=== PATIENT | female | born 1970 | race Caucasian/White ===

== ENCOUNTER 2020-11-17 13:16 | Emergency (ER) | payer SELFPAY ==
[2020-11-17 14:09] VITALS: BP 171/120; PULSE 90; RESP 16; TEMP 36.4; O2SAT 94; BMI 31.7
--- NOTE | 2020-11-17 15:01 | XR_ITS ---
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 Findings: There is a comminuted fracture of the distal phalanx of the right first toe. There is soft tissue swe lling present. The proximal phalanx is intact. XR/XR toe RT min 2V [id number] Impression: Comminuted fracture of the distal phalanx of the right first toe.
--- NOTE | 2020-11-17 15:02 | ED_ITS ---
HPI - Extremity Injury (Lower) General: Chief Complaint: Extremity Injury, Lower Stated Complaint: R big toe LAC Time Seen by Provider: 11/17/20 14:34 Source: patient Mode of arrival: ambulatory Limitations: no limitations History of Present Illness: HPI Narrative: Patient is a 49-year-old female who presents to ED today with complaint of a right great toe laceration that she s ustained after cutting it on a lawnmower blade. Patient states the lawnmower blade guard got hung up on something so she states she stupidly used her foot to kick it and states the blade cut through her shoe and cut her great toe. Last tetanus unknown. complaint: foot injury Onset (ago): hour(s) Injury: Right: toes Type of Injury: laceration Place: home Severity: moderate Relieving factors: nothing Exacerbating factors: nothing Context: direct blow (laceration) Associated symptoms: Reports no associated symptoms Other symptoms: none Review of Systems Musc: Reports: extremity pain (R great toe ) Skin/Breast: Reports: other (R great toe laceration) Neuro: Denies: numbness in extremities or sensory changes Physical Exam Const: COMMON NORMALS: no acute distress, patient oriented x3, no limitations, healthy appearing, alert and well nourished Extremity: GENERAL: Yes normal exam except as noted OTHER: laceration to lateral distal aspect of R great toe; laceration extends into nail bed/plate- nail fold is normal/intact; no bleeding currently Neuro: COMMON NORMALS: patient oriented x3, moves all extremities, no focal motor deficits and no sensory deficits noted SENSORIUM/ORIENTATION: Yes alert Skin: NARRATIVE SKIN EXAM: see extremity assessment for pertinent skin findings Procedures Laceration Laceration 1: Site: lower extremity (foot) Side (If applicable): right (great toe) Size (cm): 1.0 Description: irregular (distal nail bed) Depth: simple, single layer Local Anesthetic: lidocaine 2% Amount of anesthesia used (mL): 6.0 Pre-repair: wound explored and irrigated extensively Skin layer closed with: nylon Size (cm): 4-0 Number of sutures: 3 Technique: simple, interrupted Course Consultations: Consultation #1: Dr. England-recommends nail removal either full or partial depending on clinical exam and repairing nail bed; nothing surgical at this time; will follow up in office Vital Signs: Vital signs: Vital Signs Temperature 97.5 F L 11/17/20 14:09 Pulse Rate 86 11/17/20 15:19 Respiratory Rate 18 11/17/20 15:19 Blood Pressure 168/117 11/17/20 15:19 Pulse Oximetry 95 11/17/20 15:19 MDM - Extremity Injury (Lower) MDM Narrative: Medical decision making narrative: Foot was soaked in Betadine and wound was copiously irrigated. Nail had a large subungual hematoma and essentially had avulsed itself and was easily removed. Distal nailbed was lacerated and repaired as documented. Tetanus updated. She was given IM Ancef here and will be placed on Keflex. Will place in hard soled surgical shoe. She will follow up with orthopedics. Imaging Data^: XR R great toe: Radiologist's impression: [id number] 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 Findings: There is a comminuted fracture of the distal phalanx of the right first toe. There is soft tissue swelling present. The proximal phalanx is intact. XR/XR toe RT min 2V 74559 Impression: Comminuted fracture of the distal phalanx of the right first toe. Dictated By: Megan Isaac MD Signed By: Megan Isaac MD Signed Date/Time: 11/17/201518 DD/ 17 Discharge Plan Discharge Patient Disposition: Home Clinical Impression: Open fracture of great toe of right foot Qualifiers: Encounter type: initial encounter Phalanx: distal Fracture alignment: displaced Qualified Code(s): S92.421B - Displaced fracture of distal phalanx of right great toe, initial encounter for open fracture Condition: Stable Prescriptions: New cephalexin 500 mg capsule 500 mg PO Q6H 7 Days Qty: 28 RF: 0 hydrocodone-acetaminophen 5-325 mg tablet 1 tab PO Q6H PRN (Reason: pain) Qty: 20 RF: 0 Discharge Orders: Discharge ED (Routine); Ordered 11/17/20 Ordered By: Cindy Chase Patient Instructions: Opioid Safety Activity Restrictions/Additional Instructions: [address] [employer] is committed to fighting the nationwide opiate epidemic. We are providing ALL patients with information regarding opiate safety. If you received opiate pain medication during your stay or if you received a prescription for opiate pain medication-please review this handout. If not, you may disregard. Thank you. As discussed you may soak your foot in warm soapy water twice daily for 20 minutes. Keep nailbed covered with petroleum gauze given to you today and wrapped. Case management should contact you shortly to set you up with your orthopedic follow-up appointment. Continue wearing your hard soled shoe so your fracture may heal appropriately. Begin your antibiotics immediately. You need to return to the emergency department for uncontrollable pain, redness to the toe, foot, or redness streaking up your leg, purulent drainage, fevers, or any other concerns you may have. Coding Level of Care Code ED Linotyper for Bobby Fishman Exam Expanded Problem Focused
[2020-11-17 15:19] VITALS: BP 168/117; PULSE 86; RESP 18; O2SAT 95
[2020-11-17] MEDS: tetanus-diphtheria tox (adult) 0.5 mL SDV IM (15:32)
[2020-11-17] MEDS: ceFAZolin 1,000 mg SDV 1000 MG IM (15:46)
[2020-11-17] MEDS: lidocaine 2% INJ 20 mL INJECTION (15:46)
--- NOTE | 2020-11-18 10:29 | DCPLANNER ---
manager equipment had message to schedule a follow up appointment for patient with ortho for a great toe fracture. manager equipment called the ortho clinic, spoke with Ching, gave clinic patients information. manager equipment was told that patients information would be printed and reviewed. Clinic will call patient with appointment information.
--- NOTE | 2020-12-05 07:42 | DCPLANNER ---
Patient has a follow up appointment scheduled for Saturday, December 05, 2020 at 2:[address] England at ortho. Clinic will call patient with appointment information.
--- NOTE | 2020-12-22 07:55 | DCPLANNER ---
Patient had a follow up appointment scheduled for 12.05.20 with ortho - patient did attend appointment.
== END 2020-11-17 16:59 | disposition home or self-care (01) ==
PROVIDERS: Emergency Provider Physician Assistant; PCP Specialist
DX: S92.421B Displaced fracture of distal phalanx of right great toe, initial encounter for open fracture (principal); W31.89XA Contact with other specified machinery, initial encounter; Z23 Encounter for immunization
CPT/HCPCS: 11760; 73660; 90471; 90714; 96372; 99283; A6446; J0690

== ENCOUNTER → 2020-12-05 14:40 | Outpatient (BNVA) | payer SELFPAY | PROVIDERS: PCP Specialist; Referring Provider Physician Assistant; Visit Provider Specialist | DX: S92.421B Displaced fracture of distal phalanx of right great toe, initial encounter for open fracture (principal); W31.89XA Contact with other specified machinery, initial encounter | CPT/HCPCS: 73660 ==

== ENCOUNTER 2022-04-20 13:12 | Emergency (ER) | payer SELFPAY ==
[2022-04-20 13:38] VITALS: BP 157/112; PULSE 92; RESP 16; TEMP 36.8; O2SAT 95
[2022-04-20 14:23] LABS: Basophils % 0.3 %; Hematocrit 45.1 % (37.0-47.0); Hemoglobin 14.5 g/dL (11.5-15.3); Lymphocytes % 30.6 %; Mean Corpuscular HGB Conc 32.2 g/dL (30.0-36.0); Mean Corpuscular Hemoglobin 31.9 pg (28.0-34.0); Mean Corpuscular Volume 99.1 fl (81-99); Mean Platelet Volume 9.2 fL (7.4-10.4); Monocytes # 0.3 10^3/uL (0.2-0.9); Monocytes % 8.6 %; Neutrophils # 1.88 10^3/uL (1.8-7.7); Neutrophils % 59.9 %; Nucleated Red Blood Cells % 0 %; Platelet Count 131 10^3/cmm (130-400); Red Blood Count 4.55 10^6/uL (4.1-5.3); Red Cell Distribution Width 13.2 % (12.1-15.1); White Blood Count 3.1 10^3/uL (4.0-10.0)
[2022-04-20 14:38] LABS: Alanine Aminotransferase 160 U/L (0-33); Albumin Level 3.5 g/dL (3.5-5.2); Alkaline Phosphatase 47 U/L (35-105); Anion Gap 13.8 (5-19); Aspartate Amino Transferase 132 U/L (0-32); Blood Urea Nitrogen 9 mg/dL (6-20); Calcium 8.1 mg/dL (8.5-10.5); Carbon Dioxide 31 mmol/L (22-29); Chloride 100 mmol/L (98-107); Globulin 2.5 g/dL (1.3-4.6); Glomerular Filtration Rate 105.8 mL/min (90-130); Glucose 85 mg/dL (65-115); Osmolality Calculated 292 mOsm/kg (285-295); Sodium 142 mmol/L (136-145); Total Bilirubin 0.9 mg/dL (0.15-1.2)
[2022-04-20 14:39] LABS: Lactic Sepsis W/Reflex 1.3 mmol/L (0.5-2.2)
[2022-04-20 14:42] LABS: Potassium 2.8 mmol/L (3.5-5.1); Slide Review Slide Review Perform
--- NOTE | 2022-04-20 15:09 | ED_ITS ---
HPI - Nausea/Vomiting/Diarrhea General: Chief complaint: Nausea/Vomiting/Diarrhea Stated complaint: Nausea/Vomiting Time Seen by Provider: 04/20/22 15:09 Source: patient Mode of arrival: ambulatory History of Present Illness: 51-year-old female presents to the emergency room with complaint of nausea vomiting abdominal pain for the last week. She has epigastric discomfort radiating laterally. No dysuria urgency or frequency no hematuria. He is reporting small amounts of bright red blood and dark stools. Its been going on for couple of weeks she has not come in to be seen because she had a dog that she needed to take care of and just recently found someone to watch it. MD elicited complaint: nausea and vomiting Onset (ago): week(s) (2) Description of vomiting: bloody Description of diarrhea: black tarry Associated nausea: Yes Associated abdominal pain: No Location of pain: Epigastric Radiation: diffuse Pain consistency: constant Severity: mild Quality: cramping Exacerbating factors: none Relieving factors: none Associated symtoms: Reports nausea; Denies altered mental status, anxiety, bloating, change in vision, chest pain, cough, diaphoresis, decreased urine output, dizziness, dysuria, epistaxis, fatigue, fecal incontinence, fevers/chills, headache(s), anorexia, malaise, myalgias, numbness, palpitations, rash, short of breath, syncope, tenesmus, tinnitus or weakness Review of Systems Const: Denies: fever(s), chills, fatigue, malaise or diaphoresis Eyes: Denies: change in vision ENMT: Denies: tinnitus or epistaxis Card: Denies: chest pain, palpitations or syncope Resp: Denies: dyspnea, productive cough or non-productive cough GI: Reports: abdominal pain, nausea and vomiting; Denies: diarrhea, constipation, bloating or fecal incontinence : Denies: difficulty voiding, dysuria, urinary frequency or urinary urgency Skin/Breast: Denies: rash or pruritus Neuro: Denies: headache(s) or dizziness Psych: Denies: anxiety PFSH ED PFSH: Social History (Updated 04/20/22 @ 16:20 by Harpreet Garcia DO) Smoking and tobacco status: current every day smoker Alcohol intake: never Physical Exam Const: EXAM LIMITATIONS: no altered mental status 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 ORIENTATION/CONSCIOUSNESS: Yes awake, Yes oriented to person, Yes oriented to place and Yes oriented to time HENMT: COMMON NORMALS: normocephalic, atraumatic and hearing grossly normal bilaterally HEAD & SCALP: normocephalic and atraumatic Resp: COMMON NORMALS: normal respiratory effort, No retractions, No use of accessory muscles and clear to auscultation bilaterally AUSCULTATION: clear to auscultation bilaterally Cardio: COMMON NORMALS: regular rate, regular rhythm and No murmurs present (Cardio) RATE: regular rate RHYTHM: regular rhythm GI: COMMON NORMALS: Soft to palpation and No hepatosplenomegaly present AUSCULTATION: Yes normoactive bowel sounds PALPATION: Yes Soft to palpation, No Tenderness to palpation present (GI), No Guarding due to palpation present (GI) and Yes No hepatosplenomegaly present Extremity: COMMON NORMALS: normal to inspection, capillary refill normal, no clubbing, cyanosis or edema, no calf tenderness and no pedal edema Neuro: SENSORIUM/ORIENTATION: Yes oriented to person, Yes oriented to place and Yes oriented to time Skin: COMMON NORMALS: no rashes or lesions noted GENERAL SKIN EXAM: no rashes or lesions noted Course Vital Signs: Vital signs: Vital Signs Temperature 98.2 F 04/20/22 13:38 Pulse Rate 91 04/20/22 16:36 Respiratory Rate 18 04/20/22 16:36 Blood Pressure 138/101 04/20/22 16:36 Pulse Oximetry 93 04/20/22 16:36 Oxygen Delivery Me thod 04/20/22 15:21 MDM - Nausea/Vomiting/Diarrhea Medical Decision Making Labs and imaging reviewed. We will discharge patient home with ondansetron and started on pantoprazole. Follow-up with general surgery through case management for possible EGD. Medical Records I reviewed the patient's medical records. Lab Data I reviewed the patient's lab results. 04/20/22 14:07 04/20/22 14:07 Laboratory Results WBC 3.1 10^3/uL (4.0-10.0) L 04/20/22 14:07 RBC 4.55 10^6/uL (4.1-5.3) 04/20/22 14:07 Hgb 14.5 g/dL (11.5-15.3) 04/20/22 14:07 Hct 45.1 % (37.0-47.0) 04/20/22 14:07 MCV 99.1 fl (81-99) H 04/20/22 14:07 MCH 31.9 pg (28.0-34.0) 04/20/22 14:07 MCHC 32.2 g/dL (30.0-36.0) 04/20/22 14:07 RDW 13.2 % (12.1-15.1) 04/20/22 14:07 Plt Count 131 10^3/cmm (130-400) 04/20/22 14:07 MPV 9.2 fL (7.4-10.4) 04/20/22 14:07 Neut % (Auto) 59.9 % 04/20/22 14:07 Lymph % (Auto) 30.6 % 04/20/22 14:07 Crisp % (Auto) 8.6 % 04/20/22 14:07 Eos % (Auto) 0.0 % 04/20/22 14:07 Baso % (Auto) 0.3 % 04/20/22 14:07 Neut # (Auto) 1.88 10^3/uL (1.8-7.7) 04/20/22 14:07 Lymph # (Auto) 1.0 10^3/uL (0.8-4.8) 04/20/22 14:07 Crisp # (Auto) 0.3 10^3/uL (0.2-0.9) 04/20/22 14:07 Eos # (Auto) 0.0 10^3/uL (0.0-0.8) 04/20/22 14:07 Baso # (Auto) 0.0 10^3/uL (0.0-0.1) 04/20/22 14:07 Nucleated RBC % (auto) 0 % 04/20/22 14:07 Nucleated RBCs # 0.0 /100WBC 04/20/22 14:07 Sodium 142 mmol/L (136-145) 04/20/22 14:07 Potassium 2.8 mmol/L (3.5-5.1) L* 04/20/22 14:07 Chloride 100 mmol/L (98-107) 04/20/22 14:07 Carbon Dioxide 31 mmol/L (22-29) H 04/20/22 14:07 Anion Gap 13.8 (5-19) 04/20/22 14:07 BUN 9 mg/dL (6-20) 04/20/22 14:07 Creatinine 0.6 mg/dL (0.5-0.9) 04/20/22 14:07 GFR Calculation 105.8 mL/min (90-130) 04/20/22 14:07 Glucose 85 mg/dL (65-115) 04/20/22 14:07 Calculated Osmolality 292 mOsm/kg (285-295) 04/20/22 14:07 Lactic Acid 1.3 mmol/L (0.5-2.2) 04/20/22 14:07 Calcium 8.1 mg/dL (8.5-10.5) L 04/20/22 14:07 Total Bilirubin 0.9 mg/dL (0.15-1.2) 04/20/22 14:07 AST 132 U/L (0-32) H 04/20/22 14:07 ALT 160 U/L (0-33) H 04/20/22 14:07 Alkaline Phosphatase 47 U/L (35-105) 04/20/22 14:07 Total Protein 6.0 g/dL (6.6-8.7) L 04/20/22 14:07 Albumin 3.5 g/dL (3.5-5.2) 04/20/22 14:07 Globulin 2.5 g/dL (1.3-4.6) 04/20/22 14:07 Urine Color Yellow (Yellow) 04/20/22 15:58 Urine Appearance Hazy (CLEAR) A 04/20/22 15:58 Urine pH 7 (5-7) 04/20/22 15:58 Ur Specific Fenton 1.015 (1.005-1.030) 04/20/22 15:58 Urine Protein 3+ (Negative) H 04/20/22 15:58 Urine Glucose (UA) Norm (Normal) 04/20/22 15:58 Urine Ketones 1+ (Negative) H 04/20/22 15:58 Urine Blood 2+ (Negative) H 04/20/22 15:58 Urine Nitrate Negative (Negative) 04/20/22 15:58 Urine Bilirubin 1+ (Negative) H 04/20/22 15:58 Urine Urobilinogen 4+ mg/dL (Negative) H 04/20/22 15:58 Ur Leukocyte Esterase Negative (Negative) 04/20/22 15:58 Urine RBC 5-10 /hpf (0-2) H 04/20/22 15:58 Urine WBC 5-10 /hpf (0-5) H 04/20/22 15:58 Ur Squamous Epith Cells 25-40 /hpf (0-5) H 04/20/22 15:58 Amorphous Sediment Not Reportable 04/20/22 15:58 Urine Bacteria Trace /hpf (NONE) 04/20/22 15:58 Discharge Plan Discharge Patient Disposition: Home Clinical Impression: Nausea and vomiting Condition: Stable Prescriptions: New ondansetron HCl 4 mg tablet 4 mg PO Q6H PRN (Reason: nausea and vomiting) Qty: 20 0RF Protonix 40 mg tablet,delayed release (DR/EC) 40 mg PO BID 14 Days Qty: 28 0RF No Action hydrocodone-acetaminophen 5-325 mg tablet 1 tab PO Q6H PRN (Reason: pain) Qty: 20 0RF Discharge Orders: Discharge ED (Routine); Ordered 04/20/22 Ordered By: Harpreet Garcia Referrals: Sonam Vigil MD [Primary Care Provider] - Discharge Diet: Clear Liquid Discharge Activity: Increase activity as tolerated Patient Instructions: Opioid Safety, Pain Management Activity Restrictions/Additional Instructions: You are seen today with complaints of passing blood in the stool and vomiting blood. You reported that this is going on for several weeks your hemoglobin is stable and there is no sign of active bleeding in your stomach on your lab work. He be discharged home with ondansetron to use as needed and started on pantoprazole 1 twice daily. Case management make arrangements for you to follow-up with general surgery for possible EGD and colonoscopy. Coding Level of Care Code ED Small Business Consultant for Chg Fwd Exam Detailed
[2022-04-20] MEDS: potassium chloride oral liq 20 mEq/15 mL UDC 40 MEQ PO (15:14)
[2022-04-20 15:21] VITALS: BP 148/107; PULSE 90; RESP 18; O2SAT 93
[2022-04-20] MEDS: sodium chloride 0.9% 1,000 ML 999 ML IV (15:23)
[2022-04-20 15:30] VITALS: BP 136/104; PULSE 89; RESP 18; O2SAT 94
[2022-04-20 16:36] VITALS: BP 138/101; PULSE 91; RESP 18; O2SAT 93
[2022-04-20 16:41] LABS: Add Urine Microscopic? YES; Bilirubin Urine 1+ (Negative); Blood Urine 2+ (Negative); Glucose Urine UA Norm (Normal); Ketones Urine 1+ (Negative); Leukocyte Esterase Urine Negative (Negative); Nitrate Urine Negative (Negative); Protein Urine 3+ (Negative); Specific Gravity, Urine 1.015 (1.005-1.030); Urine Appearance Hazy (CLEAR); Urine Color Yellow (Yellow); Urobilinogen Urine 4+ mg/dL (Negative); pH Urine 7 (5-7)
[2022-04-20 16:48] LABS: Bacteria Urine TRACE /hpf; Squamous Epithelial Cell Urine 25-40 /hpf (0-5)
[2022-04-20 16:49] LABS: Add Urine Culture? No
--- NOTE | 2022-04-23 12:57 | DCPLANNER ---
Addendum entered by Rakel Cochran 05/04/22 15:36: senior assistant manager received the following message from the general surgery clinic regarding follow up appointment: Unable to reach patient for the 3rd time. we will mail patient a letter to gain contact and we will mail FA paperwork On 04/26/22 @ 11:07 Saba Nicholas Wrote To [employer] Front [facility] 04/26 On 04/24/22 @ 10:39 Saba Nicholas Wrote To [employer] Front [facility] 04/24 Original Note: senior assistant manager had message to schedule a follow up appointment for patient with general surgery. senior assistant manager sent patients information to the front office staff at general surgery. Patients information will be printed and reviewed. Clinic will call patient with appointment information.
== END 2022-04-20 16:42 | disposition home or self-care (01) ==
PROVIDERS: Physician Assistant; Emergency Provider Family Medicine; PCP Specialist
DX: R11.2 Nausea with vomiting, unspecified (principal); F17.210 Nicotine dependence, cigarettes, uncomplicated
CPT/HCPCS: 80053; 81001; 83605; 85025; 96360; 99284; J7030

== ENCOUNTER 2022-05-12 11:01 | Inpatient (IN) | payer SELFPAY ==
[2022-05-12] VITALS (10 sets, daily range): BP systolic 140–174; BP diastolic 98–123; PULSE 97–123; RESP 16–24; TEMP 36.5–36.7; O2SAT 94–97; BMI 30.9
--- NOTE | 2022-05-12 11:33 | ED_ITS ---
HPI - Nausea/Vomiting/Diarrhea General: Chief complaint: Nausea/Vomiting/Diarrhea Stated complaint: bruising/bleeding issues Time Seen by Provider: 05/12/22 11:33 History of Present Illness: Ms. Molina is a 51-year-old lady presenting to the emergency department due to continued abdominal symptoms. Onset of symptoms was approximately 2 and half weeks ago without known specific provoking factor. She notes blood in her vomit, occasional coughing up blood clots, and dark stools with occasional blood. Associated abdominal pain and generalized malaise. Was seen in the emergency department and started with antiemetics and PPI however has continued to worsen. Notes generalized abdominal bloating and atraumatic bruising of the breast. Intensity symptoms is moderate to severe. Course has worsened. Denies alcohol abuse or known liver cirrhosis, also denies frequent acetaminophen use. No other specific changes in health, exacerbating, or alleviating factors identified. Onset (ago): week(s) Description of vomiting: blood-streaked Associated nausea: Yes Associated abdominal pain: Yes Location of pain: Diffuse Pain consistency: constant Severity: moderate Quality: aching and other Associated symtoms: Reports chest pain, malaise, nausea, weakness and other Review of Systems General: Reports: 10 or more systems reviewed and unremarkable except in HPI and below Const: Reports: malaise Card: Reports: chest pain GI: Reports: nausea [facility] ED PFSH: Medical History Acute exacerbation of CHF (congestive heart failure) EF 23%, grade 2 diastolic dysfunction, moderate MR, severe TR, moderate NE, b iatrial enlargement, moderate pulmonary hypertension Moderate mitral valve regurgitation Moderate pulmonary hypertension Moderate pulmonary valve regurgitation Open fracture of great toe of right foot Right ventricular failure Severe tricuspid valve regurgitation Social History Smoking and tobacco status: current every day smoker Alcohol intake: never Physical Exam Const: COMMON NORMALS: alert GENERAL APPEARANCE: cooperative and well developed HENMT: COMMON NORMALS: normocephalic and atraumatic HEAD & SCALP: normocephalic and atraumatic Eye: COMMON NORMALS: conjunctivae normal CONJUNCTIVA: Yes conjunctivae normal SCLERA: sclerae normal Neck/C-Spine: COMMON NORMALS: supple GENERAL: Yes trachea midline Chest: OTHER: Small area of ecchymosis on the right breast Resp: COMMON NORMALS: normal respiratory effort and clear to auscultation bilaterally EFFORT & INSPECTION: Yes able to speak in complete sentences AUSCULTATION: clear to auscultation bilaterally Cardio: COMMON NORMALS: regular rate RATE: regular rate GI: COMMON NORMALS: Soft to palpation PALPATION: Yes Soft to palpation, Yes Tenderness to palpation present (GI), No Guarding due to palpation present (GI) and No Rigid due to palpation Extremity: GENERAL: Yes normal exam except as noted and Yes edema (2+) Neuro: COMMON NORMALS: moves all extremities SENSORIUM/ORIENTATION: Yes alert and No Orientation impaired Psych: COMMON NORMALS: mental status grossly normal and Normal thought process present THOUGHT PROCESS: Normal thought process present Course Vital Signs: Vital signs: Vital Signs Temperature 98.4 F 05/15/22 19:47 Pulse Rate 74 05/16/22 05:33 Respiratory Rate 16 05/16/22 03:33 Blood Pressure 140/84 05/16/22 03:33 Pulse Oximetry 95 05/16/22 03:33 Oxygen Delivery Me thod 05/15/22 19:47 Oxygen Flow Rate 2 05/15/22 19:47 MDM - Nausea/Vomiting/Diarrhea Medical Decision Making 51-year-old lady presenting to the emergency department with generalized illness including concern for possible GI bleed and bruising. Exam as above. EKG notable for sinus rhythm with first-degree AV block and interventricular conduction delay, no STEMI. Labs notable for normal hemoglobin, no leukocytosis. INR is mildly elevated. Metabolic panel with mild hypokalemia. 2-hour delta troponin is negative. BNP is elevated. Urinalysis not concerning for urinary tract infection given squamous epithelial contamination. D-dimer elevated (obtained as patient cannot be ruled out by PERC criteria) CT a of the chest is limited however no large pulmonary embolism, there is significant evidence of right-sided heart failure which also has findings in the abdomen. During ED course patient given analgesia, potassium replenishment, Lasix, pantoprazole, small fluid bolus given tachycardia. Only modest improvement in symptoms. Most likely etiology of patient's symptoms heart failure exacerbation with evidence of volume overload and likely congestive abdominal symptoms secondary to venous reflux. The results of ED evaluation were discussed with the patient including plan for admission due to requirement for level of care not available if discharged to prevent significant worsening/deterioration. Patient agreeable with plan. Discussed with hospitalist service who was agreeable to admit patient. Medical Records I reviewed the patient's medical records. Lab Data I reviewed the patient's lab results. 05/16/22 02:18 05/16/22 02:18 Radiology Impressions Chest/Abdomen/Pelvis CT 05/12/22 12:46 IMPRESSION: 1. Technically limited but negative CT angiogram of the chest. No evidence of acute pulmonary embolism to major branches of the pulmonary vascular tree. 2. Marked cardiomegaly with evidence of right-sided cardiac decompensation. 3. Scattered minor atelectatic changes with additional findings suggestive of reactive airway disease/air trapping IMPRESSION: 1. Mild ascites, generalized anasarca and mild retroperitoneal edema likely secondary to CHF/volume overload. 2. Mild gallbladder wall thickening/edema also likely to similar systemic factors. 3. Fatty infiltration of liver. Venous Duplex 05/12/22 17:37 IMPRESSION: No evidence of deep vein thrombosis. Laboratory Results WBC 5.7 10^3/uL (4.0-10.0) 05/13/22 04:58 RBC 3.99 10^6/uL (4.1-5.3) L 05/13/22 04:58 Hgb 12.7 g/dL (11.5-15.3) 05/13/22 04:58 Hct 41.2 % (37.0-47.0) 05/13/22 04:58 MCV 103.3 fl (81-99) H 05/13/22 04:58 MCH 31.8 pg (28.0-34.0) 05/13/22 04:58 MCHC 30.8 g/dL (30.0-36.0) 05/13/22 04:58 RDW 14.6 % (12.1-15.1) 05/13/22 04:58 Plt Count 222 10^3/cmm (130-400) 05/13/22 04:58 MPV 8.7 fL (7.4-10.4) 05/13/22 04:58 Neut % (Auto) 67.7 % 05/13/22 04:58 Lymph % (Auto) 20.7 % 05/13/22 04:58 [place] % (Auto) 10.0 % 05/13/22 04:58 Eos % (Auto) 0.5 % 05/13/22 04:58 Baso % (Auto) 0.9 % 05/13/22 04:58 Neut # (Auto) 3.87 10^3/uL (1.8-7.7) 05/13/22 04:58 Lymph # (Auto) 1.2 10^3/uL (0.8-4.8) 05/13/22 04:58 [place] # (Auto) 0.6 10^3/uL (0.2-0.9) 05/13/22 04:58 Eos # (Auto) 0.0 10^3/uL (0.0-0.8) 05/13/22 04:58 Baso # (Auto) 0.1 10^3/uL (0.0-0.1) 05/13/22 04:58 Nucleated RBC % (auto) 0 % 05/13/22 04:58 Nucleated RBCs # 0.0 /100WBC 05/13/22 04:58 PT 17.00 SECONDS (12.1-14.9) H 05/12/22 11:45 INR 1.35 (0.8-1.2) H 05/12/22 11:45 APTT 24.8 SECONDS (23.9-36.7) 05/12/22 11:45 D-Dimer 5.18 ug/mIFEU (0-0.59) H 05/12/22 11:45 Sodium 142 mmol/L (136-145) 05/14/22 04:35 Potassium 4.2 mmol/L (3.5-5.1) 05/14/22 04:35 Chloride 107 mmol/L (98-107) 05/14/22 04:35 Carbon Dioxide 24 mmol/L (22-29) 05/14/22 04:35 Anion Gap 15.2 (5-19) 05/14/22 04:35 BUN 25 mg/dL (6-20) H 05/14/22 04:35 Creatinine 1.1 mg/dL (0.5-0.9) H 05/14/22 04:35 GFR Calculation 52.6 mL/min (90-130) L 05/14/22 04:35 Glucose 105 mg/dL (65-115) 05/14/22 04:35 Estimat Average Glucose 114 05/13/22 04:58 Hemoglobin A1c 5.6 % (4.0-6.0) 05/13/22 04:58 Calculated Osmolality 299 mOsm/kg (285-295) H 05/14/22 04:35 Calcium 8.7 mg/dL (8.5-10.5) 05/14/22 04:35 Phosphorus 4.2 mg/dL (2.5-4.5) 05/13/22 04:58 Magnesium 1.8 mg/dL (1.7-2.3) 05/13/22 04:58 Iron 66 ug/dL (37-145) 05/12/22 18:40 TIBC 309 mcg/dl 05/12/22 18:40 % Saturation 21.3 % (20-50) 05/12/22 18:40 Unsat Iron Binding 243 ug/dL (112-347) 05/12/22 18:40 Total Bilirubin 0.7 mg/dL (0.15-1.2) 05/14/22 04:35 AST 26 U/L (0-32) 05/14/22 04:35 ALT 21 U/L (0-33) 05/14/22 04:35 Alkaline Phosphatase 49 U/L (35-105) 05/14/22 04:35 Troponin T Baseline 50 ng/L (0-10) H 05/12/22 11:45 Troponin T 120 Minute 51.95 ng/L (0-10) H 05/12/22 14:55 Delta Troponin T 1.95 ABS# (0-10) 05/12/22 14:55 Troponin T Hi Sens 6Hr 57.51 ng/L (0-10) H 05/12/22 18:40 Troponin T Hi Sens 6Hr Delta 7.51 ng/L (0-12) 05/12/22 18:40 NT-Pro-B Natriuret Pep 20477 pg/mL (0-125) H 05/12/22 11:45 Total Protein 5.9 g/dL (6.6-8.7) L 05/14/22 04:35 Albumin 3.5 g/dL (3.5-5.2) 05/14/22 04:35 Globulin 2.4 g/dL (1.3-4.6) 05/14/22 04:35 Triglycerides 100 mg/dL (0-150) 05/13/22 04:58 Cholesterol 162 mg/dL (0-200) 05/13/22 04:58 LDL Cholesterol, Calc 102 mg/dL (50-129) 05/13/22 04:58 Total VLDL Cholesterol 20 mg/dL (0-30) 05/13/22 04:58 HDL Cholesterol 40 mg/dL (60-100) L 05/13/22 04:58 Cholesterol/HDL Ratio 4.05 mg/dL (0.0-4.40) 05/13/22 04:58 Lipase 38 U/L (13-60) 05/12/22 11:45 Vitamin B12 724 pg/mL (232-1245) 05/12/22 18:40 Folate 19.6 ng/mL (4.8-37.3) 05/12/22 18:40 Procalcitonin 0.04 ng/mL (0-0.5) 05/12/22 18:40 TSH 2.29 uIU/mL (0.27-4.20) 05/12/22 11:45 Urine Color Dark yellow (Yellow) 05/12/22 11:50 Urine Appearance Clear (CLEAR) 05/12/22 11:50 Urine pH 5 (5-7) 05/12/22 11:50 Ur Specific [place] 1.020 (1.005-1.030) 05/12/22 11:50 Urine Protein 3+ (Negative) H 05/12/22 11:50 Urine Glucose (UA) Norm (Normal) 05/12/22 11:50 Urine Ketones 1+ (Negative) H 05/12/22 11:50 Urine Blood 2+ (Negative) H 05/12/22 11:50 Urine Nitrate Negative (Negative) 05/12/22 11:50 Urine Bilirubin 1+ (Negative) H 05/12/22 11:50 Urine Urobilinogen 8 mg/dL (Negative) H 05/12/22 11:50 Ur Leukocyte Esterase Negative (Negative) 05/12/22 11:50 Urine RBC 0-4 /hpf (0-2) H 05/12/22 11:50 Urine WBC Rare /hpf (0-5) 05/12/22 11:50 Ur Squamous Epith Cells 10-15 /hpf (0-5) H 05/12/22 11:50 Amorphous Sediment Not Reportable 05/12/22 11:50 Urine Bacteria 1+ /hpf (NONE) H 05/12/22 11:50 Urine Mucus Trace /hpf 05/12/22 11:50 Salicylates < 0.3 mg/dL (3-10) L 05/12/22 11:45 Urine Opiates Screen Negative ng/mL (Negative) 05/12/22 11:50 Acetaminophen < 5.0 ug/mL (10-30) L 05/12/22 11:45 Ur Barbiturates Screen Negative ng/mL (Negative) 05/12/22 11:50 Ur Phencyclidine Scrn Negative ng/mL (Negative) 05/12/22 11:50 Ur Amphetamines Screen Negative ng/mL (Negative) 05/12/22 11:50 U Benzodiazepines Scrn Negative ng/mL (Negative) 05/12/22 11:50 Urine Cocaine Screen Negative ng/mL (Negative) 05/12/22 11:50 U Marijuana (THC) Screen Negative ng/mL (Negative) 05/12/22 11:50 Ethyl Alcohol < 10 mg/dL (0-10) 05/12/22 11:45 Discharge Plan Discharge Patient Disposition: Admitted As Inpatient Admit Provider: Alber Floyd Clinical Impression: Acute exacerbation of CHF (congestive heart failure) Condition: Stable Coding Level of Care Code ED Deputy Attorney General for Chg Fwd Exam Comprehensive
[2022-05-12 11:53] LABS: Basophils % 0.7 %; Eosinophils % 0.7 %; Hematocrit 43.2 % (37.0-47.0); Hemoglobin 13.7 g/dL (11.5-15.3); Lymphocytes # 1.1 10^3/uL (0.8-4.8); Lymphocytes % 18.5 %; Mean Corpuscular HGB Conc 31.7 g/dL (30.0-36.0); Mean Corpuscular Hemoglobin 32.2 pg (28.0-34.0); Mean Corpuscular Volume 101.6 fl (81-99); Mean Platelet Volume 8.4 fL (7.4-10.4); Monocytes # 0.5 10^3/uL (0.2-0.9); Monocytes % 8.5 %; Neutrophils # 4.39 10^3/uL (1.8-7.7); Neutrophils % 71.3 %; Nucleated Red Blood Cells % 0 %; Platelet Count 218 10^3/cmm (130-400); Red Blood Count 4.25 10^6/uL (4.1-5.3); Red Cell Distribution Width 14.3 % (12.1-15.1); White Blood Count 6.2 10^3/uL (4.0-10.0)
[2022-05-12] MEDS: sodium chloride 0.9% 500 ML 999 ML IV (12:04)
[2022-05-12] MEDS: pantoprazole 40 mg SDV 80 MG IVP (12:22)
[2022-05-12 12:28] LABS: Urine Appearance Clear (CLEAR); Urine Color Dark Yellow (Yellow); pH Urine 5 (5-7)
[2022-05-12 12:29] LABS: Add Urine Culture? No; Add Urine Microscopic? YES; Bacteria Urine 1+ /hpf; Bilirubin Urine 1+ (Negative); Blood Urine 2+ (Negative); Glucose Urine UA Norm (Normal); Ketones Urine 1+ (Negative); Leukocyte Esterase Urine Negative (Negative); Mucus Urine TRACE /hpf; Nitrate Urine Negative (Negative); Protein Urine 3+ (Negative); RBC Urine 0-4 /hpf (0-2); Urobilinogen Urine 8 mg/dL (Negative); WBC Urine RARE /hpf (0-5)
[2022-05-12 12:32] LABS: INR 1.35 (0.8-1.2)
[2022-05-12 12:33] LABS: Partial Thromboplastin Time 24.8 SECONDS (23.9-36.7)
[2022-05-12 12:41] LABS: D Dimer 5.18 ug/mIFEU (0-0.59)
--- NOTE | 2022-05-12 12:46 | CTR_ITS ---
PROCEDURE INFORMATION: Exam: CTA Chest Without And With Contrast Exam date and time: 05/12/2022 12:58 PM Age: 51 years old Clinical indication: Abdominal pain; Chest pressure; Additional info: Abdominal pain, swelling, possible hemoptysis/hematemesis TECHNIQUE: Imaging protocol: Computed tomographic angiography of the chest without and with contrast. 3D rendering (Not supervised by radiologist): MIP and/or 3D reconstructed images were created by the technologist. Radiation optimization: All CT scans at this facility use at least one of these dose optimization techniques: automated exposure control; mA and/or kV adjustment per patient size (includes targeted exams where dose is matched to clinical indication); or iterative reconstruction. Contrast material: OMNIPAQUE 350; Contrast volume: 100 ml; Contrast route: INTRAVENOUS (IV); COMPARISON: No relevant prior studies available. RADIATION DOSE METRICS: Total DLP (mGy-cm): 1410.88 FINDINGS: Pulmonary arteries: Main pulmonary trunk, right and left pulmonary arteries and interlobar branches are adequately opacified without filling defects or other evidence of acute pulmonary embolism. However 1st and 2nd order segmental branches cannot be adequately assessed due to technical limitations of the study. Aorta: Unremarkable. No aortic aneurysm. No aortic dissection. Trachea: There are some scattered ground-glass opacities intermixed with relative radiolucency that may be secondary to air trapping and reactive airway disease. There are scattered minor atelectatic changes. Lungs: See Trachea finding. Pleural spaces: Unremarkable. No pneumothorax. No pleural effusion. Heart: Heart is significantly enlarged. There is reflux of contrast into the IVC and hepatic veins indicating right-sided cardiac decompensation. Lymph nodes: Unremarkable. No enlarged lymph nodes. Bones/joints: Unremarkable. No acute fracture. Soft tissues: Unremarkable. Other findings: In the PROCEDURE INFORMATION: Exam: CT Abdomen And Pelvis With Contrast Exam date and time: 05/12/2022 12:58 PM Age: 51 years old Clinical indication: Abdominal pain; Chest pressure; Additional info: Abdominal pain, swelling, possible hemoptysis/hematemesis TECHNIQUE: Imaging protocol: Computed tomography of the abdomen and pelvis with contrast. Radiation optimization: All CT scans at this facility use at least one of these dose optimization techniques: automated exposure control; mA and/or kV adjustment per patient size (includes targeted exams where dose is matched to clinical indication); or iterative reconstruction. Contrast material: OMNIPAQUE 350; Contrast volume: 100 ml; Contrast route: INTRAVENOUS (IV); COMPARISON: No relevant prior studies available. RADIATION DOSE METRICS: Total DLP (mGy-cm): 1410.88 FINDINGS: Lungs: Lung bases are clear. Liver: Diffuse fatty infiltration throughout the liver. No masses or enlargement detected. Gallbladder and bile ducts: There is mild thickening/edema of the gallbladder wall that may also be secondary to systemic factors or liver disease. Pancreas: Unremarkable. Main pancreatic duct is not significantly dilated. Spleen: Normal. No splenomegaly. Adrenal glands: Normal. No mass. Kidneys and ureters: Normal. No hydronephrosis. Stomach and bowel: Unremarkable. No obstruction. No mucosal thickening. Appendix: No evidence of appendicitis. Intraperitoneal space: Unremarkable. No free air. No significant fluid collection. Vasculature: Unremarkable. No abdominal aortic aneurysm. Lymph nodes: Unremarkable. No enlarged lymph nodes. Urinary bladder: Unremarkable as visualized. Reproductive: Unremarkable as visualized. Bones/joints: There is a mild amount of ascites joint which is present within the pelvis along with mild retroperitoneal edema and generalized anasarca in the soft tissues that may be secondary to CHF/volume overload. Soft tissues: See Bones/joints finding. CT/CT angio chest w abd pel w con IMPRESSION: 1. Technically limited but negative CT angiogram of the chest. No evidence of acute pulmonary embolism to major branches of the pulmonary vascular tree. 2. Marked cardiomegaly with evidence of right-sided cardiac decompensation. 3. Scattered minor atelectatic changes with additional findings suggestive of reactive airway disease/air trapping IMPRESSION: 1. Mild ascites, generalized anasarca and mild retroperitoneal edema likely secondary to CHF/volume overload. 2. Mild gallbladder wall thickening/edema also likely to similar systemic factors. 3. Fatty infiltration of liver.
[2022-05-12 12:55] LABS: Alanine Aminotransferase 23 U/L (0-33); Albumin Level 3.9 g/dL (3.5-5.2); Alkaline Phosphatase 49 U/L (35-105); Anion Gap 13.3 (5-19); Aspartate Amino Transferase 25 U/L (0-32); Blood Urea Nitrogen 20 mg/dL (6-20); Calcium 9.1 mg/dL (8.5-10.5); Carbon Dioxide 26 mmol/L (22-29); Chloride 106 mmol/L (98-107); Creatinine Clr Calc Pharmacy 77.3014; Globulin 2.5 g/dL (1.3-4.6); Glomerular Filtration Rate 66.3 mL/min (90-130); Glucose 98 mg/dL (65-115); Lipase 38 U/L (13-60); NT Pro B Type Natriuretic Pept 14605 pg/mL (0-125); Osmolality Calculated 297 mOsm/kg (285-295); Potassium 3.3 mmol/L (3.5-5.1); Sodium 142 mmol/L (136-145); Total Bilirubin 0.9 mg/dL (0.15-1.2); Total Protein 6.4 g/dL (6.6-8.7)
[2022-05-12] MEDS: iohexol 350 mg/mL 500 mL Btl (per mL) IV (13:03)
[2022-05-12] MEDS: morphine 4 mg/mL SDV 1 mL IVP (13:50)
--- NOTE | 2022-05-12 13:58 | ECG_ITS ---
[facility] Test Date: 2022-05-12 Pat Name: Madina Molina Department: Room: Gender: Female Collateral Clerk: : 1970 Requested By: Colby Reynolds Order Number: [id number] Reading MD: Paresh Thomas Measurements Intervals [place] Rate: 123 P: -9 GA: 236 QRS: -42 QRSD: 156 T: 96 QT: 376 QTc: 539 Interpretive Statements Normal Sinus Rhythm with occassional PVC LEFT AXIS DEVIATION [QRS AXIS < -30] INTRAVENTRICULAR CONDUCTION DELAY [130+ ms QRS DURATION] No previous ECG available for comparison Electronically Signed On 05-13-2022 15:26:00 DRUG SAFETY ASSISTANT by Paresh Thomas [id number]
[2022-05-12] MEDS: potassium chloride ER 20 mEq Tablet 40 MEQ PO ×3 (14:36→19:50)
[2022-05-12] MEDS: FUROsemide 10 mg/mL SDV 4mL 40 MG IVP (14:41)
[2022-05-12 14:57] LABS: Troponin(5th) Baseline 50 ng/L (0-10)
[2022-05-12 15:35] LABS: Troponin 5 2HR 51.95 ng/L (0-10)
[2022-05-12 15:38] LABS: Troponin 5 2HR Delta 1.95 ABS# (0-10)
--- NOTE | 2022-05-12 15:43 | ECG_ITS ---
[facility] Test Date: 2022-05-12 Pat Name: Madina Molina Department: Room: 111 Gender: Female Table Games Supervisor: : 1970 Requested By: Colby Reynolds Order Number: [id number] Reading MD: Paresh Thomas Measurements Intervals [place] Rate: 99 P: 66 [place]: 140 QRS: -40 QRSD: 156 T: 110 QT: 406 QTc: 521 Interpretive Statements SINUS RHYTHM POSSIBLE LEFT ATRIAL ENLARGEMENT [-0.1mV P-WAVE IN V1/V2] LEFT AXIS DEVIATION [QRS AXIS < -30] INTRAVENTRICULAR CONDUCTION DELAY [130+ ms QRS DURATION] Compared to ECG 05/12/2022 13:58:40 No significant changes Electronically Signed On 05-13-2022 15:45:04 INSTRUMENTS SALES REPRESENTATIVE by Paresh Thomas [id number]
--- NOTE | 2022-05-12 17:30 | P.HP_ITS ---
Providers/Chief Complaint Admitting Physician: Alber Floyd MD Chief Complaint: bruising/bleeding issues History of Present Illness Madina Molina is a 51 year old female with past medical history of joint pains on Protonix and Aleve as an outpatient. She presented to the ER today because of possible history of bleeding through vomiting and blood on and off mixed in bowel movements for last 1 month. Patient denies any dizziness, chest pain. States she has a strong family history of heart failure. She thinks she also has a heart failure as she has all the symptoms including swelling of her lower limbs. States swelling of the lower limbs have been getting worse for last couple of months. Review of Systems General: Reports: 10 or more systems reviewed and unremarkable except in HPI and below Const: Denies: fever(s), chills, body aches, change in appetite, change in weight, malaise, night sweats, diaphoresis, change in sleep pattern, daytime sleepiness or snoring Eyes: Denies: change in vision, blurry vision, photophobia, eye discomfort or eye discharge ENMT: Denies: throat pain, enlarged tonsils, hoarseness, mouth pain, oral sores, dry mouth, tinnitus, nasal congestion or post nasal drip Card: Denies: chest pain, palpitations, irregular heart rhythm, edema, swelling of feet/ankles, lightheadedness, syncope, pre-syncope, dyspnea on exertion, orthopnea, leg pain with exertion or acrocyanosis Resp: Denies: dyspnea, productive cough, non-productive cough, wheezing, stridor, pain on inspiration, change in phlegm color, hemoptysis or chest congestion GI: Denies: abdominal pain, nausea, vomiting, hematemesis, coffee ground emesis, dysphagia, heartburn, diarrhea, constipation, bloating, GI cramping, change in bowel habits, pain on defecation, hematochezia or melena : Denies: flank pain, dysuria, urinary frequency, urinary urgency, urinary hesitancy, nocturia or hematuria Musc: Denies: neck pain, back pain, extremity pain, joint pain, joint swelling, joint redness, joint stiffness or limited range of motion Neuro: Denies: headache(s), numbness in extremities, weakness in extremities, sensory changes, lack of coordination, difficulty walking, frequent falls, dizziness, vertigo, confusion, Slurred speech present, difficulty communicating thoughts or seizure-like activity Psych: Denies: anxiety, depression, mood swings, panic attacks, hopelessness or irritability Endo: Denies: polyuria, polydipsia, tired all the time, cold intolerance, excessive sweating, flushing or heat intolerance Brett/Lymph: Denies: easy bruising or easy bleeding All/Imm: Denies: tongue swelling, facial swelling or acute wheezing Medications/Allergies Home Medications Medication Instructions Recorded Confirmed Last Taken Type hydrocodone 5 mg-acetaminophen 325 1 tab PO Q6H PRN pain #20 tabs 11/17/20 12/05/20 Unknown Rx mg tablet ondansetron HCl 4 mg tablet 4 mg PO Q6H PRN nausea and 04/20/22 05/12/22 Unknown Rx vomiting #20 tabs pantoprazole 40 mg tablet,delayed 40 mg PO BID 05/12/22 05/12/22 Unknown History release (Protonix) potassium 99 mg PO DAILY 05/12/22 05/12/22 Unknown History Allergies Allergy/AdvReac Type Severity Reaction Status Date / Time No Known Allergies Allergy Verified 04/20/22 13:43 PFSH Acute PFSH: Medical History (Updated 05/12/22 @ 17:33 by Alber Floyd MD) Open fracture of great toe of right foot Social History Smoking and tobacco status: current every day smoker Alcohol intake: never Vitals/I&O/Wt Last Vital Signs Temp 97.7 F 05/12/22 11:18 Pulse 102 H 05/12/22 16:43 Resp 20 H 05/12/22 16:43 BP 140/103 05/12/22 16:43 Pulse Ox 97 05/12/22 15:36 O2 Del Method 05/12/22 14:38 05/12/22 05/12/22 05/12/22 06:59 14:59 22:59 Intake Total 500 / 500 Output Total 400 / 400 Balance 500 / 500 -400 / 100 Weight last 48 hrs Weight 81.647 kg Physical Exam Narrative: General: No acute distress, AO x3 HEENT: PERRLA, pupils bilaterally equal and reactive Chest: Normal vesicular breath sounds, no added sounds, equal good air entry bilaterally CVS: S1-S2 regular, pansystolic murmur at apex, tachycardia, no gallops, no rubs Abdomen: Soft, nontender, no organomegaly, bowel sounds present Neuro: No focal deficits, no facial deformity, AO x3, power 5/5 in all limbs Data 05/12/22 11:45 05/12/22 11:45 A&P Assessment and plan (1) Bleeding per rectum: Hemoglobin seems to be stable. Patient gives history of bleeding per rectum going on for last 1 month. Takes Aleve 4 to 5 tablets a day at baseline. Continue with Protonix twice daily. Monitor hemoglobin daily. Stool for occult blood. (2) Nausea and vomiting: Most likely secondary to gastritis from chronic NSAIDs. Protonix as above, Zofran as needed. Cardiac diet. (3) Swelling of lower limb: With strong family history of congestive heart failure. Patient herself does not carry history of congestive heart failure though she thinks she has all the symptoms of 1. CT abdomen chest pelvis done in the ER consistent with cardiomegaly with right-s ided strain. No pulmonary embolism. Check lower limb Dopplers. (4) Cardiomegaly: Check echocardiogram. Received Lasix in the ER. Fluid restriction up to 1500 cc. Strict input output charting, daily weights. Goal blood pressure less than 140/90 mmHg. Start patient on metoprolol tartrate 25 mg twice daily. Plan Check iron panel, vitamin B12, folate, TSH, A1c, lipid panel, urine drug screen, alcohol, salicylate level. Full code. Cardiac diet. Protonix for for PUD. Heparin 5000 every 12 Attestations Medical Necessity Statement*: Admission under observation for further evaluation of possible GI bleed, cardiomegaly, lower limb swelling mild congestive heart failure is worked up Time Spent in Patient Care: Greater than 35 minutes Coding Level of Care Code Acute Business Broker for Chg Fwd Diagnoses Bleeding per rectum K62.5 Nausea and vomiting R11.2 Swelling of lower limb M79.89 Cardiomegaly I51.7
--- NOTE | 2022-05-12 17:37 | USR_ITS ---
PROCEDURE INFORMATION: Exam: US Duplex Lower Extremity Veins, Bilateral Exam date and time: 05/12/2022 8:14 PM Age: 51 years old Clinical indication: Edema, localized; Lower extremity, bilateral; Additional info: R/O dvt TECHNIQUE: Imaging protocol: Real-time Duplex ultrasound of the bilateral extremities with 2-D harkins scale, color Doppler flow and spectral waveform analysis with image documentation. Complete exam focused on the bilateral lower extremity veins. COMPARISON: CT angio chest w abd pel w con 05/12/2022 12:58 PM FINDINGS: Right deep veins: Unremarkable. The common femoral, femoral, proximal profunda femoral and popliteal veins are patent without thrombus. Normal Doppler waveforms. Normal compressibility and/or augmentation response. Right superficial veins: Saphenofemoral junction is patent without thrombus. Left deep veins: Unremarkable. The common femoral, femoral, proximal profunda femoral and popliteal veins are patent without thrombus. Normal Doppler waveforms. Normal compressibility and/or augmentation response. Left superficial veins: Saphenofemoral junction is patent without thrombus. Soft tissues: Unremarkable. US/[id number] IMPRESSION: No evidence of deep vein thrombosis.
[2022-05-12] MEDS: heparin 5,000 unit/mL INJ 1 mL 5000 UNIT SUBCUT (18:04)
[2022-05-12] MEDS: famotidine 20 mg/2 mL INJ IVP (18:05)
[2022-05-12] MEDS: pantoprazole 40 mg SDV IVP (18:05)
[2022-05-12] MEDS: ferrous gluconate 324 mg Tablet PO (18:05)
[2022-05-12 18:12] LABS: Thyroid Stimulating Hormone 2.29 uIU/mL (0.27-4.20)
[2022-05-12 18:15] LABS: Acetaminophen < 5.0 ug/mL (10-30); Alcohol Level < 10 mg/dL (0-10); Salicylate < 0.3 mg/dL (3-10)
[2022-05-12 19:16] LABS: Troponin 5 6HR 57.51 ng/L (0-10)
[2022-05-12 19:17] LABS: Troponin 5 6HR Delta 7.51 ng/L (0-12)
[2022-05-12 19:33] LABS: Folate Level 19.6 ng/mL (4.8-37.3)
[2022-05-12] MEDS: morphine 4 mg/mL SDV 1 mL 2 MG IVP (19:51)
[2022-05-12 23:10] LABS: Amphetamines Screen Urine Negative (Negative); Barbiturates Screen Urine Negative (Negative); Benzodiazepines Screen Urine Negative (Negative); Cocaine Screen Urine Negative (Negative); Opiate Screen Urine Negative (Negative); PCP Screen Urine Negative (Negative); THC Screen Urine Negative (Negative)
[2022-05-12 23:12] LABS: Iron 66 ug/dL (37-145); Percent Saturation 21.3 % (20-50); Total Iron Binding Capacity 309 mcg/dl; Unsaturated Iron Binding 243 ug/dL (112-347)
[2022-05-12 23:27] LABS: Procalcitonin 0.04 ng/mL (0-0.5); Vitamin B12 724 pg/mL (232-1245)
[2022-05-13] VITALS (11 sets, daily range): BP systolic 114–152; BP diastolic 64–113; PULSE 76–96; RESP 16–26; TEMP 36.4–36.9; O2SAT 90–98
[2022-05-13] MEDS: heparin 5,000 unit/mL INJ 1 mL 5000 UNIT SUBCUT ×3 (01:58→17:17)
[2022-05-13] MEDS: morphine 4 mg/mL SDV 1 mL 2 MG IVP (04:52)
[2022-05-13] MEDS: famotidine 20 mg/2 mL INJ IVP (04:55)
[2022-05-13] MEDS: pantoprazole 40 mg SDV IVP ×2 (04:59→17:17)
[2022-05-13 05:12] LABS: Basophils # 0.1 10^3/uL (0.0-0.1); Basophils % 0.9 %; Eosinophils % 0.5 %; Hematocrit 41.2 % (37.0-47.0); Hemoglobin 12.7 g/dL (11.5-15.3); Lymphocytes # 1.2 10^3/uL (0.8-4.8); Lymphocytes % 20.7 %; Mean Corpuscular HGB Conc 30.8 g/dL (30.0-36.0); Mean Corpuscular Hemoglobin 31.8 pg (28.0-34.0); Mean Corpuscular Volume 103.3 fl (81-99); Mean Platelet Volume 8.7 fL (7.4-10.4); Monocytes # 0.6 10^3/uL (0.2-0.9); Neutrophils # 3.87 10^3/uL (1.8-7.7); Neutrophils % 67.7 %; Nucleated Red Blood Cells % 0 %; Platelet Count 222 10^3/cmm (130-400); Red Blood Count 3.99 10^6/uL (4.1-5.3); Red Cell Distribution Width 14.6 % (12.1-15.1); White Blood Count 5.7 10^3/uL (4.0-10.0)
[2022-05-13 05:29] LABS: Estmated Average Glucose 114; Hemoglobin A1C 5.6 % (4.0-6.0)
[2022-05-13 05:31] LABS: Alanine Aminotransferase 21 U/L (0-33); Albumin Level 3.8 g/dL (3.5-5.2); Alkaline Phosphatase 46 U/L (35-105); Anion Gap 14.8 (5-19); Aspartate Amino Transferase 24 U/L (0-32); Blood Urea Nitrogen 20 mg/dL (6-20); Calcium 8.9 mg/dL (8.5-10.5); Carbon Dioxide 23 mmol/L (22-29); Chloride 106 mmol/L (98-107); Chol HDL Ratio 4.05 mg/dL (0.0-4.40); Cholesterol 162 mg/dL (0-200); Globulin 2.5 g/dL (1.3-4.6); Glomerular Filtration Rate 58.7 mL/min (90-130); Glucose 128 mg/dL (65-115); HDL Cholesterol 40 mg/dL (60-100); LDL Cholesterol Calculated 102 mg/dL (50-129); Magnesium 1.8 mg/dL (1.7-2.3); Osmolality Calculated 292 mOsm/kg (285-295); Phosphorus 4.2 mg/dL (2.5-4.5); Potassium 4.8 mmol/L (3.5-5.1); Sodium 139 mmol/L (136-145); Total Bilirubin 0.9 mg/dL (0.15-1.2); Total Protein 6.3 g/dL (6.6-8.7); Triglycerides 100 mg/dL (0-150); VLDL Cholestrol Calculation 20 mg/dL (0-30)
--- NOTE | 2022-05-13 06:00 | USCV_ITS ---
Madina Molina Age: 51 Gender: F : 1970 Exam Date: 05/13/2022 11:03 Ordering Phys: Alber Floyd MD Technologist: MICHAEL Exam Location: [facility] Indication: CHF BP: 138 / 97 HR: 86 Rhythm: Sinus Technical Quality: Adequate MEASUREMENTS (Male / Female) Normal Values 2D ECHO LV Diastolic Diameter PLAX 6.9 cm 4.2 - 5.9 / 3.9 - 5.3 cm LV Systolic Diameter PLAX 6.5 cm IVS Diastolic Thickness 0.8 cm 0.6 - 1.0 / 0.6 - 0.9 cm IVS Systolic Thickness 1.0 cm LVPW Diastolic Thickness 0.9 cm 0.6 - 1.0 / 0.6 - 0.9 cm LVPW Systolic Thickness 1.2 cm LVOT Diameter 2.0 cm LV Ejection Fraction 2D Teich 13.0 % LV Ejection Fraction MOD 2C 37.5 % LV Ejection Fraction 2C AL 37.8 % LA Diameter 4.3 cm IVC Diameter 2.6 cm M-MODE Aortic Annulus Diameter 2.9 cm LA Ao Ratio MM 1.6 MV E Point Septal Separation 2.3 cm DOPPLER AV Peak Velocity 99.0 cm/s LVOT Peak Velocity 69.0 cm/s AV Area Cont Eq vti 1.8 cm squared AV Area Cont Eq pk 2.2 cm squared MV Area PHT 7.1 cm squared Mitral E to A Ratio 1.2 MV E' Velocity 54.5 cm/s Mitral E to MV E' Ratio 18.0 Mitral E to LV E' Lateral Ratio 13.1 Mitral E to LV E' Septal Ratio 28.8 TR Peak Velocity 286.6 cm/s TR Peak Gradient 32.9 mmHg Right Atrial Pressure 9.0 mmHg Pulmonary Artery Systolic Pressu 41.9 mmHg PV Peak Velocity 136.0 cm/s FINDINGS Left Ventricle Moderately increased left ventricular cavity size.severely decreased left ventricular systolic function. Left ventricular ejection fraction is 23%. Grade II/IV diastolic dysfunction, moderately elevated filling pressures. Grade II/IV diastolic dysfunction, moderately elevated filling pressures. Right Ventricle Moderately increased right ventricular size. Mildly decreased right ventricular systolic function. Moderate pulmonary hypertension. RVSP 63 mm Hg. Right Atrium Severely increased right atrial size. Left Atrium Moderately increased left atrial size. Mitral Valve Moderate mitral valve regurgitation. Aortic Valve Structurally normal trileaflet aortic valve. No aortic valve stenosis. No aortic valve regurgitation. Tricuspid Valve [id number]-fd-blyelt tricuspid valve regurgitation. Pulmonic Valve Moderate pulmonary valve regurgitation. Pericardium No pericardial effusion. Aorta Normal aorta. IVC Moderately dilated IVC. CONCLUSIONS Moderately increased left ventricular cavity size.severely decreased left ventricular systolic function. Left ventricular ejection fraction is 23%. Grade II/IV diastolic dysfunction, moderately elevated filling pressures. Grade II/IV diastolic dysfunction, moderately elevated filling pressures. Moderately increased right ventricular size. Mildly decreased right ventricular systolic function. Moderate pulmonary hypertension. RVSP 63 mm Hg. Severely increased right atrial size. Moderately increased left atrial size. Moderate mitral valve regurgitation. Qnzgjvck-bx-djztsg tricuspid valve regurgitation. Moderate pulmonary valve regurgitation. No prior study for comparison Paresh Thomas MD (Electronically Signed) Final Date: 13 May 2022 11:53 S
[2022-05-13] MEDS: ferrous gluconate 324 mg Tablet PO (08:40)
[2022-05-13] MEDS: ondansetron 2 mg/ML SDV 2 mL 4 MG IVP ×2 (08:40→20:06)
[2022-05-13] MEDS: FUROsemide 10 mg/mL SDV 10mL 60 MG IVP (10:04)
[2022-05-13] MEDS: metoprolol tartrate 25 mg Tablet PO ×2 (10:05→20:06)
--- NOTE | 2022-05-13 12:23 | P.PN_ITS ---
Subjective Subjective: No acute events overnight. Patient remains hemodynamically stable and afebrile. Continues to remain on room air. Complaining of shortness of breath on lying down. States swelling in the lower limbs is getting better. Vitals/I&O/Wt Last Vital Signs Temp 97.6 F 05/13/22 07:01 Pulse 88 05/13/22 11:09 Resp 22 H 05/13/22 11:09 BP 143/111 05/13/22 11:09 Pulse Ox 95 05/13/22 07:44 O2 Del Method 05/12/22 19:37 05/12/22 05/13/22 05/13/22 22:59 06:59 14:59 Intake Total 120 / 120 Output Total 1000 / 1000 300 / 1300 Balance -1000 / -500 -300 / -800 120 / 120 Weight last 48 hrs Weight 82.554 kg Weight 81.647 kg Physical Exam Narrative: General: No acute distress, AO x3 HEENT: PERRLA, pupils bilaterally equal and reactive Chest: Normal vesicular breath sounds, no added sounds, equal good air entry bilaterally CVS: S1-S2 regular, pansystolic murmur at apex radiating to anterior axillary line, S3 gallop present, no rubs Abdomen: Soft, nontender, no organomegaly, bowel sounds present Neuro: No focal deficits, no facial deformity, AO x3, power 5/5 in all limbs Data 05/13/22 04:58 05/13/22 04:58 Micro: Microbiology 05/13/22 06:50 Occult Blood (FIT) - Final Stool - Stool Aspirate A&P Assessment and plan (1) Acute exacerbation of CHF (congestive heart failure): Echocardiogram done today shows an EF of 23%, grade 2 diastolic dysfunction along with biatrial enlargement, moderate MR, moderate TR, severe TR with moderate pulmonary hypertension. Will have to rule out ischemic etiology. Start patient on metoprolol 25 mg twice daily, losartan 25 mg daily. Uptitrate as per creatinine goal blood pressures are 140/90 mmHg. N.p.o. after midnight. Lexiscan in a.m. Qualifiers: Heart failure type: combined systolic and diastolic Qualified Code(s): I50.43 - Acute on chronic combined systolic (congestive) and diastolic (congestive) heart failure (2) Bleeding per rectum: Hemoglobin seems to be stable. Patient gives history of bleeding per rectum going on for last 1 month. Takes Aleve 4 to 5 tablets a day at baseline. Continue with Protonix twice daily. Hemoglobin stable. Stool for occult blood negative. (3) Nausea and vomiting: Most likely secondary to gastritis from chronic NSAIDs along with possibility of congestive gastropathy. Protonix as above, Zofran as needed. Cardiac diet. (4) Swelling of lower limb: Lower limb Doppler negative for DVT. No PE. (5) Cardiomegaly: (6) Right ventricular failure: (7) Moderate pulmonary hypertension: (8) Moderate mitral valve regurgitation: (9) Severe tricuspid valve regurgitation: (10) Moderate pulmonary valve regurgitation: Plan Check iron panel, vitamin B12, folate, TSH, A1c, lipid panel, urine drug screen, alcohol, salicylate level. Full code. Cardiac diet. Protonix for for PUD. Heparin 5000 every 12 Attestations Medical Necessity Statement*: Requires further hospitalization for management of acute on chronic mixed biventricular heart failure while ischemic causes are ruled out and heart failure medication are started for the patient. Time Spent in Patient Care: Greater than 35 minutes Coding Level of Care Code Acute Director Career for Chg Fwd Diagnoses Acute exacerbation of CHF (congestive heart failure) I50.43 Heart failure type: combined systolic and diastolic Bleeding per rectum K62.5 Nausea and vomiting R11.2 Swelling of lower limb M79.89 Cardiomegaly I51.7 Right ventricular failure I50.810 Moderate pulmonary hypertension I27.20 Moderate mitral valve regurgitation I34.0 Severe tricuspid valve regurgitation I07.1 Moderate pulmonary valve regurgitation I37.1
[2022-05-13] MEDS: sodium chloride 0.9% 500 ML 75 ML IV (15:59)
[2022-05-13] MEDS: losartan 50 mg Tablet 25 MG PO (16:17)
[2022-05-13] MEDS: docusate sodium 100 mg Capsule PO (17:17)
[2022-05-14] VITALS (11 sets, daily range): BP systolic 126–156; BP diastolic 79–112; PULSE 77–106; RESP 18–28; TEMP 36.6–36.7; O2SAT 90–97
--- NOTE | 2022-05-14 | ECG_ITS ---
[facility] Test Date: 2022-05-14 Pat Name: Madina Molina Department: Room: 106 Gender: Female Adobe Developer: : 1970 Requested By: Alber Floyd Order Number: [id number] Char MD: Yary Taylor M.D. Interpretive Statements NAME OF STUDY: LEXISCAN SESTAMIBI STRESS TEST INDICATION: Newly diagnosed cardiomyopathy PROCEDURE: At the baseline, the blood pressure was 117/103 mmHg with a heart rate of 79 bpm. The electrocardiogram showed sinus rhythm, left axis deviation. Left bundle branch block. The Lexiscan was infused over a period of 20 seconds. A total of 0.4 milligrams of Lexiscan was infused. The stress phase was continued for a total of 5 minutes. Heart rate at the end of the stress phase was 90 bpm with a blood pressure of 160/103 mmHg. The EKG at the peak infusion revealed no significant ST-T wave changes. Sestamibi was injected 20 seconds after the Lexiscan infusion. Blood pressure at the end of the recovery phase was 148/107 mmHg with a heart rate of 88 beats per minute. CONCLUSION: 1. Nondiagnostic EKG with the LexiScan infusion due to baseline left bundle branch block. 2. No LexiScan induced chest pain or cardiac arrhythmia. 3. Normal blood pressure and heart rate response. 4. Sestamibi/sestamibi perfusion scan pending; see separate report. Electronically Signed On 05-14-2022 13:27:42 EP TECH by Yary Taylor M.D. [id number]
--- NOTE | 2022-05-14 00:37 | ECG_ITS ---
[facility] Test Date: 2022-05-14 Pat Name: Madina Molina Department: Room: 106 Gender: Female Angle Dozer Operator: : 1970 Requested By: Charlie Bui Order Number: [id number] Char MD: Adrian Amador M.D. Measurements Intervals Fletcher Rate: 80 P: 48 PA: 171 QRS: -39 QRSD: 151 T: 118 QT: 447 QTc: 518 Interpretive Statements SINUS RHYTHM LEFT AXIS DEVIATION [QRS AXIS < -30] INTRAVENTRICULAR CONDUCTION DELAY [130+ ms QRS DURATION] Compared to ECG 05/12/2022 17:42:53 No significant changes Electronically Signed On 05-14-2022 6:18:12 COMMERCIAL LOAN ASSISTANT by Adrian Amador M.D. [id number]
[2022-05-14] MEDS: morphine 4 mg/mL SDV 1 mL 2 MG IVP ×3 (00:46→23:51)
[2022-05-14] MEDS: heparin 5,000 unit/mL INJ 1 mL 5000 UNIT SUBCUT ×3 (00:47→17:25)
--- NOTE | 2022-05-14 01:24 | PC.NURSE ---
Patient was noted to be desating into the 50s on monitor and nurse went in to check on patient. Patient said she was feeling SOB and was put on oxygen at 5L, lung sounds were found to be clear at the time, after deep breathing o2 sat improved to 97% and o2 was turned down to 2L. Patient started complaining of chest pain at that time, 6/10 right sided pressure, not radiating. EKG was preformed, messaged Dr Bui and he said he would review the EKG. The patient was medicated with PRN Morphine which helped resolve chest pain. The patient is scheduled for a lexiscan 05/14.
[2022-05-14] MEDS: pantoprazole 40 mg SDV IVP ×2 (04:49→17:24)
[2022-05-14 05:31] LABS: Alanine Aminotransferase 21 U/L (0-33); Albumin Level 3.5 g/dL (3.5-5.2); Alkaline Phosphatase 49 U/L (35-105); Anion Gap 15.2 (5-19); Aspartate Amino Transferase 26 U/L (0-32); Blood Urea Nitrogen 25 mg/dL (6-20); Calcium 8.7 mg/dL (8.5-10.5); Carbon Dioxide 24 mmol/L (22-29); Chloride 107 mmol/L (98-107); Globulin 2.4 g/dL (1.3-4.6); Glomerular Filtration Rate 52.6 mL/min (90-130); Glucose 105 mg/dL (65-115); Osmolality Calculated 299 mOsm/kg (285-295); Potassium 4.2 mmol/L (3.5-5.1); Sodium 142 mmol/L (136-145); Total Bilirubin 0.7 mg/dL (0.15-1.2); Total Protein 5.9 g/dL (6.6-8.7)
[2022-05-14] MEDS: ondansetron 2 mg/ML SDV 2 mL 4 MG IVP ×3 (06:53→17:25)
[2022-05-14] MEDS: regadenoson 0.4 Mg/5 ml Syringe IVP (07:33)
[2022-05-14] MEDS: losartan 50 mg Tablet 25 MG PO (08:57)
[2022-05-14] MEDS: docusate sodium 100 mg Capsule PO ×2 (08:58→17:24)
[2022-05-14] MEDS: metoprolol tartrate 25 mg Tablet PO ×2 (08:58→20:41)
--- NOTE | 2022-05-14 12:09 | PC.CHAP ---
Pastoral Care Encounter/Spiritual Assessment Type of Contact [] Declined buncher hand visit [] Patient/Family/Request visit [] Outpatient visit [] Follow-up visit [] Physician referral [] Code/Alert [x] Routine visit [] Staff referral [] Actively dying [] Patient sleeping [] Family support [] [] Out of room [] Palliative care [] [] Receiving care in room [] Pre-surgical visit [] Trauma [] Long length of stay [] ICU visit [] Other: Relational/Emotional Strength [x] Patient feels connected with others/family/visitors/staff [] Distress [] Loneliness/isolation [] Abandonment Spirituality of Patient x [] Person of Anat [] Attends Voodoo of their Anat [x] Believes in Prayer [] Reads Bible or Adventism materials [] There are Spiritual issues to be addressed Sharepoint Application Architect Interventions x[] Prayer [] Active listening [] Non-anxious presence [] Spiritual/emotional support [] Crisis/trauma care [] Spiritual counseling [] Bereavement support [] Provided bereavement packet [] Provided Bible/devotional materials [] Provided toy/stuffed animal, coloring book to patient or family member [] Provided Communion [] Anointing/[place] [] Salvation [xx Completed spiritual assessment [] Other: Impact on Illness or Injury [] Angry [] Fearful [] Anxious [] Often cries [] Exhaustion [] Unable to work [] Unable to attend alevism [] Unable to walk/stand [] Unable to read [] Unable to drive [] Unable to eat/drink [] Unable to sleep [] Unable to be with family [] Patient intubated [] Other: Summary Time spent with patient 10 min
--- NOTE | 2022-05-14 12:21 | NMCV_ITS ---
NM diego perf SPECT r/s* [id number] Madina Molina Age: 51 Gender: F : 1970 Exam Date: 05/14/2022 06:44 Ordering Phys: Alber Floyd MD Technologist: MISAEL Leggett Exam Location: [facility] Indications: CHEST PAIN STRESS TEST [facility] IMAGE PROTOCOL Rest/Stress 1 Lexiscan Day Radiopharmaceutical Dose (mCi) Administration Site Administered by Rest: Tc-99m 10.8 IV MISAEL Yoon Sestamibi Stress:Tc-99m 32.8 IV MISAEL Yoon Sestamibi Rest: 14-May-2022 60 Discovery 630 Stress: 14-May-2022 30 Discovery 630 0.4mg Lexiscan. Supine position only as patient was unable to lay prone. Continuing nausea and vomiting post zofran. SPECT RESULTS Technical Quality: Excellent Raw Data Analysis: Normal Image Corrections: No attenuation or motion correction applied Summed Stress Score: 5 Summed Rest Score: 2 Summed Difference Score: 4 PERFUSION FINDINGS Medium sized perfusion abnormality of mild severity of mid septal wall on rest images with reversibility in mid to apical anterior, mid anteroseptal, mid anterolateral, apical lateral smith on stress images. FUNCTIONAL RESULTS (calculated via Gated SPECT) Stress Image LV EF (%): 20 Stress EDV (mL):264 TID: 0.91 Stress ESV (mL):211 FUNCTIONAL FINDINGS: The left ventricle is dilated. Transient Ischemia Dilatation of 0.91. The left ventricular ejection fraction is severely reduced with a value of 20%. There is severe global hypokinesis. Markedly increased end-diastolic end-systolic volumes. IMPRESSIONS 1. Medium sized reversible perfusion abnormality of mid to apical anterior, mid anteroseptal, mid anterolateral, apical lateral smith. 2. This may represent ischemia in left anterior descending/ circumflex artery territory. In absence of prone imaging attenuation artifact cannot be completely ruled out. 3. The left ventricular ejection fraction is severely reduced with a value of 20%. 4. There is severe global hypokinesis. 5. EKG portion of the study will be reported separately. Yary Taylor MD (Electronically Signed) Final Date: 14 May 2022 13:20 S
[2022-05-14] MEDS: amlodipine 5 mg Tablet PO (17:24)
--- NOTE | 2022-05-14 17:56 | PM.CONSULT ---
Providers/Reason For Consult Consulting Physician/Specialty*: Adrian Amador MD/ Cardiology Reason for Consult*: New onset heart failure/abnormal stress test Requesting Physician: Dr Carver Attending Physician: Matt Carver History of Present Illness History of Present Illness Madina Molina is a 51 year old female with no significant prior cardiac history presented to the hospital with 1 month of worsening shortness of breath. She also has been noticing on and off chest pressure. EKG does not show any ischemic changes. Troponin was elevated but did not trend up significantly. She underwent echocardiogram that showed severely reduced LV systolic function of 23%. Was also found to have moderate mitral regurgitation and severe tricuspid regurgitation. Stress test is showing reversible ischemia in LAD and left circumflex artery territories. Cardiology was consulted for further recommendations. Patient is still complaining of shortness of breath and says she cannot lay down flat. Her NT proBNP at admission was close to 15,000. She endorses significant family history of CAD. Review of Systems General: Reports: 10 or more systems reviewed and unremarkable except in HPI and below Const: Denies: fever(s), chills, body aches, change in appetite, change in weight, malaise, night sweats, diaphoresis, change in sleep pattern, daytime sleepiness or snoring Eyes: Denies: change in vision, blurry vision, photophobia, eye discomfort or eye discharge ENMT: Denies: throat pain, enlarged tonsils, hoarseness, mouth pain, oral sores, dry mouth, tinnitus, nasal congestion or post nasal drip Card: Denies: chest pain, palpitations, irregular heart rhythm, edema, swelling of feet/ankles, lightheadedness, syncope, pre-syncope, dyspnea on exertion, orthopnea, leg pain with exertion or acrocyanosis Resp: Denies: dyspnea, productive cough, non-productive cough, wheezing, stridor, pain on inspiration, change in phlegm color, hemoptysis or chest congestion GI: Denies: abdominal pain, nausea, vomiting, hematemesis, coffee ground emesis, dysphagia, heartburn, diarrhea, constipation, bloating, GI cramping, change in bowel habits, pain on defecation, hematochezia or melena : Denies: flank pain, dysuria, urinary frequency, urinary urgency, urinary hesitancy, nocturia or hematuria Musc: Denies: neck pain, back pain, extremity pain, joint pain, joint swelling, joint redness, joint stiffness or limited range of motion Neuro: Denies: headache(s), numbness in extremities, weakness in extremities, sensory changes, lack of coordination, difficulty walking, frequent falls, dizziness, vertigo, confusion, Slurred speech present, difficulty communicating thoughts or seizure-like activity Psych: Denies: anxiety, depression, mood swings, panic attacks, hopelessness or irritability Endo: Denies: polyuria, polydipsia, tired all the time, cold intolerance, excessive sweating, flushing or heat intolerance Brett/Lymph: Denies: easy bruising or easy bleeding All/Imm: Denies: tongue swelling, facial swelling or acute wheezing Medications/Allergies Home Medications Medication Instructions Recorded Confirmed Last Taken Type potassium 99 mg tablet 99 mg PO DAILY 05/12/22 05/13/22 Unknown History naproxen sodium 220 mg capsule 220 mg PO BID PRN Pain 05/13/22 05/13/22 Unknown History (Aleve) Allergies Allergy/AdvReac Type Severity Reaction Status Date / Time black pepper Allergy Unknown Verified 05/15/22 06:55 mushroom Allergy Unknown Verified 05/15/22 06:55 tomato Allergy Unknown Verified 05/15/22 06:55 Current Medications Generic Name Dose Route Start Last Admin Trade Name Freq PRN Reason Stop Dose Admin Docusate Sodium 100 mg 05/12/22 18:00 05/14/22 17:24 Docusate Sodium 100 Mg Capsule PO 100 mg BID SHANELLE Administration Heparin Sodium (Porcine) 5,000 unit 05/12/22 17:30 05/14/22 17:25 Heparin 5,000 Unit/Ml Inj 1 Ml SUBCUT 5,000 unit Q8H SHANELLE Administration Sodium Chloride 500 mls @ 75 mls/hr 05/13/22 15:45 05/14/22 15:18 Sodium Chloride 0.9% IV Not Given .Q6H40M [facility] Losartan Potassium 25 mg 05/13/22 12:20 05/14/22 08:57 Losartan 50 Mg Tablet PO 25 mg DAILY SHANELLE Administration Metoprolol Tartrate 25 mg 05/13/22 09:00 05/14/22 08:58 Metoprolol Tartrate 25 Mg Tablet PO 25 mg BID@0900,2100 [facility] Administration Morphine Sulfate 2 mg 05/12/22 17:28 05/14/22 04:49 Morphine 4 Mg/Ml Sdv 1 Ml IVP 2 mg Q4H PRN Administration SEVERE PAIN Ondansetron HCl 4 mg 05/12/22 17:28 05/14/22 17:25 Ondansetron 2 Mg/Ml Sdv 2 Ml IVP 4 mg Q8H PRN Administration vomiting, or N/V if npo Ondansetron HCl 4 mg 05/14/22 06:13 05/14/22 07:27 Ondansetron 2 Mg/Ml Sdv 2 Ml IVP 4 mg Q2M PRN Administration NAUSEA Pantoprazole Sodium 40 mg 05/12/22 17:30 05/14/22 17:24 Pantoprazole 40 Mg Sdv IVP 40 mg Q12H SHANELLE Administration PFSH Acute PFSH: Medical History Acute exacerbation of CHF (congestive heart failure) EF 23%, grade 2 diastolic dysfunction, moderate MR, severe TR, moderate PA, biatrial enlargement, moderate pulmonary hypertension Moderate mitral valve regurgitation Moderate pulmonary hypertension Moderate pulmonary valve regurgitation Open fracture of great toe of right foot Right ventricular failure Severe tricuspid valve regurgitation Social History Smoking and tobacco status: current every day smoker Alcohol intake: never Vitals/I&O/Wt Last Vital Signs Temp 98.0 F 05/14/22 16:01 Pulse 84 05/14/22 16:01 Resp 21 H 05/14/22 16:01 BP 151/107 05/14/22 16:01 Pulse Ox 97 05/14/22 16:01 O2 Del Method 05/12/22 19:37 05/14/22 05/14/22 05/14/22 06:59 14:59 22:59 Intake Total 500 / 1220 240 / 240 Balance 500 / 1069 240 / 240 Weight last 48 hrs Weight 208 lb 1.6 oz Weight 182 lb Physical Exam Narrative: GENERAL: Patient is alert, awake and oriented x3. [] NECK: No jugular vein distension. [] HEENT: No cyanosis. No icterus. No pallor. [] HEART: Regular S1 and S2. No murmur, rub or gallop. [] LUNGS: Mild crackles bilaterally ABDOMEN: Soft, nontender and nondistended. Positive bowel sounds. No guarding, rebound or tenderness. [] CENTRAL NERVOUS SYSTEM: Grossly nonfocal. [] EXTREMITIES: Lower extremities with 1+ edema bilaterally. Pulses palpable in the lower extremities, both dorsalis pedis and posterior tibial. [] Data 05/13/22 04:58 05/14/22 04:35 A&P Assessment and plan (1) Acute exacerbation of CHF (congestive heart failure): Qualifiers: Heart failure type: combined systolic and diastolic Qualified Code(s): I50.43 - Acute on chronic combined systolic (congestive) and diastolic (congestive) heart failure (2) Severe tricuspid valve regurgitation: (3) Moderate pulmonary hypertension: Plan Patient has presented with acute congestive heart failure. Stress test is abnormal. She will need coronary angiogram with possible percutaneous coronary intervention. She is still volume overloaded at this time. She will need further diuresis before procedure can be performed. She mentions about GI bleed that she has noticed in the last 1 month. She will need work-up of GI bleed before coronary angiogram can be performed. Risks and benefits of the procedure have been discussed with the patient. She understands the risks and benefits and wants to proceed with the procedure. Continue IV diuresis with 40 mg Lasix Low-sodium diet advised Thank you for involving us with care of this patient. We will continue to follow. Please call with questions. Consult Attestations Medical Necessity Statement: Care expected to cross 2 midnights. Coding Level of Care Code Acute Lye Bath Operator for Bobby Fishman Diagnoses Acute exacerbation of CHF (congestive heart failure) I50.43 Heart failure type: combined systolic and diastolic Severe tricuspid valve regurgitation I07.1 Moderate pulmonary hypertension I27.20
--- NOTE | 2022-05-14 18:57 | PM.PN ---
Subjective Subjective: Continues having nausea, epigastric discomfort. Poor appetite. Vitals/I&O/Wt Last Vital Signs Temp 98.0 F 05/14/22 16:01 Pulse 84 05/14/22 16:01 Resp 21 H 05/14/22 16:01 BP 151/107 05/14/22 16:01 Pulse Ox 97 05/14/22 16:01 O2 Del Method 05/12/22 19:37 05/14/22 05/14/22 05/14/22 06:59 14:59 22:59 Intake Total 500 / 1220 240 / 240 240 / 480 Balance 500 / 1069 240 / 240 240 / 480 Weight last 48 hrs Weight 94.393 kg Weight 82.554 kg Physical Exam Const: COMMON NORMALS: patient oriented x3 and alert GENERAL APPEARANCE: cooperative ORIENTATION/CONSCIOUSNESS: Yes awake HENMT: TEETH & GINGIVA: Yes poor dentition Neck/C-Spine: COMMON NORMALS: no JVD Resp: COMMON NORMALS: normal respiratory effort and clear to auscultation bilaterally AUSCULTATION: clear to auscultation bilaterally Cardio: COMMON NORMALS: no JVD, regular rhythm, S1 normal heart sound present, S2 normal heart sound present and No murmurs present (Cardio) RHYTHM: regular rhythm HEART SOUNDS: S1 normal heart sound present and S2 normal heart sound present GI: COMMON NORMALS: Normal to inspection, nondistended, normoactive bowel sounds present, Soft to palpation and non-tender PALPATION: Yes Soft to palpation Extremity: COMMON NORMALS: no joint enlargement GENERAL: Yes edema Neuro: COMMON NORMALS: patient oriented x3 and moves all extremities SENSORIUM/ORIENTATION: Yes alert Skin: COMMON NORMALS: no rashes or lesions noted GENERAL SKIN EXAM: no rashes or lesions noted Data 05/13/22 04:58 05/14/22 04:35 A&P Assessment and plan (1) Acute exacerbation of CHF (congestive heart failure): Abnormal stress test noted with moderate area of reversible perfusion abnormality of mid to apical anterior, mid anteroseptal, mid anterolateral, apical lateral smith. Male presents ischemia in the left anterior descending/Synflex artery territory, but with absence of prior imaging attenuation artifact cannot be completely ruled out. Ejection fraction severely reduced at 20%. Severe global hypokinesis. Lasix 40 mg IV daily. Monitor I&O. Cardiology consultation obtained. Appreciate recommendations. Condition additional evaluation of GI bleeding with plans for further evaluation with angiogram with suspicion of coronary disease, suspected likely may require endovascular intervention as per recommendation discussed with surgery consultation for additional assessment by EGD and colonoscopy. Echocardiogram shows an EF of 23%, grade 2 diastolic dysfunction along with biatrial enlargement, moderate MR, moderate TR, severe TR with moderate pulmonary hypertension. Qualifiers: Heart failure type: combined systolic and diastolic Qualified Code(s): I50.43 - Acute on chronic combined systolic (congestive) and diastolic (congestive) heart failure (2) Bleeding per rectum: As above. Appreciate surgical assessment with regards to GI bleeding. Repeat CBC. Continue PPI. Hemoglobin seems to be stable.Patient gives history of bleeding per rectum going on for last 1 month. Takes Aleve 4 to 5 tablets a day at baseline. Hemoglobin stable. Stool for occult blood negative. (3) Nausea and vomiting: Most likely secondary to gastritis from chronic NSAIDs along with possibility of congestive gastropathy. Protonix as above, Zofran as needed. Cardiac diet. (4) Swelling of lower limb: Lower limb Doppler negative for DVT. No PE. (5) Cardiomegaly: (6) Right ventricular failure: (7) Moderate pulmonary hypertension: (8) Moderate mitral valve regurgitation: (9) Severe tricuspid valve regurgitation: (10) Moderate pulmonary valve regurgitation: Plan Iron saturation low normal, but does not appear iron deficiency. Full code. Cardiac diet. Protonix for for PUD. Attestations Medical Necessity Statement*: Continue admission for assessment management of GI bleeding, new cardiomyopathy, with persistent malaise suspected underlying coronary disease needing additional evaluation and treatment. Coding Level of Care Code Acute Dosier Operator for [facility] Fwd Diagnoses Acute exacerbation of CHF (congestive heart failure) I50.43 Heart failure type: combined systolic and diastolic Bleeding per rectum K62.5 Nausea and vomiting R11.2 Swelling of lower limb M79.89 Cardiomegaly I51.7 Right ventricular failure I50.810 Moderate pulmonary hypertension I27.20 Moderate mitral valve regurgitation I34.0 Severe tricuspid valve regurgitation I07.1 Moderate pulmonary valve regurgitation I37.1
[2022-05-14] MEDS: FUROsemide 10 mg/mL SDV 4mL 40 MG IVP (20:41)
[2022-05-15] VITALS (10 sets, daily range): BP systolic 123–161; BP diastolic 84–114; PULSE 76–91; RESP 15–30; TEMP 36.1–37.1; O2SAT 95–98
[2022-05-15 01:49] LABS: Basophils % 0.6 %; Eosinophils # 0.1 10^3/uL (0.0-0.8); Eosinophils % 1.1 %; Hematocrit 41.9 % (37.0-47.0); Hemoglobin 12.8 g/dL (11.5-15.3); Lymphocytes # 1.4 10^3/uL (0.8-4.8); Lymphocytes % 22.4 %; Mean Corpuscular HGB Conc 30.5 g/dL (30.0-36.0); Mean Corpuscular Hemoglobin 31.7 pg (28.0-34.0); Mean Corpuscular Volume 103.7 fl (81-99); Mean Platelet Volume 8.9 fL (7.4-10.4); Monocytes # 0.5 10^3/uL (0.2-0.9); Monocytes % 7.3 %; Neutrophils # 4.31 10^3/uL (1.8-7.7); Neutrophils % 68.4 %; Nucleated Red Blood Cells % 0 %; Platelet Count 221 10^3/cmm (130-400); Red Blood Count 4.04 10^6/uL (4.1-5.3); Red Cell Distribution Width 14.4 % (12.1-15.1); White Blood Count 6.3 10^3/uL (4.0-10.0)
[2022-05-15 02:21] LABS: Blood Urea Nitrogen 24 mg/dL (6-20); Carbon Dioxide 28 mmol/L (22-29); Chloride 107 mmol/L (98-107); Glomerular Filtration Rate 58.7 mL/min (90-130); Glucose 96 mg/dL (65-115); Osmolality Calculated 306 mOsm/kg (285-295); Sodium 146 mmol/L (136-145)
[2022-05-15] MEDS: heparin 5,000 unit/mL INJ 1 mL 5000 UNIT SUBCUT ×3 (02:29→18:14)
[2022-05-15] MEDS: pantoprazole 40 mg SDV IVP ×2 (06:24→18:13)
--- NOTE | 2022-05-15 06:38 | PM.CONSULT ---
Providers/Reason For Consult Consulting Physician/Specialty*: Bo Newman MD Reason for Consult*: Lower GI bleed Attending Physician: Matt Carver History of Present Illness History of Present Illness Mrs. Madnia Molina is a pleasant 51 year old female with history of intermittent bleeding per rectum for the past month per her description but there is no current bleeding per rectum yet apparently the patient has been worked up from cardiology standpoint of view and likely she will end up by getting an angiogram. Current hemoglobin 12.8 and hematocrit 41.9. MyoCardial perfusion scan was done and showed 1. Medium sized reversible perfusion abnormality of mid to apical anterior, mid ?anteroseptal, mid anterolateral, apical lateral smith. ?2. This may represent ischemia in left anterior descending/ circumflex artery ?territory.? In absence of prone imaging attenuation artifact cannot be ?completely ruled out. ?3.? The left ventricular ejection fraction is severely reduced with a value of ?20%. ?4.? There is severe global hypokinesis. ?5.? EKG portion of the study will be reported separately. CT chest abdomen pelvis was done and showed 1. Technically limited but negative CT angiogram of the chest. No evidence of acute pulmonary embolism to major branches of the pulmonary vascular tree. 2. Marked cardiomegaly with evidence of right-sided cardiac decompensation. 3. Scattered minor atelectatic changes with additional findings suggestive of reactive airway disease/air trapping ? Additional findings 1. Mild ascites, generalized anasarca and mild retroperitoneal edema likely secondary to CHF/volume overload. 2. Mild gallbladder wall thickening/edema also likely to similar systemic factors. 3. Fatty infiltration of liver. General surgery was consulted for further evaluation potential intervention in the form of EGD and colonoscopy, Inspite of the history that showed intermittent bleeding per rectum and hematemesis as patient describes. Per hospitalist service occult stool was negative. Review of Systems General: Reports: 10 or more systems reviewed and unremarkable except in HPI and below Medications/Allergies Home Medications Medication Instructions Recorded Confirmed Last Taken Type potassium 99 mg tablet 99 mg PO DAILY 05/12/22 05/13/22 Unknown History naproxen sodium 220 mg capsule 220 mg PO BID PRN Pain 05/13/22 05/13/22 Unknown History (Aleve) Allergies Allergy/AdvReac Type Severity Reaction Status Date / Time black pepper Allergy Unknown Verified 05/15/22 06:55 mushroom Allergy Unknown Verified 05/15/22 06:55 tomato Allergy Unknown Verified 05/15/22 06:55 Current Medications Generic Name Dose Route Start Last Admin Trade Name Freq PRN Reason Stop Dose Admin Docusate Sodium 100 mg 05/12/22 18:00 05/14/22 17:24 Docusate Sodium 100 Mg Capsule PO 100 mg BID SHANELLE Administration Furosemide 40 mg 05/14/22 18:10 05/14/22 20:41 Furosemide 10 Mg/Ml Sdv 4ml IVP 40 mg DAILY SHANELLE Administration Heparin Sodium (Porcine) 5,000 unit 05/12/22 17:30 05/15/22 02:29 Heparin 5,000 Unit/Ml Inj 1 Ml SUBCUT 5,000 unit Q8H SHANELLE Administration Sodium Chloride 500 mls @ 75 mls/hr 05/13/22 15:45 05/15/22 02:12 Sodium Chloride 0.9% IV Not Given .[id number] SHANELLE Losartan Potassium 25 mg 05/13/22 12:20 05/14/22 08:57 Losartan 50 Mg Tablet PO 25 mg DAILY SHANELLE Administration Metoprolol Tartrate 25 mg 05/13/22 09:00 05/14/22 20:41 Metoprolol Tartrate 25 Mg Tablet PO 25 mg BID@0900,2100 SHANELLE Administration Morphine Sulfate 2 mg 05/12/22 17:28 05/14/22 23:51 Morphine 4 Mg/Ml Sdv 1 Ml IVP 2 mg Q4H PRN Administration SEVERE PAIN Ondansetron HCl 4 mg 05/12/22 17:28 05/14/22 17:25 Ondansetron 2 Mg/Ml Sdv 2 Ml IVP 4 mg Q8H PRN Administration vomiting, or N/V if npo Ondansetron HCl 4 mg 05/14/22 06:13 05/14/22 07:27 Ondansetron 2 Mg/Ml Sdv 2 Ml IVP 4 mg Q2M PRN Administration NAUSEA Pantoprazole Sodium 40 mg 05/12/22 17:30 05/15/22 06:24 Pantoprazole 40 Mg Sdv IVP 40 mg Q12H SHANELLE Administration PFSH Acute PFSH: Medical History Acute exacerbation of CHF (congestive heart failure) EF 23%, grade 2 diastolic dysfunction, moderate MR, severe TR, moderate ID, biatrial enlargement, moderate pulmonary hypertension Moderate mitral valve regurgitation Moderate pulmonary hypertension Moderate pulmonary valve regurgitation Open fracture of great toe of right foot Right ventricular failure Severe tricuspid valve regurgitation Social History Smoking and tobacco status: current every day smoker Alcohol intake: never Vitals/I&O/Wt Last Vital Signs Temp 98.0 F 05/14/22 16:01 Pulse 80 05/15/22 04:00 Resp 15 05/15/22 04:00 BP 139/96 05/15/22 04:00 Pulse Ox 98 05/15/22 04:00 O2 Del Method 05/15/22 04:00 O2 Flow Rate 2 05/15/22 04:00 05/14/22 05/14/22 05/15/22 14:59 22:59 06:59 Intake Total 240 / 240 340 / 580 100 / 680 Output Total 1 / Balance 240 / 240 340 / 580 99 / 679 Weight last 48 hrs Weight 208 lb 1.6 oz Physical Exam Narrative: Patient is conscious alert oriented X3 Short winded BMI 36 Head and neck examination PERRLA no masses no cervical lymphadenopathy no jaundice Cardiac examination audible S1-S2 no murmurs no gallops no arrhythmias Chest fair air entry bilateral Abdomen nontender nondistended soft no organomegaly guarding or rigidity/no signs of peritonitis Data 05/15/22 01:20 05/15/22 01:20 A&P Assessment and plan (1) Bleeding per rectum: Plan of care; After thorough history and physical examination and reviewing the chart, plan to perform a diagnostic esophagogastroduodenoscopy and diagnostic colonoscopy with possible biopsy and possible polypectomy. I discussed with the patient in detail the risks,benefits,alternatives and indications.The risk of aspiration, bleeding, soft tissue injury, perforation of the stomach/esophagus/colon missed lesions and other potential concomitant complications as patient understands that she is at high risk of mortality and morbidity due to her underlying cardiac condition all those potentials were explained to the patient in details also the potential need for Thoracotomy and or Laproscoy/Laparotomy to repair any related complications including but not limited to colectomy and or Closotomy. The patient understood this well and would like to think about it before proceeding. Rationale was carefully and clearly discussed with the patient. Consult Attestations Medical Necessity Statement: Per admitting service Coding Level of Care Code Acute Passenger Solicitor for [facility] Diagnoses Bleeding per rectum K62.5
[2022-05-15] MEDS: FUROsemide 10 mg/mL SDV 4mL 40 MG IVP (08:42)
[2022-05-15] MEDS: metoprolol tartrate 25 mg Tablet PO ×2 (08:43→20:38)
[2022-05-15] MEDS: docusate sodium 100 mg Capsule PO ×2 (08:43→18:14)
[2022-05-15] MEDS: losartan 50 mg Tablet 25 MG PO (08:44)
[2022-05-15] MEDS: ondansetron 2 mg/ML SDV 2 mL 4 MG IVP (09:41)
--- NOTE | 2022-05-15 09:59 | P.PN_ITS ---
Subjective Subjective: Patient is direusing. Has been in negative fluid balance. Vitals/I&O/Wt Last Vital Signs Temp 98.0 F 05/14/22 16:01 Pulse 80 05/15/22 06:00 Resp 15 05/15/22 04:00 BP 161/100 05/15/22 08:44 Pulse Ox 98 05/15/22 04:00 O2 Del Method 05/15/22 04:00 O2 Flow Rate 2 05/15/22 04:00 05/14/22 05/15/22 05/15/22 22:59 06:59 14:59 Intake Total 340 / 580 100 / 680 140 / 140 Output Total 450 / 450 Balance 340 / 580 99 / 679 -310 / -310 Weight last 48 hrs Weight 208 lb 1.6 oz Physical Exam Narrative: GENERAL: Patient is alert, awake and oriented x3. [] NECK: No jugular vein distension. [] HEENT: No cyanosis. No icterus. No pallor. [] HEART: Regular S1 and S2. No murmur, rub or gallop. [] LUNGS: Mild crackles bilaterally ABDOMEN: Soft, nontender and nondistended. Positive bowel sounds. No guarding, rebound or tenderness. [] CENTRAL NERVOUS SYSTEM: Grossly nonfocal. [] EXTREMITIES: Lower extremities with 1+ edema bilaterally. Pulses palpable in the lower extremities, both dorsalis pedis and posterior tibial. [] Data 05/15/22 01:20 05/15/22 01:20 A&P Assessment and plan (1) Acute exacerbation of CHF (congestive heart failure): Qualifiers: Heart failure type: combined systolic and diastolic Qualified Code(s): I50.43 - Acute on chronic combined systolic (congestive) and diastolic (congestive) heart failure (2) Right ventricular failure: (3) Moderate pulmonary hypertension: (4) Moderate mitral valve regurgitation: (5) Severe tricuspid valve regurgitation: (6) Moderate pulmonary valve regurgitation: (7) Bleeding per rectum: Plan Patient is diuresing well. We will uptitrate diuretic therapy. Strict I and Os. She needs coronary angiogram with possible PCI but prior to that GI work up will be done Thank you for involving us with care of this patient. We will continue to follow. Please call with questions. Attestations Medical Necessity Statement*: Care expected to cross 2 midnights. Coding Level of Care Code Acute Impact Hammer Operator for [facility] Fwd Diagnoses Acute exacerbation of CHF (congestive heart failure) I50.43 Heart failure type: combined systolic and diastolic Right ventricular failure I50.810 Moderate pulmonary hypertension I27.20 Moderate mitral valve regurgitation I34.0 Severe tricuspid valve regurgitation I07.1 Moderate pulmonary valve regurgitation I37.1 Bleeding per rectum K62.5
[2022-05-15] MEDS: amlodipine 5 mg Tablet PO (11:13)
--- NOTE | 2022-05-15 19:50 | P.PN_ITS ---
Subjective Subjective: She is discussed with cardiology and surgery regarding proceeding with additional diagnostic ablation with with endoscopy. Still having swelling lower extremities, additional valuation to proceed after further volume status optimization. Currently no chest pain or pressure. Vitals/I&O/Wt Last Vital Signs Temp 98.4 F 05/15/22 19:47 Pulse 91 05/15/22 19:47 Resp 18 05/15/22 19:47 BP 148/114 05/15/22 19:47 Pulse Ox 96 05/15/22 19:47 O2 Del Method 05/15/22 19:47 O2 Flow Rate 2 05/15/22 19:47 05/15/22 05/15/22 05/15/22 06:59 14:59 22:59 Intake Total 100 / 680 280 / 280 140 / 420 Output Total 1050 / 1050 900 / 1950 Balance 99 / 679 -770 / -770 -760 / -1530 Weight last 48 hrs Weight 87.549 kg Weight 94.393 kg Physical Exam Const: COMMON NORMALS: patient oriented x3 and alert GENERAL APPEARANCE: cooperative ORIENTATION/CONSCIOUSNESS: Yes awake HENMT: TEETH & GINGIVA: Yes poor dentition Neck/C-Spine: COMMON NORMALS: no JVD Resp: COMMON NORMALS: normal respiratory effort and clear to auscultation b ilaterally AUSCULTATION: clear to auscultation bilaterally Cardio: COMMON NORMALS: no JVD, regular rhythm, S1 normal heart sound present, S2 normal heart sound present and No murmurs present (Cardio) RHYTHM: regular rhythm HEART SOUNDS: S1 normal heart sound present and S2 normal heart sound present GI: COMMON NORMALS: Normal to inspection, nondistended, normoactive bowel sounds present, Soft to palpation and non-tender PALPATION: Yes Soft to palpation Extremity: COMMON NORMALS: no joint enlargement GENERAL: Yes edema Neuro: COMMON NORMALS: patient oriented x3 and moves all extremities SENSORIUM/ORIENTATION: Yes alert Skin: COMMON NORMALS: no rashes or lesions noted GENERAL SKIN EXAM: no rashes or lesions noted Data 05/15/22 01:20 05/15/22 01:20 A&P Assessment and plan (1) Acute exacerbation of CHF (congestive heart failure): Continue Lasix 40 mg IV daily. She is currently negative balance. Continue to monitor I&O, renal function. Continue cardiac diet. Further volume status opt imization prior to additional endoscopic and subsequently cardiac assessment. Abnormal stress test noted with moderate area of reversible perfusion abnormality of mid to apical anterior, mid anteroseptal, mid anterolateral, apical lateral smith. Male presents ischemia in the left anterior descendi ng/Synflex artery territory, but with absence of prior imaging attenuation artifact cannot be completely ruled out. Ejection fraction severely reduced at 20%. Severe global hypokinesis. Cardiology consultation obtained. Appreciate recommendations. Condition additional evaluation of GI bleeding with plans for further evaluation with angiogram with suspicion of coronary disease, suspected likely may require endovascular intervention as per recommendation discussed with surgery consultation for additional assessment by EGD and colonoscopy. Echocardiogram shows an EF of 23%, grade 2 diastolic dysfunction along with biatrial enlargement, moderate MR, moderate TR, severe TR with moderate pul monary hypertension. Qualifiers: Heart failure type: combined systolic and diastolic Qualified Code(s): I50.43 - Acute on chronic combined systolic (congestive) and diastolic (congestive) heart failure (2) Bleeding per rectum: As above. Appreciate surgical assessment with regards to GI bleeding. Pending additional volume optimization. Follow-up CBC. Continue PPI. Hemoglobin seems to be stable.Patient gives history of bleeding per rectum going on for last 1 month. Takes Aleve 4 to 5 tablets a day at baseline. Hemoglobin stable. Stool for occult blood negative. (3) Nausea and vomiting: Most likely secondary to gastritis from chronic NSAIDs along with possibility of congestive gastropathy. Protonix as above, Zofran as needed. Cardiac diet. (4) Swelling of lower limb: Lower limb Doppler negative for DVT. No PE. (5) Cardiomegaly: (6) Right ventricular failure: (7) Moderate pulmonary hypertension: (8) Moderate mitral valve regurgitation: (9) Severe tricuspid valve regurgitation: (10) Moderate pulmonary valve regurgitation: Plan Iron saturation low normal, but does not appear iron deficiency. Full code. Cardiac diet. Protonix for for PUD. Attestations Medical Necessity Statement*: Continue treatment of CHF, volume status optimization prior to additional assessment of GI bleeding, subsequent additional cardiac assessment with coronary angiography. Coding Level of Care Code Acute Operational Trainer for [facility] Fwd Diagnoses Acute exacerbation of CHF (congestive heart failure) I50.43 Heart failure type: combined systolic and diastolic Bleeding per rectum K62.5 Nausea and vomiting R11.2 Swelling of lower limb M79.89 Cardiomegaly I51.7 Right ventricular failure I50.810 Moderate pulmonary hypertension I27.20 Moderate mitral valve regurgitation I34.0 Severe tricuspid valve regurgitation I07.1 Moderate pulmonary valve regurgitation I37.1
[2022-05-15] MEDS: diphenhydrAMINE 25 mg Capsule PO (22:03)
[2022-05-16] VITALS (11 sets, daily range): BP systolic 125–150; BP diastolic 84–104; PULSE 74–98; RESP 16–25; TEMP 37.2; O2SAT 90–97
[2022-05-16] MEDS: morphine 4 mg/mL SDV 1 mL 2 MG IVP (00:19)
[2022-05-16] MEDS: heparin 5,000 unit/mL INJ 1 mL 5000 UNIT SUBCUT ×3 (01:34→18:11)
[2022-05-16 02:42] LABS: Basophils % 0.9 %; Eosinophils # 0.1 10^3/uL (0.0-0.8); Eosinophils % 2.1 %; Hematocrit 37.2 % (37.0-47.0); Hemoglobin 11.8 g/dL (11.5-15.3); Lymphocytes # 1.3 10^3/uL (0.8-4.8); Mean Corpuscular HGB Conc 31.7 g/dL (30.0-36.0); Mean Corpuscular Hemoglobin 32.3 pg (28.0-34.0); Mean Corpuscular Volume 101.9 fl (81-99); Mean Platelet Volume 8.8 fL (7.4-10.4); Monocytes # 0.5 10^3/uL (0.2-0.9); Monocytes % 10.7 %; Neutrophils # 2.36 10^3/uL (1.8-7.7); Neutrophils % 55.1 %; Nucleated Red Blood Cells % 0 %; Platelet Count 190 10^3/cmm (130-400); Red Blood Count 3.65 10^6/uL (4.1-5.3); Red Cell Distribution Width 14.4 % (12.1-15.1); White Blood Count 4.3 10^3/uL (4.0-10.0)
[2022-05-16 03:07] LABS: Anion Gap 12.4 (5-19); Blood Urea Nitrogen 21 mg/dL (6-20); Calcium 8.7 mg/dL (8.5-10.5); Carbon Dioxide 30 mmol/L (22-29); Chloride 100 mmol/L (98-107); Glomerular Filtration Rate 58.7 mL/min (90-130); Glucose 90 mg/dL (65-115); Osmolality Calculated 291 mOsm/kg (285-295); Potassium 3.4 mmol/L (3.5-5.1); Sodium 139 mmol/L (136-145)
[2022-05-16] MEDS: pantoprazole 40 mg SDV IVP ×2 (05:15→18:11)
[2022-05-16] MEDS: FUROsemide 10 mg/mL SDV 4mL 40 MG IVP ×3 (08:28→21:11)
[2022-05-16] MEDS: amlodipine 5 mg Tablet PO (08:29)
[2022-05-16] MEDS: losartan 50 mg Tablet 25 MG PO (08:29)
[2022-05-16] MEDS: metoprolol tartrate 25 mg Tablet PO ×2 (08:29→21:11)
--- NOTE | 2022-05-16 11:25 | P.PN_ITS ---
Subjective Subjective: Patient is feeling better. However still not able to lay down flat. Vitals/I&O/Wt Last Vital Signs Temp 98.9 F 05/16/22 07:00 Pulse 85 05/16/22 08:26 Resp 24 H 05/16/22 08:26 BP 125/93 05/16/22 08:26 Pulse Ox 90 05/16/22 08:26 O2 Del Method 05/15/22 19:47 O2 Flow Rate 2 05/15/22 19:47 05/15/22 05/16/22 05/16/22 22:59 06:59 14:59 Intake Total 540 / 820 240 / 240 Output Total 900 / 1950 300 / 2250 Balance -360 / -1130 -300 / -1430 240 / 240 Weight last 48 hrs Weight 200 lb 6.4 oz Weight 193 lb 0.2 oz Physical Exam Narrative: GENERAL: Patient is alert, awake and oriented x3. [] NECK: No jugular vein distension. [] HEENT: No cyanosis. No icterus. No pallor. [] HEART: Regular S1 and S2. No murmur, rub or gallop. [] LUNGS: Mild crackles bilaterally ABDOMEN: Soft, nontender and nondistended. Positive bowel sounds. No guarding, rebound or tenderness. [] CENTRAL NERVOUS SYSTEM: Grossly nonfocal. [] EXTREMITIES: Lower extremities with 1+ edema bilaterally. Pulses palpable in the lower extremities, both dorsalis pedis and posterior tibial. [] Data 05/16/22 02:18 05/16/22 02:18 A&P Assessment and plan (1) Acute exacerbation of CHF (congestive heart failure): Qualifiers: Heart failure type: combined systolic and diastolic Qualified Code(s): I50.43 - Acute on chronic combined systolic (congestive) and diastolic (congestive) heart failure (2) Right ventricular failure: (3) Moderate pulmonary hypertension: (4) Moderate mitral valve regurgitation: (5) Severe tricuspid valve regurgitation: (6) Moderate pulmonary valve regurgitation: (7) Bleeding per rectum: Plan We will increase Lasix to 40 mg 3 times daily today. She is diuresing. Strict I&O's Low-sodium diet Monitor electrolytes. She needs a coronary angiogram however prior to that will benefit from GI evaluation. Thank you for involving us with care of this patient. We will continue to follow. Please call with questions. [facility] Care expected to cross 2 midnights. Coding Level of Care Code Acute Public Health Sanitarian Technician for [facility] Diagnoses Acute exacerbation of CHF (congestive heart failure) I50.43 Heart failure type: combined systolic and diastolic Right ventricular failure I50.810 Moderate pulmonary hypertension I27.20 Moderate mitral valve regurgitation I34.0 Severe tricuspid valve regurgitation I07.1 Moderate pulmonary valve regurgitation I37.1 Bleeding per rectum K62.5
[2022-05-16] MEDS: docusate sodium 100 mg Capsule PO (18:11)
--- NOTE | 2022-05-16 18:47 | P.PN_ITS ---
Subjective Subjective: He has been urinating quite a bit. States yesterday was having pain around right lateral malleolus, then that resolved, then started having pain around left lateral malleolus. No redness, no bruising. Pain has since resolved. Breathing overall has been improving, she does get easily dyspneic with minimal exertion. Vitals/I&O/Wt Last Vital Signs Temp 98.9 F 05/16/22 07:00 Pulse 86 05/16/22 15:40 Resp 20 H 05/16/22 15:40 BP 138/93 05/16/22 15:39 Pulse Ox 90 05/16/22 08:26 O2 Del Method 05/15/22 19:47 O2 Flow Rate 2 05/15/22 19:47 05/16/22 05/16/22 05/16/22 06:59 14:59 22:59 Intake Total 480 / 480 Output Total 300 / 2250 2080 / 2080 2400 / 4480 Balance -300 / -1430 -1600 / -1600 -2400 / -4000 Weight last 48 hrs Weight 90.9 kg Weight 87.549 kg Physical Exam Const: COMMON NORMALS: patient oriented x3 and alert GENERAL APPEARANCE: cooperative ORIENTATION/CONSCIOUSNESS: Yes awake HENMT: TEETH & GINGIVA: Yes poor dentition Neck/C-Spine: COMMON NORMALS: no JVD Resp: COMMON NORMALS: normal respiratory effort and clear to auscultation bilaterally AUSCULTATION: clear to auscultation bilaterally Cardio: COMMON NORMALS: no JVD, regular rhythm, S1 normal heart sound present, S2 normal heart sound present and No murmurs present (Cardio) RHYTHM: regular rhythm HEART SOUNDS: S1 normal heart sound present and S2 normal heart sound present GI: COMMON NORMALS: Normal to inspection, nondistended, normoactive bowel sounds present, Soft to palpation and non-tender PALPATION: Yes Soft to palpation Extremity: COMMON NORMALS: no joint enlargement GENERAL: Yes edema Neuro: COMMON NORMALS: patient oriented x3 and moves all extremities SE NSORIUM/ORIENTATION: Yes alert Skin: COMMON NORMALS: no rashes or lesions noted GENERAL SKIN EXAM: no rashes or lesions noted Data 05/16/22 02:18 05/16/22 02:18 A&P Assessment and plan (1) Acute exacerbation of CHF (congestive heart failure): She is diuresing well. escalated Lasix dose to 40 mg IV 3 times daily, continue as currently. She is -3900 mL today. Replace potassium. Recheck electrolytes, renal function. Check magnesium. Further volume status optimization prior to additional endoscopic and subsequently cardiac assessment. Abnormal stress test noted with moderate area of reversible perfusion abnormality of mid to apical anterior, mid anteroseptal, mid anterolateral, apical lateral smith. Male presents ischemia in the left anterior descendin g/Synflex artery territory, but with absence of prior imaging attenuation artifact cannot be completely ruled out. Ejection fraction severely reduced at 20%. Severe global hypokinesis. Cardiology consultation obtained. Appreciate recommendations. Condition additional evaluation of GI bleeding with plans for further evaluation with angiogram with suspicion of coronary disease, suspected likely may require endovascular intervention as per recommendation discussed with surgery consultation for additional assessment by EGD and colonoscopy. Echocardiogram shows an EF of 23%, grade 2 diastolic dysfunction along with biatrial enlargement, moderate MR, moderate TR, severe TR with moderate pulm onary hypertension. Qualifiers: Heart failure type: combined systolic and diastolic Qualified Code(s): I50.43 - Acute on chronic combined systolic (congestive) and diastolic (congestive) heart failure (2) Bleeding per rectum: As above. Appreciate surgical assessment with regards to GI bleeding. Pending additional volume optimization. Follow-up CBC. Continue PPI. Hemoglobin seems to be stable.Patient gives history of bleeding per rectum going on for last 1 month. Takes Aleve 4 to 5 tablets a day at baseline. Hemoglobin stable. Stool for occult blood negative. (3) Nausea and vomiting: Most likely secondary to gastritis from chronic NSAIDs along with possibility of congestive gastropathy. Protonix as above, Zofran as needed. Cardiac diet. (4) Swelling of lower limb: Lower limb Doppler negative for DVT. No PE. (5) Cardiomegaly: (6) Right ventricular failure: (7) Moderate pulmonary hypertension: (8) Moderate mitral valve regurgitation: (9) Severe tricuspid valve regurgitation: (10) Moderate pulmonary valve regurgitation: Plan Iron saturation low normal, but does not appear iron deficiency. Full code. Cardiac diet. Protonix for for PUD. Attestations Medical Necessity Statement*: Continue to additional volume status with acute CHF, IV diuresis, further work-up of GI bleeding, and further cardiac work-up with coronary angiography. Coding Level of Care Code Acute Social Media Community Manager for Chg Fwd Diagnoses Acute exacerbation of CHF (congestive heart failure) I50.43 Heart failure type: combined systolic and diastolic Bleeding per rectum K62.5 Nausea and vomiting R11.2 Swelling of lower limb M79.89 Cardiomegaly I51.7 Right ventricular failure I50.810 Moderate pulmonary hypertension I27.20 Moderate mitral valve regurgitation I34.0 Severe tricuspid valve regurgitation I07.1 Moderate pulmonary valve regurgitation I37.1
[2022-05-16] MEDS: potassium chloride ER 20 mEq Tablet 40 MEQ PO (19:31)
[2022-05-17] VITALS (11 sets, daily range): BP systolic 125–155; BP diastolic 84–104; PULSE 81–102; RESP 15–30; TEMP 36.5–37.2; O2SAT 90–98
[2022-05-17] MEDS: heparin 5,000 unit/mL INJ 1 mL 5000 UNIT SUBCUT ×3 (02:00→17:02)
[2022-05-17 04:53] LABS: Basophils % 0.8 %; Eosinophils # 0.1 10^3/uL (0.0-0.8); Eosinophils % 1.9 %; Hematocrit 39.6 % (37.0-47.0); Hemoglobin 12.5 g/dL (11.5-15.3); Lymphocytes # 1.3 10^3/uL (0.8-4.8); Lymphocytes % 24.6 %; Mean Corpuscular HGB Conc 31.6 g/dL (30.0-36.0); Mean Corpuscular Hemoglobin 31.9 pg (28.0-34.0); Mean Platelet Volume 8.7 fL (7.4-10.4); Monocytes # 0.6 10^3/uL (0.2-0.9); Neutrophils % 61.5 %; Nucleated Red Blood Cells % 0 %; Platelet Count 213 10^3/cmm (130-400); Red Blood Count 3.92 10^6/uL (4.1-5.3); Red Cell Distribution Width 14.3 % (12.1-15.1); White Blood Count 5.2 10^3/uL (4.0-10.0)
[2022-05-17 05:23] LABS: Anion Gap 13.3 (5-19); Blood Urea Nitrogen 19 mg/dL (6-20); Calcium 9.2 mg/dL (8.5-10.5); Carbon Dioxide 34 mmol/L (22-29); Chloride 99 mmol/L (98-107); Glomerular Filtration Rate 66.3 mL/min (90-130); Glucose 100 mg/dL (65-115); Magnesium 1.5 mg/dL (1.7-2.3); Osmolality Calculated 298 mOsm/kg (285-295); Potassium 3.3 mmol/L (3.5-5.1); Sodium 143 mmol/L (136-145)
[2022-05-17] MEDS: pantoprazole 40 mg SDV IVP ×2 (05:56→17:02)
--- NOTE | 2022-05-17 07:42 | PM.PN ---
Subjective Subjective: Patient has been diuresing well. Still feels short of breath. Vitals/I&O/Wt Last Vital Signs Temp 97.9 F 05/17/22 04:00 Pulse 85 05/17/22 05:07 Resp 19 H 05/17/22 04:00 BP 133/84 05/17/22 04:00 Pulse Ox 98 05/17/22 04:00 O2 Del Method 05/17/22 04:00 O2 Flow Rate 2 05/17/22 04:00 05/16/22 05/17/22 05/17/22 22:59 06:59 14:59 Intake Total 1509 / 1989 Output Total 3950 / 6030 1850 / 7880 Balance -2440 / -4040 -1850 / -5890 Weight last 48 hrs Weight 195 lb Weight 200 lb 6.4 oz Weight 193 lb 0.2 oz Physical Exam Narrative: GENERAL: Patient is alert, awake and oriented x3. [] NECK: No jugular vein distension. [] HEENT: No cyanosis. No icterus. No pallor. [] HEART: Regular S1 and S2. No murmur, rub or gallop. [] LUNGS: Mild crackles bilaterally ABDOMEN: Soft, nontender and nondistended. Positive bowel sounds. No guarding, rebound or tenderness. [] CENTRAL NERVOUS SYSTEM: Grossly nonfocal. [] EXTREMITIES: Lower extremities with 1+ edema bilaterally. Pulses palpable in the lower extremities, both dorsalis pedis and posterior tibial. [] Data 05/17/22 04:08 05/17/22 04:08 A&P Assessment and plan (1) Acute exacerbation of CHF (congestive heart failure): Qualifiers: Heart failure type: combined systolic and diastolic Qualified Code(s): I50.43 - Acute on chronic combined systolic (congestive) and diastolic (congestive) heart failure (2) Right ventricular failure: (3) Moderate pulmonary hypertension: (4) Moderate mitral valve regurgitation: (5) Severe tricuspid valve regurgitation: (6) Moderate pulmonary valve regurgitation: (7) Bleeding per rectum: Plan Patient diuresing well. We will downtitrate lasix to 40 mg BID today. We will re-evaluate patient's volume status tomorrow and if able to lay down, we will proceed with coronary angiogram with possible PCI. GI cleared her as no signs of bleeding. Strict I&O's Low-sodium diet Monitor electrolytes. Thank you for involving us with care of this patient. We will continue to follow. Please call with questions. Attestations Medical Necessity Statement*: Care expected to cross 2 midnights. Coding Level of Care Code Acute Director Fraud for Bobby Fishman Diagnoses Acute exacerbation of CHF (congestive heart failure) I50.43 Heart failure type: combined systolic and diastolic Right ventricular failure I50.810 Moderate pulmonary hypertension I27.20 Moderate mitral valve regurgitation I34.0 Severe tricuspid valve regurgitation I07.1 Moderate pulmonary valve regurgitation I37.1 Bleeding per rectum K62.5
--- NOTE | 2022-05-17 09:13 | PM.PN ---
Subjective Subjective: Patient continued to show stable vital signs and no evidence of bleeding per orifices. Stable H&H Medications: Reviewed: Yes Vitals/I&O/Wt Last Vital Signs Temp 98.1 F 05/17/22 09:01 Pulse 91 05/17/22 09:01 Resp 19 H 05/17/22 09:01 BP 147/103 05/17/22 09:01 Pulse Ox 90 05/17/22 09:01 O2 Del Method 05/17/22 04:00 O2 Flow Rate 2 05/17/22 04:00 05/16/22 05/17/22 05/17/22 22:59 06:59 14:59 Intake Total 1510 / 1989 Output Total 3950 / 6030 1850 / 7880 Balance -2440 / -4040 -1850 / -5890 Weight last 48 hrs Weight 195 lb Weight 200 lb 6.4 oz Weight 193 lb 0.2 oz Physical Exam Narrative: Patient is conscious alert oriented X3 No apparent distress BMI 33.5 Head and neck examination PERRLA no masses no cervical lymphadenopathy no jaundice Abdomen nontender nondistended soft no organomegaly guarding or rigidity/no signs of peritonitis Data 05/17/22 04:08 05/17/22 04:08 A&P Assessment and plan (1) Bleeding per rectum: Plan of care; After further evaluating the patient and rounding on her and discussing with my hospitalist service and also cardiology service was involved. As the patient does not demonstrate any signs of bleeding per orifices and has been having stable H&H and had occult negative blood in stool. I thought it would be appropriate at this point to hold off any EGD or colonoscopies and proceed with the cardiac cath intervention. Rationale was carefully and clearly discussed with the patient. And she agreed accordingly Thank you for consulting general surgery to participate taking care Ms. Molina Attestations Medical Necessity Statement*: Per admitting service Coding Level of Care Code Acute Academic Administrator for Bobby Fishman Diagnoses Bleeding per rectum K62.5
[2022-05-17] MEDS: magnesium sulfate premix 2 GM/50 ML PIGGYBACK IV (09:40)
[2022-05-17] MEDS: amlodipine 5 mg Tablet PO (09:41)
[2022-05-17] MEDS: losartan 50 mg Tablet 25 MG PO (09:41)
[2022-05-17] MEDS: FUROsemide 10 mg/mL SDV 4mL 40 MG IVP ×2 (09:41→17:01)
[2022-05-17] MEDS: docusate sodium 100 mg Capsule PO ×2 (09:42→17:03)
[2022-05-17] MEDS: potassium chloride ER 20 mEq Tablet 40 MEQ PO (09:42)
[2022-05-17] MEDS: metoprolol tartrate 25 mg Tablet PO ×2 (09:42→20:10)
[2022-05-17] MEDS: aspirin 325 mg Tablet PO (09:42)
--- NOTE | 2022-05-17 11:28 | PM.PN ---
Subjective Subjective: She is feeling a bit anxious today. Otherwise overall okay. Breathing with cerumen. Edema with some improvement, persists. Medications: Reviewed: Yes Vitals/I&O/Wt Last Vital Signs Temp 98.1 F 05/17/22 09:01 Pulse 91 05/17/22 09:01 Resp 19 H 05/17/22 09:01 BP 147/103 05/17/22 09:41 Pulse Ox 90 05/17/22 09:01 O2 Del Method 05/17/22 04:00 O2 Flow Rate 2 05/17/22 04:00 05/16/22 05/17/22 05/17/22 22:59 06:59 14:59 Intake Total 1510 / 1990 480 / 480 Output Total 3950 / 6030 1850 / 7880 300 / 300 Balance -2440 / -4040 -1850 / -5890 180 / 180 Weight last 48 hrs Weight 88.451 kg Weight 90.9 kg Physical Exam Const: COMMON NORMALS: patient oriented x3 and alert GENERAL APPEARANCE: cooperative ORIENTATION/CONSCIOUSNESS: Yes awake HENMT: TEETH & GINGIVA: Yes poor dentition Neck/C-Spine: COMMON NORMALS: no JVD Resp: COMMON NORMALS: normal respiratory effort and clear to auscultation bilaterally AUSCULTATION: clear to auscultation bilaterally Cardio: COMMON NORMALS: no JVD, regular rhythm, S1 normal heart sound present, S2 normal heart sound present and No murmurs present (Cardio) RHYTHM: regular rhythm HEART SOUNDS: S1 normal heart sound present and S2 normal heart sound present GI: COMMON NORMALS: Normal to inspection, nondistended, normoactive bowel sounds present, Soft to palpation and non-tender PALPATION: Yes Soft to palpation Extremity: COMMON NORMALS: no joint enlargement GENERAL: Yes edema (2-3+ with some improvement) Neuro: COMMON NORMALS: patient oriented x3 and moves all extremities SENSORIUM/ORIENTATION: Yes alert Skin: COMMON NORMALS: no rashes or lesions noted GENERAL SKIN EXAM: no rashes or lesions noted Data 05/17/22 04:08 05/17/22 04:08 A&P Assessment and plan (1) Acute exacerbation of CHF (congestive heart failure): Continue to improve. In negative balance. Good urine output. She has had discussions this morning with surgery, cardiology, and we discussed with both as well. Given she has not had any clinical GI bleeding here, hemoglobin remained steady, surgery expressing concern regarding additional procedure, recommends foregoing EGD and colonoscopy at this time so as not to further elevated risk with the procedure, will continue following in case bleeding develops. Plans for further cardiac assessment with angiogram likely tomorrow. Replace additional potassium. Replace magnesium. Follow-up levels. Abnormal stress test noted with moderate area of reversible perfusion abnormality of mid to apical anterior, mid anteroseptal, mid anterolateral, apical lateral smith. Male presents ischemia in the left anterior descending/Synflex artery territory, but with absence of prior imaging attenuation artifact cannot be completely ruled out. Ejection fraction severely reduced at 20%. Severe global hypokinesis. Cardiology consultation obtained. Appreciate recommendations. Condition additional evaluation of GI bleeding with plans for further evaluation with angiogram with suspicion of coronary disease, suspected likely may require endovascular intervention as per recommendation discussed with surgery consultation for additional assessment by EGD and colonoscopy. Echocardiogram shows an EF of 23%, grade 2 diastolic dysfunction along with biatrial enlargement, moderate MR, moderate TR, severe TR with moderate pulmonary hypertension. Qualifiers: Heart failure type: combined systolic and diastolic Qualified Code(s): I50.43 - Acute on chronic combined systolic (congestive) and diastolic (congestive) heart failure (2) Bleeding per rectum: As above. Follow-up CBC. Continue PPI. Hemoglobin seems to be stable.Patient gives history of bleeding per rectum going on for last 1 month. Takes Aleve 4 to 5 tablets a day at baseline. Hemoglobin stable. Stool for occult blood negative. (3) Nausea and vomiting: Most likely secondary to gastritis from chronic NSAIDs along with possibility of congestive gastropathy. Protonix as above, Zofran as needed. Cardiac diet. (4) Swelling of lower limb: Lower limb Doppler negative for DVT. No PE. (5) Cardiomegaly: (6) Right ventricular failure: (7) Moderate pulmonary hypertension: (8) Moderate mitral valve regurgitation: (9) Severe tricuspid valve regurgitation: (10) Moderate pulmonary valve regurgitation: Plan Iron saturation low normal, but does not appear iron deficiency. Full code. Cardiac diet. Protonix for for PUD. Attestations Medical Necessity Statement*: Continue admission for optimization of acute congestive heart failure exacerbation, additional evaluation with coronary angiography, monitoring for any bleeding. Coding Level of Care Code Acute Sectional Belt Mold Assembler for Chg Fwd Diagnoses Acute exacerbation of CHF (congestive heart failure) I50.43 Heart failure type: combined systolic and diastolic Bleeding per rectum K62.5 Nausea and vomiting R11.2 Swelling of lower limb M79.89 Cardiomegaly I51.7 Right ventricular failure I50.810 Moderate pulmonary hypertension I27.20 Moderate mitral valve regurgitation I34.0 Severe tricuspid valve regurgitation I07.1 Moderate pulmonary valve regurgitation I37.1
[2022-05-17] MEDS: HYDROcodone-acetaminophen 5-325 mg Tablet 1 TAB PO (17:03)
[2022-05-17] MEDS: ondansetron 2 mg/ML SDV 2 mL 4 MG IVP (23:16)
[2022-05-18] VITALS (15 sets, daily range): BP systolic 122–159; BP diastolic 82–108; PULSE 78–101; RESP 16–31; TEMP 36.6–36.7; O2SAT 94–98
[2022-05-18] MEDS: heparin 5,000 unit/mL INJ 1 mL 5000 UNIT SUBCUT ×2 (01:50→17:48)
[2022-05-18 02:40] LABS: Basophils # 0.1 10^3/uL (0.0-0.1); Eosinophils # 0.1 10^3/uL (0.0-0.8); Eosinophils % 2.1 %; Hematocrit 40.4 % (37.0-47.0); Hemoglobin 12.6 g/dL (11.5-15.3); Lymphocytes # 1.2 10^3/uL (0.8-4.8); Lymphocytes % 22.6 %; Mean Corpuscular HGB Conc 31.2 g/dL (30.0-36.0); Mean Corpuscular Hemoglobin 31.6 pg (28.0-34.0); Mean Corpuscular Volume 101.3 fl (81-99); Mean Platelet Volume 8.8 fL (7.4-10.4); Monocytes # 0.6 10^3/uL (0.2-0.9); Monocytes % 10.5 %; Neutrophils # 3.32 10^3/uL (1.8-7.7); Neutrophils % 63.6 %; Nucleated Red Blood Cells % 0 %; Platelet Count 208 10^3/cmm (130-400); Red Blood Count 3.99 10^6/uL (4.1-5.3); Red Cell Distribution Width 14.1 % (12.1-15.1); White Blood Count 5.2 10^3/uL (4.0-10.0)
[2022-05-18 03:06] LABS: Blood Urea Nitrogen 24 mg/dL (6-20); Calcium 9.5 mg/dL (8.5-10.5); Carbon Dioxide 34 mmol/L (22-29); Chloride 100 mmol/L (98-107); Creatinine Clr Calc Pharmacy 90.5787; Glomerular Filtration Rate 75.9 mL/min (90-130); Glucose 139 mg/dL (65-115); Magnesium 1.9 mg/dL (1.7-2.3); Osmolality Calculated 302 mOsm/kg (285-295); Sodium 143 mmol/L (136-145)
[2022-05-18 03:12] LABS: Anion Gap 12.8 (5-19); Potassium 3.8 mmol/L (3.5-5.1)
[2022-05-18] MEDS: pantoprazole 40 mg SDV IVP ×2 (04:43→17:47)
--- NOTE | 2022-05-18 08:35 | XACV_ITS ---
Exam Room: [facility] Ht: 163 cm Wt: 83 kg BSA: 1.96 m2 Gender: Female : 1970 Any Known Allergies: Other Exam Priority: Routine Procedure(s): Procedure Description: Diagnostic procedure Procedure Description: Left Heart Catheterization Procedure Description: Coronary Angiography Diagnostic Cath Status: Elective Diagnostic Findings * INDICATION: LV dysfunction/ abnormal stress test. * Nonobstructive coronary artery disease. * Coronary angiography shows co-dominance. Conclusions 1. Nonobstructive coronary artery disease. 2. Nonischemic cardiomyopathy. Recommendations * Aggressive risk factor modification. * Guideline directed heart failure therapy. * Cardiology follow-up in 4-weeks. Interventional RX Recommendation: medical therapy and/or counseling Diagnostic RX Recommendation: medical therapy and/or counseling Pressures Phase:Rest AO : 124 / 104 ( 112 ) @ 10:02:00 AM 151 / 98 ( 119 ) @ 10:09:00 AM 151 / 95 ( 119 ) @ 10:09:00 AM LV : 138 / 0 / 14 @ 10:09:00 AM 147 / -2 / 15 @ 10:09:00 AM Valves Phase:DefaultPhase AV : 0.0 @ 10:58:09 AM 0.0 @ 10:58:09 AM AV Mean Gradient: 0.0 @ 10:58:09 AM 0.0 @ 10:58:09 AM Clinical Evaluation EBL: 5mL-10mL Procedural Details Procedure Consent Obtained. Pre-Procedure Time Out. Identified patient by full name and date of as verbalized by the patient/guarantor. Does the consent match the physician's order: Yes. Accurate & Complete Informed Consent: Yes. Inpatient/Outpatient History & Physical on Chart: Yes. If H&P is completed, is and addenduem needed: No; If yes, is the addendum complete: N/A. Visualize and Verify Site with Patient/Guarantor: N/A. Relevant Radiology Images available: N/A. The risks, benefits, and alternatives of sedation and/or procedure were discussed by physician. The patient agrees to continue. Procedure started. [facility] Clinical Fraility Score: 3: Managing Well. Chest Pain Symptom Assessment: Typical Angina Symptoms. Hydroelectric Powerplant Supervisor Indications: new onset CHF and abnormal stress test. Cardiovascular Instability: No,. Correct patient, site and procedure confirmed by cath team. Current diagnosis: Chest Pain. PERRLA. Strong, equal hand cathode washer bilaterally. Lungs clear x 5 lobes. IV Site on Arrival: 20 gauge in the left anticubital. IV Fluids: 0.9% NaCl at KVO. 0 mL infused prior to director of cardiac cath lab. Pre Procedural Pulses: bilateral radial was 3+. Pre Procedural Pulses: bilateral dorsalis pedis was 2+. Oxygen started at 0liters/min via nasal canula. right groin was prepped with chloroprep then draped in the usual sterile fashion. right radial was prepped with chloroprep then draped in the usual sterile fashion. Physician notified. Baseline sample Acquired. HR: 96 BPM. Physician arrived. Physician scrubbed in. Immediate Pre-Procedure Time Out. Correct Patient: Yes; Correct Procedure: Yes; Correct Site: Yes; Correct Patient Position: Yes; Correct Supplies: Yes; Dried Flammable Prep: Yes; Blood Products Available: N/A;. Lidocaine 1% infiltrated to the right radial. Nitro given through access needle. Nitro given through access needle. An attempt to gain access to the right radial artery was unsuccessful. Manual pressure was held as needed to stop the bleeding. Arterial access obtained with micropuncture set. Lidocaine 1% infiltrated to the right groin. A 5 tunisian JL4 catheter in over wire. Multiple views taken of left coronary artery. Catheter out. A 5 tunisian FR4 catheter in over wire. Multiple views taken of right coronary artery. Exchange wire out. EDP Sample taken: LV 138/-1,14; HR: 72 BPM; SpO2: 99%. Pullback taken: LV 147/-3,15; AO 151/98(119); Mean: 0mmHg, Peak to Peak: 0mmHg, SEP: 10sec/min; HR: 92 BPM; SpO2: 99%. A Right femoral angiogram was performed to determine safe placement of closure device. Physician scrubbed out. Admit Source: In Patient. Post Procedure: Pulses reassessed and unchanged. PERRLA. Strong, equal hand cathode washer bilaterally. No VTE prophylaxis required. Medication's Wasted: Nitro = 49.6 mg. Medication's Wasted: Heparin = 1000 unit. Total IV fluids: 50 mL. Complications: 3x4 inch hematoma at femoal site. A Manual Compression was successful obtaining hemostatsis at the Right Femoral artery insertion site. Dr Amador notified of hematoma. Fem-stop reccomended prior to floor transfer. Post-op diagnosis: non obstructive CAD, non ischemic cardiomyopathy. Estimated blood loss: 5mL-10mL. Responsiveness - Normal response to verbal stimuli; alert and oriented, PERRLA. Airway - Unaffected, no intervention required; spontaneous ventilation. Circulation: W/N/L, pulses unchanged. Nausea/Vomiting: No. Procedure completed. Patient transferred by bed to 1st floor. Vital chart was stopped. Access Site Site: Right Femoral artery Sheath Size: 6 Fr Hemostasis Method: Manual Compression Hemostasis Success: Successful Procedure Medications Start: 9:48 AM Stop: 9:48 AM Medication: Versed Amount: 1 mg Route: I.V. Start: 9:48 AM Stop: 9:48 AM Medication: Fentanyl Amount: 50 mcg Route: I.V. Start: 9:51 AM Stop: 9:51 AM Medication: Nitrogylcerin Amount: 200 mcg Route: I.A. Start: 9:54 AM Stop: 9:54 AM Medication: Nitrogylcerin Amount: 200 mcg Route: I.A. Start: 10:14 AM Stop: 10:14 AM Medication: Versed Amount: 1 mg Route: I.V. Start: 10:14 AM Stop: 10:14 AM Medication: Fentanyl Amount: 50 mcg Route: I.V. I, the attending physician, have reviewed and verified all procedure medications. Yes, all medications given per verbal order History/Risk Factors Hypertension: Yes Dyslipidemia: No Peripheral Arterial Disease (PAD): No Myocardial Infarction (IN): No Obesity: No Renal Disease: No Tobacco Use: Current/Recent(w/in 1 year) Prior Interventions PCI: No CABG: No Valve Surgery: No Report Signatures Finalized by Adrian Amador MD on 05/18/2022 12:18 PM
--- NOTE | 2022-05-18 11:05 | W.PM.OPSUD ---
Surgery/Procedure H&P Update DATE OF PROCEDURE: May 18, 2022 DATE H&P PERFORMED: 05/14/22 H&P UPDATE INFORMATION: I have reviewed H&P completed within last 30 days, I have examined patient prior to procedure and No changes to prior documentation PREOP DIAGNOSIS: New onset congestive heart failure/abnormal stress test PRIMARY INDICATION FOR PROCEDURE: New onset congestive heart failure/abnormal stress test PLANNED PROCEDURE: Operation Date: 05/18/22 10:00 Proposed Procedures p Cardiac Catheterization(Left) - Adrian Amador M.D Possible percutaneous coronary intervention PATIENT REASSESSED PRIOR TO SEDATION, WITH NO CHANGE NOTED: Yes PHYSICAL EXAM: alert, oriented x 3, clear to auscultation bilaterally and regular rate & rhythm AIRWAY EVAL/ANESTHESIA PLAN: normal airway, ASA III, Local Anesthesia, Risks, benefits & alternatives of sedation and/or procedure discussed and Patient agrees to continue as planned ADDITIONAL INFORMATION: Moderate sedation
--- NOTE | 2022-05-18 11:07 | PM.PN ---
Subjective Subjective: Patient is feeling well. Underwent coronary angiogram that showed patent coronary arteries. Vitals/I&O/Wt Last Vital Signs Temp 97.9 F 05/18/22 04:00 Pulse 95 05/18/22 07:59 Resp 18 05/18/22 07:59 BP 148/97 05/18/22 07:59 Pulse Ox 94 05/18/22 07:59 O2 Del Method 05/18/22 07:59 O2 Flow Rate 2 05/18/22 04:00 05/17/22 05/18/22 05/18/22 22:59 06:59 14:59 Intake Total 596 / 1362 Output Total 2800 / 4200 825 / 5025 Balance -2204 / -2838 -825 / -3663 Weight last 48 hrs Weight 182 lb 7 oz Weight 195 lb Physical Exam Narrative: GENERAL: Patient is alert, awake and oriented x3. [] NECK: No jugular vein distension. [] HEENT: No cyanosis. No icterus. No pallor. [] HEART: Regular S1 and S2. No murmur, rub or gallop. [] LUNGS: Mild crackles bilaterally ABDOMEN: Soft, nontender and nondistended. Positive bowel sounds. No guarding, rebound or tenderness. [] CENTRAL NERVOUS SYSTEM: Grossly nonfocal. [] EXTREMITIES: Lower extremities with 1+ edema bilaterally. Pulses palpable in the lower extremities, both dorsalis pedis and posterior tibial. [] Data 05/18/22 02:03 05/18/22 02:03 A&P Assessment and plan (1) Acute exacerbation of CHF (congestive heart failure): Qualifiers: Heart failure type: combined systolic and diastolic Qualified Code(s): I50.43 - Acute on chronic combined systolic (congestive) and diastolic (congestive) heart failure (2) Right ventricular failure: (3) Moderate pulmonary hypertension: (4) Moderate mitral valve regurgitation: (5) Severe tricuspid valve regurgitation: (6) Moderate pulmonary valve regurgitation: (7) Bleeding per rectum: Plan Coronary angiogram performed today shows patent coronary arteries. Mildly increased cardiac pressures. We will down titrate Lasix to 40 mg daily. Continue metoprolol and losartan. We will uptitrate tomorrow. Thank you for involving us with care of this patient. We will continue to follow. Please call with questions. Attestations Medical Necessity Statement*: Care expected to cross 2 midnights Coding Level of Care Code Acute Computer Game Tester for Chg Fwd Diagnoses Acute exacerbation of CHF (congestive heart failure) I50.43 Heart failure type: combined systolic and diastolic Right ventricular failure I50.810 Moderate pulmonary hypertension I27.20 Moderate mitral valve regurgitation I34.0 Severe tricuspid valve regurgitation I07.1 Moderate pulmonary valve regurgitation I37.1 Bleeding per rectum K62.5
[2022-05-18] MEDS: FUROsemide 10 mg/mL SDV 4mL 40 MG IVP (14:08)
--- NOTE | 2022-05-18 16:00 | PC.NURSE ---
Patient off bedrest at this time. Hematoma to right groin unchanged remains soft. Small amount of bright red blood under right groin dressing remains the same and unchanged. Fem stop was removed (which has no pressure to it) at 1230. Right radial band was also removed at 1400. Right radial site soft no concerns noted.
[2022-05-18] MEDS: docusate sodium 100 mg Capsule PO (17:48)
[2022-05-18] MEDS: ibuprofen 600 mg Tablet PO (17:48)
--- NOTE | 2022-05-18 19:20 | PC.NURSE ---
Right groin site assessed. Bruising noted and marked, no hematoma present. Site is soft, pedal pulses are palpable.
--- NOTE | 2022-05-18 20:43 | PM.PN ---
Subjective Subjective: Did not get procedure today as I came back but she was still in coronary angiogram. Coronary angiogram reported uneventful, without any significant coronary obstruction. Medications: Reviewed: Yes Vitals/I&O/Wt Last Vital Signs Temp 97.9 F 05/18/22 04:00 Pulse 101 H 05/18/22 19:47 Resp 18 05/18/22 19:47 BP 154/107 05/18/22 15:31 Pulse Ox 95 05/18/22 19:47 O2 Del Method 05/18/22 19:47 O2 Flow Rate 2 05/18/22 19:47 05/18/22 05/18/22 05/18/22 06:59 14:59 22:59 Intake Total 360 / 360 Output Total 825 / 5025 1500 / 1500 Balance -825 / -3663 -1500 / -1500 360 / -1140 Weight last 48 hrs Weight 82.752 kg Weight 88.451 kg Data 05/18/22 02:03 05/18/22 02:03 A&P Assessment and plan (1) Acute exacerbation of CHF (congestive heart failure): Discussed with cardiology. Recommendation to reduce Lasix to once daily dosing. Changed. She appears to be getting closer to euvolemia. If no further issues, consideration may be for returning home tomorrow with follow-up in office for nonischemic cardiomyopathy without any significant coronary obstructions noted on angiography. Diuresing well with good urine output, continues in negative balance. Losing weight. Replace additional potassium. Replace magnesium. Follow-up levels. Echocardiogram shows an EF of 23%, grade 2 diastolic dysfunction along with biatrial enlargement, moderate MR, moderate TR, severe TR with moderate pulmonary hypertension. Qualifiers: Heart failure type: combined systolic and diastolic Qualified Code(s): I50.43 - Acute on chronic combined systolic (congestive) and diastolic (congestive) heart failure (2) Bleeding per rectum: As above. Follow-up CBC. Continue PPI. Hemoglobin seems to be stable.Patient gives history of bleeding per rectum going on for last 1 month. Takes Aleve 4 to 5 tablets a day at baseline. Hemoglobin stable. Stool for occult blood negative. (3) Nausea and vomiting: Most likely secondary to gastritis from chronic NSAIDs along with possibility of congestive gastropathy. Protonix as above, Zofran as needed. Cardiac diet. (4) Swelling of lower limb: Lower limb Doppler negative for DVT. No PE. (5) Cardiomegaly: (6) Right ventricular failure: (7) Moderate pulmonary hypertension: (8) Moderate mitral valve regurgitation: (9) Severe tricuspid valve regurgitation: (10) Moderate pulmonary valve regurgitation: Plan Iron saturation low normal, but does not appear iron deficiency. Full code. Cardiac diet. Protonix for for PUD. Attestations Medical Necessity Statement*: Continue hospitalization for optimization of acute CHF Coding Level of Care Code Acute Zipper Setter Chainstitch for Chg Fwd Diagnoses Acute exacerbation of CHF (congestive heart failure) I50.43 Heart failure type: combined systolic and diastolic Bleeding per rectum K62.5 Nausea and vomiting R11.2 Swelling of lower limb M79.89 Cardiomegaly I51.7 Right ventricular failure I50.810 Moderate pulmonary hypertension I27.20 Moderate mitral valve regurgitation I34.0 Severe tricuspid valve regurgitation I07.1 Moderate pulmonary valve regurgitation I37.1
[2022-05-18] MEDS: metoprolol tartrate 25 mg Tablet PO (22:00)
[2022-05-19] VITALS (7 sets, daily range): BP systolic 110–138; BP diastolic 68–96; PULSE 84–98; RESP 12–25; TEMP 36.9–37; O2SAT 92–97
[2022-05-19] MEDS: heparin 5,000 unit/mL INJ 1 mL 5000 UNIT SUBCUT (02:54)
[2022-05-19] MEDS: pantoprazole 40 mg SDV IVP (05:49)
[2022-05-19 06:03] LABS: Basophils % 0.7 %; Eosinophils # 0.1 10^3/uL (0.0-0.8); Eosinophils % 1.4 %; Hematocrit 41.6 % (37.0-47.0); Hemoglobin 12.9 g/dL (11.5-15.3); Lymphocytes # 1.1 10^3/uL (0.8-4.8); Mean Corpuscular Hemoglobin 31.7 pg (28.0-34.0); Mean Corpuscular Volume 102.2 fl (81-99); Mean Platelet Volume 8.6 fL (7.4-10.4); Monocytes # 0.6 10^3/uL (0.2-0.9); Monocytes % 10.3 %; Neutrophils # 3.93 10^3/uL (1.8-7.7); Neutrophils % 68.3 %; Nucleated Red Blood Cells % 0 %; Platelet Count 199 10^3/cmm (130-400); Red Blood Count 4.07 10^6/uL (4.1-5.3); Red Cell Distribution Width 14.3 % (12.1-15.1); White Blood Count 5.8 10^3/uL (4.0-10.0)
[2022-05-19 06:25] LABS: Anion Gap 14.6 (5-19); Blood Urea Nitrogen 24 mg/dL (6-20); Calcium 9.6 mg/dL (8.5-10.5); Carbon Dioxide 32 mmol/L (22-29); Chloride 99 mmol/L (98-107); Glomerular Filtration Rate 75.9 mL/min (90-130); Glucose 90 mg/dL (65-115); Osmolality Calculated 298 mOsm/kg (285-295); Potassium 3.6 mmol/L (3.5-5.1); Sodium 142 mmol/L (136-145)
--- NOTE | 2022-05-19 08:28 | P.PN_ITS ---
Subjective Subjective: Patient is overall stable. Has headaches. Shortness of breath is improved. Vitals/I&O/Wt Last Vital Signs Temp 98.6 F 05/19/22 04:00 Pulse 86 05/19/22 06:00 Resp 12 05/19/22 04:00 BP 117/89 05/19/22 04:00 Pulse Ox 97 05/19/22 04:00 O2 Del Method 05/19/22 04:00 O2 Flow Rate 2 05/19/22 04:00 05/18/22 05/19/22 05/19/22 22:59 06:59 14:59 Intake Total 360 / 360 Output Total 150 / 1650 100 / 1750 Balance 210 / -1290 -100 / -1390 Weight last 48 hrs Weight 183 lb 1 oz Weight 182 lb 7 oz Physical Exam Narrative: GENERAL: Patient is alert, awake and oriented x3. [] NECK: No jugular vein distension. [] HEENT: No cyanosis. No icterus. No pallor. [] HEART: Regular S1 and S2. No murmur, rub or gallop. [] LUNGS: Mild crackles bilaterally ABDOMEN: Soft, nontender and nondistended. Positive bowel sounds. No guarding, rebound or tenderness. [] CENTRAL NERVOUS SYSTEM: Grossly nonfocal. [] EXTREMITIES: Lower extremities with 1+ edema bilaterally. Pulses palpable in the lower extremities, both dorsalis pedis and posterior tibial. [] Data 05/19/22 05:20 05/19/22 05:20 A&P Assessment and plan (1) Acute exacerbation of CHF (congestive heart failure): Qualifiers: Heart failure type: combined systolic and diastolic Qualified Code(s): I50.43 - Acute on chronic combined systolic (congestive) and diastolic (congestive) heart failure (2) Right ventricular failure: (3) Moderate pulmonary hypertension: (4) Moderate mitral valve regurgitation: (5) Severe tricuspid valve regurgitation: (6) Moderate pulmonary valve regurgitation: (7) Bleeding per rectum: Plan Patient has nonischemic cardiomyopathy. Can switch to Lasix 40mg in AM and 20mg in PM Uptitrate metoprolol to 50 mg twice daily. Continue losartan. Diet and daily weights advised Thank you for involving us with care of this patient. Please call with questions. Attestations Medical Necessity Statement*: Care expected to cross 2 midnights. Coding Level of Care Code Acute Psychiatric Mental Health Nurse for Chg Fwd Diagnoses Acute exacerbation of CHF (congestive heart failure) I50.43 Heart failure type: combined systolic and diastolic Right ventricular failure I50.810 Moderate pulmonary hypertension I27.20 Moderate mitral valve regurgitation I34.0 Severe tricuspid valve regurgitation I07.1 Moderate pulmonary valve regurgitation I37.1 Bleeding per rectum K62.5
[2022-05-19] MEDS: amlodipine 5 mg Tablet PO (09:56)
[2022-05-19] MEDS: docusate sodium 100 mg Capsule PO (09:57)
[2022-05-19] MEDS: aspirin 81 mg EC Tablet PO (09:57)
[2022-05-19] MEDS: FUROsemide 10 mg/mL SDV 4mL 40 MG IVP (09:57)
[2022-05-19] MEDS: metoprolol tartrate 50 mg Tablet PO (09:57)
[2022-05-19] MEDS: losartan 50 mg Tablet 25 MG PO (09:58)
--- NOTE | 2022-05-19 13:02 | P.DS_ITS ---
Discharge Providers Date of Admission: 05/14/22 17:17 Date of Discharge: May 19, 2022 Attending Provider at Admission: Alber Floyd MD Attending Provider at Discharge: Matt Carver Diagnoses at Discharge Discharge Diagnosis (1) Acute exacerbation of CHF (congestive heart failure): Status: Acute Qualifiers: Heart failure type: combined systolic and diastolic Qualified Code(s): I50.43 - Acute on chronic combined systolic (congestive) and diastolic (congestive) heart failure Permanent problem details: EF 23%, grade 2 diastolic dysfunction, moderate MR, severe TR, moderate MO, biatrial enlargement, moderate pulmonary hypertension (2) Right ventricular failure: Status: Acute (3) Moderate pulmonary hypertension: Status: Acute (4) Moderate mitral valve regurgitation: Status: Acute (5) Severe tricuspid valve regurgitation: Status: Acute (6) Moderate pulmonary valve regurgitation: Status: Acute (7) Bleeding per rectum: Status: Suspected Reason for Visit Reason for Visit: bruising/bleeding issues Hospital Course Hospital Course 51-year-old with family history of heart failure, current smoker, hematological progression initially due to abdominal pain, endorsing history of bleeding through vomiting and blood mixed in stool over the preceding 1 month. She takes Aleve for joint pain, has also been on Protonix. She also endorsed concern for congestive heart failure with lower extremity swelling worse over the preceding several months. On further questioning what was reported as hematemesis appears to be more mild hemoptysis associated with heart failure. Hemoccult was assessed and was negative. She was continued on PPI. Antiemetics as needed. CT abdomen on presentation with cardiomegaly with right sided strain. No PE. Lower limb duplex negative for DVT. She was initiated on diuretic therapy, fluid restriction, assessed by echocardiography with finding of new cardiomyopathy, EF 20%, grade 2 diastolic dysfunction, moderately increased LV cavity size, severely decreased LV systolic function. Moderately elevated filling pressures. Moderately increased right ventricular size. Mildly decreased right ventricular systolic function. Moderate pulmonary hypertension, RVSP 63 mmHg. Severely increased right atrial size. Moderately increased left atrial size. Moderate mitral valve regurgitation. Moderate to severe TVR. Moderate PVR. Additionally underwent assessment by stress testing with finding of medium sized reversible perfusion abnormality of mid to apical inferior, mid anteroseptal, mid anterolateral, apical lateral smith. Due to possible ischemia in distribution of LAD/circumflex territory was additionally assessed by cardiology. Due to reports of GI bleeding was assessed by surgery, with consideration of discontinuation, however, through hospitalization hemoglobin has remained steady, she has had no recurrence of GI bleeding episodes in the hospital, and due to recent cardiac decompensation without substantive evidence of GI bleeding per surgery additional procedure was deferred. She underwent coronary angiography for further evaluation which did not identify any significant obstructive coronary disease. She continues to diurese well through hospitalization, remaining in negative balance, with significant improvement in lower extremity edema, dyspnea symptoms, weaned off oxygen requirement down to room air at rest. Home oxygen evaluation is obtained. She is continued on CHF directed therapy with losartan, metoprolol dose is escalated to 50 mg per cardiology. Lasix is switched over to oral dose 40 mg a.m., 20 mg p.m. She is asked to follow-up with cardiology for reassessment in office and further assessment of nonischemic cardiomyopathy and severe tricuspid regurgitation. She will need further follow-up to help her quit smoking. Additionally incidentally identified fatty liver disease will need follow-up. Please follow-up further regarding reports of bleeding per rectum. Reassess blood counts. Once recovered from cardiac condition, consider further evaluation with endoscopy. MyoCardial perfusion scan was done and showed 1. Medium sized reversible perfusion abnormality of mid to apical anterior, mid anteroseptal, mid anterolateral, apical lateral smith. 2. This may represent ischemia in left anterior descending/ circumflex artery territory. In absence of prone imaging attenuation artifact cannot be completely ruled out. 3. The left ventricular ejection fraction is severely reduced with a value of 20%. 4. There is severe global hypokinesis. 5. EKG portion of the study will be reported separately. CT chest abdomen pelvis was done and showed 1. Technically limited but negative CT angiogram of the chest. No evidence of acute pulmonary embolism to major branches of the pulmonary vascular tree. 2. Marked cardiomegaly with evidence of right-sided cardiac decompensation. 3. Scattered minor atelectatic changes with additional findings suggestive of reactive airway disease/air trapping Additional findings 1. Mild ascites, generalized anasarca and mild retroperitoneal edema likely secondary to CHF/volume overload. 2. Mild gallbladder wall thickening/edema also likely to similar systemic factors. 3. Fatty infiltration of liver. Physical Exam Const: COMMON NORMALS: patient oriented x3 and alert GENERAL APPEARANCE: cooperative ORIENTATION/CONSCIOUSNESS: Yes awake HENMT: TEETH & GINGIVA: Yes poor dentition Neck/C-Spine: COMMON NORMALS: no JVD Resp: COMMON NORMALS: normal respiratory effort and clear to auscultation bilaterally AUSCULTATION: clear to auscultation bilaterally Cardio: COMMON NORMALS: no JVD, regular rhythm, S1 normal heart sound present, S2 normal heart sound present and No murmurs present (Cardio) RHYTHM: regular rhythm HEART SOUNDS: S1 normal heart sound present and S2 normal heart sound present GI: COMMON NORMALS: Normal to inspection, nondistended, normoactive bowel sounds present, Soft to palpation and non-tender PALPATION: Yes Soft to palpation Extremity: COMMON NORMALS: no joint enlargement and no pedal edema Neuro: COMMON NORMALS: patient oriented x3 and moves all extremities SENSORIUM/ORIENTATION: Yes alert Skin: COMMON NORMALS: no rashes or lesions noted GENERAL SKIN EXAM: no rashes or lesions noted Discharge Data Studies Completed and Pending Completed Studies During Hospitalization Category Date Time Status CTA chest CT abdomen pelvis [CT angio chest w abd pel w Cat Scan 05/12/22 12:46 Completed con] Stat PROFESSOR OF ENGLISH request for service Routine Exams 05/18/22 08:35 Completed Sestamibi Stress Test Request Routine Exams 05/14/22 06:00 Completed NM diego perf SPECT r/s* [id number] Routine Nuc Med 05/14/22 12:21 [place] [id number] Urgent Ultrasound 05/12/22 17:37 Completed CV. echo complete* [id number] Routine Ultrasound 05/13/22 06:00 Completed Pending at discharge Category Date Time Status Sestamibi Stress Test Request Routine Exams 05/13/22 12:21 Stop Req Basic Metabolic Panel AM LABS Lab 05/20/22 04:00 Ordered Complete Blood Count w/Auto AM LABS Lab 05/20/22 04:00 Ordered Magnesium AM LABS Lab 05/20/22 04:00 Ordered Radiology Impressions Chest/Abdomen/Pelvis CT 05/12/22 12:46 IMPRESSION: 1. Technically limited but negative CT angiogram of the chest. No evidence of acute pulmonary embolism to major branches of the pulmonary vascular tree. 2. Marked cardiomegaly with evidence of right-sided cardiac decompensation. 3. Scattered minor atelectatic changes with additional findings suggestive of reactive airway disease/air trapping IMPRESSION: 1. Mild ascites, generalized anasarca and mild retroperitoneal edema likely secondary to CHF/volume overload. 2. Mild gallbladder wall thickening/edema also likely to similar systemic factors. 3. Fatty infiltration of liver. Venous Duplex 05/12/22 17:37 IMPRESSION: No evidence of deep vein thrombosis. Laboratory Results WBC 5.8 10^3/uL (4.0-10.0) 05/19/22 05:20 RBC 4.07 10^6/uL (4.1-5.3) L 05/19/22 05:20 Hgb 12.9 g/dL (11.5-15.3) 05/19/22 05:20 Hct 41.6 % (37.0-47.0) 05/19/22 05:20 MCV 102.2 fl (81-99) H 05/19/22 05:20 MCH 31.7 pg (28.0-34.0) 05/19/22 05:20 MCHC 31.0 g/dL (30.0-36.0) 05/19/22 05:20 RDW 14.3 % (12.1-15.1) 05/19/22 05:20 Plt Count 199 10^3/cmm (130-400) 05/19/22 05:20 MPV 8.6 fL (7.4-10.4) 05/19/22 05:20 Neut % (Auto) 68.3 % 05/19/22 05:20 Lymph % (Auto) 19.0 % 05/19/22 05:20 [place] % (Auto) 10.3 % 05/19/22 05:20 Eos % (Auto) 1.4 % 05/19/22 05:20 Baso % (Auto) 0.7 % 05/19/22 05:20 Neut # (Auto) 3.93 10^3/uL (1.8-7.7) 05/19/22 05:20 Lymph # (Auto) 1.1 10^3/uL (0.8-4.8) 05/19/22 05:20 [place] # (Auto) 0.6 10^3/uL (0.2-0.9) 05/19/22 05:20 Eos # (Auto) 0.1 10^3/uL (0.0-0.8) 05/19/22 05:20 Baso # (Auto) 0.0 10^3/uL (0.0-0.1) 05/19/22 05:20 Nucleated RBC % (auto) 0 % 05/19/22 05:20 Nucleated RBCs # 0.0 /100WBC 05/19/22 05:20 PT 17.00 SECONDS (12.1-14.9) H 05/12/22 11:45 INR 1.35 (0.8-1.2) H 05/12/22 11:45 APTT 24.8 SECONDS (23.9-36.7) 05/12/22 11:45 D-Dimer 5.18 ug/mIFEU (0-0.59) H 05/12/22 11:45 Sodium 142 mmol/L (136-145) 05/19/22 05:20 Potassium 3.6 mmol/L (3.5-5.1) 05/19/22 05:20 Chloride 99 mmol/L (98-107) 05/19/22 05:20 Carbon Dioxide 32 mmol/L (22-29) H 05/19/22 05:20 Anion Gap 14.6 (5-19) 05/19/22 05:20 BUN 24 mg/dL (6-20) H 05/19/22 05:20 Creatinine 0.8 mg/dL (0.5-0.9) 05/19/22 05:20 GFR Calculation 75.9 mL/min (90-130) L 05/19/22 05:20 Glucose 90 mg/dL (65-115) 05/19/22 05:20 Estimat Average Glucose 114 05/13/22 04:58 Hemoglobin A1c 5.6 % (4.0-6.0) 05/13/22 04:58 Calculated Osmolality 298 mOsm/kg (285-295) H 05/19/22 05:20 Calcium 9.6 mg/dL (8.5-10.5) 05/19/22 05:20 Phosphorus 4.2 mg/dL (2.5-4.5) 05/13/22 04:58 Magnesium 1.9 mg/dL (1.7-2.3) 05/18/22 02:03 Iron 66 ug/dL (37-145) 05/12/22 18:40 TIBC 309 mcg/dl 05/12/22 18:40 % Saturation 21.3 % (20-50) 05/12/22 18:40 Unsat Iron Binding 243 ug/dL (112-347) 05/12/22 18:40 Total Bilirubin 0.7 mg/dL (0.15-1.2) 05/14/22 04:35 AST 26 U/L (0-32) 05/14/22 04:35 ALT 21 U/L (0-33) 05/14/22 04:35 Alkaline Phosphatase 49 U/L (35-105) 05/14/22 04:35 Troponin T Baseline 50 ng/L (0-10) H 05/12/22 11:45 Troponin T 120 Minute 51.95 ng/L (0-10) H 05/12/22 14:55 Delta Troponin T 1.95 ABS# (0-10) 05/12/22 14:55 Troponin T Hi Sens 6Hr 57.51 ng/L (0-10) H 05/12/22 18:40 Troponin T Hi Sens 6Hr Delta 7.51 ng/L (0-12) 05/12/22 18:40 NT-Pro-B Natriuret Pep 61712 pg/mL (0-125) H 05/12/22 11:45 Total Protein 5.9 g/dL (6.6-8.7) L 05/14/22 04:35 Albumin 3.5 g/dL (3.5-5.2) 05/14/22 04:35 Globulin 2.4 g/dL (1.3-4.6) 05/14/22 04:35 Triglycerides 100 mg/dL (0-150) 05/13/22 04:58 Cholesterol 162 mg/dL (0-200) 05/13/22 04:58 LDL Cholesterol, Calc 102 mg/dL (50-129) 05/13/22 04:58 Total VLDL Cholesterol 20 mg/dL (0-30) 05/13/22 04:58 HDL Cholesterol 40 mg/dL (60-100) L 05/13/22 04:58 Cholesterol/HDL Ratio 4.05 mg/dL (0.0-4.40) 05/13/22 04:58 Lipase 38 U/L (13-60) 05/12/22 11:45 Vitamin B12 724 pg/mL (232-1245) 05/12/22 18:40 Folate 19.6 ng/mL (4.8-37.3) 05/12/22 18:40 Procalcitonin 0.04 ng/mL (0-0.5) 05/12/22 18:40 TSH 2.29 uIU/mL (0.27-4.20) 05/12/22 11:45 Urine Color Dark yellow (Yellow) 05/12/22 11:50 Urine Appearance Clear (CLEAR) 05/12/22 11:50 Urine pH 5 (5-7) 05/12/22 11:50 Ur Specific [place] 1.020 (1.005-1.030) 05/12/22 11:50 Urine Protein 3+ (Negative) H 05/12/22 11:50 Urine Glucose (UA) Norm (Normal) 05/12/22 11:50 Urine Ketones 1+ (Negative) H 05/12/22 11:50 Urine Blood 2+ (Negative) H 05/12/22 11:50 Urine Nitrate Negative (Negative) 05/12/22 11:50 Urine Bilirubin 1+ (Negative) H 05/12/22 11:50 Urine Urobilinogen 8 mg/dL (Negative) H 05/12/22 11:50 Ur Leukocyte Esterase Negative (Negative) 05/12/22 11:50 Urine RBC 0-4 /hpf (0-2) H 05/12/22 11:50 Urine WBC Rare /hpf (0-5) 05/12/22 11:50 Ur Squamous Epith Cells 10-15 /hpf (0-5) H 05/12/22 11:50 Amorphous Sediment Not Reportable 05/12/22 11:50 Urine Bacteria 1+ /hpf (NONE) H 05/12/22 11:50 Urine Mucus Trace /hpf 05/12/22 11:50 Salicylates < 0.3 mg/dL (3-10) L 05/12/22 11:45 Urine Opiates Screen Negative ng/mL (Negative) 05/12/22 11:50 Acetaminophen < 5.0 ug/mL (10-30) L 05/12/22 11:45 Ur Barbiturates Screen Negative ng/mL (Negative) 05/12/22 11:50 Ur Phencyclidine Scrn Negative ng/mL (Negative) 05/12/22 11:50 Ur Amphetamines Screen Negative ng/mL (Negative) 05/12/22 11:50 U Benzodiazepines Scrn Negative ng/mL (Negative) 05/12/22 11:50 Urine Cocaine Screen Negative ng/mL (Negative) 05/12/22 11:50 U Marijuana (THC) Screen Negative ng/mL (Negative) 05/12/22 11:50 Ethyl Alcohol < 10 mg/dL (0-10) 05/12/22 11:45 Vitals Last Vital Signs Temp 98.5 F 05/19/22 12:56 Pulse 89 05/19/22 12:56 Resp 18 05/19/22 08:00 BP 138/96 05/19/22 12:56 Pulse Ox 94 05/19/22 08:00 O2 Del Method 05/19/22 08:00 O2 Flow Rate 2 05/19/22 04:00 Discharge Plan Discharge Patient Disposition: Home Condition: Stable Prescriptions: New losartan 50 mg Tablet 25 mg PO DAILY Qty: 45 0RF metoprolol tartrate 50 mg Tablet 50 mg PO BID@0900,2100 Qty: 180 0RF furosemide 40 mg tablet See Rx Instructions .ROUTE .COMPLEX Qty: 90 0RF Rx Instructions: 40mg in AM and 20mg in PM amlodipine 5 mg Tablet 5 mg PO DAILY Qty: 90 0RF Continued potassium 99 mg Tablet 99 mg PO DAILY Discontinued Aleve 220 mg Capsule 220 mg PO BID PRN (Reason: Pain) Discharge Orders: Discharge Order (Routine); Ordered 05/19/22 Ordered By: Matt Carver Referrals: Hugh Arreola DO [Physician] - ([facility] will contact you to schedule follow up appointment. If you have not heard from them by Saturday05/21/2022 please call [phone]. ) Nori Fletcher FNP [Nurse Practitioner] - 4-7 days ([facility] will call you with a follow up appointment with Nori Fletcher with-in 4-7 days. If you havent heard from them please call [phone].) Discharge Diet: Cardiac Discharge Activity: Increase activity as tolerated Patient Instructions: Heart Failure (DC), Dilated Cardiomyopathy (GEN), How to Stop Smoking (GEN), Cigarette Smoking and Your Health (GEN), Heart Catheterization (DC), CHF Stoplight, Opioid Safety, Post Angiogram Home Care Instructions, Non-Alcoholic Fatty Liver Disease (GEN) Activity Restrictions/Additional Instructions: Continue medications as prescribed, avoid NSAIDs, and follow-up with cardiology for reassessment and further assessment of nonischemic cardiomyopathy. Continue cardiac diet. Weigh yourself daily Follow-up with your primary doctor for the above, as well as reassessment of hematemesis and bright red blood per rectum, reassessment of blood counts. Please stop smoking. Discharge Attestations Time Spent in Discharge Care*: greater than 30 min Quality Metrics Clinical Quality Measures [ No reported AMI, CVA or VTE this stay] Coding Level of Care Code Acute Chg FW DC note Exam Comprehensive Diagnoses Acute exacerbation of CHF (congestive heart failure) I50.43 Heart failure type: combined systolic and diastolic Right ventricular failure I50.810 Moderate pulmonary hypertension I27.20 Moderate mitral valve regurgitation I34.0 Severe tricuspid valve regurgitation I07.1 Moderate pulmonary valve regurgitation I37.1 Bleeding per rectum K62.5
--- NOTE | 2022-05-19 14:21 | PC.NURSE ---
med dispense per Dr olivares to dispense discharge meds to have for tomorrow until she picks up her meds on Saturday. 2 tabs 40 mg lasix, norvasc 5 mg#1 tab, Metoprolol 50 mf #3tabs, losartan 50 mg #1.
== END 2022-05-19 15:12 | disposition home or self-care (01) | DRG 287 ==
LOC: ER 14:55 → CSU 15:37
PROVIDERS: Internal Medicine; Admitting Provider Student in an Organized Health Care Education/Training Program; Emergency Provider Emergency Medicine; Visit Provider Internal Medicine
PROC: B2111ZZ Fluoroscopy of Multiple Coronary Arteries using Low Osmolar Contrast (ICD-10-PCS; principal; 2022-05-18 10:00)
DX: I50.43 Acute on chronic combined systolic (congestive) and diastolic (congestive) heart failure (principal); K62.5 Hemorrhage of anus and rectum; R04.2 Hemoptysis; I42.8 Other cardiomyopathies; I97.410 Intraoperative hemorrhage and hematoma of a circulatory system organ or structure complicating a cardiac catheterization; I25.10 Atherosclerotic heart disease of native coronary artery without angina pectoris; I07.1 Rheumatic tricuspid insufficiency; I27.20 Pulmonary hypertension, unspecified; I50.82 Biventricular heart failure; I34.0 Nonrheumatic mitral (valve) insufficiency; R11.2 Nausea with vomiting, unspecified; R53.81 Other malaise; R94.39 Abnormal result of other cardiovascular function study; F17.200 Nicotine dependence, unspecified, uncomplicated; Z79.1 Long term (current) use of non-steroidal anti-inflammatories (NSAID)
CPT/HCPCS: 36415; 71275; 74177; 78452; 80048; 80053; 80061; 80306; 80307; 81001; 82274; 82607; 82746; 83036; 83540; 83550; 83690; 83735; 83880; 84100; 84145; 84443; 84484; 85025; 85378; 85610; 85730; 93005; 93017; 93306; 93458; 93970; 94760; 96360; 96372; 96374; 96375; 99152; 99153; 99285; A9500; C1769; C1887; C1894; C9113; G0378; J1644; J1940; J2250; J2270; J2405; J2785; J3010; J3475; J3490; J7030; J7040; Q9967

== ENCOUNTER 2022-06-20 10:30 | Emergency (ER) | payer SELFPAY ==
[2022-06-20 10:52] VITALS: BP 145/89; PULSE 80; RESP 16; TEMP 36.7; O2SAT 98
--- NOTE | 2022-06-20 11:23 | W.ED.HA ---
HPI - Headache General: Chief Complaint: Headache Stated Complaint: Back of head in pain as well as eyes. Time Seen by Provider: 06/20/22 11:23 History of Present Illness: Ms. Molina is a 51-year-old lady with complex cardiac history presenting to the emergency department for headache which has resolved. She endorses feeling bumps associated with posterior headache on the back of her head and occasional left frontal over the past 2 days. Denies associated fevers, migrainous symptoms, meningismus, or neurologic deficits. Reports that she has had similar episodes in the past. She has had increased stress. Intensity symptoms when present is moderate. Course has resolved. No other specific changes in health, exacerbating, or alleviating factors identified. Onset (ago): day(s) Location: occipital Severity: moderate Quality & Timing: aching and throbbing Exacerbating factors: none Relieving factors: nothing Associated symptoms: Reports no associated symptoms Review of Systems General: Reports: 10 or more systems reviewed and unremarkable except in HPI and below PFSH ED PFSH: Medical History Acute exacerbation of CHF (congestive heart failure) EF 23%, grade 2 diastolic dysfunction, moderate MR, severe TR, moderate NC, biatrial enlargement, moderate pulmonary hypertension Moderate mitral valve regurgitation Moderate pulmonary hypertension Moderate pulmonary valve regurgitation Open fracture of great toe of right foot Right ventricular failure Severe tricuspid valve regurgitation Social History Smoking and tobacco status: current every day smoker Alcohol intake: never Physical Exam Const: COMMON NORMALS: patient oriented x3 and alert GENERAL APPEARANCE: cooperative and well developed HENMT: COMMON NORMALS: normocephalic and atraumatic HEAD & SCALP: normocephalic and atraumatic THROAT: posterior oropharynx normal Eye: COMMON NORMALS: conjunctivae normal CONJUNCTIVA: Yes conjunctivae normal SCLERA: sclerae normal Neck/C-Spine: COMMON NORMALS: supple GENERAL: Yes trachea midline Resp: COMMON NORMALS: normal respiratory effort EFFORT & INSPECTION: Yes able to speak in complete sentences Cardio: COMMON NORMALS: regular rate and regular rhythm RATE: regular rate RHYTHM: regular rhythm GI: COMMON NORMALS: Soft to palpation PALPATION: Yes Soft to palpation and No Tenderness to palpation present (GI) PERCUSSION: normal to percussion Extremity: GENERAL: Yes normal exam except as noted and No edema Neuro: COMMON NORMALS: patient oriented x3, CN's II-XII intact bilaterally, moves all extremities, no focal motor deficits, no sensory deficits noted and gait normal SENSORIUM/ORIENTATION: Yes alert and No Orientation impaired Psych: COMMON NORMALS: mental status grossly normal and Normal thought process present THOUGHT PROCESS: Normal thought process present Course Vital Signs: Vital signs: Vital Signs Temperature 98.1 F 06/20/22 10:52 Pulse Rate 87 06/20/22 11:42 Respiratory Rate 17 06/20/22 11:42 Blood Pressure 142/94 06/20/22 11:42 Pulse Oximetry 96 06/20/22 11:42 Oxygen Delivery Me thod 06/20/22 10:52 MDM - Headache Medical Decision Making Patient reports headaches. No focal neurologic deficits or meningismus on exam. Headache is resolved. When asked for location of bump patient points to areas of trapezius insertion on the base of the posterior head. Most likely muscle spasms and headache in nature associated with tension. I did offer imaging which the patient declined. Strict return precautions discussed. Medical Records I reviewed the patient's medical records. Lab Data I reviewed the patient's lab results. Discharge Plan Discharge Patient Disposition: Home Clinical Impression: Headache, Muscle spasm Condition: Stable Prescriptions: No Action potassium 99 mg Tablet 99 mg PO DAILY losartan 50 mg Tablet 25 mg PO DAILY Qty: 45 0RF amlodipine 5 mg Tablet 5 mg PO DAILY Qty: 90 0RF metoprolol tartrate 50 mg Tablet 50 mg PO BID@0900,2100 Qty: 180 0RF furosemide 40 mg tablet See Rx Instructions .ROUTE .COMPLEX Qty: 90 0RF Rx Instructions: 40mg in AM and 20mg in PM Discharge Orders: Discharge ED (Routine); Ordered 06/20/22 Ordered By: Colby Reynolds Discharge Diet: Usual diet Discharge Activity: Resume usual activity Patient Instructions: Tension Headache (ED), Muscle Spasm (ED) Activity Restrictions/Additional Instructions: Thank you for visiting the emergency department. You were seen and positive for headache and neck pain. We are pleased that your symptoms have resolved. Without further evaluation, as discussed, I am unsure of the cause however based on description I feel that outpatient follow-up with your primary care provider as you desire is reasonable. Please follow-up with a primary care provider. Return to the emergency department for new or different headaches, any new neurologic symptoms, or anything else that you are concerned about a feel needs emergency department evaluation. Coding Level of Care Code ED Geriatric Social Work Professor for Bobby Fishman
[2022-06-20 11:42] VITALS: BP 142/94; PULSE 87; RESP 17; O2SAT 96
== END 2022-06-20 11:44 | disposition home or self-care (01) ==
PROVIDERS: Emergency Provider Emergency Medicine
DX: R51.0 Headache with orthostatic component, not elsewhere classified (principal); M62.838 Other muscle spasm; F17.210 Nicotine dependence, cigarettes, uncomplicated; I50.9 Heart failure, unspecified
CPT/HCPCS: 99282

== ENCOUNTER 2022-11-04 16:31 | Emergency (ER) | payer SELFPAY ==
[2022-11-04 16:39] VITALS: BP 194/128; PULSE 103; RESP 14; TEMP 36.4; O2SAT 97; BMI 32.4
--- NOTE | 2022-11-04 17:23 | ED_ITS ---
HPI - Headache General: Chief Complaint: Headache Stated Complaint: throat closes when eating Time Seen by Provider: 11/04/22 17:23 History of Present Illness: 51-year-old female comes in today for complaints of difficulty swallowing and posterior headache. Patient has a history of CHF and hypertension. Patient reports being without her medication for quite some time. patient's blood pressure is elevated at this time. Patient appears nontoxic. Patient is managing secretions well. No respiratory difficulty is noted. Associated symptoms: Deny chest pain, fever(s), nausea, rash or vomiting Review of Systems General: Reports: 10 or more systems reviewed and unremarkable except in HPI and below Const: Denies: fever(s) ENMT: Reports: throat pain Card: Denies: chest pain Resp: Denies: dyspnea GI: Denies: nausea or vomiting : Denies: difficulty voiding Musc: Reports: neck pain Skin/Breast: Denies: rash Neuro: Reports: headache(s) PFSH ED PFSH: Medical History Acute exacerbation of CHF (congestive heart failure) EF 23%, grade 2 diastolic dysfunction, moderate MR, severe TR, moderate [place], biatrial enlargement, moderate pulmonary hypertension Moderate mitral valve regurgitation Moderate pulmonary hypertension Moderate pulmonary valve regurgitation Open fracture of great toe of right foot Right ventricular failure Severe tricuspid valve regurgitation Social History Smoking and tobacco status: current every day smoker Alcohol intake: never Physical Exam Const: COMMON NORMALS: alert HENMT: COMMON NORMALS: normocephalic HEAD & SCALP: normocephalic MOUTH: Normal oral and palatal mucosa present THROAT: posterior oropharynx abnormal erythema Neck/C-Spine: COMMON NORMALS: full ROM Resp: COMMON NORMALS: normal respiratory effort and clear to auscultation bilaterally AUSCULTATION: clear to auscultation bilaterally Cardio: COMMON NORMALS: regular rate and regular rhythm RATE: regular rate RHYTHM: regular rhythm GI: COMMON NORMALS: non-tender Back/Pelvis: COMMON NORMALS: thoracic and lumbar spine normal to inspection Extremity: COMMON NORMALS: no pedal edema Neuro: SENSORIUM/ORIENTATION: Yes alert Skin: COMMON NORMALS: turgor normal GENERAL SKIN EXAM: turgor normal Course Vital Signs: Vital signs: Vital Signs Temperature 97.5 F L 11/04/22 16:39 Pulse Rate 103 H 11/04/22 16:39 Respiratory Rate 14 11/04/22 16:39 Blood Pressure 203/149 11/04/22 18:17 Pulse Oximetry 97 11/04/22 16:39 Oxygen Delivery Me thod Room Air 11/04/22 16:39 MDM - Headache Medical Decision Making 51-year-old female comes in today for complaints of a sore throat, difficulty swallowing, and headache. On exam patient has tenderness of the cervical paraspinous muscles. Posterior pharynx is slightly erythematous with some cobblestoning. Respirations are even lungs are clear to auscultation. Blood pressure is elevated. Differential diagnosis includes but not limited to tension headache, viral syndrome, cervical disc disease, epiglottitis. Patient has some poor dentition but no signs of abscess or posterior pharyngeal swelling is noted. Patient does have some mild redness in the posterior pharynx. Some tenderness is noted along the paraspinal muscles. X-ray of the soft tissues of neck noted multilevel degenerative disc disease but no other signs of abnormality. Patient was treated with ketorolac for pain, dexamethasone for inflammation, and 1 dose of clonidine due to her elevated blood pressure. Patient is unable to afford blood pressure medication due to cost. Recommended follow-up with [facility] to establish care and hopefully get assistance with medications. At this time believe patient has musculoskeletal pain and some tendinitis in the neck which is causing her increased pain with swallowing. Patient was given prescriptions for prednisone to continued for pain and inflammation, celecoxib, and tramadol. Patient was recommended to follow-up with primary care or return to the ER for worsening symptoms. Lab Data Radiology Impressions Soft Tissue Neck X-Ray 11/04/22 17:33 IMPRESSION: Multilevel [id number] degenerative disc space narrowing and productive degenerative endplate changes throughout the cervical spine. Discharge Plan Discharge Patient Disposition: Home Clinical Impression: Tension headache, DDD (degenerative disc disease), cervical Pharyngitis Qualifiers: Pharyngitis/tonsillitis etiology: unspecified etiology Qualified Code(s): J02.9 - Acute pharyngitis, unspecified Condition: Stable Prescriptions: New prednisone 20 mg tablet 20 mg PO BID 5 Days Qty: 10 0RF tramadol 50 mg tablet 50 mg PO Q8H PRN (Reason: pain (scale score 7-10)) Qty: 10 0RF celecoxib 100 mg capsule 100 mg PO BID Qty: 20 0RF No Action potassium 99 mg Tablet 99 mg PO DAILY losartan 50 mg Tablet 25 mg PO DAILY Qty: 45 0RF amlodipine 5 mg Tablet 5 mg PO DAILY Qty: 90 0RF metoprolol tartrate 50 mg Tablet 50 mg PO BID@0900,2100 Qty: 180 0RF furosemide 40 mg tablet See Rx Instructions .ROUTE .COMPLEX Qty: 90 0RF Rx Instructions: 40mg in AM and 20mg in PM Discharge Orders: Discharge ED (Routine); Ordered 11/04/22 Ordered By: Edilson Winkler Discharge Diet: Usual diet Discharge Activity: Increase activity as tolerated Patient Instructions: Hypertension (ED) Activity Restrictions/Additional Instructions: Follow-up with primary care for refills on medication. Gentle stretching and range of motion exercises of the neck. Drink plenty of water. Use acetaminophen for pain. Return to ER for worsening symptoms such as increased shortness of breath, chest pain, or new concerns. Coding Level of Care Code ED Strip Picker for Bobby Fishman
--- NOTE | 2022-11-04 17:33 | XRR_ITS ---
PROCEDURE INFORMATION: Exam: XR Soft Tissue Neck Exam date and time: 11/04/2022 5:52 PM Age: 51 years old Clinical indication: Dysphagia / difficulty swallowing TECHNIQUE: Imaging protocol: Radiologic exam of the soft tissues of the neck. COMPARISON: CT angio chest w abd pel w con 05/12/2022 12:58 PM FINDINGS: Airway: Normal. No abnormal narrowing. Soft tissues: Normal. Normal epiglottis. Bones/joints: Multilevel knkl-ir-kjkjslvm degenerative disc space narrowing and productive degenerative endplate changes throughout the cervical spine. XR/XR soft tissue neck [id number] IMPRESSION: Multilevel hatb-aj-kzsgcuxu degenerative disc space narrowing and productive degenerative endplate changes throughout the cervical spine.
[2022-11-04 18:17] VITALS: BP 203/149
[2022-11-04] MEDS: cloNIDine 0.1 mg Tablet PO (18:17)
[2022-11-04] MEDS: ketorolac 30 mg/mL INJ IM (18:20)
[2022-11-04] MEDS: dexamethasone 10 mg/mL INJ IM (18:22)
[2022-11-04 19:02] VITALS: BP 196/139; PULSE 89; RESP 18; O2SAT 96
--- NOTE | 2022-11-04 19:16 | PC.NURSE ---
NOTIFIED PROVIDER TJ OF BP OF 196/103 HE VERBALIZED UNDERSTANDING VO TO CONTINUE WITH DC.
--- NOTE | 2022-11-05 15:12 | DCPLANNER ---
net manager called patient due to no primary care physician - no answer at this time.
== END 2022-11-04 19:16 | disposition home or self-care (01) ==
PROVIDERS: Emergency Provider Nurse Practitioner Family
DX: G44.209 Tension-type headache, unspecified, not intractable (principal); M50.30 Other cervical disc degeneration, unspecified cervical region; J02.9 Acute pharyngitis, unspecified; F17.200 Nicotine dependence, unspecified, uncomplicated; I11.0 Hypertensive heart disease with heart failure; I50.32 Chronic diastolic (congestive) heart failure
CPT/HCPCS: 70360; 96372; 99284; J1100; J1885

== ENCOUNTER → 2022-11-07 13:00 | Outpatient (BNVA) | payer SELFPAY | PROVIDERS: Visit Provider Registered Nurse Neonatal Intensive Care | DX: J02.9 Acute pharyngitis, unspecified (principal); B34.9 Viral infection, unspecified | CPT/HCPCS: 87880 ==

== ENCOUNTER 2023-01-03 11:13 | Outpatient (CLI) | payer SELFPAY ==
--- NOTE | 2023-01-03 11:15 | USCV_ITS ---
Madina Molina Age: 52 Gender: F : 1970 Exam Date: 01/03/2023 11:34 Ordering Phys: Brian Baez MD Technologist: Linda Campos [place] [facility] [place]: SOB BP: 134 / 94 HR: 84 Rhythm: Sinus Technical Quality: Good MEASUREMENTS (Male / Female) Normal Values 2D ECHO LV Diastolic Diameter PLAX 6.4 cm 4.2 - 5.9 / 3.9 - 5.3 cm LV Systolic Diameter PLAX 6.0 cm IVS Diastolic Thickness 1.3 cm 0.6 - 1.0 / 0.6 - 0.9 cm IVS Systolic Thickness 1.3 cm LVPW Diastolic Thickness 1.3 cm 0.6 - 1.0 / 0.6 - 0.9 cm LVPW Systolic Thickness 1.6 cm LVOT Diameter 2.0 cm LV Ejection Fraction 2D Teich 14.1 % LV Ejection Fraction MOD 2C 6.1 % LV Ejection Fraction 2C AL 6.7 % LA Diameter 4.4 cm LA Width 3.0 cm LA Height 5.8 cm RA Width 5.1 cm RA Height 6.0 cm Aorta at Sinotubular Diameter 2.7 cm IVC Diameter 1.3 cm M-MODE Aortic Annulus Diameter 2.9 cm LA Ao Ratio MM 1.6 MV E Point Septal Separation 2.3 cm DOPPLER AV Peak Velocity 120.0 cm/s LVOT Peak Velocity 91.0 cm/s AV Area Cont Eq vti 2.4 cm squared AV Area Cont Eq pk 2.5 cm squared MV Peak Velocity 101.0 cm/s MV Area PHT 9.6 cm squared Mitral E to A Ratio 0.2 MV E' Velocity 15.0 cm/s Mitral E to MV E' Ratio 7.5 Mitral E to LV E' Lateral Ratio 7.1 Mitral E to LV E' Septal Ratio 8.0 TR Peak Velocity 299.8 cm/s TR Peak Gradient 35.9 mmHg Right Atrial Pressure 5.0 mmHg Pulmonary Artery Systolic Pressu 40.9 mmHg PV Peak Velocity 202.0 cm/s RV Acceleration Time 0.1 s RV Ejection Time 0.3 s RV AcT/ET 0.5 FINDINGS Left Ventricle Moderately increased left ventricular cavity size. Normal left ventricular wall thickness. Severely decreased left ventricular systolic function. Global left ventricular hypokinesis. Abnormal septal motion consistent with conduction abnormality. Flattened septum in diastole consistent with right ventricle volume overload. Grade II/IV diastolic dysfunction, moderately elevated filling pressures. Left ventricular ejection fraction is estimated at 20 %. Right Ventricle Normal right ventricular size and systolic function. Mild pulmonary hypertension, RVSP 40.9 mmHg. Right Atrium The right atrium is normal in size. Left Atrium Mildly increased left atrial size. Mitral Valve Structure of the valve is normal. The posterior leaflet prolapses slightly. There is trace to mild mitral regurgitation. Aortic Valve Structurally normal aortic valve without significant sclerosis or stenosis. There is no aortic regurgitation. Tricuspid Valve Structurally normal tricuspid valve. Mild tricuspid valve regurgitation. Pulmonic Valve Pulmonic valve not well visualized. Mild pulmonary valve regurgitation. Pericardium Small hemodynamically insignificant pericardial effusion Aorta Normal ascending aorta dimension. IVC The inferior vena cava appears normal. CONCLUSIONS Moderately increased left ventricular cavity size. Normal left ventricular wall thickness. Severely decreased left ventricular systolic function. Global left ventricular hypokinesis. Abnormal septal motion consistent with conduction abnormality. Flattened septum in diastole consistent with right ventricle volume overload. Grade II/IV diastolic dysfunction, moderately elevated filling pressures. Left ventricular ejection fraction is estimated at 20 %. Mildly increased left atrial size. Normal right ventricular size and systolic function. Mild pulmonary hypertension, RVSP 40.9 mmHg. Structure of the valve is normal. The posterior leaflet prolapses slightly. There is trace to mild mitral regurgitation. Small hemodynamically insignificant pericardial effusion. From the previous study done 05/13/2022, the ejection fraction is unchanged. The pulmonary pressure seems slightly less. Dr. Delvis Meraz MD (Electronically Signed) Final Date: 04 January 2023 14:19 S
== END 2023-01-03 11:14 | disposition home or self-care (01) ==
LOC: RAD 11:18
PROVIDERS: PCP Family Medicine; Visit Provider Family Medicine
DX: I50.20 Unspecified systolic (congestive) heart failure (principal)
CPT/HCPCS: 93306

== ENCOUNTER → 2023-01-29 09:47 | Outpatient (BNVA) | payer SELFPAY | PROVIDERS: PCP Family Medicine; Visit Provider Family Medicine | DX: Z12.4 Encounter for screening for malignant neoplasm of cervix (principal) | CPT/HCPCS: 88175 ==

== ENCOUNTER 2023-02-11 11:00 | Outpatient (CLI) | payer SELFPAY | END 2023-02-11 11:01 | disposition home or self-care (01) | LOC: SLEEP 02-12 12:53 | PROVIDERS: PCP Family Medicine; Visit Provider Family Medicine | DX: G47.33 Obstructive sleep apnea (adult) (pediatric) (principal); G47.36 Sleep related hypoventilation in conditions classified elsewhere | CPT/HCPCS: G0399 ==

== ENCOUNTER 2023-02-12 07:40 | Outpatient (CLI) | payer SELFPAY ==
--- NOTE | 2023-02-12 08:00 | US_ITS ---
WS: [id number] US pelv w/transvag [id number] HISTORY: tenderness of RIGHT ovary COMPARISON: None available. Uterus: 5.7 cm x 3.1 cm x 2.8 cm. Uterus is normal size. Mild heterogeneity within the myometrium. No discrete fibroid. No increased va scularity. Endometrium: 0.5 cm. Endometrium is measuring top normal size for postmenopausal patient. There is an adjacent calcification which is probably postprocedural. No increased vascularity. Right ovary: 2.7 cm x 2.3 cm x 1.5 cm. Normal size and vascularity, no cystic or solid masses. Left ovary: 1.2 cm x 1.1 cm x 1.2 cm. Normal size and vascularity, no cystic or solid masses. No free fluid in the cul-de-sac. IMPRESSION: 1. No RIGHT ovarian abnormalities identified. 2. Endometrium measuring top normal size. No increased vascularity and no mass identified.
--- NOTE | 2023-02-12 08:05 | MM_ITS ---
WS: [id number] BILATERAL 3D TOMOSYNTHESIS DIGITAL SCREENING MAMMOGRAPHY WITH CAD CLINICAL INFORMATION: breast CA screening HISTORY: Screening mammogram. No current complaints. COMPARISON: None. TECHNIQUE: Bilateral CC and MLO views. FINDINGS: Scattered fibroglandular densities bilaterally. No suspicious focal mass, asymmetry, calcifications, or architectural distortion. No evidence of malignancy. Punctate and lucent centered calcifications. IMPRESSION: MM/[place] [id number] BI-RADS: 2-Benign FOLLOW UP: 1 Year Follow-up Recommend return to annual screening mammography.
== END 2023-02-12 07:41 | disposition home or self-care (01) ==
PROVIDERS: PCP Family Medicine; Visit Provider Family Medicine
DX: Z12.31 Encounter for screening mammogram for malignant neoplasm of breast; N94.89 Other specified conditions associated with female genital organs and menstrual cycle
CPT/HCPCS: 76830; 76856; 77063; 77067

== ENCOUNTER → 2023-05-30 11:10 | Outpatient (BNVA) | payer SELFPAY | PROVIDERS: PCP Family Medicine; Visit Provider Family Medicine | DX: R60.0 Localized edema (principal); I50.20 Unspecified systolic (congestive) heart failure; K29.70 Gastritis, unspecified, without bleeding | CPT/HCPCS: 80053 ==

== ENCOUNTER 2024-08-07 12:35 | Inpatient (IN) | payer SELFPAY ==
[2024-08-07] VITALS (17 sets, daily range): BP systolic 121–148; BP diastolic 73–111; PULSE 84–119; RESP 16–93; TEMP 36.5–37.1; O2SAT 91–97; BMI 48.2; BMI 35.9
--- NOTE | 2024-08-07 12:45 | ECG_ITS ---
[facility] Date: 2024-08-07 Pat Name: Madina Molina Department: Room: Gender: Female Radiology Technician: : 1970 Requested By: Lexus Trevizo Order Number: [id number] Char MD: Adrian Amador M.D. Measurements Intervals [place] Rate: 116 P: -17 MI: 246 QRS: -46 QRSD: 166 T: 93 QT: 383 QTc: 533 Interpretive Statements SINUS TACHYCARDIA WITH FIRST DEGREE AV BLOCK LEFT ATRIAL ENLARGEMENT [-0.15mV P-WAVE IN V1/V2] LEFT AXIS DEVIATION [QRS AXIS < -30] INTRAVENTRICULAR CONDUCTION DELAY [130+ ms QRS DURATION] Compared to ECG 05/14/2022 00:53:21 First degree AV block now present Atrial abnormality now present Sinus rhythm no longer present Electronically Signed On 08-07-2024 19:01:46 CDT by Adrian Amador M.D. [email or web address]
--- NOTE | 2024-08-07 12:49 | XR_ITS ---
WS: [id number] Portable AP upright chest, 08/07/2024 Clinical Data: weakness Comparison: PA chest with rib detail, 08/03/2013 Findings: The heart is enlarged. The pulmonary vascularity is not increased. There are no nodules, masses or effusions. No pneumonia or pneumothorax is seen. Monitor leads are on the chest wall. XR/XR chest 1V portable [id number] Impression: Massive cardiomegaly.
--- NOTE | 2024-08-07 12:49 | CT_ITS ---
WS: [id number] CT ABDOMEN PELVIS TECHNIQUE: Contrast-enhanced CT of the abdomen and pelvis with coronal and sagittal reformatted images. CLINICAL INFORMATION: vomiting COMPARISON: None. DLP: 852.[address] scans at [facility] use at least one of these dose optimization techniques: automated exposure control; mA and/or kV adjustment per patient size (includes targeted exams where dose is matched to clinical indication); or iterative reconstruction. FINDINGS: Marked cardiomegaly. Hepatic vein reflux suggestive of RIGHT heart failure. Diffuse body wall anasarca. Diffuse fatty infiltration of the liver. Adrenal glands are normal. Normal renal parenchymal enhancement. No hydronephrosis. Small amount of free fluid in the pelvis. Normal caliber abdominal aorta. Celiac and SMA are patent. Normal pancreatic parenchymal enhancement. Gallbladder is contracted. Sigmoid colon is decompressed. No evidence of small or large bowel obstruction. [place] fat-containing umbilical hernia. A few loops of abutting small bowel with omental fat herniation. Tiny herniated knuckle of small bowel without evidence of obstruction.. Disc space narrowing L4-L5 and L5-S1. No other acute findings. CT/CT abdomen pelvis w con* [id number] IMPRESSION: 1. Marked cardiomegaly with evidence of RIGHT heart failure. 2. Diffuse body wall anasarca with mild to moderate fluid overload. 3. Small amount of free fluid in the pelvis. 4. Widemouth fat-containing umbilical hernia with an abutting loop of small lety wel and a tiny knuckle of small bowel herniation although no evidence of obstru ction. See series 4 image 46 and series 7 image 32
--- NOTE | 2024-08-07 12:53 | ED_ITS ---
HPI - Abdominal Pain 2 General: Chief Complaint: Abdominal Pain Stated Complaint: abdominal pain N/V/D Time Seen by Provider: 08/07/24 12:41 Source: patient Mode of arrival: ambulatory Limitations: no limitations History of Present Illness: 53-year-old female who states she has no t been feeling well over the past few weeks states has been having lower abdominal pain is also been having nausea along with some malaise. She states she had a nosebleed today as well that was only a few drops. She states that mainly she just has not felt well and has not felt herself with her abdominal pain. She has a history of CHF she denies any chest pain she denies any fevers Associated Symptoms: Reports nausea and vomiting; Denies chills, diarrhea and fever(s) Related Data Home Medications ?Medication ?Instructions ?Recorded ?Confirmed aspirin 81 mg tablet,delayed 81 mg PO DAILY 12/03/22 0 08/07/24 release (Adult Low Dose Aspirin) fexofenadine 180 mg tablet 180 mg PO DAILY PRN allergi es 08/07/24 08/07/24 (Kelsie Allergy) omeprazole 40 mg capsule,delayed 40 mg PO DAILY PRN Ac id Reflux 08/07/24 08/07/24 release Previous Rx's ?Medication ?Instructions ?Recorded CPAP 16-6cm setting #1 ea 02/19/23 CPAP mask, tubing, supplies #1 ea 02/19/23 meloxicam 15 mg tablet 15 mg PO DAILY #90 tabs 09/17 potassium chloride 20 mEq 20 meq PO DAILY #90 tabs 09/17 tablet,extended release torsemide 40 mg tablet 40 mg PO QAM #90 tabs Allergies Allergy/AdvReac Type Severity Reaction Status Date / Time hollis pepper Allergy Mild ALGY-Hives Verified 07/29/23 10:20 acetaminophen Allergy ALGY-Anaphy Verified 07/29/23 10:20 laxis black pepper Allergy Unknown Verified 07/29/23 10:20 mushroom Allergy Unknown Verified 07/29/23 10:20 tomato Allergy Unknown Verified 07/29/23 10:20 Review of Systems 2 Const: Denies: fever(s), chills, body aches or change in appetite ENMT: Denies: throat pain or dental pain Card: Denies: chest pain Resp: Denies: dyspnea GI: Reports: abdominal pain, nausea and vomiting; Denies: diarrhea Musc: Denies: neck pain or back pain Skin/Breast: Denies: rash Neuro: Denies: headache(s) PFSH ED 2 PFSH: Medical History Obstructive sleep apnea Degenerative disc disease Bipolar 1 disorder History of lipoma two tumors removed from her back Arthritis History of blood clots Moderate pulmonary valve regurgitation Severe tricuspid valve regurgitation Moderate mitral valve regurgitation Moderate pulmonary hypertension Right ventricular failure Acute exacerbation of CHF (congestive heart failure) EF 23%, grade 2 diastolic dysfunction, moderate MR, severe TR, moderate MD, biatrial enlargement, moderate pulmonary hypertension Open fracture of great toe of right foot Surgical History History of lumpectomy of right breast History of bilateral tubal ligation History of cardiac catheterization Family History Grandmother Cancer Paternal-breast Other CAD (coronary artery disease) Diabetes Hyperlipidemia Hypertension Denies family history of Clotting disorder Dementia Psychiatric illness Chronic kidney disease (CKD) Anesthesia complication Bleeding disorder Lung disease Stroke Social History Smoking and tobacco/nicotine status: never used tobacco/nicotine Alcohol intake: never Substance/Drug Use: never Lives independently: Yes Marital status: Legally Number of children: 2 Current occupational status: disabled Special fahad needs: No Agree to transfusion: Yes Physical Exam 2 Const: COMMON NORMALS: no acute distress, patient oriented x3 and healthy appearing HENMT: COMMON NORMALS: normocephalic and atraumatic HEAD & SCALP: n ormocephalic and atraumatic Eye: COMMON NORMALS: conjunctivae normal CONJUNCTIVA: Yes conjunctivae normal Neck/C-Spine: COMMON NORMALS: full ROM and supple Chest: COMMONS NORMALS: normal inspection of the chest Resp: COMMON NORMALS: normal respiratory effort, No retractions, No use of accessory muscles and clear to auscultation bilaterally AUSCULTATION: clear to auscultation bilaterally Cardio: COMMON NORMALS: regular rate, regular rhythm and No murmurs present (Cardio) RATE: regular rate RHYTHM: regular rhythm GI: COMMON NORMALS: Normal to inspection, nondistended, normoactive bowel sounds present, Soft to palpation, non-tender and no masses PALPATION: Yes Soft to palpation Extremity: COMMON NORMALS: full ROM NARRATIVE EXTREMITY EXAM: 2+ edema to ble Neuro: COMMON NORMALS: patient oriented x3, moves all extremities and no focal motor deficits Psych: COMMON NORMALS: mental status grossly normal, Normal thought process present and cooperative THOUGHT PROCESS: Normal thought process present Skin: COMMON NORMALS: no rashes or lesions noted and no wounds GENERAL SKIN EXAM: no rashes or lesions noted Course 2 Vital Signs: Vital signs: Vital Signs Temperature 97.7 F 08/07/24 12:53 Pulse Rate 114 H 08/07/24 14:15 Respiratory Rate 18 08/07/24 14:15 Blood Pressure 128/73 08/07/24 14:15 Pulse Oximetry 95 08/07/24 14:15 Oxygen Delivery Me thod Room Air 08/07/24 12:53 MDM - Abdominal Pain Medical Decision Making Patient presents here with CHF exacerbation symptoms abdominal pain she also having fatigue and malaise she is having hypoxia here requiring oxygen CT of abdomen showed no acute abdominal issues she does have severe right heart failure with anasarca and fluid overload we will place her on Lasix she is admitted to the cardiac stepdown Medical Records I reviewed the patient's medical records. Lab Data I reviewed the patient's lab results. 08/07/24 13:15 08/07/24 13:15 Labs/Radiology: Radiology Impressions Abdomen/Pelvis CT 08/07/24 12:49 IMPRESSION: 1. Marked cardiomegaly with evidence of RIGHT heart failure. 2. Diffuse body wall anasarca with mild to moderate fluid overload. 3. Small amount of free fluid in the pelvis. 4. [place] fat-containing umbilical hernia with an abutting loop of small bowel and a tiny knuckle of small bowel herniation although no evidence of obstruction. See series 4 image 46 and series 7 image 32 Chest X-Ray 08/07/24 12:49 Impression: Massive cardiomegaly. Gallbladder Ultrasound 08/07/24 13:57 IMPRESSION: 1. Slightly contracted gallbladder with diffuse gallbladder wall thickening and no edema. Gallbladder wall thickening may be secondary to fluid overload and edema. 2. Small stones or sludge at the gallbladder neck are not excluded. 3. No intrahepatic bile duct dilatation. Laboratory Results WBC 4.95 10^3/uL (3.29-11.43) 08/07/24 13:15 RBC 4.31 10^6/uL (3.85-5.65) 08/07/24 13:15 Hgb 12.40 g/dL (11.27-16.99) 08/07/24 13:15 Hct 40.7 % (36-47) 08/07/24 13:15 MCV 94.4 fl (85-98) 08/07/24 13:15 MCH 28.8 pg (27-33) 08/07/24 13:15 MCHC 30.5 g/dL (30-55) 08/07/24 13:15 RDW 16.4 % (12.1-15.1) H 08/07/24 13:15 Plt Count 212 10^3/cmm (157-399) 08/07/24 13:15 MPV 8.7 fL (7.4-10.4) 08/07/24 13:15 Neut % (Auto) 65.7 % 08/07/24 13:15 Lymph % (Auto) 24.2 % 08/07/24 13:15 [place] % (Auto) 8.5 % 08/07/24 13:15 Eos % (Auto) 0.2 % 08/07/24 13:15 Baso % (Auto) 1.0 % 08/07/24 13:15 Neut # (Auto) 3.25 10^3/uL (1.8-7.7) 08/07/24 13:15 Lymph # (Auto) 1.2 10^3/uL (0.8-4.8) 08/07/24 13:15 [place] # (Auto) 0.4 10^3/uL (0.2-0.9) 08/07/24 13:15 Eos # (Auto) 0.0 10^3/uL (0.0-0.8) 08/07/24 13:15 Baso # (Auto) 0.1 10^3/uL (0.0-0.1) 08/07/24 13:15 Nucleated RBC % (auto) 0 % 08/07/24 13:15 Nucleated RBCs # 0.0 /100WBC 08/07/24 13:15 PT 20.30 SECONDS (12.1-14.9) H 08/07/24 13:15 INR 1.62 (0.8-1.2) H 08/07/24 13:15 Sodium 141 mmol/L (136-145) 08/07/24 13:15 Potassium 3.8 mmol/L (3.5-5.1) 08/07/24 13:15 Chloride 103 mmol/L (98-107) 08/07/24 13:15 Carbon Dioxide 22 mmol/L (22-29) 08/07/24 13:15 Anion Gap 19.8 (5-19) H 08/07/24 13:15 BUN 34 mg/dL (6-20) H 08/07/24 13:15 Creatinine 1.5 mg/dL (0.5-0.9) H 08/07/24 13:15 GFR Calculation 36.5 mL/min (90-130) L 08/07/24 13:15 Glucose 90 mg/dL (65-115) 08/07/24 13:15 Calculated Osmolality 299 mOsm/kg (285-295) H 08/07/24 13:15 Calcium 9.1 mg/dL (8.5-10.5) 08/07/24 13:15 Magnesium 2.2 mg/dL (1.7-2.3) 08/07/24 13:15 Total Bilirubin 2.6 mg/dL (0.15-1.2) H 08/07/24 13:15 AST 136 U/L (0-32) H 08/07/24 13:15 ALT 148 U/L (0-33) H 08/07/24 13:15 Alkaline Phosphatase 48 U/L (35-105) 08/07/24 13:15 Troponin T Baseline 176 ng/L (0-10) H* 08/07/24 13:15 NT-Pro-B Natriuret Pep 57200 pg/mL (0-125) H 08/07/24 13:15 Total Protein 6.6 g/dL (6.6-8.7) 08/07/24 13:15 Albumin 3.9 g/dL (3.5-5.2) 08/07/24 13:15 Globulin 2.7 g/dL (1.3-4.6) 08/07/24 13:15 Lipase 42 U/L (13-60) 08/07/24 13:15 TSH 3.82 uIU/mL (0.27-4.20) 08/07/24 13:15 Urine Color [place] (Yellow) A 08/07/24 14:05 Urine Appearance Turbid (CLEAR) A 08/07/24 14:05 Urine pH 5.5 (5-7) 08/07/24 14:05 Ur Specific [place] 1.027 (1.005-1.030) 08/07/24 14:05 Urine Protein 3+ (Negative) A 08/07/24 14:05 Urine Glucose (UA) Negative (Normal) 08/07/24 14:05 Urine Ketones Trace (Negative) 08/07/24 14:05 Urine Blood 2+ (Negative) A 08/07/24 14:05 Urine Nitrate Negative (Negative) 08/07/24 14:05 Urine Bilirubin 1+ (Negative) H 08/07/24 14:05 Urine Urobilinogen 2.0 mg/dL (Negative) H 08/07/24 14:05 Ur Leukocyte Esterase Trace (Negative) A 08/07/24 14:05 Urine RBC 5-10 /hpf (0-2) H 08/07/24 14:05 Urine WBC 5-10 /hpf (0-5) H 08/07/24 14:05 Ur Squamous Epith Cells 5-10 /hpf (0-5) H 08/07/24 14:05 Amorphous Sediment Not Reportable 08/07/24 14:05 Urine Bacteria 4+ /hpf (NONE) H 08/07/24 14:05 Hyaline Casts 5-10 /lpf H 08/07/24 14:05 Coarse Granular Casts 0-4 /lpf H 08/07/24 14:05 All radiology interpretation(s) finalized by discharge EKG Data EKG 1: I personally reviewed and interpreted this EKG as follows: EKG interpretation date: 08/07/24 EKG interpretation time: 12:45 Interpretation: sinus tach hr [address] elevation qrs 166 qtc 452 Discharge Plan Discharge Patient Disposition: Admitted As Inpatient Admit Provider: Evelyn Loja Clinical Impression: CHF exacerbation, Abdominal pain Condition: Stable Coding Level of Care Code 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
--- NOTE | 2024-08-07 13:25 | PC.PHAR ---
Pts' medications are all almost a year old. Pt states she does take some of them as needed. Pt states stopped taking Amlodipine 10mg daily last fill 09/25/23 and Losartan 100mg daily last fill 08/26/23. Removed from chart.
[2024-08-07 13:27] LABS: Basophils # 0.1 10^3/uL (0.0-0.1); Eosinophils % 0.2 %; Hematocrit 40.7 % (36-47); Lymphocytes # 1.2 10^3/uL (0.8-4.8); Lymphocytes % 24.2 %; Mean Corpuscular HGB Conc 30.5 g/dL (30-55); Mean Corpuscular Hemoglobin 28.8 pg (27-33); Mean Corpuscular Volume 94.4 fl (85-98); Mean Platelet Volume 8.7 fL (7.4-10.4); Monocytes # 0.4 10^3/uL (0.2-0.9); Monocytes % 8.5 %; Neutrophils # 3.25 10^3/uL (1.8-7.7); Neutrophils % 65.7 %; Nucleated Red Blood Cells % 0 %; Platelet Count 212 10^3/cmm (157-399); Red Blood Count 4.31 10^6/uL (3.85-5.65); Red Cell Distribution Width 16.4 % (12.1-15.1); White Blood Count 4.95 10^3/uL (3.29-11.43)
[2024-08-07 13:41] LABS: INR 1.62 (0.8-1.2)
[2024-08-07] MEDS: iohexol 350 mg/mL 500 mL Btl (per mL) IV (13:44)
[2024-08-07] MEDS: ondansetron 2 mg/ML SDV 2 mL 4 MG IVP ×2 (13:44→17:29)
[2024-08-07] MEDS: morphine 4 mg/mL SDV 1 mL IVP (13:45)
[2024-08-07 13:53] LABS: Alanine Aminotransferase 148 U/L (0-33); Albumin Level 3.9 g/dL (3.5-5.2); Alkaline Phosphatase 48 U/L (35-105); Anion Gap 19.8 (5-19); Aspartate Amino Transferase 136 U/L (0-32); Blood Urea Nitrogen 34 mg/dL (6-20); Calcium 9.1 mg/dL (8.5-10.5); Carbon Dioxide 22 mmol/L (22-29); Chloride 103 mmol/L (98-107); Globulin 2.7 g/dL (1.3-4.6); Glomerular Filtration Rate 36.5 mL/min (90-130); Glucose 90 mg/dL (65-115); Lipase 42 U/L (13-60); Magnesium 2.2 mg/dL (1.7-2.3); Osmolality Calculated 299 mOsm/kg (285-295); Potassium 3.8 mmol/L (3.5-5.1); Sodium 141 mmol/L (136-145); Total Bilirubin 2.6 mg/dL (0.15-1.2); Total Protein 6.6 g/dL (6.6-8.7)
[2024-08-07 13:55] LABS: Troponin(5th) Baseline 176 ng/L (0-10)
--- NOTE | 2024-08-07 13:57 | US_ITS ---
WS: [id number] RIGHT UPPER QUADRANT ULTRASOUND HISTORY: abd pain COMPARISON: Abdomen CT 08/07/2024 Liver: 16.4 cm in length. Normal size liver with mild hepatic steatosis. No intrahepatic duct dilatation. Portal Vein: Normal hepatopetal flow with monophasic waveform. Gallbladder: Slightly contracted gallbladder with mild diffuse gallbladder wall thickening measuring up to 8 mm. No pericholecystic fluid. No stones are identified. There may be a few small stones or sludge at the gallbladder neck. CBD: 0.5 cm Pancreas: Poorly visualized. Right kidney: 11.0 cm in length. Normal size and echogenicity. No hydronephrosis or mass. Aorta and IVC: Unremarkable abdominal aorta and IVC. No ascites. US/US gall bladder 13963 IMPRESSION: 1. Slightly contracted gallbladder with diffuse gallbladder wall thickening an d no edema. Gallbladder wall thickening may be secondary to fluid overload and edema. 2. Small stones or sludge at the gallbladder neck are not excluded. 3. No intrahepatic bile duct dilatation.
[2024-08-07 14:03] LABS: Thyroid Stimulating Hormone 3.82 uIU/mL (0.27-4.20)
[2024-08-07 14:14] LABS: Bilirubin Urine 1+ (Negative); Blood Urine 2+ (Negative); Glucose Urine UA Negative (Normal); Ketones Urine Trace (Negative); Leukocyte Esterase Urine Trace (Negative); Nitrate Urine Negative (Negative); Protein Urine 3+ (Negative); Specific Gravity, Urine 1.027 (1.005-1.030); Urine Appearance Turbid (CLEAR); pH Urine 5.5 (5-7)
[2024-08-07 14:25] LABS: Add Urine Microscopic? YES; Bacteria Urine 4+ /hpf; UA Manual Slide Review YES; Urine Color Orange (Yellow)
[2024-08-07 14:26] LABS: Add Urine Culture? Yes; Coarse Granular Casts Urine 0-4 /lpf
[2024-08-07] MEDS: FUROsemide 10 mg/mL SDV 10mL 60 MG IVP (14:27)
[2024-08-07 15:44] LABS: Troponin 5 2HR Delta -9.4 ABS# (0-10)
[2024-08-07 15:45] LABS: Troponin 5 2HR 166.6 ng/L (0-10)
[2024-08-07] MEDS: heparin 5,000 unit/mL INJ 1 mL 5000 UNIT SUBCUT (16:06)
--- NOTE | 2024-08-07 16:40 | PM.HP ---
Providers/Chief Complaint Admitting Physician: Evelyn Loja Primary Care Provider: Brian Baez MD Chief Complaint: abdominal pain N/V/D History of Present Illness 53-year-old female with a past medical history of non-ischemic cardiomyopathy (EF 20% on echocardiogram in December 2022), grade 2 diastolic dysfunction, mild pulmonary hypertension (RVSP 40.9 mmHg), and congestive heart failure presents with abdominal pain, bloating, and vomiting for the past month. The patient describes constant left upper quadrant abdominal pain with occasional right-sided pain. She reports feeling small lumps or knots in the left upper quadrant. She has multiple complaints. Also noted increase fluid retention leading to dyspnea on exertion. Intermittent episode of chest pain as well.. The patient denies frequency, urgency or dyuria. No documented fever however does have chills at time. Noted an episode of epistaxis 2 days prior lasting briefly now resolved. Only takes aspirin at home. The patient is prescribed torsemide (2 pills once daily) but has not been consistently taking her medications. She is unsure of their typical weight. The patient has not followed up with cardiology since her last echocardiogram in 2022. Initial evaluation in the ER revealed: - Laboratory Findings: WBC 4.9, Hgb 12, Hct 40, platelets 212, iron 1.62, creatinine 1.5 (baseline 0.6 in May 2023), bilirubin 2.6, AST 136, ALT 148, Alk Phos 48, initial troponin 176 with repeat 166.4 at 120 minutes, TSH 3.62, CK 42, trace leukocyte esterase, negative nitrites. - Imaging Studies: CT abdomen/pelvis showing enlarged heart with evidence of right heart failure, diffuse body-wide anasarca, mild to moderate fluid overload, small amount of free fluid in the pelvis, wide-mouthed fat-containing umbilical hernia with a budding loop of small bowel (no obstruction). CXR with massive cardiomegaly. Gallbladder ultrasound showing slightly contracted gallbladder with diffuse wall thickening (no edema), likely secondary to fluid overload. Patient was given Lasix 40 mg IV x 1 and admitted. Review of Systems General: Reports: 10 or more systems reviewed and unremarkable except in HPI and below Medications/Allergies Home Medications ?Medication ?Instructions ?Recorded ?Confirmed ?Last Taken ?Type aspirin 81 mg tablet,delayed 81 mg PO DAILY 12/03/22 08/07/24 Unknown History release (Adult Low Dose Aspirin) CPAP 16-6cm setting #1 ea 02/19/23 08/07/24 Unknown Rx CPAP mask, tubing, supplies #1 ea 02/19/23 08/07/24 Unknown Rx meloxicam 15 mg tablet 15 mg PO DAILY #90 tabs 07/29/23 08/07/24 Unknown Rx potassium chloride 20 mEq 20 meq PO DAILY #90 tabs 07/29/23 08/07/24 Unknown Rx tablet,extended release torsemide 40 mg tablet 40 mg PO QAM #90 tabs 07/29/23 08/07/24 Unknown Rx fexofenadine 180 mg tablet 180 mg PO DAILY PRN allergies 08/07/24 08/07/24 Unknown History (Kelsie Allergy) omeprazole 40 mg capsule,delayed 40 mg PO DAILY PRN Acid Reflux 08/07/24 08/07/24 Unknown History release Allergies Allergy/AdvReac Type Severity Reaction Status Date / Time hollis pepper Allergy Mild ALGY-Hives Verified 07/29/23 10:20 acetaminophen Allergy ALGY-Anaphy Verified 07/29/23 10:20 laxis black pepper Allergy Unknown Verified 07/29/23 10:20 mushroom Allergy Unknown Verified 07/29/23 10:20 tomato Allergy Unknown Verified 07/29/23 10:20 PFSH Acute PFSH: Medical History Obstructive sleep apnea Degenerative disc disease Bipolar 1 disorder History of lipoma two tumors removed from her back Arthritis History of blood clots Moderate pulmonary valve regurgitation Severe tricuspid valve regurgitation Moderate mitral valve regurgitation Moderate pulmonary hypertension Right ventricular failure Acute exacerbation of CHF (congestive heart failure) EF 23%, grade 2 diastolic dysfunction, moderate MR, severe TR, moderate [place], biatrial enlargement, moderate pulmonary hypertension Open fracture of great toe of right foot Surgical History History of lumpectomy of right breast History of bilateral tubal ligation History of cardiac catheterization Family History Grandmother Cancer Paternal-breast Other CAD (coronary artery disease) Diabetes Hyperlipidemia Hypertension Denies family history of Clotting disorder Dementia Psychiatric illness Chronic kidney disease (CKD) Anesthesia complication Bleeding disorder Lung disease Stroke Social History Smoking and tobacco/nicotine status: never used tobacco/nicotine Alcohol intake: never Substance/Drug Use: never Lives independently: Yes Marital status: Legally Number of children: 2 Current occupational status: disabled Special fahad needs: No Agree to transfusion: Yes Vitals/I&O/Wt Last Vital Signs Temp 97.7 F 08/07/24 12:53 Pulse 118 H 08/07/24 16:30 Resp 19 H 08/07/24 16:30 BP 135/104 08/07/24 16:30 Pulse Ox 94 08/07/24 16:30 O2 Del Method Nasal Cannula 08/07/24 16:00 Weight last 48 hrs Weight 95.028 kg Weight 127.459 kg Physical Exam Narrative: == General: 53-year-old female appearing in moderate distress. Noted tachycardia and tachypnea. Requiring 3L supplemental oxygen to maintain SpO2 94%. HEENT: JVD present. No active epistaxis or oral bleeding. Cardiovascular: Tachycardia, HR 118. Regular rhythm. S1/S2 present, no murmurs, rubs, or gallops. Respiratory: Tachypnea. Lungs clear to auscultation bilaterally. No wheezes, rales, or rhonchi. Abdomen: Soft, distended. Tenderness to palpation in left upper quadrant with palpable lumps. Umbilical hernia present, non-tender. No rebound or guarding. Extremities: 3-4+ pitting edema in bilateral lower extremities. No calf tenderness or erythema. Neuro: Alert and oriented x3. No focal neurologic deficits. Skin: Diffuse anasarca present. Data 08/07/24 13:15 08/07/24 13:15 A&P Assessment and plan (1) CHF exacerbation: (2) Gastroenteritis: (3) Abdominal pain: (4) Lower extremity edema: (5) Heart failure with reduced ejection fraction: (6) Bipolar 1 disorder: (7) Right ventricular failure: Plan Acute Decompensated Heart Failure - Patient with known non-ischemic cardiomyopathy (EF 20%) presenting with signs and symptoms of acute decompensated heart failure, including dyspnea, fluid retention (anasarca), and abdominal discomfort secondary to congestion. Differential Diagnosis: 1. Volume overload due to medication non-compliance and dietary indiscretion. 2. Progression of underlying cardiomyopathy. Plan: 1. Admit for diuresis and optimization of heart failure management. 2. Clear liquid diet, monitor fluid balance and daily weights. 3. Lasix 40 mg BID 4. Echocardiogram to reassess cardiac function and guide further management. 5. Consult cardiology in am. Will plan to start GDMT as patient tolerates (patient previously declined ICD). Acute Kidney Injury - Creatinine elevated to 1.5 from a baseline of 0.6 in May 2023, likely secondary to cardiorenal syndrome in the setting of acute decompensated heart failure. Differential Diagnosis: 1. Pre-renal azotemia due to volume depletion and decreased cardiac output. 2. Acute tubular necrosis secondary to prolonged hypoperfusion. Plan: 1. Monitor renal function with daily BUN and creatinine. 2. Optimize volume status with diuresis, goal to improve renal perfusion. 3. Avoid nephrotoxic medications. 4. Consider renal ultrasound if no improvement with medical management. Transaminitis - AST 136, ALT 148, likely secondary to hepatic congestion in the setting of right heart failure. Normal alkaline phosphatase (48) suggests against a biliary etiology. - US RUQ noted - Gallbladder wall thickening Plan: 1. Monitor liver function tests, expect improvement with diuresis and optimization of cardiac function. 2. Avoid hepatotoxic medications. 3. CMP in am Elevated Troponin - Initial troponin 176, repeat 166.4 at 120 minutes. Patient reports occasional chest pain. Plan: 1. Repeat troponin in 6 hours to evaluate for delta. 2. Echo ordered. Intermittent Nausea/vomiting - CT abdomen/pelvis revealing a fat-containing umbilical hernia with a small knuckle of bowel herniation, no evidence of obstruction. Plan: 1. Continue clear liquid diet, advance as tolerated. Epistaxis - Reported significant epistaxis 2 days prior to admission, self-resolved after 3 minutes. Plan: 1. Resolved PDMP PDMP Reviewed: Not Reviewed Attestations Medical Necessity Statement*: Patient will require over 2 midnight stay in hospital for eval and treatment Coding Level of Care Code Acute Code for Chg Fwd Diagnoses CHF exacerbation I50.9 Gastroenteritis K52.9 Abdominal pain R10.9 Lower extremity edema R60.0 Heart failure with reduced ejection fraction I50.20 Bipolar 1 disorder F31.9 Right ventricular failure I50.810
--- NOTE | 2024-08-07 18:20 | PC.NURSE ---
pt c/o nausea with dry heaves.dr luis in room.ordered dose of zofran to be given.zofran given as ordered.
[2024-08-07] MEDS: morphine 4 mg/mL SDV 1 mL 2 MG IVP (20:27)
[2024-08-07 20:42] LABS: Troponin 5 6HR 168.1 ng/L (0-10); Troponin 5 6HR Delta -7.9 ng/L (0-12)
[2024-08-08] VITALS (8 sets, daily range): BP systolic 118–136; BP diastolic 85–95; PULSE 93–116; RESP 20–23; TEMP 36.5–36.8; O2SAT 92–96
[2024-08-08] MEDS: heparin 5,000 unit/mL INJ 1 mL 5000 UNIT SUBCUT ×3 (00:30→17:21)
--- NOTE | 2024-08-08 00:55 | PC.NURSE ---
MD contacted about increased itching, MD prescribed Benadryl 25mg PO, orders entered
[2024-08-08] MEDS: diphenhydrAMINE 25 mg Capsule PO (01:26)
[2024-08-08 05:19] LABS: Basophils # 0.1 10^3/uL (0.0-0.1); Basophils % 1.3 %; Eosinophils % 0.6 %; Hematocrit 37.4 % (36-47); Lymphocytes # 1.2 10^3/uL (0.8-4.8); Mean Corpuscular HGB Conc 30.2 g/dL (30-55); Mean Corpuscular Hemoglobin 28.5 pg (27-33); Mean Corpuscular Volume 94.4 fl (85-98); Mean Platelet Volume 8.9 fL (7.4-10.4); Monocytes # 0.5 10^3/uL (0.2-0.9); Monocytes % 10.8 %; Neutrophils # 2.98 10^3/uL (1.8-7.7); Neutrophils % 62.1 %; Nucleated Red Blood Cells % 0 %; Platelet Count 196 10^3/cmm (157-399); Red Blood Count 3.96 10^6/uL (3.85-5.65); Red Cell Distribution Width 16.4 % (12.1-15.1)
[2024-08-08 05:34] LABS: Alanine Aminotransferase 133 U/L (0-33); Albumin Level 3.6 g/dL (3.5-5.2); Alkaline Phosphatase 42 U/L (35-105); Anion Gap 17.7 (5-19); Aspartate Amino Transferase 105 U/L (0-32); Blood Urea Nitrogen 36 mg/dL (6-20); Calcium 8.8 mg/dL (8.5-10.5); Carbon Dioxide 24 mmol/L (22-29); Chloride 104 mmol/L (98-107); Globulin 2.5 g/dL (1.3-4.6); Glomerular Filtration Rate 36.5 mL/min (90-130); Glucose 100 mg/dL (65-115); Osmolality Calculated 302 mOsm/kg (285-295); Potassium 3.7 mmol/L (3.5-5.1); Sodium 142 mmol/L (136-145); Total Bilirubin 1.7 mg/dL (0.15-1.2); Total Protein 6.1 g/dL (6.6-8.7)
[2024-08-08] MEDS: aspirin 81 mg EC Tablet PO (09:26)
[2024-08-08] MEDS: pantoprazole DR 40 mg Tablet PO (09:26)
--- NOTE | 2024-08-08 10:30 | ECG_ITS ---
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: : 1970 Requested By: Evelyn Loja Order Number: [id number] Reading MD: LADY ESPINOZA Measurements Intervals Lindsay Rate: 107 P: 14 OK: 147 QRS: -39 QRSD: 170 T: 101 QT: 410 QTc: 549 Interpretive Statements SINUS TACHYCARDIA LEFT AXIS DEVIATION [QRS AXIS < -30] LEFT BUNDLE BRANCH BLOCK [120+ ms QRS DURATION, 80+ ms Q/S IN V1/V2, 85+ ms R IN I/aVL/V5/V6] Compared to ECG 08/07/2024 12:45:35 Left bundle-branch block now present First degree AV block no longer present Atrial abnormality no longer present Intraventricular conduction delay no longer present Electronically Signed On 08-10-2024 18:11:30 CDT by LADY ESPINOZA [email or web address]
[2024-08-08] MEDS: FUROsemide 10 mg/mL SDV 4mL 40 MG IVP (13:13)
--- NOTE | 2024-08-08 14:11 | P.PN_ITS ---
Subjective 2 Subjective: 53-year-old female with a past medical h istory of non-ischemic cardiomyopathy (EF 20% on echocardiogram in December 2022), grade 2 diastolic dysfunction, mild pulmonary hypertension (RVSP 40.9 mmHg), who presents with abdominal pain, bloating, and vomiting for the past month. The patient describes constant left upper quadrant abdominal pain with occasional right-sided pain. She reports feeling small lumps or knots in the left upper quadrant. She has multiple complaints. Also noted increase fluid retention leading to dyspnea on exertion. Intermittent episode of chest pain as well.. The patient denies frequency, urgency or dyuria. No documented fever however does have chills at time. Noted an episode of epistaxis 2 days prior lasting briefly now resolved. Only takes aspirin at home. The patient is prescribed torsemide (2 pills once daily) but has not been consistently taking her medications. She is unsure of their typical weight. Initial evaluation in the ER revealed: - Laboratory Findings: WBC 4.9, Hgb 12, Hct 40, platelets 212, iron 1.62, creatinine 1.5 (baseline 0.6 in May 2023), bilirubin 2.6, AST 136, ALT 148, Alk Phos 48, initial troponin 176 with repeat 166.4 at 120 minutes, TSH 3.62, CK 42, trace leukocyte esterase, negative nitrites. - Imaging Studies: CT abdomen/pelvis shantal wing enlarged heart with evidence of right heart failure, diffuse body-wide anasarca, mild to moderate fluid overload, small amount of free fluid in the pelvis, wide-mouthed fat-containing umbilical hernia with a budding loop of small bowel (no obstruction). CXR with massive cardiomegaly. Gallbladder ultrasound showing slightly contracted gallbladder with diffuse wall thickening (no edema), likely secondary to fluid overload. Patient was given 60 mg of IV x 1 in ER. Admitted to the hospital for further workup. On day 2 of hospitalization she was stating that she was feeling better. Did not have any abdominal pain, nausea or vomiting. Did have some itchiness which she states is due to the morphine she received yesterday. Has not had any chest discomfort. Still feels volume overloaded. Unclear if this is accurate however patient's weight was documented at 127 kg on admission which today it is 94. Medications: Reviewed: Yes Vitals/I&O/Wt Last Vital Signs Temp 98.0 F 08/08/24 12:00 Pulse 110 H 08/08/24 12:00 Resp 21 H 08/08/24 12:00 BP 119/90 08/08/24 12:00 Pulse Ox 93 08/08/24 12:00 O2 Del Method Nasal Cannula 08/08/24 12:00 08/07/24 08/08/24 08/08/24 22:59 06:59 14:59 Intake Total 120 / 120 480 / 480 Output Total 625 / 625 400 / 1025 Balance -625 / -625 -280 / -905 480 / 480 Weight last 48 hrs Weight 94.892 kg Weight 95.028 kg Weight 127.459 kg Physical Exam 2 Narrative: General: Alert awake no distress today. HEENT: JVD present. No active epistaxis or oral bleeding. Cardiovascular: Tachycardia, HR 118. Regular rhythm. S1/S2 present, no murmurs, rubs, or gallops. Respiratory: . Lungs clear to auscultation bilaterally. No wheezes, rales, or rhonchi. Abdomen: Soft, distended. Tenderness to palpation in left upper quadrant with palpable lumps. Umbilical hernia present, non-tender. No rebound or guarding. Extremities: 3-4+ pitting edema in bilateral lower extremities. No calf tenderness or erythema. Neuro: Alert and oriented x3. No focal neurologic deficits. Skin: Diffuse anasarca present. Data 08/08/24 04:13 08/08/24 04:13 Micro: Microbiology 08/07/24 14:05 Urine Culture - Preliminary Urine,Clean Catch A&P Assessment and plan (1) CHF exacerbation: (2) Gastroenteritis: (3) Abdominal pain: (4) Lower extremity edema: (5) Heart failure with reduced ejection fraction: (6) Bipolar 1 disorder: (7) Right ventricular failure: Plan Acute Decompensated Heart Failure - Patient with known non-ischemic cardiomyopathy (EF 20%), grade 3/4 diastolic dysfunction presenting with signs and symptoms of acute decompensated heart failure, including dyspnea, fluid retention (anasarca), and abdominal discomfort secondary to congestion. - S/p Lasix 60 mg IV x 1 in ER, now on Lasix 40 mg IV q12hr - Prior ot arrival she was on torsemide 40 mg once a day. She was not on full GDMT. Was on losartan 100 mg daily. - Denied LifeVest/AICD Plan: - Add metoprolol XL 25 mg daily - Holding ARB while diuresing and ASIA - Will consider change to entresto instead of resuming arb - Will add dapagliflozin and if tolerated aldactone - Repeat echo pending - Track daily weight, i believe admission weight was likely not accurate Elevated Troponin - Initial troponin 176, repeat 166.4 at 120 minutes. Patient reports occasional chest pain. Plan: - Follow-up on echocardiogram - Continue aspirin Acute Kidney Injury - Creatinine elevated to 1.5 from a baseline of 0.6 in May 2023, likely secondary to cardiorenal syndrome in the setting of acute decompensated heart failure. - Day 2- Creatinine 1.5 again today Plan: 1. Monitor renal function, urine output with daily BUN and creatinine. 2. Will continue to hold losartan for now 3. Avoid nephrotoxic medications. 4. Consider renal ultrasound if no improvement with medical management. Transaminitis - AST 136-->105, ALT 148-->133, likely secondary to hepatic congestion in the setting of right heart failure. Normal alkaline phosphatase (48) suggests against a biliary etiology. - US RUQ noted - Gallbladder wall thickening which is likely due to volume overload Plan: 1. Monitor liver function tests, expect improvement with diuresis and optimization of cardiac function. 2. Avoid hepatotoxic medications. 3. CMP in am Intermittent Nausea/vomiting?resolved - CT abdomen/pelvis revealing a fat-containing umbilical hernia with a small knuckle of bowel herniation, no evidence of obstruction. Plan: 1. Advance diet today to cardiac PDMP PDMP Reviewed: Not Reviewed Attestations 2 Medical Necessity Statement*: Patient will require additional night in hospital for ongoing management of heart failure requiring IV diuretics and adjustment of her cardiac meds. Coding Level of Care Code Acute Code for Chg Fwd Diagnoses CHF exacerbation I50.9 Gastroenteritis K52.9 Abdominal pain R10.9 Lower extremity edema R60.0 Heart failure with reduced ejection fraction I50.20 Bipolar 1 disorder F31.9 Right ventricular failure I50.810
--- NOTE | 2024-08-08 15:48 | USCV_ITS ---
MolinaMadina Age: 53 Gender: F : 1970 Exam Date: 08/08/2024 15:44 Ordering Phys: Evelyn Loja MD Technologist: Dheeraj Sauceda [place] [facility] [place]: hf BP: 125 / 95 HR: 106 Rhythm: Sinus Technical Quality: Adequate MEASUREMENTS (Male / Female) Normal Values 2D ECHO LV Diastolic Diameter PLAX 6.9 cm 4.2 - 5.9 / 3.9 - 5.3 cm IVS Diastolic Thickness 1.3 cm 0.6 - 1.0 / 0.6 - 0.9 cm IVS Systolic Thickness 1.1 cm LVPW Diastolic Thickness 1.3 cm 0.6 - 1.0 / 0.6 - 0.9 cm LVPW Systolic Thickness 1.9 cm LVOT Diameter 2.0 cm LV Ejection Fraction 2D Teich 13.6 % LV Ejection Fraction MOD 4C 13.7 % LV Ejection Fraction MOD 2C 20.4 % LV Ejection Fraction 2C AL 19.2 % LA Diameter 4.6 cm RA Systolic Volume 4C AL 86.5 ml RA Systolic Volume 4C MOD 86.7 ml LA Sys Volume AL 69.1 cm cubed LA Sys Volume Index AL 32.7 cm cubed/m squared Aorta at Sinotubular Diameter 2.0 cm IVC Diameter 2.3 cm M-MODE LA Ao Ratio MM 1.9 AV Cusp Separation MM 1.8 cm DOPPLER AV Peak Velocity 97.3 cm/s LVOT Peak Velocity 62.0 cm/s AV Area Cont Eq vti 1.7 cm squared AV Area Cont Eq pk 2.0 cm squared MV Peak Velocity 145.0 cm/s MV Area PHT 10.4 cm squared Mitral E to A Ratio 47.7 TV Peak Velocity 314.0 cm/s TR Peak Velocity 342.0 cm/s TR Peak Gradient 46.8 mmHg TR Mean Velocity 234.0 cm/s TR Mean Gradient 26.5 mmHg TR Velocity Time Integral 77.0 cm PV Peak Velocity 155.0 cm/s RV Ejection Time 0.2 s FINDINGS Left Ventricle Severely increased left ventricular cavity size. Severely decreased left ventricular systolic function. Left ventricular ejection fraction is estimated at 20 %. Right Ventricle The right ventricle is normal in size and function. Right Atrium Severely increased right atrial size. Left Atrium Moderately increased left atrial size. Mitral Valve Mildly thickened mitral valve. No mitral valve stenosis. Moderate mitral valve regurgitation. Aortic Valve Mild aortic valve calcification. No aortic valve stenosis. Trace aortic valve regurgitation. Tricuspid Valve Severe tricuspid valve regurgitation. Pulmonic Valve Structurally normal pulmonic valve without significant stenosis. There is no pulmonic regurgitation. Pericardium Normal pericardium without effusion. Aorta Normal ascending aorta dimension. IVC CONCLUSIONS Severely increased left ventricular cavity size. Severely decreased left ventricular systolic function. Left ventricular ejection fraction is estimated at 20 %. Severely increased right atrial size. Moderately increased left atrial size. Mildly thickened mitral valve. No mitral valve stenosis. Moderate mitral valve regurgitation. Severe tricuspid valve regurgitation. There is no pericardial effusion. Right atrial pressure is around 20 mm of mercury. Charlie Ray MD (Electronically Signed) Final Date: 08 August 2024 19:01 S
--- NOTE | 2024-08-08 17:38 | P.CONIM_ITS ---
Providers/Reason For Consult 2 Consulting Physician/Specialty*: Charlie Ray MD Reason for Consult*: Acute decompensated systolic heart failure Generalized anasarca Abdominal distention Requesting Physician: Dr. Loja Attending Physician: Evelyn Loja Primary Care Provider: Brian Baez MD History of Present Illness History of Present Illness Madina Molina is a 53 year old female past medical history significant for nonischemic cardiomyopathy known severely depressed left ventricle ejection fraction around 20% presented with worsening of shortness of breath mainly orthopnea anasarca abdominal pain. She was noted to be in decompensated systolic heart failure. It is the reason we have been asked to assist in her care. Patient denies any chest pain. Review of Systems 2 General: Reports: 10 or more systems reviewed and unremarkable except in HPI and below Const: Denies: fever(s), chills, body aches or change in appetite Eyes: Denies: photophobia ENMT: Denies: throat pain, enlarged tonsils or dental pain Card: Denies: chest pain Resp: Denies: dyspnea GI: Reports: abdominal pain, nausea and vomiting; Denies: diarrhea Musc: Denies: neck pain or back pain Skin/Breast: Denies: rash Neuro: Denies: headache(s) All/Imm: Denies: acute wheezing Medications/Allergies Home Medications ?Medication ?Instructions ?Recorded ?Confirmed ?Last Taken ?Type aspirin 81 mg tablet,delayed 81 mg PO DAILY 12/03/22 0 08/07/24 Unknown History release (Adult Low Dose Aspirin) CPAP 16-6cm setting #1 ea 02/19/23 08/07/24 Unkn own Rx CPAP mask, tubing, supplies #1 ea 02/19/23 08/07/24 Un known Rx meloxicam 15 mg tablet 15 mg PO DAILY #90 tabs 0309/1708/07/24 Unknown Rx potassium chloride 20 mEq 20 meq PO DAILY #90 tabs 09/1708/07/24 Unknown Rx tablet,extended release torsemide 40 mg tablet 40 mg PO QAM #90 tabs 08/07/24 Unknown Rx fexofenadine 180 mg tablet 180 mg PO DAILY PRN allergi es 08/07/24 08/07/24 Unknown History (Kelsie Allergy) omeprazole 40 mg capsule,delayed 40 mg PO DAILY PRN Ac id Reflux 08/07/24 08/07/24 Unknown History release Allergies Allergy/AdvReac Type Severity Reaction Status Date / Time hollis pepper Allergy Mild ALGY-Hives Verified 07/29/23 10:20 acetaminophen Allergy ALGY-Anaphy Verified 07/29/23 10:20 laxis black pepper Allergy ADR-Itching Verified 08/08/24 02:27 mushroom Allergy Unknown Verified 07/29/23 10:20 tomato Allergy ALGY-Rash Verified 08/08/24 02:27 Current Medications Generic Name Dose Route Start Last Admin Trade Name Freq PRN Reason Stop Dose Admin Aspirin 81 mg 08/08/24 09:00 08/08/24 09:26 Aspirin 81 Mg Ec Tablet PO 81 mg DAILY SHANELLE Administration Furosemide 40 mg 08/08/24 13:00 08/08/24 13:13 Furosemide 10 Mg/Ml Sdv 4ml IVP 40 mg Q12H SHANELLE Administration Heparin Sodium (Porcine) 5,000 unit 08/07/24 15:45 08/08/24 17:21 Heparin 5,000 Unit/Ml Inj 1 Ml SUBCUT 5,000 unit Q8H SHANELLE Administration Ondansetron HCl 4 mg 08/07/24 15:43 08/07/24 17:29 Ondansetron 2 Mg/Ml Sdv 2 Ml IVP 4 mg Q8H PRN Administration vomiting, or N/V if npo Pantoprazole Sodium 40 mg 08/08/24 09:00 08/08/24 09:[address] 40 Mg Tablet PO 40 mg DAILY SHANELLE Administration PFSH Acute 2 PFSH: Medical History Obstructive sleep apnea Degenerative disc disease Bipolar 1 disorder History of lipoma two tumors removed from her back Arthritis History of blood clots Moderate pulmonary valve regurgitation Severe tricuspid valve regurgitation Moderate mitral valve regurgitation Moderate pulmonary hypertension Right ventricular failure Acute exacerbation of CHF (congestive heart failure) EF 23%, grade 2 diastolic dysfunction, moderate MR, severe TR, moderate NC, biatrial enlargement, moderate pulmonary hypertension Open fracture of great toe of right foot Surgical History History of lumpectomy of right breast History of bilateral tubal ligation History of cardiac catheterization Family History Grandmother Cancer Paternal-breast Other CAD (coronary artery disease) Diabetes Hyperlipidemia Hypertension Denies family history of Clotting disorder Dementia Psychiatric illness Chronic kidney disease (CKD) Anesthesia complication Bleeding disorder Lung disease Stroke Social History Smoking and tobacco/nicotine status: never used tobacco/nicotine Alcohol intake: never Substance/Drug Use: never Lives independently: Yes Marital status: Legally Number of children: 2 Current occupational status: disabled Special fahad needs: No Agree to transfusion: Yes Vitals/I&O/Wt Last Vital Signs Temp 97.9 F 08/08/24 16:00 Pulse 111 H 08/08/24 16:00 Resp 22 H 08/08/24 16:00 BP 136/90 08/08/24 16:00 Pulse Ox 96 08/08/24 16:00 O2 Del Method Nasal Cannula 08/08/24 12:00 08/08/24 08/08/24 08/08/24 06:59 14:59 22:59 Intake Total 120 / 120 480 / 480 Output Total 400 / 1025 Balance -280 / -905 480 / 480 Weight last 48 hrs Weight 209 lb 3.2 oz Weight 209 lb 8 oz Weight 281 lb Physical Exam 2 Const: OTHER: GENERAL: Patient is alert, awake and oriented x3. Mild distress HEART: Heart regular S1-S2 LUNGS: Decreased bilaterally sound bilaterally. CENTRAL NERVOUS SYSTEM: Grossly nonfocal. EXTREMITIES: Lower extremities with 2+ edema bilaterally. Data 08/08/24 04:13 08/08/24 04:13 Micro: Microbiology 08/07/24 14:05 Urine Culture - Preliminary Urine,Clean Catch A&P Assessment and plan (1) Gastroenteritis: (2) Moderate pulmonary hypertension: (3) Severe tricuspid valve regurgitation: (4) Heart failure with reduced ejection fraction: Acute decompensated systolic heart failure PDMP PDMP Reviewed: Not Reviewed Consult Attestations 2 Medical Necessity Statement: Patient appeared to be in decompensated systolic heart failure agree with IV diuresis with IV 40 mg twice daily, goal is 1 to 1.5 L negative Once euvolemic will add Entresto Continue aspirin and beta-joselyn Coding Level of Care Code Acute Code for [facility] Fwd Diagnoses Gastroenteritis K52.9 Moderate pulmonary hypertension I27.20 Severe tricuspid valve regurgitation I07.1 Heart failure with reduced ejection fraction I50.20
--- NOTE | 2024-08-08 21:57 | PC.NURSE ---
MD contacted about patient having generalized pain, pt had no pain medication in JUL, ordered tramadol 25mg PO Q12HR PRN, orders entered
[2024-08-08] MEDS: TRAMadol 50 mg Tablet 25 MG PO (22:33)
[2024-08-09] VITALS (8 sets, daily range): BP systolic 113–132; BP diastolic 82–91; PULSE 87–109; RESP 14–27; TEMP 36.4–36.9; O2SAT 94–97
[2024-08-09] MEDS: heparin 5,000 unit/mL INJ 1 mL 5000 UNIT SUBCUT ×4 (00:16→23:22)
[2024-08-09] MEDS: FUROsemide 10 mg/mL SDV 4mL 40 MG IVP (00:16)
[2024-08-09 04:57] LABS: Basophils % 0.4 %; Eosinophils # 0.1 10^3/uL (0.0-0.8); Eosinophils % 1.7 %; Hematocrit 38.7 % (36-47); Lymphocytes # 1.1 10^3/uL (0.8-4.8); Lymphocytes % 21.4 %; Mean Corpuscular HGB Conc 29.5 g/dL (30-55); Mean Corpuscular Hemoglobin 27.8 pg (27-33); Mean Corpuscular Volume 94.4 fl (85-98); Mean Platelet Volume 9.4 fL (7.4-10.4); Monocytes # 0.4 10^3/uL (0.2-0.9); Monocytes % 7.7 %; Neutrophils # 3.55 10^3/uL (1.8-7.7); Neutrophils % 68.4 %; Nucleated Red Blood Cells % 0 %; Platelet Count 192 10^3/cmm (157-399); Red Cell Distribution Width 16.5 % (12.1-15.1); White Blood Count 5.19 10^3/uL (3.29-11.43)
[2024-08-09 05:15] LABS: Alanine Aminotransferase 120 U/L (0-33); Albumin Level 3.7 g/dL (3.5-5.2); Alkaline Phosphatase 49 U/L (35-105); Anion Gap 15.4 (5-19); Aspartate Amino Transferase 72 U/L (0-32); Blood Urea Nitrogen 31 mg/dL (6-20); Calcium 8.3 mg/dL (8.5-10.5); Carbon Dioxide 28 mmol/L (22-29); Chloride 100 mmol/L (98-107); Globulin 2.6 g/dL (1.3-4.6); Glomerular Filtration Rate 39.5 mL/min (90-130); Glucose 98 mg/dL (65-115); Osmolality Calculated 297 mOsm/kg (285-295); Potassium 3.4 mmol/L (3.5-5.1); Sodium 140 mmol/L (136-145); Total Bilirubin 1.3 mg/dL (0.15-1.2); Total Protein 6.3 g/dL (6.6-8.7)
[2024-08-09] MEDS: pantoprazole DR 40 mg Tablet PO (08:38)
[2024-08-09] MEDS: metoprolol succinate ER (24 HR) 25 mg Tablet 12.5 MG PO (08:38)
[2024-08-09] MEDS: aspirin 81 mg EC Tablet PO (08:38)
--- NOTE | 2024-08-09 09:39 | P.PN_ITS ---
Subjective 2 Subjective: 53-year-old female with a past medical h istory of non-ischemic cardiomyopathy (EF 20% on echocardiogram in December 2022), grade 2 diastolic dysfunction, mild pulmonary hypertension (RVSP 40.9 mmHg), who presents with abdominal pain, bloating, and vomiting for the past month. The patient describes constant left upper quadrant abdominal pain with occasional right-sided pain. She reports feeling small lumps or knots in the left upper quadrant. She has multiple complaints. Also noted increase fluid retention leading to dyspnea on exertion. Intermittent episode of chest pain as well.. The patient denies frequency, urgency or dyuria. No documented fever however does have chills at time. Noted an episode of epistaxis 2 days prior lasting briefly now resolved. Only takes aspirin at home. The patient is prescribed torsemide (2 pills once daily) but has not been consistently taking her medications. She is unsure of their typical weight. Initial evaluation in the ER revealed: - Laboratory Findings: WBC 4.9, Hgb 12, Hct 40, platelets 212, iron 1.62, creatinine 1.5 (baseline 0.6 in May 2023), bilirubin 2.6, AST 136, ALT 148, Alk Phos 48, initial troponin 176 with repeat 166.4 at 120 minutes, TSH 3.62, CK 42, trace leukocyte esterase, negative nitrites. - Imaging Studies: CT abdomen/pelvis shantal wing enlarged heart with evidence of right heart failure, diffuse body-wide anasarca, mild to moderate fluid overload, small amount of free fluid in the pelvis, wide-mouthed fat-containing umbilical hernia with a budding loop of small bowel (no obstruction). CXR with massive cardiomegaly. Gallbladder ultrasound showing slightly contracted gallbladder with diffuse wall thickening (no edema), likely secondary to fluid overload. Patient was given lasix 60 mg of IV x 1 in ER. Admitted to the hospital for further workup. On day 2 of hospitalization she was stating that she was feeling better. Did not have any abdominal pain, nausea or vomiting. Did have some itchiness which she states is due to the morphine she received yesterday. Has not had any chest discomfort. Still feels volume overloaded. Unclear if this is accurate however patient's weight was documented at 127 kg on admission which today it is 94. Subjective: 08/09/2024 - Noted severe leg cramps last night, wa nted to cry - Trouble breathing after cleaning chemi cals were sprayed in room - No chest pain - No longer having nausea or vomiting Medications: Reviewed: Yes Vitals/I&O/Wt Last Vital Signs Temp 97.9 F 08/09/24 07:01 Pulse 90 08/09/24 07:01 Resp 18 08/09/24 07:01 BP 122/86 08/09/24 07:01 Pulse Ox 95 08/09/24 07:01 O2 Del Method Nasal Cannula 08/09/24 07:01 08/08/24 08/09/24 08/09/24 22:59 06:59 14:59 Intake Total 300 / 780 840 / 1620 480 / 480 Output Total 2500 / 2500 Balance 300 / 780 -1660 / -880 480 / 480 Weight last 48 hrs Weight 95.118 kg Weight 94.892 kg Weight 95.028 kg Weight 127.459 kg Physical Exam 2 Const: OTHER: - Breathing okay, on 2L oxygen, not on o xygen before, SpO2 95% - Blood pressure 123/89, heart rate 87 - On metoprolol extended release 25mg, d iscussed with Dr. Ferrer in detail - Holding lisinopril due to consideratio n of starting Entresto - Lungs clear on auscultation - Heart sounds regular - Swelling still present Data 08/09/24 03:59 08/09/24 03:59 Micro: Microbiology 08/07/24 14:05 Urine Culture - Preliminary Urine,Clean Catch A&P Assessment and plan (1) CHF exacerbation: (2) Gastroenteritis: (3) Abdominal pain: (4) Lower extremity edema: (5) Heart failure with reduced ejection fraction: (6) Bipolar 1 disorder: (7) Right ventricular failure: Plan - Acute decompensated heart failure: Patient with known non-ischemic cardiomyopathy (EF 20%), grade 3/4 diastolic dysfunction presenting with signs and symptoms of acute decompensated heart failure, including dyspnea, fluid retention (anasarca), and abdominal discomfort secondary to congestion. - Elevated troponin: Initial troponin 176, repeat 166.4 at 120 minutes. Patient reports occasional chest pain. - Acute kidney injury: Creatinine elevated to 1.5 from a baseline of 0.6 in May 2023, likely secondary to cardiorenal syndrome in the setting of acute decompensated heart failure. Day 2 creatinine 1.5 and 1.4 today.. - Transaminitis: AST 136 down to 105, ALT 148 down to 133, likely secondary to hepatic congestion in the setting of right heart failure. Normal alkaline phosphatase (48) suggests against a biliary etiology. Gallbladder wall thickening on ultrasound likely due to volume overload. - Intermittent nausea/vomiting, now resolved: CT abdomen/pelvis revealing a fat- containing umbilical hernia with a small knuckle of bowel herniation, no evidence of obstruction. Plan: - Acute decompensated heart failure: 1. S/p Lasix 60 mg IV x 1 in ER, now on Lasix 40 mg IV q12hr. Prior to arrival was on torsemide 40 mg once a day. Was not on full GDMT. Was on losartan 100 mg daily. 2. Continue metoprolol XL 25 mg daily. 3. Holding ARB while diuresing and ASIA. Will consider change to entresto instead of resuming ARB. 4. Lasix dose increased to 60 mg IV q12hr + Metolazone added with Kcl replacement 5. Repeat echo similar to past - EF 20% with moderate MR 6. Track daily weight, admission weight likely not accurate. 7. Declined LifeVest/AICD in the past and again now - Elevated troponin: 1. Noted above, chest pain free. 2. Continue aspirin. 3. Cardiology on board - Acute kidney injury vs CKD 1. Monitor renal function, urine output with daily BUN and creatinine. 2. Will continue to hold losartan for now. 3. Avoid nephrotoxic medications. 4. Consider renal ultrasound if no improvement with medical management. - Transaminitis: 1. Monitor liver function tests, expect improvement with diuresis and optimization of cardiac function. 2. Avoid hepatotoxic medications. 3. CMP in AM. PDMP PDMP Reviewed: Not Reviewed Attestations 2 Medical Necessity Statement*: Patient will require additional night in hospital for ongoing management of heart failure requiring IV diuretics and adjustment of her cardiac meds. Coding Level of Care Code Acute Code for Chg Fwd Diagnoses CHF exacerbation I50.9 Gastroenteritis K52.9 Abdominal pain R10.9 Lower extremity edema R60.0 Heart failure with reduced ejection fraction I50.20 Bipolar 1 disorder F31.9 Right ventricular failure I50.810
--- NOTE | 2024-08-09 15:36 | P.PN_ITS ---
Subjective 2 Subjective: Patient states she is still short of breath and has not urinated Medications: Reviewed: Yes Vitals/I&O/Wt Last Vital Signs Temp 97.6 F 08/09/24 11:06 Pulse 109 H 08/09/24 11:06 Resp 14 08/09/24 11:06 BP 123/89 08/09/24 11:06 Pulse Ox 96 08/09/24 11:06 O2 Del Method Nasal Cannula 08/09/24 11:06 08/09/24 08/09/24 08/09/24 06:59 14:59 22:59 Intake Total 840 / 1620 840 / 840 Output Total 2500 / 2500 Balance -1660 / -880 840 / 840 Weight last 48 hrs Weight 209 lb 11.2 oz Weight 209 lb 3.2 oz Weight 209 lb 8 oz Physical Exam 2 Const: OTHER: GENERAL: Patient is alert, awake and oriented x3. Mild distress HEART: Heart regular S1-S2 LUNGS: Decreased bilaterally sound bilaterally. CENTRAL NERVOUS SYSTEM: Grossly nonfocal. EXTREMITIES: Lower extremities with 2+ edema bilaterally. Data 08/09/24 03:59 08/09/24 03:59 Micro: Microbiology 08/07/24 14:05 Urine Culture - Final Urine,Clean Catch A&P Assessment and plan (1) Gastroenteritis: (2) Moderate pulmonary hypertension: (3) Severe tricuspid valve regurgitation: (4) Heart failure with reduced ejection fraction: Acute on chronic decompensated systolic heart failure Plan I will increase Lasix to 60 mg twice daily Add metolazone 2.5 mg twice daily Add potassium chloride 20 mEq 3 times a day Check BMP in the Continue to monitor I's and O's PDMP PDMP Reviewed: Not Reviewed Attestations 2 Medical Necessity Statement*: Patient require continuation of hospitalization for above defined care. Coding Level of Care Code Acute Code for Chg Fwd Diagnoses Gastroenteritis K52.9 Moderate pulmonary hypertension I27.20 Severe tricuspid valve regurgitation I07.1 Heart failure with reduced ejection fraction I50.20
[2024-08-09] MEDS: FUROsemide 10 mg/mL SDV 10mL 60 MG IVP (17:50)
[2024-08-09] MEDS: metOLazone 5 MG Tablet 2.5 MG PO (17:51)
[2024-08-09] MEDS: potassium chloride ER 20 mEq Tablet PO (17:52)
[2024-08-09] MEDS: TRAMadol 50 mg Tablet 25 MG PO (23:21)
[2024-08-10] MEDS: potassium chloride ER 20 mEq Tablet PO ×5 (01:26→22:17)
[2024-08-10] MEDS: pregabalin 25 mg Capsule PO ×2 (03:59→23:09)
[2024-08-10 04:00] VITALS: BP 126/99; PULSE 88; RESP 15; TEMP 36.4; O2SAT 95
[2024-08-10 04:42] LABS: Basophils % 0.7 %; Eosinophils # 0.2 10^3/uL (0.0-0.8); Eosinophils % 2.7 %; Hematocrit 37.1 % (36-47); Lymphocytes # 1.5 10^3/uL (0.8-4.8); Lymphocytes % 27.1 %; Mean Corpuscular HGB Conc 30.2 g/dL (30-55); Mean Corpuscular Hemoglobin 27.9 pg (27-33); Mean Corpuscular Volume 92.3 fl (85-98); Mean Platelet Volume 8.9 fL (7.4-10.4); Monocytes # 0.5 10^3/uL (0.2-0.9); Neutrophils % 60.3 %; Nucleated Red Blood Cells % 0 %; Platelet Count 200 10^3/cmm (157-399); Red Blood Count 4.02 10^6/uL (3.85-5.65); Red Cell Distribution Width 16.1 % (12.1-15.1); White Blood Count 5.64 10^3/uL (3.29-11.43)
[2024-08-10 05:01] LABS: Alanine Aminotransferase 88 U/L (0-33); Albumin Level 3.4 g/dL (3.5-5.2); Alkaline Phosphatase 46 U/L (35-105); Anion Gap 14.4 (5-19); Aspartate Amino Transferase 46 U/L (0-32); Blood Urea Nitrogen 31 mg/dL (6-20); Calcium 8.4 mg/dL (8.5-10.5); Carbon Dioxide 31 mmol/L (22-29); Chloride 97 mmol/L (98-107); Globulin 2.7 g/dL (1.3-4.6); Glomerular Filtration Rate 52.2 mL/min (90-130); Glucose 98 mg/dL (65-115); Osmolality Calculated 295 mOsm/kg (285-295); Potassium 3.4 mmol/L (3.5-5.1); Sodium 139 mmol/L (136-145); Total Bilirubin 0.8 mg/dL (0.15-1.2); Total Protein 6.1 g/dL (6.6-8.7)
[2024-08-10] MEDS: FUROsemide 10 mg/mL SDV 10mL 60 MG IVP ×2 (06:04→17:15)
--- NOTE | 2024-08-10 07:28 | PC.NURSE ---
0330- Requesting something else for leg pain. Recieved orders for low dose lyrica BID PRN.
[2024-08-10 07:44] VITALS: BP 119/80; PULSE 111; RESP 16; TEMP 36.7; O2SAT 96
[2024-08-10] MEDS: heparin 5,000 unit/mL INJ 1 mL 5000 UNIT SUBCUT ×3 (08:23→23:07)
[2024-08-10] MEDS: aspirin 81 mg EC Tablet PO (08:23)
[2024-08-10] MEDS: metoprolol succinate ER (24 HR) 25 mg Tablet 12.5 MG PO (08:23)
[2024-08-10] MEDS: pantoprazole DR 40 mg Tablet PO (08:23)
[2024-08-10] MEDS: metOLazone 5 MG Tablet 2.5 MG PO ×2 (08:23→17:16)
--- NOTE | 2024-08-10 09:26 | P.PN_ITS ---
<Statement entered by Charlie Ray MD - 08/10/24 18:43> Patient was evaluated and cared for in conjunction with an advanced practice practitioner. I personally examined the patient and reviewed the chart and all pertinent data including imaging, telemetry, and laboratory results. I discussed the patient in detail with the advanced practice practitioner. Please see their note for complete H&P testing result and agreed upon plan of care for the patient. Subjective 2 Subjective: Shortness of breath is improved overnight. No chest pain. She is currently 1400 mL negative. Potassium this morning 3.4, will increase potassium supplementation to 20 mEq 4 times daily. Lower extremity edema still present. Vitals/I&O/Wt Last Vital Signs Temp 98.0 F 08/10/24 07:44 Pulse 111 H 08/10/24 07:44 Resp 16 08/10/24 07:44 BP 119/80 08/10/24 07:44 Pulse Ox 96 08/10/24 07:44 O2 Del Method Nasal Cannula 08/10/24 07:44 O2 Flow Rate 2 08/10/24 07:44 08/09/24 08/10/24 08/10/24 22:59 06:59 14:59 Output Total 500 / 2600 700 / 2600 1400 / 1400 Balance -500 / -1760 -700 / -1760 -1400 / -1400 Weight last 48 hrs Weight 205 lb 3.2 oz Weight 205 lb 3.2 oz Weight 209 lb 11.2 oz Physical Exam 2 Const: COMMON NORMALS: no acute distress and patient oriented x3 GENERAL APPEARANCE: cooperative and comfortable ORIENTATION/CONSCIOUSNESS: Yes awake, Yes oriented to person, Yes oriented to place and Yes oriented to time Chest: COMMONS NORMALS: normal inspection of the chest and normal palpation of entire chest wall CHEST: Yes Symmetrical chest wall rise Resp: COMMON NORMALS: normal respiratory effort, No retractions, No use of accessory muscles and clear to auscultation bilaterally EFFORT & INSPECTION: Yes symmetric chest movement AUSCULTATION: clear to auscultation bilaterally Cardio: COMMON NORMALS: regular rate, regular rhythm, S1 normal heart sound present, S2 normal heart sound present, No gallops present (Cardio), No clicks present (Cardio), No murmurs present (Cardio) and No rub (Cardio) RATE: r egular rate RHYTHM: regular rhythm HEART SOUNDS: S1 normal heart sound present and S2 normal heart sound present PERIPHERAL PULSES: radial pulses present Extremity: GENERAL: Yes edema (2-3+ pitting LE edema bilateral LE below knee) Neuro: COMMON NORMALS: patient oriented x3 and moves all extremities S ENSORIUM/ORIENTATION: Yes oriented to person, Yes oriented to place and Yes oriented to time Data 08/10/24 04:22 08/10/24 04:22 Micro: Microbiology 08/07/24 14:05 Urine Culture - Final Urine,Clean Catch A&P Assessment and plan (1) Gastroenteritis: (2) Moderate pulmonary hypertension: (3) Severe tricuspid valve regurgitation: (4) Heart failure with reduced ejection fraction: Plan She is beginning to diurese a bit. Will increase potassium supplementation to 4 times daily, she had some leg cramps overnight. Continue diuresis with Lasix 60 mg twice a day and metolazone 2.5 mg twice a day. PDMP PDMP Reviewed: Not Reviewed Attestations 2 Medical Necessity Statement*: Requires further diuresis Coding Level of Care Code Acute Code for [facility] Diagnoses Gastroenteritis K52.9 Moderate pulmonary hypertension I27.20 Severe tricuspid valve regurgitation I07.1 Heart failure with reduced ejection fraction I50.20
[2024-08-10 12:00] VITALS: BP 110/74; PULSE 89; RESP 16; TEMP 36.6; O2SAT 99
--- NOTE | 2024-08-10 14:37 | P.PN_ITS ---
Subjective 2 Subjective: Patient was complaining of cramping in her legs earlier this morning. She was evaluated by cardiology. Continues to have significant bilateral lower extremity swelling. Saturation is stable. At the time of this assessment patient has her oxygen cannula off. Medications: Reviewed: Yes Vitals/I&O/Wt Last Vital Signs Temp 97.8 F 08/10/24 12:00 Pulse 89 08/10/24 12:00 Resp 16 08/10/24 12:00 BP 110/74 08/10/24 12:00 Pulse Ox 99 08/10/24 12:00 O2 Del Method Room Air 08/10/24 12:00 O2 Flow Rate 2 08/10/24 07:44 08/09/24 08/10/24 08/10/24 22:59 06:59 14:59 Intake Total 360 / 360 Output Total 500 / 500 700 / 1200 2300 / 2300 Balance -500 / 340 -700 / -360 -1940 / -1940 Weight last 48 hrs Weight 93.077 kg Weight 93.077 kg Weight 95.118 kg Physical Exam 2 Narrative: General: No acute distress, AO x3 HEENT: PERRLA, pupils bilaterally equal and reactive, pallors not present Chest: Normal vesicular breath sounds, no added sounds, equal good air entry bilaterally CVS: S1-S2 regular, no murmurs, no tachycardia, no gallops, no rubs Abdomen: Soft, nontender, no organomegaly, bowel sounds present Neuro: No focal deficits, no facial deformity, AO x3, power 5/5 in all limbs EXT : 3+ pitting edema B/L Data 08/10/24 04:22 08/10/24 04:22 Micro: Microbiology 08/07/24 14:05 Urine Culture - Final Urine,Clean Catch A&P Assessment and plan (1) CHF exacerbation: (2) Gastroenteritis: (3) Abdominal pain: (4) Lower extremity edema: (5) Heart failure with reduced ejection fraction: (6) Bipolar 1 disorder: (7) Right ventricular failure: Plan - Acute decompensated heart failure: Patient with known non-ischemic cardiomyopathy (EF 20%), grade 3/4 diastolic dysfunction presenting with signs and symptoms of acute decompensated heart failure, including dyspnea, fluid retention (anasarca), and abdominal discomfort secondary to congestion. - Elevated troponin: Initial troponin 176, repeat 166.4 at 120 minutes. Patient reports occasional chest pain. - Acute kidney injury: Creatinine elevated to 1.5 from a baseline of 0.6 in May 2023, likely secondary to cardiorenal syndrome in the setting of acute decompensated heart failure. Day 2 creatinine 1.5 and 1.4 today.. - Transaminitis: AST 136 down to 105, ALT 148 down to 133, likely secondary to hepatic congestion in the setting of right heart failure. Normal alkaline phosphatase (48) suggests against a biliary etiology. Gallbladder wall thickening on ultrasound likely due to volume overload. - Intermittent nausea/vomiting, now resolved: CT abdomen/pelvis revealing a fat- containing umbilical hernia with a small knuckle of bowel herniation, no evidence of obstruction. Plan: - Acute decompensated heart failure: 1. S/p Lasix 60 mg IV x 1 in ER, now on Lasix 40 mg IV q12hr. Prior to arrival was on torsemide 40 mg once a day. Was not on full GDMT. Was on losartan 100 mg daily. 2. Continue metoprolol XL 25 mg daily. 3. Holding ARB while diuresing and ASIA. Will consider change to entresto instead of resuming ARB. 4. Lasix dose increased to 60 mg IV q12hr + Metolazone added with Kcl replacement 5. Repeat echo similar to past - EF 20% with moderate MR 6. Track daily weight, admission weight likely not accurate. 7. Declined LifeVest/AICD in the past and again now - Elevated troponin: 1. Noted above, chest pain free. 2. Continue aspirin. 3. Cardiology on board - Acute kidney injury vs CKD 1. Monitor renal function, urine output with daily BUN and creatinine. 2. Will continue to hold losartan for now. 3. Avoid nephrotoxic medications. 4. Consider renal ultrasound if no improvement with medical management. - Transaminitis: 1. Monitor liver function tests, expect improvement with diuresis and optimization of cardiac function. 2. Avoid hepatotoxic medications. 3. CMP in AM. August 10, 2024 Continues to have significant lower extremity swelling. Net -3.1 L last 24 hours. Continue Lasix 60 mg IV every 12 hours and metolazone 2.5 mg p.o. twice daily. Closely monitor urine output and renal function at this dosing. DVT prophylaxis: Heparin 5000 every 8 hours Full code. PDMP PDMP Reviewed: Not Reviewed Attestations 2 Medical Necessity Statement*: Continued need for IV diuresis. Significant lower extremity swelling needing further optimization. Coding Level of Care Code Acute Code for [facility] Diagnoses CHF exacerbation I50.9 Gastroenteritis K52.9 Abdominal pain R10.9 Lower extremity edema R60.0 Heart failure with reduced ejection fraction I50.20 Bipolar 1 disorder F31.9 Right ventricular failure I50.810
[2024-08-10 16:00] VITALS: BP 97/74; PULSE 94; RESP 20; TEMP 36.7; O2SAT 97
[2024-08-10 19:17] VITALS: BP 106/77; PULSE 92; RESP 20; TEMP 36.9; O2SAT 98
[2024-08-10 23:35] VITALS: BP 111/75; PULSE 92; RESP 20; O2SAT 96
[2024-08-10] MEDS: TRAMadol 50 mg Tablet 25 MG PO (23:58)
[2024-08-11] VITALS (8 sets, daily range): BP systolic 91–125; BP diastolic 57–78; PULSE 88–100; RESP 14–28; TEMP 36.5–36.8; O2SAT 95–98
[2024-08-11 05:57] LABS: Basophils % 0.6 %; Eosinophils # 0.2 10^3/uL (0.0-0.8); Eosinophils % 2.5 %; Hematocrit 38.4 % (36-47); Lymphocytes # 1.3 10^3/uL (0.8-4.8); Lymphocytes % 19.6 %; Mean Corpuscular HGB Conc 30.5 g/dL (30-55); Mean Corpuscular Hemoglobin 27.6 pg (27-33); Mean Corpuscular Volume 90.6 fl (85-98); Mean Platelet Volume 9.1 fL (7.4-10.4); Monocytes # 0.5 10^3/uL (0.2-0.9); Monocytes % 8.4 %; Neutrophils # 4.43 10^3/uL (1.8-7.7); Neutrophils % 68.7 %; Nucleated Red Blood Cells % 0 %; Platelet Count 232 10^3/cmm (157-399); Red Blood Count 4.24 10^6/uL (3.85-5.65); Red Cell Distribution Width 16.2 % (12.1-15.1); White Blood Count 6.44 10^3/uL (3.29-11.43)
[2024-08-11 06:16] LABS: Alanine Aminotransferase 76 U/L (0-33); Albumin Level 3.5 g/dL (3.5-5.2); Alkaline Phosphatase 49 U/L (35-105); Anion Gap 12.7 (5-19); Aspartate Amino Transferase 45 U/L (0-32); Blood Urea Nitrogen 33 mg/dL (6-20); Calcium 8.9 mg/dL (8.5-10.5); Carbon Dioxide 37 mmol/L (22-29); Chloride 91 mmol/L (98-107); Globulin 2.7 g/dL (1.3-4.6); Glomerular Filtration Rate 52.2 mL/min (90-130); Glucose 109 mg/dL (65-115); Osmolality Calculated 292 mOsm/kg (285-295); Potassium 3.7 mmol/L (3.5-5.1); Sodium 137 mmol/L (136-145); Total Bilirubin 0.7 mg/dL (0.15-1.2); Total Protein 6.2 g/dL (6.6-8.7)
[2024-08-11] MEDS: FUROsemide 10 mg/mL SDV 10mL 60 MG IVP ×2 (06:41→17:54)
--- NOTE | 2024-08-11 08:05 | P.PN_ITS ---
<Statement entered by Charlie Ray MD - 08/12/24 14:09> Patient was evaluated and cared for in conjunction with an advanced practice practitioner. I personally examined the patient and reviewed the chart and all pertinent data including imaging, telemetry, and laboratory results. I discussed the patient in detail with the advanced practice practitioner. Please see their note for complete H&P testing result and agreed upon plan of care for the patient. Patient overall feeling better no shortness of breath but appeared to have low blood pressure GENERAL: Patient is alert, awake and oriented x3. HEART: Regular S1 and S2. No murmur, rub or gallop. LUNGS: Clear to auscultate bilaterally. CENTRAL NERVOUS SYSTEM: Grossly nonfocal. EXTREMITIES: Lower extremities with 2+ feet edema bilaterally. Assessment and plan Acute decompensated systolic heart failure Severely depressed left ventricular ejection fraction with EF less than 20% nonischemic cardiomyopathy no change from the prior exam Hypotension At this point continue diuresis for 1 more day and back off on metolazone Switch patient to p.o. Lasix from tomorrow 60 mg twice daily Entresto has already been started LifeVest since patient ejection fraction is less than 20% Consider ICD as an outpatient or [employer] if meets the criteria Subjective 2 Subjective: She is sleepy this morning, does not offer any concerns. Lower extremity edema improved but still significant. She is -3800 mL today, cumulative -5900 total. Creatinine 1.1, potassium 3.7. Blood pressure well-controlled, utilizing oxygen 2 L nasal cannula. Vitals/I&O/Wt Last Vital Signs Temp 98.3 F 08/11/24 07:51 Pulse 90 08/11/24 07:51 Resp 14 08/11/24 07:51 BP 120/73 08/11/24 07:51 Pulse Ox 96 08/11/24 07:51 O2 Del Method Nasal Cannula 08/11/24 07:51 O2 Flow Rate 2 08/11/24 07:51 08/10/24 08/11/24 08/11/24 22:59 06:59 14:59 Intake Total 240 / 900 300 / 900 Output Total 2300 / 5200 100 / 5200 500 / 500 Balance -2060 / -4300 200 / -4300 -500 / -500 Weight last 48 hrs Weight 207 lb 1.6 oz Weight 205 lb 3.2 oz Weight 205 lb 3.2 oz Physical Exam 2 Const: COMMON NORMALS: no acute distress and patient oriented x3 GENERAL APPEARANCE: cooperative and comfortable ORIENTATION/CONSCIOUSNESS: Yes awake, Yes oriented to person, Yes oriented to place and Yes oriented to time Chest: COMMONS NORMALS: normal inspection of the chest and normal palpation of entire chest wall CHEST: Yes Symmetrical chest wall rise Resp: COMMON NORMALS: normal respiratory effort, No retractions, No use of accessory muscles and clear to auscultation bilaterally EFFORT & INSPECTION: Yes symmetric chest movement AUSCULTATION: clear to auscultation bilaterally Cardio: COMMON NORMALS: regular rate, regular rhythm, S1 normal heart sound present, S2 normal heart sound present, No gallops present (Cardio), No clicks present (Cardio), No murmurs present (Cardio) and No rub (Cardio) RATE: r egular rate RHYTHM: regular rhythm HEART SOUNDS: S1 normal heart sound present and S2 normal heart sound present PERIPHERAL PULSES: radial pulses present Extremity: GENERAL: Yes edema (2+ pitting edema ankles and feet) Neuro: COMMON NORMALS: patient oriented x3 and moves all extremities S ENSORIUM/ORIENTATION: Yes oriented to person, Yes oriented to place and Yes oriented to time Data 08/11/24 04:49 08/11/24 04:49 A&P Assessment and plan (1) Gastroenteritis: (2) Moderate pulmonary hypertension: (3) Severe tricuspid valve regurgitation: (4) Heart failure with reduced ejection fraction: Plan She has diuresed well yesterday and overnight. She can continue Lasix and metolazone for today, likely drop back to Lasix alone tomorrow. Her weight is only down 2 pounds from admission. PDMP PDMP Reviewed: Not Reviewed Attestations 2 Medical Necessity Statement*: Continue diuresis, LV dysfunction Coding Level of Care Code Acute Code for [facility] Diagnoses Gastroenteritis K52.9 Moderate pulmonary hypertension I27.20 Severe tricuspid valve regurgitation I07.1 Heart failure with reduced ejection fraction I50.20
[2024-08-11] MEDS: pantoprazole DR 40 mg Tablet PO (08:49)
[2024-08-11] MEDS: aspirin 81 mg EC Tablet PO (08:49)
[2024-08-11] MEDS: heparin 5,000 unit/mL INJ 1 mL 5000 UNIT SUBCUT ×2 (08:49→16:00)
[2024-08-11] MEDS: potassium chloride ER 20 mEq Tablet PO ×4 (08:49→20:30)
[2024-08-11] MEDS: metoprolol succinate ER (24 HR) 25 mg Tablet 12.5 MG PO (08:49)
[2024-08-11] MEDS: metOLazone 5 MG Tablet 2.5 MG PO ×2 (08:49→17:55)
[2024-08-11] MEDS: TRAMadol 50 mg Tablet 25 MG PO (11:46)
[2024-08-11] MEDS: pregabalin 25 mg Capsule PO (12:51)
--- NOTE | 2024-08-11 16:09 | P.PN_ITS ---
Subjective 2 Subjective: no acute interim events. Diuresed 4000 cc. net negative 6900 cc now. cr stable at 1.1 Medications: Reviewed: Yes Vitals/I&O/Wt Last Vital Signs Temp 98.2 F 08/11/24 11:45 Pulse 95 08/11/24 11:45 Resp 28 H 08/11/24 11:45 BP 125/78 08/11/24 11:45 Pulse Ox 96 08/11/24 11:45 O2 Del Method Nasal Cannula 08/11/24 11:45 O2 Flow Rate 2 08/11/24 11:45 08/11/24 08/11/24 08/11/24 06:59 14:59 22:59 Intake Total 300 / 900 596 / 596 Output Total 100 / 4700 1600 / 1600 Balance 200 / -3800 -1004 / -1004 Weight last 48 hrs Weight 93.939 kg Weight 93.077 kg Weight 93.077 kg Physical Exam 2 Narrative: General: No acute distress, AO x3 HEENT: PERRLA, pupils bilaterally equal and reactive, pallors not present Chest: Normal vesicular breath sounds, no added sounds, equal good air entry bilaterally CVS: S1-S2 regular, no murmurs, no tachycardia, no gallops, no rubs Abdomen: Soft, nontender, no organomegaly, bowel sounds present Neuro: No focal deficits, no facial deformity, AO x3, power 5/5 in all limbs EXT : 3+ pitting edema B/L Data 08/11/24 04:49 08/11/24 04:49 A&P Assessment and plan (1) CHF exacerbation: (2) Gastroenteritis: (3) Abdominal pain: (4) Lower extremity edema: (5) Heart failure with reduced ejection fraction: (6) Bipolar 1 disorder: (7) Right ventricular failure: Plan - Acute decompensated heart failure: Patient with known non-ischemic cardiomyopathy (EF 20%), grade 3/4 diastolic dysfunction presenting with signs and symptoms of acute decompensated heart failure, including dyspnea, fluid retention (anasarca), and abdominal discomfort secondary to congestion. - Elevated troponin: Initial troponin 176, repeat 166.4 at 120 minutes. Patient reports occasional chest pain. - Acute kidney injury: Creatinine elevated to 1.5 from a baseline of 0.6 in May 2023, likely secondary to cardiorenal syndrome in the setting of acute decompensated heart failure. Day 2 creatinine 1.5 and 1.4 today.. - Transaminitis: AST 136 down to 105, ALT 148 down to 133, likely secondary to hepatic congestion in the setting of right heart failure. Normal alkaline phosphatase (48) suggests against a biliary etiology. Gallbladder wall thickening on ultrasound likely due to volume overload. - Intermittent nausea/vomiting, now resolved: CT abdomen/pelvis revealing a fat- containing umbilical hernia with a small knuckle of bowel herniation, no evidence of obstruction. Plan: - Acute decompensated heart failure: 1. S/p Lasix 60 mg IV x 1 in ER, now on Lasix 40 mg IV q12hr. Prior to arrival was on torsemide 40 mg once a day. Was not on full GDMT. Was on losartan 100 mg daily. 2. Continue metoprolol XL 25 mg daily. 3. Holding ARB while diuresing and ASIA. Will consider change to entresto instead of resuming ARB. 4. Lasix dose increased to 60 mg IV q12hr + Metolazone added with Kcl replacement 5. Repeat echo similar to past - EF 20% with moderate MR 6. Track daily weight, admission weight likely not accurate. 7. Declined LifeVest/AICD in the past and again now - Elevated troponin: 1. Noted above, chest pain free. 2. Continue aspirin. 3. Cardiology on board - Acute kidney injury vs CKD 1. Monitor renal function, urine output with daily BUN and creatinine. 2. Will continue to hold losartan for now. 3. Avoid nephrotoxic medications. 4. Consider renal ultrasound if no improvement with medical management. - Transaminitis: 1. Monitor liver function tests, expect improvement with diuresis and optimization of cardiac function. 2. Avoid hepatotoxic medications. 3. CMP in AM. August 10, 2024 Continues to have significant lower extremity swelling. Net -3.1 L last 24 hours. Continue Lasix 60 mg IV every 12 hours and metolazone 2.5 mg p.o. twice daily. Closely monitor urine output and renal function at this dosing. DVT prophylaxis: Heparin 5000 every 8 hours Full code. August 11, 2024 Diuresing well currently. Net -6.9 L since admission. Continue Lasix 60 mg IV every 12 hours and metolazone 2.5 mg p.o. twice daily. Aim to transition to oral diuresis over the next 24 hours if continues to put out well. Lower extremity swelling is improving at this time. PDMP PDMP Reviewed: Not Reviewed Attestations 2 Medical Necessity Statement*: continued iv diuresis Coding Level of Care Code Acute Code for [facility] Diagnoses CHF exacerbation I50.9 Gastroenteritis K52.9 Abdominal pain R10.9 Lower extremity edema R60.0 Heart failure with reduced ejection fraction I50.20 Bipolar 1 disorder F31.9 Right ventricular failure I50.810
--- NOTE | 2024-08-11 17:46 | CTR_ITS ---
PROCEDURE INFORMATION: Exam: CT Abdomen And Pelvis Without Contrast Exam date and time: 08/11/2024 9:17 PM Age: 53 years old Clinical indication: Abdominal pain; Generalized; Prior surgery; Surgery date: 6+ months; Surgery type: Tubal ligation; Additional info: Assess for retroperitoneal bleeding, abdominal pain, external bruising noted. Assess for TECHNIQUE: Imaging protocol: Computed tomography of the abdomen and pelvis without contrast. Radiation optimization: All CT scans at this facility use at least one of these dose optimization techniques: automated exposure control; mA and/or kV adjustment per patient size (includes targeted exams where dose is matched to clinical indication); or iterative reconstruction. COMPARISON: CT abdomen pelvis w con* [id number] 08/07/2024 1:28 PM RADIATION DOSE METRICS: Total DLP (mGy-cm): 822.01 FINDINGS: Heart: Cardiomegaly. Liver: Normal. No mass. Gallbladder and biliary ducts: Normal. No calcified stones. No ductal dilation. Pancreas: Normal. No ductal dilation. Spleen: Normal. No splenomegaly. Adrenal glands: Normal. No mass. Kidneys and ureters: Normal. No hydronephrosis. Stomach and bowel: Colonic diverticulosis without adjacent fat stranding. No bowel obstruction. Appendix: Normal appendix. Intraperitoneal/retroperitoneal space: Unremarkable. No free air. No significant fluid collection. No evidence of retroperitoneal hematoma Vasculature: Unremarkable. No abdominal aortic aneurysm. Lymph nodes: Unremarkable. No enlarged lymph nodes. Urinary bladder: Unremarkable as visualized. Reproductive: Bilateral ovarian cystic changes. Bones/joints: Unremarkable. No acute fracture. Soft tissues: Midline ventral abdominal wall hernia containing fat a knuckle of small bowel without evidence of bowel obstruction. Subcutaneous edema overlying the lateral abdomen as well as the spleen CT/CT abdomen pelvis con [id number] IMPRESSION: No definite acute intra-abdominal or intrapelvic process. Subcutaneous edema overlying the lateral abdomen as well as the spleen
[2024-08-11 18:44] LABS: Hematocrit 39.6 % (36-47)
--- NOTE | 2024-08-11 23:32 | PC.NURSE ---
Received report from Zara WILSON and assumed care.
[2024-08-12] VITALS (8 sets, daily range): BP systolic 94–126; BP diastolic 68–95; PULSE 91–95; RESP 17–28; TEMP 36.6–37.1; O2SAT 91–97
--- NOTE | 2024-08-12 02:01 | CTR_ITS ---
PROCEDURE INFORMATION: Exam: CT Head Without Contrast Exam date and time: 08/12/2024 2:28 AM Age: 53 years old Clinical indication: Injury or trauma; Fall; Blunt trauma (contusions or hematomas); Additional info: Fell and hit head TECHNIQUE: Imaging protocol: Computed tomography of the head without contrast. Radiation optimization: All CT scans at this facility use at least one of these dose optimization techniques: automated exposure control; mA and/or kV adjustment per patient size (includes targeted exams where dose is matched to clinical indication); or iterative reconstruction. COMPARISON: CR XR soft tissue neck [id number] 11/04/2022 5:52 PM RADIATION DOSE METRICS: Total DLP (mGy-cm): 1145.48 FINDINGS: Brain: Normal. No hemorrhage. Unremarkable white matter. No mass effect. Cerebral ventricles: No ventriculomegaly. Paranasal sinuses: Visualized sinuses are unremarkable. No fluid levels. Mastoid air cells: Visualized mastoid air cells are well aerated. Bones: Unremarkable. No acute fracture. Soft tissues: Small acute right frontal parietal scalp hematoma. CT/CT head wo con* [id number] IMPRESSION: 1. Small acute right frontal parietal scalp hematoma. 2. No evidence of acute intracranial process.
--- NOTE | 2024-08-12 02:17 | PC.NURSE ---
pt called out at 0150 stating she fell when getting back from commode patient stated that her monitor cords got caught on the bedside table then fell and hit call light, there is a little smaller than a half dollar goose egg on the right side of head, vitals are stable, MD and malt house supervisor informed. Attempted to call friend Tyler, call went to voicemail.
[2024-08-12] MEDS: TRAMadol 50 mg Tablet 25 MG PO (02:56)
--- NOTE | 2024-08-12 02:58 | PC.NURSE ---
0150- Patient pushed call button asking for help after she fell going to bathroom. This nurse open room door to see patient sitting on ground by commode with a small amount of blood down back and small amount on floor. Vitals signs obtained and are stable. Patient states I don't remember what happened but my cords got tangled around that patient pointing to lever on bedside table. Patient does not endorse any dizziness prior to fall only stating I was just sleepy . Patient has half dollar size raised up about a half inch. She has a small abrasion hemastasis achieved. Dr. Bui notified and received orders for head CT. Yoko WILSON notified housekeeper home and attempted to call family but only got voicemail. Ice pack applied directly to gooseegg and ultram given for pain.
[2024-08-12] MEDS: FUROsemide 10 mg/mL SDV 10mL 60 MG IVP (05:54)
[2024-08-12] MEDS: pantoprazole DR 40 mg Tablet PO (08:33)
[2024-08-12] MEDS: potassium chloride ER 20 mEq Tablet PO ×4 (08:33→19:52)
[2024-08-12] MEDS: aspirin 81 mg EC Tablet PO (08:33)
[2024-08-12] MEDS: metoprolol succinate ER (24 HR) 25 mg Tablet 12.5 MG PO (08:33)
[2024-08-12] MEDS: metOLazone 5 MG Tablet 2.5 MG PO ×2 (08:33→17:13)
--- NOTE | 2024-08-12 08:39 | P.PN_ITS ---
<Statement entered by Adrian Amador M.D - 08/13/24 08:13> Patient was evaluated and cared for in conjunction with an advanced practice practitioner.? I personally examined the patient and reviewed the chart and all pertinent data including imaging, telemetry, and laboratory results.? I discussed the patient in detail with the advanced practice practitioner.? Please see? their note for complete H&P, testing results and agreed upon plan of care for the patient. Patient still short of breath. GENERAL: Patient is alert, awake and oriented x3. HEART: Regular S1 and S2 LUNGS: Diminished air entry bilaterally CENTRAL NERVOUS SYSTEM: Grossly nonfocal. EXTREMITIES: Lower extremities with 1+ edema bilaterally. Patient is diuresing well. Continue IV Lasix today. Tomorrow can consider switching to oral diuretics based on renal function and response. Patient refuses LifeVest. Understands the risk. Thank you for involving us with care of this patient. We will continue to follow. Please call with questions Subjective 2 Subjective: Patient has not had any chest pain or shortness of breath overnight. Her fluid balance is 2400 mL negative today cumulative -8300 mL and her weight is down 6 pounds from admission. She still has 2+ pitting edema. Will discuss with her use of the LifeVest today. She has known severe systolic dysfunction, LVEF has been in the 20s since 2021, and she has previously refused a LifeVest/ICD. Vitals/I&O/Wt Last Vital Signs Temp 98.0 F 08/12/24 07:33 Pulse 91 08/12/24 07:33 Resp 17 08/12/24 07:33 BP 126/79 08/12/24 07:33 Pulse Ox 95 08/12/24 07:33 O2 Del Method Nasal Cannula 08/12/24 07:33 O2 Flow Rate 2 08/12/24 02:56 08/11/24 08/12/24 08/12/24 22:59 06:59 14:59 Intake Total 980 / 1676 100 / 1676 Output Total 2200 / 4100 300 / 4100 700 / 700 Balance -1220 / -2424 -200 / -2424 -700 / -700 Weight last 48 hrs Weight 203 lb 4.8 oz Weight 207 lb 1.6 oz Physical Exam 2 Const: COMMON NORMALS: no acute distress and patient oriented x3 GENERAL APPEARANCE: cooperative and comfortable ORIENTATION/CONSCIOUSNESS: Yes awake, Yes oriented to person, Yes oriented to place and Yes oriented to time Chest: COMMONS NORMALS: normal inspection of the chest and normal palpation of entire chest wall CHEST: Yes Symmetrical chest wall rise Resp: COMMON NORMALS: normal respiratory effort, No retractions, No use of accessory muscles and clear to auscultation bilaterally EFFORT & INSPECTION: Yes symmetric chest movement AUSCULTATION: clear to auscultation bilaterally Cardio: COMMON NORMALS: regular rate, regular rhythm, S1 normal heart sound present, S2 normal heart sound present, No gallops present (Cardio), No clicks present (Cardio), No murmurs present (Cardio) and No rub (Cardio) RATE: r egular rate RHYTHM: regular rhythm HEART SOUNDS: S1 normal heart sound present and S2 normal heart sound present PERIPHERAL PULSES: radial pulses present Extremity: GENERAL: Yes edema (2+ pitting edema in the ankles and feet) Neuro: COMMON NORMALS: patient oriented x3 and moves all extremities S ENSORIUM/ORIENTATION: Yes oriented to person, Yes oriented to place and Yes oriented to time Data 08/12/24 09:08 08/12/24 09:08 A&P Assessment and plan (1) Heart failure with reduced ejection fraction: (2) Essential hypertension: Plan She has diuresed well, can switch to oral Lasix tomorrow. PDMP PDMP Reviewed: Not Reviewed Attestations 2 Medical Necessity Statement*: Treatment of systolic heart failure, IV diuresis Coding Level of Care Code Acute Code for [facility] Fwd Diagnoses Heart failure with reduced ejection fraction I50.20 Essential hypertension I10
[2024-08-12 09:35] LABS: Basophils % 0.7 %; Eosinophils # 0.1 10^3/uL (0.0-0.8); Eosinophils % 1.9 %; Hematocrit 40.8 % (36-47); Lymphocytes # 0.8 10^3/uL (0.8-4.8); Lymphocytes % 14.4 %; Mean Corpuscular HGB Conc 31.4 g/dL (30-55); Mean Corpuscular Hemoglobin 28.3 pg (27-33); Mean Corpuscular Volume 90.3 fl (85-98); Monocytes # 0.5 10^3/uL (0.2-0.9); Monocytes % 8.5 %; Neutrophils # 4.21 10^3/uL (1.8-7.7); Neutrophils % 74.1 %; Nucleated Red Blood Cells % 0 %; Platelet Count 248 10^3/cmm (157-399); Red Blood Count 4.52 10^6/uL (3.85-5.65); Red Cell Distribution Width 16.5 % (12.1-15.1); White Blood Count 5.68 10^3/uL (3.29-11.43)
--- NOTE | 2024-08-12 09:40 | PC.NURSE ---
Physician orders: Oxy IR 5mg Q8H
[2024-08-12 09:54] LABS: Anion Gap 12.5 (5-19); Blood Urea Nitrogen 34 mg/dL (6-20); Calcium 9.6 mg/dL (8.5-10.5); Carbon Dioxide 38 mmol/L (22-29); Chloride 88 mmol/L (98-107); Glomerular Filtration Rate 58.2 mL/min (90-130); Glucose 155 mg/dL (65-115); Osmolality Calculated 291 mOsm/kg (285-295); Potassium 3.5 mmol/L (3.5-5.1); Sodium 135 mmol/L (136-145)
[2024-08-12] MEDS: oxyCODONE 5 mg IR Tab/Cap PO (10:06)
[2024-08-12] MEDS: cefTRIAXone 1,000 mg SDV 1000 MG IVP (10:07)
--- NOTE | 2024-08-12 12:48 | CT_ITS ---
WS: [id number] CT HEAD NONCONTRAST HISTORY: assess for bleeding TECHNIQUE: Contiguous axial imaging performed through the brain. Bone and soft tissue windows. Sagittal and coronal reformats reviewed. All CT scans at [facility] use at least one of these dose optimization techniques: automated exposure control; mA and/or kV adjustment per patient size (includes targeted exams where dose is matched to clinical indication); or iterative reconstruction. DLP: 958.22 mGy.cm COMPARISON: 08/12/2024 No acute intracranial hemorrhage, midline shift or mass effect. Mild atrophy and mild small vessel disease. Ventricles: Normal size with no hydrocephalus. No inferior displacement the cerebellar tonsils. Paranasal sinuses: As visualized are clear. Mastoid air cells: Well pneumatized. Calvarium and scalp: Small posterior RIGHT frontal scalp hematoma is slightly improved in size as compared to the study earlier the same day. CT/CT head wo con* [id number] IMPRESSION: 1. No acute intracranial hemorrhage or edema. 2. Slight decrease in size of the posterior RIGHT frontal scalp hematoma.
[2024-08-12 15:09] LABS: Bilirubin Urine Negative (Negative); Blood Urine Negative (Negative); Glucose Urine UA Negative (Normal); Ketones Urine Negative (Negative); Leukocyte Esterase Urine Negative (Negative); Nitrate Urine Negative (Negative); Protein Urine Negative (Negative); Urine Appearance Clear (CLEAR); Urine Color Yellow (Yellow); pH Urine 8.5 (5-7)
[2024-08-12 15:14] LABS: Add Urine Microscopic? YES; Bacteria Urine None Seen /hpf; RBC Urine 0-2 /hpf (0-2); Squamous Epithelial Cell Urine 0-5 /hpf (0-5); WBC Urine 0-5 /hpf (0-5)
--- NOTE | 2024-08-12 15:16 | PC.NURSE ---
Physician orders to decrease oxy to 2.5 mg due to drowsiness and lethargy in patint
--- NOTE | 2024-08-12 16:01 | P.PN_ITS ---
Subjective 2 Subjective: Patient suffered a mechanical fall overnight. She states that she tripped with all her wiring's while attempting to get to the bedside commode. She has a right parietal scalp hematoma. No intracranial bleeding was encountered. Patient was noted to be more sleepy today. Medications: Reviewed: Yes Vitals/I&O/Wt Last Vital Signs Temp 98.0 F 08/12/24 15:49 Pulse 91 08/12/24 15:49 Resp 24 H 08/12/24 15:49 BP 108/68 08/12/24 15:49 Pulse Ox 97 08/12/24 15:49 O2 Del Method Nasal Cannula 08/12/24 15:49 O2 Flow Rate 2 08/12/24 02:56 08/12/24 08/12/24 08/12/24 06:59 14:59 22:59 Intake Total 100 / 1676 360 / 360 Output Total 300 / 4100 1350 / 1350 Balance -200 / -2424 -990 / -990 Weight last 48 hrs Weight 92.215 kg Weight 93.939 kg Physical Exam 2 Narrative: General: No acute distress, AO x3 HEENT: PERRLA, pupils bilaterally equal and reactive, pallors not present Chest: Normal vesicular breath sounds, no added sounds, equal good air entry bilaterally CVS: S1-S2 regular, no murmurs, no tachycardia, no gallops, no rubs Abdomen: Soft, nontender, no organomegaly, bowel sounds present Neuro: No focal deficits, no facial deformity, AO x3, power 5/5 in all limbs EXT : 3+ pitting edema B/L Data 08/12/24 09:08 08/12/24 09:08 A&P Assessment and plan (1) CHF exacerbation: (2) Gastroenteritis: (3) Abdominal pain: (4) Lower extremity edema: (5) Heart failure with reduced ejection fraction: (6) Bipolar 1 disorder: (7) Right ventricular failure: Plan - Acute decompensated heart failure: Patient with known non-ischemic cardiomyopathy (EF 20%), grade 3/4 diastolic dysfunction presenting with signs and symptoms of acute decompensated heart failure, including dyspnea, fluid retention (anasarca), and abdominal discomfort secondary to congestion. - Elevated troponin: Initial troponin 176, repeat 166.4 at 120 minutes. Patient reports occasional chest pain. - Acute kidney injury: Creatinine elevated to 1.5 from a baseline of 0.6 in May 2023, likely secondary to cardiorenal syndrome in the setting of acute decompensated heart failure. Day 2 creatinine 1.5 and 1.4 today.. - Transaminitis: AST 136 down to 105, ALT 148 down to 133, likely secondary to hepatic congestion in the setting of right heart failure. Normal alkaline phosphatase (48) suggests against a biliary etiology. Gallbladder wall thickening on ultrasound likely due to volume overload. - Intermittent nausea/vomiting, now resolved: CT abdomen/pelvis revealing a fat- containing umbilical hernia with a small knuckle of bowel herniation, no evidence of obstruction. Plan: - Acute decompensated heart failure: 1. S/p Lasix 60 mg IV x 1 in ER, now on Lasix 40 mg IV q12hr. Prior to arrival was on torsemide 40 mg once a day. Was not on full GDMT. Was on losartan 100 mg daily. 2. Continue metoprolol XL 25 mg daily. 3. Holding ARB while diuresing and ASIA. Will consider change to entresto instead of resuming ARB. 4. Lasix dose increased to 60 mg IV q12hr + Metolazone added with Kcl replacement 5. Repeat echo similar to past - EF 20% with moderate MR 6. Track daily weight, admission weight likely not accurate. 7. Declined LifeVest/AICD in the past and again now - Elevated troponin: 1. Noted above, chest pain free. 2. Continue aspirin. 3. Cardiology on board - Acute kidney injury vs CKD 1. Monitor renal function, urine output with daily BUN and creatinine. 2. Will continue to hold losartan for now. 3. Avoid nephrotoxic medications. 4. Consider renal ultrasound if no improvement with medical management. - Transaminitis: 1. Monitor liver function tests, expect improvement with diuresis and optimization of cardiac function. 2. Avoid hepatotoxic medications. 3. CMP in AM. August 10, 2024 Continues to have significant lower extremity swelling. Net -3.1 L last 24 hours. Continue Lasix 60 mg IV every 12 hours and metolazone 2.5 mg p.o. twice daily. Closely monitor urine output and renal function at this dosing. DVT prophylaxis: Heparin 5000 every 8 hours Full code. August 11, 2024 Diuresing well currently. Net -6.9 L since admission. Continue Lasix 60 mg IV every 12 hours and metolazone 2.5 mg p.o. twice daily. Aim to transition to oral diuresis over the next 24 hours if continues to put out well. Lower extremity swelling is improving at this time. August 12, 2024 Patient is very somnolent today. She is falls asleep midsentence. Complaining of feeling drowsy all the time. Review of MAR shows patient was started on Lyrica on the night of August 10, 2024. She has had 3 doses of 25 mg each. Potentially this may be contributing to her somnolence. Discontinue Lyrica. Additionally patient had been complaining of headache since her fall. Oxycodone 5 mg was given this morning which may potentially be the cause as well. However per report it appears patient was somnolent prior to the oxycodone as well. Suspecting polypharmacy at this time. CT head was repeated this afternoon which did not show any interval intracranial bleeding. Oxycodone dose reduced to 2.5 mg p.o. every 8 hours as needed as needed for pain.. There are no focal deficits on exam. She is able to move all extremities. She will wake up to have a conversation but then go back to sleep. Additionally had complained of abdominal pain last evening. CT of the abdomen and pelvis was without any intra-abdominal events. UA reviewed from admission showing trace leukocyte Estrace, 5-10 WBCs ?, 5-10 epithelial cells versus possible UTI. Start ceftriaxone 1 g IV 24 hours. Repeat UA. Cange lasix to 80mg po BID and continue metolazone 2.5 mg BID PDMP PDMP Reviewed: Not Reviewed Attestations 2 Medical Necessity Statement*: Transition IV to oral antibiotics. More somnolent today. Discontinue Lyrica and reduce opiate dose and closely monitor. Coding Level of Care Code Acute Code for [facility] Fwd Diagnoses CHF exacerbation I50.9 Gastroenteritis K52.9 Abdominal pain R10.9 Lower extremity edema R60.0 Heart failure with reduced ejection fraction I50.20 Bipolar 1 disorder F31.9 Right ventricular failure I50.810
[2024-08-12] MEDS: oxyCODONE 5 mg IR Tab/Cap 2.5 MG PO (20:25)
[2024-08-13] VITALS (10 sets, daily range): BP systolic 102–114; BP diastolic 65–77; PULSE 94–104; RESP 12–25; TEMP 36.5–37.6; O2SAT 90–98
[2024-08-13 03:44] LABS: Basophils % 0.4 %; Eosinophils % 0.7 %; Hematocrit 39.4 % (36-47); Lymphocytes # 0.7 10^3/uL (0.8-4.8); Mean Corpuscular HGB Conc 31.2 g/dL (30-55); Mean Corpuscular Hemoglobin 27.8 pg (27-33); Mean Corpuscular Volume 88.9 fl (85-98); Mean Platelet Volume 9.5 fL (7.4-10.4); Monocytes # 0.5 10^3/uL (0.2-0.9); Monocytes % 9.1 %; Neutrophils % 77.6 %; Nucleated Red Blood Cells % 0 %; Platelet Count 226 10^3/cmm (157-399); Red Blood Count 4.43 10^6/uL (3.85-5.65); Red Cell Distribution Width 16.7 % (12.1-15.1); White Blood Count 5.41 10^3/uL (3.29-11.43)
[2024-08-13 04:06] LABS: Alanine Aminotransferase 65 U/L (0-33); Albumin Level 3.6 g/dL (3.5-5.2); Alkaline Phosphatase 42 U/L (35-105); Aspartate Amino Transferase 52 U/L (0-32); Blood Urea Nitrogen 33 mg/dL (6-20); Calcium 9.3 mg/dL (8.5-10.5); Carbon Dioxide 34 mmol/L (22-29); Chloride 90 mmol/L (98-107); Glomerular Filtration Rate 52.2 mL/min (90-130); Glucose 102 mg/dL (65-115); Osmolality Calculated 287 mOsm/kg (285-295); Sodium 135 mmol/L (136-145); Total Bilirubin 0.8 mg/dL (0.15-1.2); Total Protein 6.6 g/dL (6.6-8.7)
[2024-08-13 04:07] LABS: Anion Gap 14.9 (5-19); Potassium 3.9 mmol/L (3.5-5.1)
[2024-08-13] MEDS: oxyCODONE 5 mg IR Tab/Cap 2.5 MG PO (04:44)
[2024-08-13] MEDS: pantoprazole DR 40 mg Tablet PO (08:23)
[2024-08-13] MEDS: FUROsemide 40 mg Tablet 80 MG PO ×2 (08:23→18:26)
[2024-08-13] MEDS: metoprolol succinate ER (24 HR) 25 mg Tablet 12.5 MG PO (08:23)
[2024-08-13] MEDS: aspirin 81 mg EC Tablet PO (08:24)
[2024-08-13] MEDS: cefTRIAXone 1,000 mg SDV 1000 MG IVP (08:24)
[2024-08-13] MEDS: metOLazone 5 MG Tablet 2.5 MG PO (08:24)
[2024-08-13] MEDS: potassium chloride ER 20 mEq Tablet PO ×4 (08:24→20:06)
--- NOTE | 2024-08-13 09:29 | P.PN_ITS ---
<Statement entered by Adrian Amador M.D - 08/15/24 07:59> Patient was evaluated and cared for in conjunction with an advanced practice practitioner.? I personally examined the patient and reviewed the chart and all pertinent data including imaging, telemetry, and laboratory results.? I discussed the patient in detail with the advanced practice practitioner.? Please see? their note for complete progress note, testing results and agreed upon plan of care for the patient. Patient feeling better. GENERAL: Patient is alert, awake and oriented x3. HEART: Regular S1 and S2 LUNGS: Clear to auscultate bilaterally. CENTRAL NERVOUS SYSTEM: Grossly nonfocal. EXTREMITIES: Lower extremities with out edema bilaterally. Subjective 2 Subjective: She has done well overnight. No chest pain or shortness of breath this morning. She has small improvement in the lower extremity edema. Was switched to Lasix 80 mg twice daily today, metolazone 2.5 mg twice daily continued. Creatinine 1.1 today, potassium 3.9. She notes the food in the hospital here has been difficult for her to eat due to not having salt on it, I think she is probably noncompliant with diet. In speaking to her this morning she refuses LifeVest as she has in the past. Vitals/I&O/Wt Last Vital Signs Temp 97.7 F 08/13/24 07:40 Pulse 96 08/13/24 07:40 Resp 24 H 08/13/24 07:40 BP 113/75 08/13/24 07:40 Pulse Ox 90 08/13/24 07:40 O2 Del Method Room Air 08/13/24 07:40 O2 Flow Rate 2 08/12/24 02:56 08/12/24 08/13/24 08/13/24 22:59 06:59 14:59 Intake Total 690 / 1350 300 / 1350 360 / 360 Output Total 500 / 2950 1100 / 2950 100 / 100 Balance 190 / -1600 -800 / -1600 260 / 260 Weight last 48 hrs Weight 203 lb 3.2 oz Weight 203 lb 4.8 oz Physical Exam 2 Const: COMMON NORMALS: no acute distress and patient oriented x3 GENERAL APPEARANCE: cooperative and comfortable ORIENTATION/CONSCIOUSNESS: Yes awake, Yes oriented to person, Yes oriented to place and Yes oriented to time Chest: COMMONS NORMALS: normal inspection of the chest and normal palpation of entire chest wall CHEST: Yes Symmetrical chest wall rise Resp: COMMON NORMALS: normal respiratory effort, No retractions, No use of accessory muscles and clear to auscultation bilaterally EFFORT & INSPECTION: Yes symmetric chest movement AUSCULTATION: clear to auscultation bilaterally Cardio: COMMON NORMALS: regular rate, regular rhythm, S1 normal heart sound present, S2 normal heart sound present, No gallops present (Cardio), No clicks present (Cardio), No murmurs present (Cardio) and No rub (Cardio) RATE: r egular rate RHYTHM: regular rhythm HEART SOUNDS: S1 normal heart sound present and S2 normal heart sound present PERIPHERAL PULSES: radial pulses present Extremity: GENERAL: Yes edema (1-2+ pitting edema bilat ankles and feet) Neuro: COMMON NORMALS: patient oriented x3 and moves all extremities S ENSORIUM/ORIENTATION: Yes oriented to person, Yes oriented to place and Yes oriented to time Data 08/13/24 02:52 08/13/24 02:52 A&P Assessment and plan (1) Heart failure with reduced ejection fraction: (2) CHF exacerbation: (3) Essential hypertension: Plan Lower extremity edema slightly improved, no significant shortness of breath. Recommend to continue oral Lasix 80 mg twice daily, if she has good urine output today would recommend reducing metolazone to 2.5 mg daily. PDMP PDMP Reviewed: Not Reviewed Attestations 2 Medical Necessity Statement*: Systolic heart failure, continue diuresis and switching diuretics to oral Coding Level of Care Code Acute Code for [facility] Fwd Diagnoses Heart failure with reduced ejection fraction I50.20 CHF exacerbation I50.9 Essential hypertension I10
[2024-08-13 14:39] LABS: Adenovirus Not Detected (NOT DETECT); Chlamydia Pneumoniae Not Detected (NOT DETECT); Coronavirus 229E,HKU1,NL63,OC4 Not Detected (NOT DETECT); Human Metapneumovirus Not Detected (NOT DETECT); Human Rhinovirus/Enterovirus Not Detected (NOT DETECT); Influenza A Not Detected (NOT DETECT); Influenza A H1 Not Detected (NOT DETECT); Influenza A H1-2009 Not Detected (NOT DETECT); Influenza A H3 Not Detected (NOT DETECT); Influenza B Not Detected (NOT DETECT); Mycoplasma Pneumoniae Not Detected (NOT DETECT); Parainfluenza Virus Type 1 Not Detected (NOT DETECT); Parainfluenza Virus Type 2 Not Detected (NOT DETECT); Parainfluenza Virus Type 3 Not Detected (NOT DETECT); Parainfluenza Virus Type 4 Not Detected (NOT DETECT); Respiratory Syncytial Virus A Not Detected (NOT DETECT); Respiratory Syncytial Virus B Not Detected (NOT DETECT); SARS-COV-2 Not Detected (NOT DETECT)
--- NOTE | 2024-08-13 16:07 | P.PN_ITS ---
Subjective 2 Subjective: less sleepy today, able to hold a conversation , Le edema improving today Medications: Reviewed: Yes Vitals/I&O/Wt Last Vital Signs Temp 97.7 F 08/13/24 07:40 Pulse 98 08/13/24 12:24 Resp 25 H 08/13/24 12:24 BP 114/72 08/13/24 12:24 Pulse Ox 97 08/13/24 12:24 O2 Del Method Nasal Cannula 08/13/24 10:42 O2 Flow Rate 2 08/13/24 10:42 08/13/24 08/13/24 08/13/24 06:59 14:59 22:59 Intake Total 300 / 1350 360 / 360 Output Total 1100 / 2950 1100 / 1100 Balance -800 / -1600 -740 / -740 Weight last 48 hrs Weight 92.17 kg Weight 92.215 kg Physical Exam 2 Narrative: General: No acute distress, AO x3 HEENT: PERRLA, pupils bilaterally equal and reactive, pallors not present Chest: Normal vesicular breath sounds, no added sounds, equal good air entry bilaterally CVS: S1-S2 regular, no murmurs, no tachycardia, no gallops, no rubs Abdomen: Soft, nontender, no organomegaly, bowel sounds present Neuro: No focal deficits, no facial deformity, AO x3, power 5/5 in all limbs EXT : 3+ pitting edema B/L Data 08/13/24 02:52 08/13/24 02:52 Micro: Microbiology 08/12/24 14:20 Urine Culture - Preliminary Urine,Voided A&P Assessment and plan (1) CHF exacerbation: (2) Gastroenteritis: (3) Abdominal pain: (4) Lower extremity edema: (5) Heart failure with reduced ejection fraction: (6) Bipolar 1 disorder: (7) Right ventricular failure: Plan - Acute decompensated heart failure: Patient with known non-ischemic cardiomyopathy (EF 20%), grade 3/4 diastolic dysfunction presenting with signs and symptoms of acute decompensated heart failure, including dyspnea, fluid retention (anasarca), and abdominal discomfort secondary to congestion. - Elevated troponin: Initial troponin 176, repeat 166.4 at 120 minutes. Patient reports occasional chest pain. - Acute kidney injury: Creatinine elevated to 1.5 from a baseline of 0.6 in May 2023, likely secondary to cardiorenal syndrome in the setting of acute decompensated heart failure. Day 2 creatinine 1.5 and 1.4 today.. - Transaminitis: AST 136 down to 105, ALT 148 down to 133, likely secondary to hepatic congestion in the setting of right heart failure. Normal alkaline phosphatase (48) suggests against a biliary etiology. Gallbladder wall thickening on ultrasound likely due to volume overload. - Intermittent nausea/vomiting, now resolved: CT abdomen/pelvis revealing a fat- containing umbilical hernia with a small knuckle of bowel herniation, no evidence of obstruction. Plan: - Acute decompensated heart failure: 1. S/p Lasix 60 mg IV x 1 in ER, now on Lasix 40 mg IV q12hr. Prior to arrival was on torsemide 40 mg once a day. Was not on full GDMT. Was on losartan 100 mg daily. 2. Continue metoprolol XL 25 mg daily. 3. Holding ARB while diuresing and ASIA. Will consider change to entresto instead of resuming ARB. 4. Lasix dose increased to 60 mg IV q12hr + Metolazone added with Kcl replacement 5. Repeat echo similar to past - EF 20% with moderate MR 6. Track daily weight, admission weight likely not accurate. 7. Declined LifeVest/AICD in the past and again now - Elevated troponin: 1. Noted above, chest pain free. 2. Continue aspirin. 3. Cardiology on board - Acute kidney injury vs CKD 1. Monitor renal function, urine output with daily BUN and creatinine. 2. Will continue to hold losartan for now. 3. Avoid nephrotoxic medications. 4. Consider renal ultrasound if no improvement with medical management. - Transaminitis: 1. Monitor liver function tests, expect improvement with diuresis and optimization of cardiac function. 2. Avoid hepatotoxic medications. 3. CMP in AM. August 10, 2024 Continues to have significant lower extremity swelling. Net -3.1 L last 24 hours. Continue Lasix 60 mg IV every 12 hours and metolazone 2.5 mg p.o. twice daily. Closely monitor urine output and renal function at this dosing. DVT prophylaxis: Heparin 5000 every 8 hours Full code. August 11, 2024 Diuresing well currently. Net -6.9 L since admission. Continue Lasix 60 mg IV every 12 hours and metolazone 2.5 mg p.o. twice daily. Aim to transition to oral diuresis over the next 24 hours if continues to put out well. Lower extremity swelling is improving at this time. August 12, 2024 Patient is very somnolent today. She is falls asleep midsentence. Complaining of feeling drowsy all the time. Review of MAR shows patient was started on Lyrica on the night of August 10, 2024. She has had 3 doses of 25 mg each. Potentially this may be contributing to her somnolence. Discontinue Lyrica. Additionally patient had been complaining of headache since her fall. Oxycodone 5 mg was given this morning which may potentially be the cause as well. However per report it appears patient was somnolent prior to the oxycodone as well. Suspecting polypharmacy at this time. CT head was repeated this afternoon which did not show any interval intracranial bleeding. Oxycodone dose reduced to 2.5 mg p.o. every 8 hours as needed as needed for pain.. There are no focal deficits on exam. She is able to move all extremities. She will wake up to have a conversation but then go back to sleep. Additionally had complained of abdominal pain last evening. CT of the abdomen and pelvis was without any intra-abdominal events. UA reviewed from admission showing trace leukocyte Estrace, 5-10 WBCs ?, 5-10 epithelial cells versus possible UTI. Start ceftriaxone 1 g IV 24 hours. Repeat UA. Cange lasix to 80mg po BID and continue metolazone 2.5 mg BID August 13, 2024: Patient is awake, alert, able to hold a conversation. Likely that Lyrica was contributing to her somnolence. Tachycardic with HR 90-100, increase metoprolol today. No new complaints today. LE edema is improving. continue oral lasix and metolazone today at same dosing. Attempt to add entresto if BP allows prior to discharge. PDMP PDMP Reviewed: Not Reviewed Attestations 2 Medical Necessity Statement*: continue current diuresis, reduce dose of metolazone tomorrow, add entresto if bp allows Coding Level of Care Code Acute Code for [facility] Fwd Diagnoses CHF exacerbation I50.9 Gastroenteritis K52.9 Abdominal pain R10.9 Lower extremity edema R60.0 Heart failure with reduced ejection fraction I50.20 Bipolar 1 disorder F31.9 Right ventricular failure I50.810
[2024-08-13] MEDS: metoprolol tartrate 25 mg Tablet 12.5 MG PO ×2 (18:25→18:26)
[2024-08-13] MEDS: acetaZOLAMIDE 250 mg Tablet PO (18:25)
[2024-08-14] VITALS: BP 102/66; PULSE 89; RESP 21; TEMP 37.2; O2SAT 92
[2024-08-14] MEDS: oxyCODONE 5 mg IR Tab/Cap 2.5 MG PO ×2 (00:08→08:06)
[2024-08-14 04:00] VITALS: BP 104/79; PULSE 100; RESP 22; TEMP 37.3; O2SAT 92
[2024-08-14 05:22] LABS: Basophils # 0.1 10^3/uL (0.0-0.1); Basophils % 1.3 %; Eosinophils # 0.1 10^3/uL (0.0-0.8); Eosinophils % 1.1 %; Hematocrit 41.9 % (36-47); Lymphocytes # 1.1 10^3/uL (0.8-4.8); Lymphocytes % 17.3 %; Mean Corpuscular Hemoglobin 27.3 pg (27-33); Mean Platelet Volume 8.4 fL (7.4-10.4); Monocytes # 0.8 10^3/uL (0.2-0.9); Monocytes % 12.2 %; Neutrophils # 4.15 10^3/uL (1.8-7.7); Neutrophils % 67.8 %; Nucleated Red Blood Cells % 0 %; Platelet Count 214 10^3/cmm (157-399); Red Blood Count 4.76 10^6/uL (3.85-5.65); Red Cell Distribution Width 16.7 % (12.1-15.1); White Blood Count 6.13 10^3/uL (3.29-11.43)
[2024-08-14 05:43] LABS: Alanine Aminotransferase 85 U/L (0-33); Albumin Level 3.5 g/dL (3.5-5.2); Alkaline Phosphatase 43 U/L (35-105); Anion Gap 14.5 (5-19); Aspartate Amino Transferase 74 U/L (0-32); Blood Urea Nitrogen 34 mg/dL (6-20); Calcium 9.7 mg/dL (8.5-10.5); Carbon Dioxide 35 mmol/L (22-29); Chloride 88 mmol/L (98-107); Globulin 3.3 g/dL (1.3-4.6); Glucose 97 mg/dL (65-115); Osmolality Calculated 286 mOsm/kg (285-295); Potassium 3.5 mmol/L (3.5-5.1); Sodium 134 mmol/L (136-145); Total Bilirubin 0.7 mg/dL (0.15-1.2); Total Protein 6.8 g/dL (6.6-8.7)
[2024-08-14 06:00] VITALS: PULSE 89
--- NOTE | 2024-08-14 06:18 | ECG_ITS ---
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 Measurements Intervals [place] Rate: 118 P: -30 MA: 229 QRS: -44 QRSD: 166 T: 102 QT: 391 QTc: 550 Interpretive Statements SINUS TACHYCARDIA WITH FIRST DEGREE AV BLOCK LEFT ATRIAL ENLARGEMENT [-0.15mV P-WAVE IN V1/V2] LEFT AXIS DEVIATION [QRS AXIS < -30] LEFT BUNDLE BRANCH BLOCK [120+ ms QRS DURATION, 80+ ms Q/S IN V1/V2, 85+ ms R IN I/aVL/V5/V6] Compared to ECG 08/08/2024 10:36:05 First degree AV block now present Atrial abnormality now present Electronically Signed On 08-15-2024 07:42:17 CDT by Adrian Amador M.D. [email or web address]
--- NOTE | 2024-08-14 06:37 | PC.NURSE ---
Patient HR elevated to the 120's. EKG performed and Dr Bui notified. No new orders at this time.
[2024-08-14 07:29] VITALS: BP 101/65; PULSE 115; RESP 18; TEMP 36.7; O2SAT 94
[2024-08-14 08:06] VITALS: RESP 22
[2024-08-14] MEDS: pantoprazole DR 40 mg Tablet PO (08:06)
[2024-08-14] MEDS: metoprolol succinate ER (24 HR) 25 mg Tablet PO (08:06)
[2024-08-14] MEDS: FUROsemide 40 mg Tablet 80 MG PO (08:06)
[2024-08-14] MEDS: potassium chloride ER 20 mEq Tablet PO (08:06)
[2024-08-14] MEDS: aspirin 81 mg EC Tablet PO (08:06)
--- NOTE | 2024-08-14 08:06 | P.PN_ITS ---
<Statement entered by Adrian Amador M.D - 08/15/24 08:21> Patient was cared for in conjunction with an advanced practice practitioner.? I reviewed the chart and all pertinent data including imaging, telemetry, and laboratory results.? I discussed the patient in detail with the advanced practice practitioner.? Please see? their note for complete progress note,, testing results and agreed upon plan of care for the patient. Subjective 2 Subjective: She has done well overnight, lower extremity edema significantly improved and almost resolved. She appears a bit dry, heart rate is slightly tachycardic. Vitals/I&O/Wt Last Vital Signs Temp 98.0 F 08/14/24 07:29 Pulse 115 H 08/14/24 07:29 Resp 18 08/14/24 07:29 BP 101/65 08/14/24 07:29 Pulse Ox 94 08/14/24 07:29 O2 Del Method Room Air 08/14/24 07:29 O2 Flow Rate 2 08/13/24 10:42 08/13/24 08/14/24 08/14/24 22:59 06:59 14:59 Intake Total 800 / 1260 100 / 1260 Output Total 1400 / 3800 1300 / 3800 Balance -600 / -2540 -1200 / -2540 Weight last 48 hrs Weight 195 lb 11.2 oz Weight 203 lb 3.2 oz Physical Exam 2 Const: COMMON NORMALS: no acute distress and patient oriented x3 GENERAL APPEARANCE: cooperative and comfortable ORIENTATION/CONSCIOUSNESS: Yes awake, Yes oriented to person, Yes oriented to place and Yes oriented to time Chest: COMMONS NORMALS: normal inspection of the chest and normal palpation of entire chest wall CHEST: Yes Symmetrical chest wall rise Resp: COMMON NORMALS: normal respiratory effort, No retractions, No use of accessory muscles and clear to auscultation bilaterally EFFORT & INSPECTION: Yes symmetric chest movement AUSCULTATION: clear to auscultation bilaterally Cardio: COMMON NORMALS: regular rate, regular rhythm, S1 normal heart sound present, S2 normal heart sound present, No gallops present (Cardio), No clicks present (Cardio), No murmurs present (Cardio) and No rub (Cardio) RATE: r egular rate RHYTHM: regular rhythm HEART SOUNDS: S1 normal heart sound present and S2 normal heart sound present PERIPHERAL PULSES: radial pulses present Extremity: GENERAL: Yes edema (Trace to 1+ pitting edema in the ankles bilaterally) Neuro: COMMON NORMALS: patient oriented x3 and moves all extremities S ENSORIUM/ORIENTATION: Yes oriented to person, Yes oriented to place and Yes oriented to time Data 08/14/24 04:56 08/14/24 04:56 Micro: Microbiology 08/12/24 14:20 Urine Culture - Preliminary Urine,Voided A&P Assessment and plan (1) Heart failure with reduced ejection fraction: (2) Essential hypertension: (3) CHF exacerbation: Plan She has diuresed well, is a little over 12 L negative cumulative and down 14 pounds from admission. Creatinine 1.3. May discharge home with okay with hospitalist. She refuses LifeVest/ICD. PDMP PDMP Reviewed: Not Reviewed Attestations 2 Medical Necessity Statement*: per hospitalist, jovita AYALA today Coding Level of Care Code Acute Code for Chg Fwd Diagnoses Heart failure with reduced ejection fraction I50.20 Essential hypertension I10 CHF exacerbation I50.9
[2024-08-14 10:18] VITALS: BP 110/78; PULSE 112; RESP 20; TEMP 36.5; O2SAT 95
--- NOTE | 2024-08-14 13:03 | P.DS_ITS ---
Discharge Providers Date of Admission: 08/07/24 14:21 Date of Discharge: August 14, 2024 Attending Provider at Admission: Evelyn Loja Attending Provider at Discharge: Katheryn Younger MD Primary Care Provider: Brian Baez MD Diagnoses at Discharge Discharge Diagnosis (1) Heart failure with reduced ejection fraction: Status: Acute Permanent problem details: EF 23%, grade 2 diastolic dysfunction, moderate MR, severe TR, moderate [place], biatrial enlargement, moderate pulmonary hypertension (2) Essential hypertension: Status: Acute (3) CHF exacerbation: Status: Acute Reason for Visit Reason for Visit: abdominal pain N/V/D Hospital Course Hospital Course 53-year-old female with a past medical history of non-ischemic cardiomyopathy (EF 20% on echocardiogram in December 2022), grade 2 diastolic dysfunction, mild pulmonary hypertension (RVSP 40.9 mmHg), who presented on 08/09 with abdominal pain, bloating, and vomiting for the past month. noted increase fluid retention leading to dyspnea on exertion and orthopnea. Had generalized anasarca. 3+ pitting edema. Patient reports having been noncompliant with torsemide at home. She generally avoided taking her diuretics as she states her bathroom in the home was not functional and she had to walk to the local supermarket to use the bathroom. She is admitted to the hospital in view of acute on chronic systolic CHF exacerbation. She started on treatment with IV Lasix with metolazone eventually being added. She diuresed well with this combination and is net negative about 12 L at the time of discharge. Her weight has improved from 95 kg upon admission to 88 kg now. She has been transitioned to oral Lasix at the time of discharge. Dose has been cut back to 40 mg p.o. daily as creatinine noted to be at 1.3 and able development of metabolic alkalosis. Patient is encouraged compliance with her medication regimen. Patient had complained of lower extremity cramping pain likely related to hypokalemia for which potassium supplementation was added. She had initially also received Lyrica during the course of this admission, however she became very somnolent and lethargic with this addition. Eventually Lyrica was discontinued and patient's mental status improved to normal. She had suffered a fall in the hospital after being caught up with one of her tubings. She was noted to have a right scalp hematoma without any intracranial hemorrhage. She is being discharged today in improved condition with recommendation to follow-up with cardiology within 1 week of discharge. Commode was arranged at discharge. Physical Exam Narrative: General: No acute distress, AO x3 HEENT: PERRLA, pupils bilaterally equal and reactive, pallors not present Chest: Normal vesicular breath sounds, no added sounds, equal good air entry bilaterally CVS: S1-S2 regular, no murmurs, no tachycardia, no gallops, no rubs Abdomen: Soft, nontender, no organomegaly, bowel sounds present Neuro: No focal deficits, no facial deformity, AO x3, power 5/5 in all limbs Discharge Data Studies Completed and Pending Completed Studies During Hospitalization Category Date Time Status CT abdomen pelvis w con* [id number] Stat Cat Scan 08/07/24 12:[address] abdomen pelvis wo con [id number] Routine Cat Scan 08/11/24 17:[address] head wo con* [id number] Routine Cat Scan 08/12/24 12:[address] head wo con* [id number] Stat Cat Scan 08/12/24 02:01 Completed XR chest 1V portable [id number] Stat Exams 08/07/24 12:49 Completed CV. echo complete* [id number] Routine Ultrasound 08/08/24 15:48 Completed US gall bladder [id number] Stat Ultrasound 08/07/24 13:57 Completed Radiology Impressions Chest X-Ray 08/07/24 12:49 Impression: Massive cardiomegaly. Gallbladder Ultrasound 08/07/24 13:57 IMPRESSION: 1. Slightly contracted gallbladder with diffuse gallbladder wall thickening and no edema. Gallbladder wall thickening may be secondary to fluid overload and edema. 2. Small stones or sludge at the gallbladder neck are not excluded. 3. No intrahepatic bile duct dilatation. Abdomen/Pelvis CT 08/11/24 17:46 IMPRESSION: No definite acute intra-abdominal or intrapelvic process. Subcutaneous edema overlying the lateral abdomen as well as the spleen Head CT 08/12/24 12:48 IMPRESSION: 1. No acute intracranial hemorrhage or edema. 2. Slight decrease in size of the posterior RIGHT frontal scalp hematoma. Laboratory Results WBC 6.13 10^3/uL (3.29-11.43) 08/14/24 04:56 RBC 4.76 10^6/uL (3.85-5.65) 08/14/24 04:56 Hgb 13.00 g/dL (11.27-16.99) 08/14/24 04:56 Hct 41.9 % (36-47) 08/14/24 04:56 MCV 88.0 fl (85-98) 08/14/24 04:56 MCH 27.3 pg (27-33) 08/14/24 04:56 MCHC 31.0 g/dL (30-55) 08/14/24 04:56 RDW 16.7 % (12.1-15.1) H 08/14/24 04:56 Plt Count 214 10^3/cmm (157-399) 08/14/24 04:56 MPV 8.4 fL (7.4-10.4) 08/14/24 04:56 Neut % (Auto) 67.8 % 08/14/24 04:56 Lymph % (Auto) 17.3 % 08/14/24 04:56 [place] % (Auto) 12.2 % 08/14/24 04:56 Eos % (Auto) 1.1 % 08/14/24 04:56 Baso % (Auto) 1.3 % 08/14/24 04:56 Neut # (Auto) 4.15 10^3/uL (1.8-7.7) 08/14/24 04:56 Lymph # (Auto) 1.1 10^3/uL (0.8-4.8) 08/14/24 04:56 [place] # (Auto) 0.8 10^3/uL (0.2-0.9) 08/14/24 04:56 Eos # (Auto) 0.1 10^3/uL (0.0-0.8) 08/14/24 04:56 Baso # (Auto) 0.1 10^3/uL (0.0-0.1) 08/14/24 04:56 Nucleated RBC % (auto) 0 % 08/14/24 04:56 Nucleated RBCs # 0.0 /100WBC 08/14/24 04:56 PT 20.30 SECONDS (12.1-14.9) H 08/07/24 13:15 INR 1.62 (0.8-1.2) H 08/07/24 13:15 Sodium 134 mmol/L (136-145) L 08/14/24 04:56 Potassium 3.5 mmol/L (3.5-5.1) 08/14/24 04:56 Chloride 88 mmol/L (98-107) L 08/14/24 04:56 Carbon Dioxide 35 mmol/L (22-29) H 08/14/24 04:56 Anion Gap 14.5 (5-19) 08/14/24 04:56 BUN 34 mg/dL (6-20) H 08/14/24 04:56 Creatinine 1.3 mg/dL (0.5-0.9) H 08/14/24 04:56 GFR Calculation 43.0 mL/min (90-130) L 08/14/24 04:56 Glucose 97 mg/dL (65-115) 08/14/24 04:56 Calculated Osmolality 286 mOsm/kg (285-295) 08/14/24 04:56 Calcium 9.7 mg/dL (8.5-10.5) 08/14/24 04:56 Magnesium 2.2 mg/dL (1.7-2.3) 08/07/24 13:15 Total Bilirubin 0.7 mg/dL (0.15-1.2) 08/14/24 04:56 AST 74 U/L (0-32) H 08/14/24 04:56 ALT 85 U/L (0-33) H 08/14/24 04:56 Alkaline Phosphatase 43 U/L (35-105) 08/14/24 04:56 Troponin T Baseline 176 ng/L (0-10) H* 08/07/24 13:15 Troponin T 120 Minute 166.6 ng/L (0-10) H 08/07/24 15:15 Delta Troponin T -9.4 ABS# (0-10) L 08/07/24 15:15 Troponin T Hi Sens 6Hr 168.1 ng/L (0-10) H 08/07/24 19:51 Troponin T Hi Sens 6Hr Delta -7.9 ng/L (0-12) L 08/07/24 19:51 NT-Pro-B Natriuret Pep 35973 pg/mL (0-125) H 08/07/24 13:15 Total Protein 6.8 g/dL (6.6-8.7) 08/14/24 04:56 Albumin 3.5 g/dL (3.5-5.2) 08/14/24 04:56 Globulin 3.3 g/dL (1.3-4.6) 08/14/24 04:56 Lipase 42 U/L (13-60) 08/07/24 13:15 TSH 3.82 uIU/mL (0.27-4.20) 08/07/24 13:15 Urine Color Yellow (Yellow) 08/12/24 14:20 Urine Appearance Clear (CLEAR) 08/12/24 14:20 Urine pH 8.5 (5-7) A 08/12/24 14:20 Ur Specific [place] 1.010 (1.005-1.030) 08/12/24 14:20 Urine Protein Negative (Negative) 08/12/24 14:20 Urine Glucose (UA) Negative (Normal) 08/12/24 14:20 Urine Ketones Negative (Negative) 08/12/24 14:20 Urine Blood Negative (Negative) 08/12/24 14:20 Urine Nitrate Negative (Negative) 08/12/24 14:20 Urine Bilirubin Negative (Negative) 08/12/24 14:20 Urine Urobilinogen 1.0 mg/dL (Negative) 08/12/24 14:20 Ur Leukocyte Esterase Negative (Negative) 08/12/24 14:20 Urine RBC 0-2 /hpf (0-2) 08/12/24 14:20 Urine WBC 0-5 /hpf (0-5) 08/12/24 14:20 Ur Squamous Epith Cells 0-5 /hpf (0-5) 08/12/24 14:20 Amorphous Sediment Not Reportable 08/12/24 14:20 Urine Bacteria None seen /hpf (NONE) 08/12/24 14:20 Hyaline Casts 0.40 /lpf 08/12/24 14:20 Coarse Granular Casts 0-4 /lpf H 08/07/24 14:05 Adenovirus (PCR) Not detected (NOT DETECT) 08/13/24 11:55 C. pneumoniae DNA (PCR) Not detected (NOT DETECT) 08/13/24 11:55 Coronavirus 229E (PCR) Not detected (NOT DETECT) 08/13/24 11:55 Human Metapneumovir PCR Not detected (NOT DETECT) 08/13/24 11:55 Influenza A (H1) PCR Not detected (NOT DETECT) 08/13/24 11:55 Influ A (H1/09) PCR Not detected (NOT DETECT) 08/13/24 11:55 Influenza A (H3) PCR Not detected (NOT DETECT) 08/13/24 11:55 Influenza Type A (PCR) Not detected (NOT DETECT) 08/13/24 11:55 Influenza Type B (PCR) Not detected (NOT DETECT) 08/13/24 11:55 M. pneumoniae (PCR) Not detected (NOT DETECT) 08/13/24 11:55 Parainfluenza 1 (PCR) Not detected (NOT DETECT) 08/13/24 11:55 Parainfluenza 2 (PCR) Not detected (NOT DETECT) 08/13/24 11:55 Parainfluenza 3 (PCR) Not detected (NOT DETECT) 08/13/24 11:55 Parainfluenza 4 (PCR) Not detected (NOT DETECT) 08/13/24 11:55 RSV Type A (PCR) Not detected (NOT DETECT) 08/13/24 11:55 RSV Type B (PCR) Not detected (NOT DETECT) 08/13/24 11:55 Entero/Rhino (PCR) Not detected (NOT DETECT) 08/13/24 11:55 SARS-CoV-2 (PCR) Not detected (NOT DETECT) 08/13/24 11:55 Vitals Last Vital Signs Temp 97.7 F 08/14/24 10:18 Pulse 112 H 08/14/24 10:18 Resp 20 H 08/14/24 10:18 BP 110/78 08/14/24 10:18 Pulse Ox 95 08/14/24 10:18 O2 Del Method Room Air 08/14/24 07:29 O2 Flow Rate 2 08/13/24 10:42 Discharge Plan Discharge Patient Disposition: Home Condition: Stable Prescriptions: New furosemide 40 mg Tablet 40 mg PO DAILY 30 Days Qty: 30 0RF metoprolol succinate 25 mg Tablet Extended Release 24 Hr 25 mg PO DAILY 30 Days Qty: 30 0RF Continued (DME) CPAP 16-6cm setting See Rx Instructions .ROUTE .MEDSUPPLY Qty: 1 0RF Rx Instructions: As directed (DME) CPAP mask, tubing, supplies See Rx Instructions .ROUTE .MEDSUPPLY Qty: 1 1RF Rx Instructions: As directed fexofenadine [Kelsie Allergy] 180 mg tablet 180 mg PO DAILY PRN (Reason: allergies) aspirin [Adult Low Dose Aspirin] 81 mg tablet,delayed release (DR/EC) 81 mg PO DAILY 30 Days Qty: 30 0RF potassium chloride 20 mEq tablet extended release 20 meq PO DAILY Qty: 90 1RF Changed omeprazole 40 mg capsule,delayed release(DR/EC) 40 mg PO DAILY PRN (Reason: Acid Reflux) 30 Days Qty: 30 0RF Discontinued torsemide 40 mg tablet 40 mg PO QAM Qty: 90 1RF meloxicam 15 mg tablet 15 mg PO DAILY Qty: 90 1RF Discharge Orders: Discharge Order (Routine); Ordered 08/14/24 Ordered By: Katheryn Younger Referrals: Nori Fletcher FNP [Nurse Practitioner] - 09/01/24 1:30 pm Brian Baez MD [Primary Care Provider] - 09/18/24 9:30 am Discharge Diet: As Directed and Cardiac Discharge Activity: Resume usual activity Patient Instructions: Abdominal Pain - Adult, Metoprolol (By mouth), Furosemide (By mouth), Heart Failure (DC), Chronic Hypertension (DC) Discharge Attestations Time Spent in Discharge Care*: greater than 30 min Quality Metrics Clinical Quality Measures [ No reported AMI, CVA or VTE this stay] Coding Level of Care Code Acute Code for Chg Fwd Diagnoses Heart failure with reduced ejection fraction I50.20 Essential hypertension I10 CHF exacerbation I50.9
== END 2024-08-14 12:30 | disposition home or self-care (01) | DRG 291 ==
LOC: ER 12:55 → CSU 14:21
PROVIDERS: Nurse Practitioner Family; Admitting Provider Hospitalist; Emergency Provider Emergency Medicine; PCP Family Medicine; Visit Provider Student in an Organized Health Care Education/Training Program
DX: I11.0 Hypertensive heart disease with heart failure (principal); I50.23 Acute on chronic systolic (congestive) heart failure; E87.3 Alkalosis; N17.9 Acute kidney failure, unspecified; I1A.0 Resistant hypertension; E87.6 Hypokalemia; Z91.199 Patient's noncompliance with other medical treatment and regimen due to unspecified reason; T50.1X6A Underdosing of loop [high-ceiling] diuretics, initial encounter; S00.03XA Contusion of scalp, initial encounter; W01.0XXA Fall on same level from slipping, tripping and stumbling without subsequent striking against object, initial encounter; Y92.230 Patient room in hospital as the place of occurrence of the external cause; K52.9 Noninfective gastroenteritis and colitis, unspecified; F31.9 Bipolar disorder, unspecified; I50.810 Right heart failure, unspecified; I42.8 Other cardiomyopathies; R74.01 Elevation of levels of liver transaminase levels; R79.89 Other specified abnormal findings of blood chemistry; R04.0 Epistaxis; G47.33 Obstructive sleep apnea (adult) (pediatric); I07.1 Rheumatic tricuspid insufficiency; I95.9 Hypotension, unspecified; R40.0 Somnolence; T42.6X5A Adverse effect of other antiepileptic and sedative-hypnotic drugs, initial encounter; Z79.82 Long term (current) use of aspirin
CPT/HCPCS: 36415; 70450; 71045; 74176; 74177; 76705; 80048; 80053; 81001; 83690; 83735; 83880; 84443; 84484; 85014; 85018; 85025; 85610; 87086; 87486; 87581; 87633; 93005; 93306; 94760; 96372; 96374; 96375; 96376; 99285; A9270; J0696; J1644; J1940; J2270; J2405; J9999

== ENCOUNTER 2025-01-26 18:19 | Inpatient (IN) | payer MEDICAID, SELFPAY ==
[2025-01-26 18:30] VITALS: BP 114/81; PULSE 97; TEMP 36.3; O2SAT 92; BMI 30.9
--- NOTE | 2025-01-26 18:35 | ECG_ITS ---
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 Measurements Intervals [place] Rate: 96 P: 18 MA: 193 QRS: -47 QRSD: 165 T: 111 QT: 411 QTc: 522 Interpretive Statements SINUS RHYTHM LEFT AXIS DEVIATION [QRS AXIS < -30] INTRAVENTRICULAR CONDUCTION DELAY [130+ ms QRS DURATION] INTERPRETATION BASED ON A DEFAULT AGE OF 40 YEARS Compared to ECG 08/14/2024 06:18:55 Intraventricular conduction delay now present Sinus tachycardia no longer present First degree AV block no longer present Atrial abnormality no longer present Left bundle-branch block no longer present Electronically Signed On 01-26-2025 20:41:59 CDT by Susanna Scott M.D. [email or web address]
[2025-01-26 22:03] LABS: Glucose Urine UA Negative (Normal); Nitrate Urine Negative (Negative); Specific Gravity, Urine 1.027 (1.005-1.030)
[2025-01-26 22:06] VITALS: BP 127/90; PULSE 98; RESP 18; O2SAT 94
[2025-01-26 22:07] LABS: Add Urine Microscopic? YES
--- NOTE | 2025-01-26 22:21 | W.ED.ABDPA2 ---
HPI - Abdominal Pain General: Chief Complaint: ER Hold Stated Complaint: Chest Pains and ABD Pain Time Seen by Provider: 01/26/25 19:52 History of Present Illness: 54-year-old female presents emergency room complaining of chest and abdominal pain. She has had nausea vomiting last couple of days. Chest pain this in evening while at rest took a sublingual nitro with some relief. She has noticed increased swelling in her legs and increasing shortness of breath with exertion. She normally does not wear oxygen at this time is requiring 2 L by nasal cannula. She has a history of CHF. Also with a history of pulmonary hypertension. Patient has a severely reduced ejection fraction. History of nonischemic cardiomyopathy and nonobstructive coronary artery disease noted on angiography in April 2022. Echocardiogram earlier this year showed an ejection fraction of 20%. Patient was admitted to the hospital last week at [facility] at [place] although she has a hard time giving me specific details on this. Associated Symptoms: Denies chills, dysuria and fever(s) Related Data Home Medications ?Medication ?Instructions ?Recorded ?Confirmed fexofenadine 180 mg tablet 180 mg PO DAILY PRN allergies 08/07/24 08/07/24 (Kelsie Allergy) Previous Rx's ?Medication ?Instructions ?Recorded CPAP 16-6cm setting #1 ea 02/19/23 CPAP mask, tubing, supplies #1 ea 02/19/23 aspirin 81 mg tablet,delayed 81 mg PO DAILY 30 days #30 tabs 08/14/24 release (Adult Low Dose Aspirin) omeprazole 40 mg capsule,delayed 40 mg PO DAILY PRN Acid Reflux 30 08/14/24 release days #30 caps potassium chloride 20 mEq 20 meq PO DAILY #90 tabs 08/14/24 tablet,extended release Allergies Allergy/AdvReac Type Severity Reaction Status Date / Time hollis pepper Allergy Mild ALGY-Hives Verified 01/26/25 18:39 acetaminophen Allergy ALGY-Anaphy Verified 01/26/25 18:39 laxis black pepper Allergy ADR-Itching Verified 01/26/25 18:39 mushroom Allergy Unknown Verified 01/26/25 18:39 tomato Allergy ALGY-Rash Verified 01/26/25 18:39 Review of Systems Const: Denies: fever(s) or chills Card: Reports: chest pain, edema, swelling of feet/ankles, dyspnea on exertion and orthopnea Resp: Reports: dyspnea GI: Reports: abdominal pain : Denies: dysuria, urinary frequency or urinary urgency Musc: Denies: neck pain or back pain Skin/Breast: Denies: rash PFSH ED PFSH: Medical History Obstructive sleep apnea Degenerative disc disease Bipolar 1 disorder History of lipoma two tumors removed from her back Arthritis History of blood clots Moderate pulmonary valve regurgitation Severe tricuspid valve regurgitation Moderate mitral valve regurgitation Moderate pulmonary hypertension Right ventricular failure Acute exacerbation of CHF (congestive heart failure) EF 23%, grade 2 diastolic dysfunction, moderate MR, severe TR, moderate [place], biatrial enlargement, moderate pulmonary hypertension Open fracture of great toe of right foot Surgical History History of lumpectomy of right breast History of bilateral tubal ligation History of cardiac catheterization Family History Grandmother Cancer Paternal-breast Other CAD (coronary artery disease) Diabetes Hyperlipidemia Hypertension Denies family history of Clotting disorder Dementia Psychiatric illness Chronic kidney disease (CKD) Anesthesia complication Bleeding disorder Lung disease Stroke Social History Smoking and tobacco/nicotine status: never used tobacco/nicotine Alcohol intake: never Substance/Drug Use: never Lives independently: Yes Marital status: Legally Number of children: 2 Current occupational status: disabled Special fahad needs: No Agree to transfusion: Yes Physical Exam Const: COMMON NORMALS: no acute distress GENERAL APPEARANCE: cooperative and comfortable ORIENTATION/CONSCIOUSNESS: Yes awake, Yes oriented to person, Yes oriented to place and Yes oriented to time HENMT: COMMON NORMALS: normocephalic, atraumatic and hearing grossly normal bilaterally HEAD & SCALP: normocephalic and atraumatic Resp: COMMON NORMALS: normal respiratory effort, No retractions and No use of accessory muscles AUSCULTATION: crackles Cardio: COMMON NORMALS: regular rate, regular rhythm and No murmurs present (Cardio) RATE: regular rate RHYTHM: regular rhythm GI: COMMON NORMALS: Soft to palpation and No hepatosplenomegaly present AUSCULTATION: Yes normoactive bowel sounds PALPATION: Yes Soft to palpation, No Tenderness to palpation present (GI), No Guarding due to palpation present (GI) and Yes No hepatosplenomegaly present Extremity: COMMON NORMALS: normal to inspection, capillary refill normal, no clubbing, cyanosis or edema, no calf tenderness and no pedal edema Neuro: SENSORIUM/ORIENTATION: Yes oriented to person, Yes oriented to place and Yes oriented to time Skin: COMMON NORMALS: no rashes or lesions noted GENERAL SKIN EXAM: no rashes or lesions noted Course Vital Signs: Vital signs: Vital Signs Temperature 97.3 F L 01/26/25 18:30 Pulse Rate 95 01/27/25 01:05 Respiratory Rate 18 01/27/25 01:05 Blood Pressure 140/95 01/27/25 01:05 Pulse Oximetry 96 01/27/25 01:05 Oxygen Delivery Me thod Nasal Cannula 01/27/25 01:05 Oxygen Flow Rate 2 01/26/25 23:25 MDM - Abdominal Pain Medical Decision Making Acute exacerbation of congestive heart failure. Patient nonischemic cardiomyopathy. She is given Lasix in the emergency room. She is relying on 2 L by nasal cannula now. Discussed with hospitalist orders written for admission. Medical Records I reviewed the patient's medical records. Lab Data I reviewed the patient's lab results. 01/26/25 22:10 01/26/25 22:10 Labs/Radiology: Radiology Impressions Chest X-Ray 01/26/25 22:32 IMPRESSION: No definite acute infiltrate or effusion. Moderate to severe cardiomegaly. Laboratory Results WBC 5.01 10^3/uL (3.29-11.43) 01/26/25 22:10 RBC 3.94 10^6/uL (3.85-5.65) 01/26/25 22:10 Hgb 11.30 g/dL (11.27-16.99) 01/26/25 22:10 Hct 36.0 % (36-47) 01/26/25 22:10 MCV 91.4 fl (85-98) 01/26/25 22:10 MCH 28.7 pg (27-33) 01/26/25 22:10 MCHC 31.4 g/dL (30-55) 01/26/25 22:10 RDW 17.6 % (12.1-15.1) H 01/26/25 22:10 Plt Count 220 10^3/cmm (157-399) 01/26/25 22:10 MPV 9.2 fL (7.4-10.4) 01/26/25 22:10 Neut % (Auto) 65.8 % 01/26/25 22:10 Lymph % (Auto) 22.2 % 01/26/25 22:10 [place] % (Auto) 10.2 % 01/26/25 22:10 Eos % (Auto) 0.8 % 01/26/25 22:10 Baso % (Auto) 0.8 % 01/26/25 22:10 Neut # (Auto) 3.30 10^3/uL (1.8-7.7) 01/26/25 22:10 Lymph # (Auto) 1.1 10^3/uL (0.8-4.8) 01/26/25 22:10 [place] # (Auto) 0.5 10^3/uL (0.2-0.9) 01/26/25 22:10 Eos # (Auto) 0.0 10^3/uL (0.0-0.8) 01/26/25 22:10 Baso # (Auto) 0.0 10^3/uL (0.0-0.1) 01/26/25 22:10 Nucleated RBC % (auto) 0 % 01/26/25 22:10 Nucleated RBCs # 0.0 /100WBC 01/26/25 22:10 Sodium 135 mmol/L (136-145) L 01/26/25 22:10 Potassium 4.5 mmol/L (3.5-5.1) 01/26/25 22:10 Chloride 100 mmol/L (98-107) 01/26/25 22:10 Carbon Dioxide 22 mmol/L (22-29) 01/26/25 22:10 Anion Gap 17.5 (5-19) 01/26/25 22:10 BUN 25 mg/dL (6-20) H 01/26/25 22:10 Creatinine 0.9 mg/dL (0.5-0.9) 01/26/25 22:10 GFR Calculation 65.5 mL/min (90-130) L 01/26/25 22:10 Glucose 95 mg/dL (65-115) 01/26/25 22:10 Calculated Osmolality 284 mOsm/kg (285-295) L 01/26/25 22:10 Calcium 8.9 mg/dL (8.5-10.5) 01/26/25 22:10 Total Bilirubin 0.9 mg/dL (0.15-1.2) 01/26/25 22:10 AST 28 U/L (0-32) 01/26/25 22:10 ALT 16 U/L (0-33) 01/26/25 22:10 Alkaline Phosphatase 55 U/L (35-105) 01/26/25 22:10 Troponin T Baseline 187 ng/L (0-10) H* 01/26/25 22:10 NT-Pro-B Natriuret Pep 53796 pg/mL (0-125) H 01/26/25 22:10 Total Protein 6.7 g/dL (6.6-8.7) 01/26/25 22:10 Albumin 3.8 g/dL (3.5-5.2) 01/26/25 22:10 Globulin 2.9 g/dL (1.3-4.6) 01/26/25 22:10 Lipase 63 U/L (13-60) H 01/26/25 22:10 Urine Color Dark yellow (Yellow) A 01/26/25 21: Urine Appearance Clear (CLEAR) 01/26/25 21: Urine pH 5.5 (5-7) 01/26/25 21:30 Ur Specific [place] 1.027 (1.005-1.030) 01/26/25 21:30 Urine Protein 2+ (Negative) A 01/26/25 21: Urine Glucose (UA) Negative (Normal) 01/26/25 21: Urine Ketones Trace (Negative) 01/26/25 21: Urine Blood 1+ (Negative) A 01/26/25 21:30 Urine Nitrate Negative (Negative) 01/26/25 21: Urine Bilirubin 1+ (Negative) H 01/26/25 21: Urine Urobilinogen 1.0 mg/dL (Negative) 01/26/25 21:30 Ur Leukocyte Esterase Negative (Negative) 01/26/25 21:30 Urine RBC 0-2 /hpf (0-2) 01/26/25 21:30 Urine WBC 0-5 /hpf (0-5) 09/02/25 21:30 Ur Squamous Epith Cells 6-10 /hpf (0-5) 01/26/25 21:30 Amorphous Sediment Not Reportable 01/26/25 21:30 Urine Bacteria None seen /hpf (NONE) 01/26/25 21:30 Hyaline Casts 12.81 /lpf 01/26/25 21:30 All radiology interpretation(s) finalized by discharge EKG Data EKG 1: Interpretation: EKG 01/26/2025 sinus rhythm rate of 96 Prena1 93 QTc 522. Compared to 08/14/2024 now with intraventricular conduction delay previously with left bundle branch block no acute ST changes Discharge Plan Discharge Admit Provider: Katheryn Younger Clinical Impression: CHF exacerbation, Moderate mitral valve regurgitation, Severe tricuspid valve regurgitation, Moderate pulmonary valve regurgitation, Heart failure with reduced ejection fraction, Essential hypertension, Moderate pulmonary hypertension Condition: Stable Coding Level of Care Code ED Exhaust Emissions Inspector for Bobby Fishman
[2025-01-26 22:22] LABS: Hematocrit 36.0 % (36-47); Hemoglobin 11.30 g/dL (11.27-16.99); Mean Corpuscular HGB Conc 31.4 g/dL (30-55); Mean Corpuscular Hemoglobin 28.7 pg (27-33); Mean Corpuscular Volume 91.4 fl (85-98); Nucleated Red Blood Cells % 0 %; Platelet Count 220 10^3/cmm (157-399); Red Blood Count 3.94 10^6/uL (3.85-5.65); White Blood Count 5.01 10^3/uL (3.29-11.43)
[2025-01-26 22:31] LABS: UA Slide Review UA Slide Review Perf
--- NOTE | 2025-01-26 22:32 | XRR_ITS ---
PROCEDURE INFORMATION: Exam: XR Chest Exam date and time: 01/26/2025 10:33 PM Age: 54 years old Clinical indication: Pain; Angina pectoris; Additional info: Dyspnea/cough TECHNIQUE: Imaging protocol: Radiologic exam of the chest. Views: 1 view. COMPARISON: CR XR chest 1V portable [id number] 08/07/2024 1:11 PM FINDINGS: Lungs: Few strands of the lung bases, commonly chronic or atelectasis with other etiologies not excluded. Pleural spaces: Unremarkable. No pleural effusion. No pneumothorax. Heart/Mediastinum: Moderate to severe cardiomegaly. Bones/joints: Mild degenerative changes of the AC joint. Soft tissues: Monitor leads on chest wall. XR/XR chest 1V portable [id number] IMPRESSION: No definite acute infiltrate or effusion. Moderate to severe cardiomegaly.
[2025-01-26 22:40] LABS: Alanine Aminotransferase 16 U/L (0-33); Albumin Level 3.8 g/dL (3.5-5.2); Alkaline Phosphatase 55 U/L (35-105); Anion Gap 17.5 (5-19); Aspartate Amino Transferase 28 U/L (0-32); Blood Urea Nitrogen 25 mg/dL (6-20); Calcium 8.9 mg/dL (8.5-10.5); Carbon Dioxide 22 mmol/L (22-29); Chloride 100 mmol/L (98-107); Creatinine Clr Calc Pharmacy 74.7246; Globulin 2.9 g/dL (1.3-4.6); Glucose 95 mg/dL (65-115); Lipase 63 U/L (13-60); Osmolality Calculated 284 mOsm/kg (285-295); Potassium 4.5 mmol/L (3.5-5.1); Sodium 135 mmol/L (136-145); Total Protein 6.7 g/dL (6.6-8.7)
[2025-01-26 22:46] LABS: Troponin(5th) Baseline 187 ng/L (0-10)
[2025-01-26] MEDS: FUROsemide 10 mg/mL SDV 2mL 20 MG IVP (22:54)
--- NOTE | 2025-01-26 22:54 | ECG_ITS ---
[facility] Test Date: 2025-01-26 Pat Name: Madina Molina Department: Room: ED Gender: Female Web Ui Developer: : 1970 Requested By: Harpreet Tafoya Order Number: [id number] Char MD: Susanna Scott M.D. Measurements Intervals [place] Rate: 95 P: 16 [place]: 190 QRS: -47 QRSD: 169 T: 93 QT: 416 QTc: 523 Interpretive Statements SINUS RHYTHM LEFT AXIS DEVIATION [QRS AXIS < -30] LEFT BUNDLE BRANCH BLOCK [120+ ms QRS DURATION, 80+ ms Q/S IN V1/V2, 85+ ms R IN I/aVL/V5/V6] Compared to ECG 01/26/2025 18:35:27 Left bundle-branch block now present Intraventricular conduction delay no longer present Electronically Signed On 01-29-2025 20:49:04 CDT by Susanna Scott M.D. [email or web address] [id number]
[2025-01-26 23:05] LABS: NT Pro B Type Natriuretic Pept 14770 pg/mL (0-125)
[2025-01-26 23:25] VITALS: BP 133/100; PULSE 91; RESP 22; O2SAT 96
[2025-01-27] VITALS (15 sets, daily range): BP systolic 121–148; BP diastolic 75–101; PULSE 82–97; RESP 12–25; TEMP 36.3; O2SAT 92–99
[2025-01-27 02:00] LABS: Troponin 5 2HR 197.3 ng/L (0-10); Troponin 5 2HR Delta 10.3 ABS# (0-10)
--- NOTE | 2025-01-27 02:00 | ECG_ITS ---
[facility] Test Date: 2025-01-27 Pat Name: Madina Molina Department: Room: ED Gender: Female Bologna Maker: : 1970 Requested By: Harpreet Tafoya Order Number: [id number] Char MD: Susanna Scott M.D. Measurements Intervals [place] Rate: 86 P: 32 [place]: 206 QRS: -44 QRSD: 169 T: 106 QT: 441 QTc: 529 Interpretive Statements SINUS RHYTHM LEFT AXIS DEVIATION [QRS AXIS < -30] INTRAVENTRICULAR CONDUCTION DELAY [130+ ms QRS DURATION] Compared to ECG 01/26/2025 22:54:13 Intraventricular conduction delay now present Left bundle-branch block no longer present Electronically Signed On 01-29-2025 20:47:52 CDT by Susanna Scott M.D. [email or web address] [id number]
--- NOTE | 2025-01-27 02:23 | P.HP_ITS ---
Providers/Chief Complaint 2 Admitting Physician: Katheryn Younger MD Primary Care Provider: Brian Baez MD Chief Complaint: Chest Pains and ABD Pain History of Present Illness Madina Molina is a 54 year old female With a past medical history of nonischemic cardiomyopathy with last known EF of 15 to 20%, history of PE who is supposed to be on chronic anticoagulation with Eliquis, chronic left bundle branch block and combined systolic and diastolic heart failure. She presents to the emergency room today stating that she has not taken her medications in over a month related to having difficulties with housing and transportation. She is currently living with a friend that has not had any way to get her prescriptions. She was short of breath today saturating about 88% on room air, has had worsening dyspnea on exertion, increased lower extremity edema and therefore decided to come into the emergency room. Additionally at 6 PM today she developed substernal chest pain which was not relieved by taking oral nitro at home. She was admitted at [facility] in [place] approximately a month ago with acute respiratory failure related to CHF. Echocardiogram performed there a month ago had shown a severely reduced EF of 15% and moderate pulmonary hypertension. She was managed with IV furosemide. She was started on Entresto spironolactone and carvedilol and did receive 96-hour course of heparin infusion for NSTEMI. On her past admission here in July 2024 she had refused a LifeVest. Review of Systems 2 General: Reports: 10 or more systems reviewed and unremarkable except in HPI and below Const: Denies: fever(s), chills or body aches Eyes: Denies: change in vision, blurry vision or photophobia ENMT: Reports: hoarseness; Denies: throat pain, enlarged tonsils, odynophagia or nasal congestion Card: Denies: chest pain, palpitations, irregular heart rhythm, edema, swelling of feet/ankles, lightheadedness, pre-syncope, dyspnea on exertion or orthopnea Resp: Denies: dyspnea, productive cough, non-productive cough, wheezing, stridor, pain on inspiration, change in phlegm color, hemoptysis or chest congestion GI: Denies: abdominal pain, nausea, vomiting, hematemesis, coffee ground emesis, dysphagia, heartburn, diarrhea, constipation, GI cramping, change in stool character, hematochezia or melena : Denies: flank pain, difficulty voiding, dysuria, urinary frequency, urinary urgency, urinary hesitancy or hematuria Musc: Denies: neck pain, back pain, extremity pain, joint swelling, joint warmth or deformity Neuro: Denies: headache(s), numbness in extremities, weakness in extremities, sensory changes, difficulty walking, frequent falls, dizziness, vertigo, behavioral changes, Slurred speech present or seizure-like activity Psych: Denies: anxiety, depression, suicidal ideation or homicidal ideation Endo: Denies: polyuria, polydipsia, tired all the time, cold intolerance or hot flashes Brett/Lymph: Denies: easy bruising or easy bleeding Medications/Allergies Home Medications ?Medication ?Instructions ?Recorded ?Confirmed ?Last Taken ?Type CPAP 16-6cm setting #1 02/19/23 08/07/24 Unkn own Rx CPAP mask, tubing, supplies #1 ea 02/19/23 08/07/24 Un known Rx fexofenadine 180 mg tablet 180 mg PO DAILY PRN allergi es 08/07/24 08/07/24 Unknown History (Kelsie Allergy) aspirin 81 mg tablet,delayed 81 mg PO DAILY 30 days #3 0 tabs 08/14/24 Unknown Rx release (Adult Low Dose Aspirin) omeprazole 40 mg capsule,delayed 40 mg PO DAILY PRN Ac id Reflux 30 08/14/24 Unknown Rx release days #30 caps potassium chloride 20 mEq 20 meq PO DAILY #90 tabs Unknown Rx tablet,extended release Allergies Allergy/AdvReac Type Severity Reaction Status Date / Time hollis pepper Allergy Mild ALGY-Hives Verified 01/26/25 18:39 acetaminophen Allergy ALGY-Anaphy Verified 01/26/25 18:39 laxis black pepper Allergy ADR-Itching Verified 01/26/25 18:39 mushroom Allergy Unknown Verified 01/26/25 18:39 tomato Allergy ALGY-Rash Verified 01/26/25 18:39 PFSH Acute 2 PFSH: Medical History Obstructive sleep apnea Degenerative disc disease Bipolar 1 disorder History of lipoma two tumors removed from her back Arthritis History of blood clots Moderate pulmonary valve regurgitation Severe tricuspid valve regurgitation Moderate mitral valve regurgitation Moderate pulmonary hypertension Right ventricular failure Acute exacerbation of CHF (congestive heart failure) EF 23%, grade 2 diastolic dysfunction, moderate MR, severe TR, moderate NE, biatrial enlargement, moderate pulmonary hypertension Open fracture of great toe of right foot Surgical History History of lumpectomy of right breast History of bilateral tubal ligation History of cardiac catheterization Family History Grandmother Cancer Paternal-breast Other CAD (coronary artery disease) Diabetes Hyperlipidemia Hypertension Denies family history of Clotting disorder Dementia Psychiatric illness Chronic kidney disease (CKD) Anesthesia complication Bleeding disorder Lung disease Stroke Social History Smoking and tobacco/nicotine status: never used tobacco/nicotine Alcohol intake: never Substance/Drug Use: never Lives independently: Yes Marital status: Legally Number of children: 2 Current occupational status: disabled Special fahad needs: No Agree to transfusion: Yes Vitals/I&O/Wt Last Vital Signs Temp 97.3 F L 01/26/25 18:30 Pulse 95 01/27/25 01:05 Resp 18 01/27/25 01:05 BP 140/95 01/27/25 01:05 Pulse Ox 96 01/27/25 01:05 O2 Del Method Nasal Cannula 01/27/25 01:05 O2 Flow Rate 2 01/26/25 23:25 Weight last 48 hrs Weight 81.647 kg Physical Exam 2 Narrative: General: No acute distress, AO x3 HEENT: PERRLA, pupils bilaterally equal and reactive, pallors not present Chest: Normal vesicular breath sounds, no added sounds, equal good air entry bilaterally CVS: S1-S2 regular, no murmurs, no tachycardia, no gallops, no rubs Abdomen: Soft, nontender, no organomegaly, bowel sounds present Neuro: No focal deficits, no facial deformity, AO x3, power 5/5 in all limbs Data 01/26/25 22:10 01/26/25 22:10 Other Labs: Radiology Impressions Chest X-Ray 01/26/25 22:32 IMPRESSION: No definite acute infiltrate or effusion. Moderate to severe cardiomegaly. Laboratory Results WBC 5.01 10^3/uL (3.29-11.43) 01/26/25 22:10 RBC 3.94 10^6/uL (3.85-5.65) 01/26/25 22:10 Hgb 11.30 g/dL (11.27-16.99) 01/26/25 22:10 Hct 36.0 % (36-47) 01/26/25 22:10 MCV 91.4 fl (85-98) 01/26/25 22:10 MCH 28.7 pg (27-33) 01/26/25 22:10 MCHC 31.4 g/dL (30-55) 01/26/25 22:10 RDW 17.6 % (12.1-15.1) H 01/26/25 22:10 Plt Count 220 10^3/cmm (157-399) 01/26/25 22:10 MPV 9.2 fL (7.4-10.4) 01/26/25 22:10 Neut % (Auto) 65.8 % 01/26/25 22:10 Lymph % (Auto) 22.2 % 01/26/25 22:10 [place] % (Auto) 10.2 % 01/26/25 22:10 Eos % (Auto) 0.8 % 01/26/25 22:10 Baso % (Auto) 0.8 % 01/26/25 22:10 Neut # (Auto) 3.30 10^3/uL (1.8-7.7) 01/26/25 22:10 Lymph # (Auto) 1.1 10^3/uL (0.8-4.8) 01/26/25 22:10 [place] # (Auto) 0.5 10^3/uL (0.2-0.9) 01/26/25 22:10 Eos # (Auto) 0.0 10^3/uL (0.0-0.8) 01/26/25 22:10 Baso # (Auto) 0.0 10^3/uL (0.0-0.1) 01/26/25 22:10 Nucleated RBC % (auto) 0 % 01/26/25 22:10 Nucleated RBCs # 0.0 /100WBC 01/26/25 22:10 Sodium 135 mmol/L (136-145) L 01/26/25 22:10 Potassium 4.5 mmol/L (3.5-5.1) 01/26/25 22:10 Chloride 100 mmol/L (98-107) 01/26/25 22:10 Carbon Dioxide 22 mmol/L (22-29) 01/26/25 22:10 Anion Gap 17.5 (5-19) 01/26/25 22:10 BUN 25 mg/dL (6-20) H 01/26/25 22:10 Creatinine 0.9 mg/dL (0.5-0.9) 01/26/25 22:10 GFR Calculation 65.5 mL/min (90-130) L 01/26/25 22:10 Glucose 95 mg/dL (65-115) 01/26/25 22:10 Calculated Osmolality 284 mOsm/kg (285-295) L 01/26/25 22:10 Calcium 8.9 mg/dL (8.5-10.5) 01/26/25 22:10 Total Bilirubin 0.9 mg/dL (0.15-1.2) 01/26/25 22:10 AST 28 U/L (0-32) 01/26/25 22:10 ALT 16 U/L (0-33) 01/26/25 22:10 Alkaline Phosphatase 55 U/L (35-105) 01/26/25 22:10 Troponin T Baseline 187 ng/L (0-10) H* 01/26/25 22:10 Troponin T 120 Minute 197.3 ng/L (0-10) H 01/27/25 01:31 Delta Troponin T 10.3 ABS# (0-10) H* 01/27/25 01:31 NT-Pro-B Natriuret Pep 51686 pg/mL (0-125) H 01/26/25 22:10 Total Protein 6.7 g/dL (6.6-8.7) 01/26/25 22:10 Albumin 3.8 g/dL (3.5-5.2) 01/26/25 22:10 Globulin 2.9 g/dL (1.3-4.6) 01/26/25 22:10 Lipase 63 U/L (13-60) H 01/26/25 22:10 Urine Color Dark yellow (Yellow) A 01/26/25 21:30 Urine Appearance Clear (CLEAR) 01/26/25 21:30 Urine pH 5.5 (5-7) 01/26/25 21:30 Ur Specific [place] 1.027 (1.005-1.030) 01/26/25 21:30 Urine Protein 2+ (Negative) A 01/26/25 21: Urine Glucose (UA) Negative (Normal) 01/26/25 21: Urine Ketones Trace (Negative) 01/26/25 21:30 Urine Blood 1+ (Negative) A 01/26/25 21: Urine Nitrate Negative (Negative) 01/26/25 21: Urine Bilirubin 1+ (Negative) H 01/26/25 21:30 Urine Urobilinogen 1.0 mg/dL (Negative) 01/26/25 21: Ur Leukocyte Esterase Negative (Negative) 01/26/25 21: Urine RBC 0-2 /hpf (0-2) 01/26/25 21: Urine WBC 0-5 /hpf (0-5) 01/26/25 21: Ur Squamous Epith Cells 6-10 /hpf (0-5) 01/26/25 21: Amorphous Sediment Not Reportable 01/26/25 21: Urine Bacteria None seen /hpf (NONE) 01/26/25 21: Hyaline Casts 12.81 /lpf 01/26/25 21:30 A&P Assessment and plan 1. Acute on chronic systolic CHF (congestive heart failure), NYHA class 4: 54-year-old lady with a known history of nonischemic cardiomyopathy with last known ejection fraction of 15% presenting today with substernal chest discomfort, increasing dyspnea on exertion and increased lower extremity edema over the past month. Oxygen requirement of 2 L/min today, O2 sat 88% on room air. Overall clinical impression is that of acute on chronic systolic CHF heart failure exacerbation. Start Lasix 40 mg IV every 12 hours Closely monitor TIARRA and urine output. Review of recent admission from [facility] shows patient has been recommended to be on Eliquis 5 mg twice daily, carvedilol 3.125 mg twice daily, Entresto 1 tab twice daily and spironolactone however patient states she has not been on any medications over the past month. Will resume carvedilol today. Depending on blood pressure and creatinine trend with diuresis, will aim to resume Entresto over the next day or so. 2. NSTEMI (non-ST elevated myocardial infarction): Elevated troponin. Baseline at 187, trending up to 197 at 2 hours. Delta of 10.3 at 2 hours. Await 6-hour trend. Compared to July 2024, baseline troponin was at 170. Elevated troponins may be related to acute on chronic CHF exacerbation, type II MO. Will await 6-hour trend. Start Lovenox 1 mg/kg subcutaneously every 12 hours Continue aspirin 81 mg p.o. daily. EKG does not show any new EKG changes today. Last angiogram reviewed from 2021 which showed nonobstructive CAD. Plan: DVT prophylaxis: Currently on full dose Lovenox Full code PDMP PDMP Reviewed: Not Reviewed Attestations 2 Medical Necessity Statement*: Greater than 2 midnight stays anticipated Coding Level of Care Code Acute Code for Chg Fwd High MDM includes number and complexity of problems actively addressed during encounter, amount and/or complexity of data reviewed/ordered and described risk of complication, morbidity or mortality of management as documented Diagnoses Acute on chronic systolic CHF (congestive heart failure), NYHA class 4 I50.23 NSTEMI (non-ST elevated myocardial infarction) I21.4
[2025-01-27 04:34] LABS: Troponin 5 6HR 217.1 ng/L (0-10); Troponin 5 6HR Delta 30.1 ng/L (0-12)
[2025-01-27] MEDS: nitroglycerin 1 gm/inch oint Pkt 0.5 INCH TOPICAL ×3 (08:28→16:35)
[2025-01-27] MEDS: FUROsemide 10 mg/mL SDV 4mL 40 MG IVP ×2 (08:53→19:41)
--- NOTE | 2025-01-27 09:35 | PM.CONSULT ---
Providers/Reason For Consult Consulting Physician/Specialty*: Dr. Amador, interventional cardiology Reason for Consult*: CHF decompensation, troponin elevation Attending Physician: Alber Floyd MD Primary Care Provider: Brian Baez MD History of Present Illness History of Present Illness Madina Molina is a 54 year old female with past medical history of systolic CHF (LVEF 15%) by echocardiogram at [facility] last month, known LBBB, moderate pulmonary hypertension. PET perfusion scan negative for ischemia. She was discharged on Entresto , Imdur, carvedilol, spironolactone, She has been out of her medications for the last month. She presented to the emergency room yesterday due to chest pain, substernal/epigastric in location, she had several episodes of chest pain yesterday, unrelieved by nitroglycerin so she came to the hospital. Review of records from [facility]: Small left pleural effusion on arrival. Echocardiogram: LVEF 15%, LV severely dilated, grade 2 DD, severe biatrial dilation, mod to severe tricuspid regurgitation, mod pulmonary valve regurgitation, no thrombus. Troponin series 93->127-> 241. CTA chest- no PE, enlargement of right pulmonary artery suggesting PAH, reflux into intrahepatic IVC suggesting right heart dysfunction. Cardiac CT with perfusion 01/05/25: moderate mostly fixed defect basal to mid interventricular septum consistent with prior infarct or bundle branch block. No reversible ischemia. LVEF 15%, remained 15% at peak stress. Coronary calcium score 37 in the LAD. Now that we are discussing possible workup, she states she has had chest pain for the last 1 minute. Review of Systems Const: Denies: fever(s), chills, fatigue or diaphoresis Eyes: Denies: change in vision ENMT: Denies: epistaxis Card: Reports: chest pain; Denies: palpitations, irregular heart rhythm, syncope, pre-syncope, dyspnea on exertion, orthopnea or leg pain with exertion Resp: Denies: dyspnea, productive cough or wheezing GI: Denies: nausea, vomiting, hematemesis, hematochezia or melena : Denies: hematuria Musc: Denies: extremity swelling Brett/Lymph: Denies: easy bruising or easy bleeding Medications/Allergies Home Medications ?Medication ?Instructions ?Recorded ?Confirmed ?Last Taken ?Type CPAP 16-6cm setting #1 ea 02/19/23 01/27/25 Unknown Rx CPAP mask, tubing, supplies #1 ea 02/19/23 01/27/25 Unknown Rx fexofenadine 180 mg tablet 180 mg PO DAILY PRN allergies 08/07/24 01/27/25 Unknown History (Kelsie Allergy) aspirin 81 mg tablet,delayed 81 mg PO DAILY 30 days #30 tabs 08/14/24 01/27/25 01/27/25 Rx release (Adult Low Dose Aspirin) potassium chloride 20 mEq 20 meq PO DAILY #90 tabs 08/14/24 01/27/25 Unknown Rx tablet,extended release Allergies Allergy/AdvReac Type Severity Reaction Status Date / Time hollis pepper Allergy Mild ALGY-Hives Verified 01/26/25 18:39 acetaminophen Allergy ALGY-Anaphy Verified 01/26/25 18:39 laxis black pepper Allergy ADR-Itching Verified 01/26/25 18:39 mushroom Allergy Unknown Verified 01/26/25 18:39 tomato Allergy ALGY-Rash Verified 01/26/25 18:39 Current Medications Generic Name Dose Route Start Last Admin Trade Name Micahq PRN Reason Stop Dose Admin Aspirin 81 mg 01/27/25 09:00 01/27/25 08:52 Aspirin 81 Mg Ec Tablet PO 81 mg DAILY SHANELLE Administration Carvedilol 3.125 mg 01/27/25 09:00 01/27/25 08:52 Carvedilol 3.125 Mg Tablet PO 3.125 mg BID SHANELLE Administration Enoxaparin Sodium 80 mg 01/27/25 02:00 01/27/25 02:59 Enoxaparin 100 Mg/Ml Syringe 1 mg/kg (80 mg) 80 mg SUBCUT Administration Q12H SHANELLE Furosemide 40 mg 01/27/25 09:00 01/27/25 08:53 Furosemide 10 Mg/Ml Sdv 4ml IVP 40 mg Q12H SHANELLE Administration Nitroglycerin 0.5 inch 01/27/25 07:15 01/27/25 08:28 Nitroglycerin 1 Gm/Inch Oint Pkt TOPICAL 0.5 inch Q6H SHANELLE Administration Pantoprazole Sodium 40 mg 01/27/25 09:00 01/27/25 08:[address] 40 Mg Tablet PO 40 mg DAILY SHANELLE Administration PFSH Acute PFSH: Medical History Obstructive sleep apnea Degenerative disc disease Bipolar 1 disorder History of lipoma two tumors removed from her back Arthritis History of blood clots Moderate pulmonary valve regurgitation Severe tricuspid valve regurgitation Moderate mitral valve regurgitation Moderate pulmonary hypertension Right ventricular failure Acute exacerbation of CHF (congestive heart failure) EF 23%, grade 2 diastolic dysfunction, moderate MR, severe TR, moderate [place], biatrial enlargement, moderate pulmonary hypertension Open fracture of great toe of right foot Surgical History History of lumpectomy of right breast History of bilateral tubal ligation History of cardiac catheterization Family History Grandmother Cancer Paternal-breast Other CAD (coronary artery disease) Diabetes Hyperlipidemia Hypertension Denies family history of Clotting disorder Dementia Psychiatric illness Chronic kidney disease (CKD) Anesthesia complication Bleeding disorder Lung disease Stroke Social History Smoking and tobacco/nicotine status: never used tobacco/nicotine Alcohol intake: never Substance/Drug Use: never Lives independently: Yes Marital status: Legally Number of children: 2 Current occupational status: disabled Special fahad needs: No Agree to transfusion: Yes Vitals/I&O/Wt Last Vital Signs Temp 97.3 F L 01/26/25 18:30 Pulse 91 01/27/25 08:43 Resp 16 01/27/25 08:33 BP 148/101 01/27/25 08:43 Pulse Ox 94 01/27/25 08:43 O2 Del Method Room Air 01/27/25 08:33 O2 Flow Rate 2 01/27/25 05:55 Weight last 48 hrs Weight 180 lb Physical Exam Const: COMMON NORMALS: no acute distress and patient oriented x3 GENERAL APPEARANCE: cooperative and comfortable ORIENTATION/CONSCIOUSNESS: Yes awake, Yes oriented to person, Yes oriented to place and Yes oriented to time Chest: COMMONS NORMALS: normal inspection of the chest and normal palpation of entire chest wall CHEST: Yes Symmetrical chest wall rise Resp: COMMON NORMALS: normal respiratory effort, No retractions and No use of accessory muscles EFFORT & INSPECTION: Yes symmetric chest movement AUSCULTATION: wheezes Cardio: COMMON NORMALS: regular rate, regular rhythm, S1 normal heart sound present, S2 normal heart sound present, No gallops present (Cardio), No clicks present (Cardio), No murmurs present (Cardio) and No rub (Cardio) RATE: regular rate RHYTHM: regular rhythm HEART SOUNDS: S1 normal heart sound present and S2 normal heart sound present PERIPHERAL PULSES: radial pulses present Extremity: GENERAL: Yes edema (2+ pitting edema bilat LE below the knee) Neuro: COMMON NORMALS: patient oriented x3 and moves all extremities SENSORIUM/ORIENTATION: Yes oriented to person, Yes oriented to place and Yes oriented to time Data 01/26/25 22:10 01/26/25 22:10 A&P Assessment and plan 1. Heart failure with reduced ejection fraction: 2. NSTEMI (non-ST elevated myocardial infarction): 3. Moderate pulmonary valve regurgitation: 4. Severe tricuspid valve regurgitation: 5. Cardiomegaly: 6. Moderate pulmonary hypertension: 7. Lower extremity edema: Plan: Plan this morning was to diurese then perform LHC to evaluate the chest pain further. Since then, she has had a CTA revealing PE in the right upper lobe pulmonary artery. No right heart strain. Will recommend to continue diuresis and no plans for coronary angiogram at this time. She is anticoagulated with Lovenox currently. PDMP PDMP Reviewed: Not Reviewed Coding Level of Care Code Acute Code for [facility] Fwd Diagnoses Heart failure with reduced ejection fraction I50.20 NSTEMI (non-ST elevated myocardial infarction) I21.4 Moderate pulmonary valve regurgitation I37.1 Severe tricuspid valve regurgitation I07.1 Cardiomegaly I51.7 Moderate pulmonary hypertension I27.20 Lower extremity edema R60.0
[2025-01-27 10:38] LABS: PCP Screen Urine Negative (Negative)
[2025-01-27 10:43] LABS: Estmated Average Glucose 128; Hemoglobin A1C 6.1 % (4.0-6.0)
[2025-01-27 10:46] LABS: Procalcitonin 0.05 ng/mL (0-0.5); Thyroid Stimulating Hormone 2.64 uIU/mL (0.27-4.20)
--- NOTE | 2025-01-27 11:42 | CT_ITS ---
WS: [id number] CT CHEST ANGIOGRAPHY WITH REFORMATS HISTORY: h/o pe, elevated dimer TECHNIQUE: Contiguous axial images are obtained through the chest during arterial injection of intravenous contrast. Images are reconstructed to evaluate the pulmonary arteries. MIP imaging also reviewed. All CT scans at [facility] use at least one of these dose optimization techniques: automated exposure control; mA and/or kV adjustment per patient size (includes targeted exams where dose is matched to clinical indication); or iterative reconstruction. CONTRAST: Omnipaque 350; 100 mL IV. DLP: 457.31 mGy.cm COMPARISON: 05/12/2022 Good opacification of the pulmonary arteries. Main pulmonary artery is dilated measuring 4.6 cm in diameter. RIGHT and LEFT pulmonary arteries are dilated. Opacification becomes more limited through the segmental branches. There are filling defects in the RIGHT upper lobe pulmonary artery. Branching emboli is nonocclusive. No additional emboli definitely identified. Normal size aorta. Severe enlargement of the heart chambers. No RIGHT heart strain. No pericardial or pleural effusions. Subsegmental atelectasis in the lingula. No pneumothorax. Dilated IVC with tricuspid regurgitation into the hepatic veins. No mediastinal or hilar adenopathy. No adrenal mass. Mild soft tissue anasarca. Stable lytic lesion in the LEFT lateral C7 vertebral body. No destructive bone lesions otherwise. CT/CT angio chest PE protcl [id number] IMPRESSION: 1. RIGHT upper lobe pulmonary emboli in the segmental branches. 2. Markedly dilated pulmonary artery to 4.6 cm. 3. Contrast opacification comes limited in the distal branches. No additional emboli identified. 4. Subsegmental atelectasis in the lingula. 5. Dilated IVC with tricuspid regurgitation into the hepatic veins. 6. Soft tissue anasarca.
[2025-01-27] MEDS: morphine 4 mg/mL SDV 1 mL 2 MG IVP (19:40)
[2025-01-27] MEDS: ondansetron 2 mg/ML SDV 2 mL 4 MG IVP (19:49)
[2025-01-28] VITALS (10 sets, daily range): BP systolic 106–137; BP diastolic 57–96; PULSE 68–101; RESP 14–25; TEMP 36.1–36.7; O2SAT 90–97; BMI 33.1
[2025-01-28] MEDS: nitroglycerin 1 gm/inch oint Pkt 0.5 INCH TOPICAL (02:03)
[2025-01-28 04:31] LABS: Hematocrit 33.7 % (36-47); Hemoglobin 10.60 g/dL (11.27-16.99); Mean Corpuscular HGB Conc 31.5 g/dL (30-55); Mean Corpuscular Hemoglobin 28.7 pg (27-33); Mean Corpuscular Volume 91.3 fl (85-98); Nucleated Red Blood Cells % 0 %; Platelet Count 203 10^3/cmm (157-399); Red Blood Count 3.69 10^6/uL (3.85-5.65); White Blood Count 4.60 10^3/uL (3.29-11.43)
[2025-01-28 05:02] LABS: Alanine Aminotransferase 14 U/L (0-33); Albumin Level 3.4 g/dL (3.5-5.2); Alkaline Phosphatase 52 U/L (35-105); Anion Gap 16.5 (5-19); Aspartate Amino Transferase 20 U/L (0-32); Blood Urea Nitrogen 26 mg/dL (6-20); Calcium 8.8 mg/dL (8.5-10.5); Carbon Dioxide 26 mmol/L (22-29); Chloride 100 mmol/L (98-107); Creatinine Clr Calc Pharmacy 67.2522; Globulin 2.6 g/dL (1.3-4.6); Glucose 105 mg/dL (65-115); Magnesium 1.7 mg/dL (1.7-2.3); Osmolality Calculated 293 mOsm/kg (285-295); Potassium 3.5 mmol/L (3.5-5.1); Sodium 139 mmol/L (136-145); Total Protein 6.0 g/dL (6.6-8.7)
[2025-01-28 05:04] LABS: Cholesterol 159 mg/dL (0-200); HDL Cholesterol 30 mg/dL (60-100); Procalcitonin 0.04 ng/mL (0-0.5); Triglycerides 92 mg/dL (0-150)
--- NOTE | 2025-01-28 08:59 | P.PN_ITS ---
Subjective 2 Subjective: Doing well this morning, still has some chest pain toward the left breast, constant in nature. No shortness of breath. She is starting Eliquis today. Right leg edema better, left calf appears slightly larger than right-no pain, erythema. Vitals/I&O/Wt Last Vital Signs Temp 97.1 F L 01/28/25 08:00 Pulse 80 01/28/25 08:00 Resp 25 H 01/28/25 08:00 BP 131/95 01/28/25 08:00 Pulse Ox 95 01/28/25 08:00 O2 Del Method Nasal Cannula 01/28/25 08:00 O2 Flow Rate 2 01/28/25 08:00 01/27/25 01/28/25 01/28/25 22:59 06:59 14:59 Intake Total 840 / 1440 240 / 1440 Output Total 900 / 3300 1700 / 3300 Balance -60 / -1860 -1460 / -1860 Weight last 48 hrs Weight 193 lb 4 oz Weight 193 lb 4 oz Weight 180 lb Physical Exam 2 Const: COMMON NORMALS: no acute distress and patient oriented x3 GENERAL APPEARANCE: cooperative and comfortable ORIENTATION/CONSCIOUSNESS: Yes awake, Yes oriented to person, Yes oriented to place and Yes oriented to time Chest: COMMONS NORMALS: normal inspection of the chest and normal palpation of entire chest wall CHEST: Yes Symmetrical chest wall rise Resp: COMMON NORMALS: normal respiratory effort, No retractions, No use of accessory muscles and clear to auscultation bilaterally EFFORT & INSPECTION: Yes symmetric chest movement AUSCULTATION: clear to auscultation bilaterally Cardio: COMMON NORMALS: regular rate, regular rhythm, S1 normal heart sound present, S2 normal heart sound present, No gallops present (Cardio), No clicks present (Cardio) and No rub (Cardio) RATE: regular rate RHYTHM: regular rhythm HEART SOUNDS: S1 normal heart sound present, S2 normal heart sound present and Murmur heart sound present systolic Intensity: III/ PERIPHERAL PULSES: radial pulses present Extremity: GENERAL: Yes edema (left larger than right, 1+ pitting edema right LE below knee) Neuro: COMMON NORMALS: patient oriented x3 and moves all extremities S ENSORIUM/ORIENTATION: Yes oriented to person, Yes oriented to place and Yes oriented to time Data 01/28/25 03:27 01/28/25 03:27 A&P Assessment and plan 1. Heart failure with reduced ejection fraction: 2. Essential hypertension: 3. CHF exacerbation: 4. Moderate pulmonary valve regurgitation: 5. Severe tricuspid valve regurgitation: 6. Moderate mitral valve regurgitation: 7. Moderate pulmonary hypertension: 8. Pulmonary embolism: She had PET perfusion scan 1 month ago which did not show ischemia. Troponin elevation and chest pain can be due to new pulmonary embolism. No plans for further cardiac workup at this time. Discussing venous duplex with hospitalist service. Volume overload improving, would continue IV diuresis for now. Will need to restart GDMT for heart failure, was on Entresto, carvedilol, spironolactone. PDMP PDMP Reviewed: Not Reviewed Attestations 2 Medical Necessity Statement*: poss DC tomorrow Coding Level of Care Code Acute Code for Chg Fwd Diagnoses Heart failure with reduced ejection fraction I50.20 Essential hypertension I10 CHF exacerbation I50.9 Moderate pulmonary valve regurgitation I37.1 Severe tricuspid valve regurgitation I07.1 Moderate mitral valve regurgitation I34.0 Moderate pulmonary hypertension I27.20 Pulmonary embolism I26.99
[2025-01-28] MEDS: FUROsemide 10 mg/mL SDV 4mL 40 MG IVP ×2 (09:24→20:58)
--- NOTE | 2025-01-28 11:21 | ECG_ITS ---
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 Measurements Intervals [place] Rate: 88 P: 17 NV: 172 QRS: -50 QRSD: 174 T: 68 QT: 438 QTc: 530 Interpretive Statements SINUS RHYTHM LEFT AXIS DEVIATION [QRS AXIS < -30] INTRAVENTRICULAR CONDUCTION DELAY [130+ ms QRS DURATION] Compared to ECG 01/27/2025 04:31:53 No significant changes Electronically Signed On 01-29-2025 09:12:22 CDT by Adrian Amador M.D. [email or web address]
--- NOTE | 2025-01-28 12:07 | PM.PN ---
Subjective Subjective: No acute events overnight. Patient has remained hemodynamically stable and afebrile. States she is feeling slightly better. Remains on 2 L of oxygen supplementation saturating more than 95%. Denies any nausea, vomiting. Vitals/I&O/Wt Last Vital Signs Temp 98.1 F 01/28/25 11:57 Pulse 88 01/28/25 11:57 Resp 15 01/28/25 11:57 BP 137/96 01/28/25 11:57 Pulse Ox 94 01/28/25 11:57 O2 Del Method Room Air 01/28/25 11:57 O2 Flow Rate 2 01/28/25 08:00 01/27/25 01/28/25 01/28/25 22:59 06:59 14:59 Intake Total 840 / 1200 240 / 1440 240 / 240 Output Total 900 / 1600 1700 / 3300 Balance -60 / -400 -1460 / -1860 240 / 240 Weight last 48 hrs Weight 87.657 kg Weight 87.657 kg Weight 81.647 kg Physical Exam Narrative: General: No acute distress, AO x3 HEENT: PERRLA, pupils bilaterally equal and reactive, pallors not present Chest: Normal vesicular breath sounds, no added sounds, equal good air entry bilaterally CVS: S1-S2 regular, no murmurs, no tachycardia, no gallops, no rubs Abdomen: Soft, nontender, no organomegaly, bowel sounds present Neuro: No focal deficits, no facial deformity, AO x3, power 5/5 in all limbs Data 01/28/25 03:27 01/28/25 03:27 A&P Assessment and plan 1. Acute on chronic systolic CHF (congestive heart failure), NYHA class 4: 2. Single subsegmental pulmonary embolism without acute cor pulmonale: 3. Essential hypertension: 4. Moderate pulmonary hypertension: 5. Nonischemic cardiomyopathy: 6. Elevated troponin: Plan: 54-year-old lady with a known history of nonischemic cardiomyopathy with last known ejection fraction of 15% presenting today with substernal chest discomfort, increasing dyspnea on exertion and increased lower extremity edema over the past month. Oxygen supplementation keeping saturation over 90%. Fluid restriction to less than 1500 cc. Continue with IV Lasix 40 mg every 12 hourly. Strict input output charting. Uptitrate guideline directed medical therapy for heart failure. Continue with Coreg. Add Entresto. Appreciate cardiology recommendations. Review of outpatient documents patient did have a Lexiscan stress test in December 2024 at [facility] which was negative for reversible ischemia Shortness of breath: Combination of congestive heart failure along with pulmonary embolism. PE seen on CTA. Continue with anticoagulation. Switch from full dose Lovenox to Eliquis 10 mg twice daily for next 1 week followed by 5 mg twice daily. This is the second PE patient has had. Patient was recently taken off anticoagulation for unprovoked PE. Unfortunately going forward patient will need to be on anticoagulation for life. Elevated troponin: Most likely type II KS in setting of congestive heart failure. Patient already had stress test as an outpatient with the last 1 month. Continue with aspirin, statin. Appreciate A1c, lipid panel. Cardiac diet. Fluid restriction to less than 15 cc Protonix OPD prophylaxis DVT prophylaxis: Eliquis Full code PDMP PDMP Reviewed: Not Reviewed Attestations Medical Necessity Statement*: Requires further hospitalization for management of shortness of breath in setting of congestive heart failure, new PE while guideline directed medical therapy is uptitrated for CHF with cardiomyopathy Diagnoses Acute on chronic systolic CHF (congestive heart failure), NYHA class 4 I50.23 Single subsegmental pulmonary embolism without acute cor pulmonale I26.93 Pulmonary embolism type: single subsegmental (without acute cor pulmonale) Essential hypertension I10 Moderate pulmonary hypertension I27.20 Nonischemic cardiomyopathy I42.8 Elevated troponin R79.89
--- NOTE | 2025-01-28 12:15 | USR_ITS ---
PROCEDURE INFORMATION: Exam: US Duplex Lower Extremity Veins, Bilateral Exam date and time: 01/28/2025 5:06 PM Age: 54 years old Clinical indication: Screening exam; Assess for dvt TECHNIQUE: Imaging protocol: Real-time duplex ultrasound of the bilateral extremities with 2-D harkins scale, color Doppler flow and spectral waveform analysis including responses to compression and other maneuvers (when performed) with image documentation. Complete exam focused on the lower extremity veins. COMPARISON: US pelv w/transvag [id number] 02/12/2023 9:21 AM FINDINGS: Right deep veins: The right common femoral, femoral, proximal profunda femoral, popliteal, peroneal and posterior tibial veins are patent without thrombus. Normal Doppler waveforms. Normal compressibility and/or augmentation response. Left deep veins: The left common femoral, femoral, proximal profunda femoral, popliteal, peroneal and posterior tibial veins are patent without thrombus. Normal Doppler waveforms. Normal compressibility and/or augmentation response. Superficial veins: Greater saphenous veins at the saphenofemoral junctions are patent bilaterally without thrombus. Soft tissues: Diffuse subcutaneous edema overlying the legs. US/[place] [id number] IMPRESSION: No evidence of deep vein thrombosis.
--- NOTE | 2025-01-28 15:47 | PC.NURSE ---
at approx 1120 pt c/o chest tightness.ekg preformed.chest tightness dissipated
[2025-01-28] MEDS: morphine 4 mg/mL SDV 1 mL 2 MG IVP (17:28)
[2025-01-29] VITALS (7 sets, daily range): BP systolic 117–121; BP diastolic 74–86; PULSE 68–87; RESP 14–22; TEMP 36.5–36.6; O2SAT 94–97
[2025-01-29] MEDS: morphine 4 mg/mL SDV 1 mL 2 MG IVP (00:28)
[2025-01-29 04:40] LABS: Hematocrit 38.4 % (36-47); Hemoglobin 11.80 g/dL (11.27-16.99); Mean Corpuscular HGB Conc 30.7 g/dL (30-55); Mean Corpuscular Hemoglobin 28.4 pg (27-33); Mean Corpuscular Volume 92.5 fl (85-98); Nucleated Red Blood Cells % 0 %; Platelet Count 207 10^3/cmm (157-399); Red Blood Count 4.15 10^6/uL (3.85-5.65); White Blood Count 5.02 10^3/uL (3.29-11.43)
[2025-01-29 05:11] LABS: Alanine Aminotransferase 13 U/L (0-33); Albumin Level 3.3 g/dL (3.5-5.2); Alkaline Phosphatase 51 U/L (35-105); Anion Gap 13.4 (5-19); Aspartate Amino Transferase 16 U/L (0-32); Blood Urea Nitrogen 27 mg/dL (6-20); Calcium 8.8 mg/dL (8.5-10.5); Carbon Dioxide 34 mmol/L (22-29); Chloride 98 mmol/L (98-107); Creatinine Clr Calc Pharmacy 69.7213; Globulin 2.9 g/dL (1.3-4.6); Glucose 93 mg/dL (65-115); Osmolality Calculated 299 mOsm/kg (285-295); Potassium 3.4 mmol/L (3.5-5.1); Sodium 142 mmol/L (136-145); Total Protein 6.2 g/dL (6.6-8.7)
--- NOTE | 2025-01-29 07:57 | PM.DCS ---
Discharge Providers Date of Admission: 01/27/25 00:18 Date of Discharge: January 29, 2025 Attending Provider at Admission: Katheryn Younger MD Attending Provider at Discharge: Alber Floyd MD Consults: Cardiology: Dr. Amador Primary Care Provider: Brian Baez MD Diagnoses at Discharge Discharge Diagnosis 1. Acute on chronic systolic CHF (congestive heart failure), NYHA class 4: 2. Single subsegmental pulmonary embolism without acute cor pulmonale: 3. Essential hypertension: 4. Moderate pulmonary hypertension: 5. Nonischemic cardiomyopathy: 6. Elevated troponin: Reason for Visit Reason for Visit: Chest Pains and ABD Pain Hospital Course Hospital Course Madina Molina is a 54 year old female With a past medical history of nonischemic cardiomyopathy with last known EF of 15 to 20%, history of PE who is supposed to be on chronic anticoagulation with Eliquis, chronic left bundle branch block and combined systolic and diastolic heart failure. She presents to the emergency room today stating that she has not taken her medications in over a month related to having difficulties with housing and transportation. She is currently living with a friend that has not had any way to get her prescriptions. She was short of breath today saturating about 88% on room air, has had worsening dyspnea on exertion, increased lower extremity edema and therefore decided to come into the emergency room. Additionally at 6 PM today she developed substernal chest pain which was not relieved by taking oral nitro at home. She was admitted at [facility] in [place] approximately a month ago with acute respiratory failure related to CHF. Echocardiogram performed there a month ago had shown a severely reduced EF of 15% and moderate pulmonary hypertension. She was managed with IV furosemide. She was started on Entresto spironolactone and carvedilol and did receive 96-hour course of heparin infusion for NSTEMI. On her past admission here in July 2024 she had refused a LifeVest. Patient was admitted to the hospital further evaluation and management shortness of breath in setting of congestive heart failure. On admission CTA was done which was consistent with a right upper lobe PE. There were no sign for heart strain. She was continued on anticoagulation while chitin directed medical therapy for CHF were adjusted. On admission she did have elevated troponin which is most likely in setting of PE. She did have Lexiscan stress test as an outpatient at other facility within last 1 month which was consistent with nonischemic cardiomyopathy. She has been discharged with meds to bed after home O2 evaluation has been done back home in hemodynamically stable condition. Physical Exam Narrative: General: No acute distress, AO x3 HEENT: PERRLA, pupils bilaterally equal and reactive, pallors not present Chest: Normal vesicular breath sounds, no added sounds, equal good air entry bilaterally CVS: S1-S2 regular, no murmurs, no tachycardia, no gallops, no rubs Abdomen: Soft, nontender, no organomegaly, bowel sounds present Neuro: No focal deficits, no facial deformity, AO x3, power 5/5 in all limbs Discharge Data Studies Completed and Pending Completed Studies During Hospitalization Category Date Time Status CTA chest [CT angio chest PE protcl [id number]] Routine Cat Scan 01/27/25 11:42 Completed XR chest 1V portable [id number] Stat Exams 01/26/25 22:32 [place] [id number] Routine Ultrasound 01/28/25 12:15 Completed Pending at discharge Category Date Time Status Phosphorus AM LABS Lab 01/30/25 04:00 Ordered Radiology Impressions Chest X-Ray 01/26/25 22:32 IMPRESSION: No definite acute infiltrate or effusion. Moderate to severe cardiomegaly. Chest CTA 01/27/25 11:42 IMPRESSION: 1. RIGHT upper lobe pulmonary emboli in the segmental branches. 2. Markedly dilated pulmonary artery to 4.6 cm. 3. Contrast opacification comes limited in the distal branches. No additional emboli identified. 4. Subsegmental atelectasis in the lingula. 5. Dilated IVC with tricuspid regurgitation into the hepatic veins. 6. Soft tissue anasarca. Venous Duplex 01/28/25 12:15 IMPRESSION: No evidence of deep vein thrombosis. Laboratory Results WBC 5.02 10^3/uL (3.29-11.43) 01/29/25 04:19 RBC 4.15 10^6/uL (3.85-5.65) 01/29/25 04:19 Hgb 11.80 g/dL (11.27-16.99) 01/29/25 04:19 Hct 38.4 % (36-47) 01/29/25 04:19 MCV 92.5 fl (85-98) 01/29/25 04:19 MCH 28.4 pg (27-33) 01/29/25 04:19 MCHC 30.7 g/dL (30-55) 01/29/25 04:19 RDW 17.5 % (12.1-15.1) H 01/29/25 04:19 Plt Count 207 10^3/cmm (157-399) 01/29/25 04:19 MPV 8.4 fL (7.4-10.4) 01/29/25 04:19 Neut % (Auto) 60.9 % 01/29/25 04:19 Lymph % (Auto) 25.1 % 01/29/25 04:19 [place] % (Auto) 10.6 % 01/29/25 04:19 Eos % (Auto) 2.0 % 01/29/25 04:19 Baso % (Auto) 1.0 % 01/29/25 04:19 Neut # (Auto) 3.06 10^3/uL (1.8-7.7) 01/29/25 04:19 Lymph # (Auto) 1.3 10^3/uL (0.8-4.8) 01/29/25 04:19 [place] # (Auto) 0.5 10^3/uL (0.2-0.9) 01/29/25 04:19 Eos # (Auto) 0.1 10^3/uL (0.0-0.8) 01/29/25 04:19 Baso # (Auto) 0.1 10^3/uL (0.0-0.1) 01/29/25 04:19 Nucleated RBC % (auto) 0 % 01/29/25 04:19 Nucleated RBCs # 0.0 /100WBC 01/29/25 04:19 D-Dimer 5.05 ug/mLFEU (0-0.59) H 01/27/25 09:58 Sodium 142 mmol/L (136-145) 01/29/25 04:19 Potassium 3.4 mmol/L (3.5-5.1) L 01/29/25 04:19 Chloride 98 mmol/L (98-107) 01/29/25 04:19 Carbon Dioxide 34 mmol/L (22-29) H 01/29/25 04:19 Anion Gap 13.4 (5-19) 01/29/25 04:19 BUN 27 mg/dL (6-20) H 01/29/25 04:19 Creatinine 1.0 mg/dL (0.5-0.9) H 01/29/25 04:19 GFR Calculation 58.0 mL/min (90-130) L 01/29/25 04:19 Glucose 93 mg/dL (65-115) 01/29/25 04:19 POC Glucose 135 mg/dL (70-110) H 01/28/25 22:57 Estimat Average Glucose 128 01/26/25 22:10 Hemoglobin A1c 6.1 % (4.0-6.0) H 01/26/25 22:10 Calculated Osmolality 299 mOsm/kg (285-295) H 01/29/25 04:19 Calcium 8.8 mg/dL (8.5-10.5) 01/29/25 04:19 Phosphorus 4.2 mg/dL (2.5-4.5) 01/29/25 04:19 Magnesium 1.7 mg/dL (1.7-2.3) 01/28/25 03:27 Total Bilirubin 0.6 mg/dL (0.15-1.2) 01/29/25 04:19 AST 16 U/L (0-32) 01/29/25 04:19 ALT 13 U/L (0-33) 01/29/25 04:19 Alkaline Phosphatase 51 U/L (35-105) 01/29/25 04:19 Troponin T Baseline 187 ng/L (0-10) H* 01/26/25 22:10 Troponin T 120 Minute 197.3 ng/L (0-10) H 01/27/25 01:31 Delta Troponin T 10.3 ABS# (0-10) H* 01/27/25 01:31 Troponin T Hi Sens 6Hr 217.1 ng/L (0-10) H 01/27/25 04:00 Troponin T Hi Sens 6Hr Delta 30.1 ng/L (0-12) H* 01/27/25 04:00 NT-Pro-B Natriuret Pep 64337 pg/mL (0-125) H 01/26/25 22:10 Total Protein 6.2 g/dL (6.6-8.7) L 01/29/25 04:19 Albumin 3.3 g/dL (3.5-5.2) L 01/29/25 04:19 Globulin 2.9 g/dL (1.3-4.6) 01/29/25 04:19 Triglycerides 92 mg/dL (0-150) 01/28/25 03:27 Cholesterol 159 mg/dL (0-200) 01/28/25 03:27 LDL Cholesterol, Calc 111 mg/dL (50-129) 01/28/25 03: HDL Cholesterol 30 mg/dL (60-100) L 01/28/25 03:27 LDL/HDL Ratio 3.70 RATIO (0.00-3.22) H 01/28/25 03:27 Cholesterol/HDL Ratio 5.30 mg/dL (0.0-4.40) H 01/28/25 03:27 Lipase 63 U/L (13-60) H 01/26/25 22:10 Procalcitonin 0.04 ng/mL (0-0.5) 01/28/25 03: TSH 2.64 uIU/mL (0.27-4.20) 01/27/25 09:58 Urine Color Dark yellow (Yellow) A 01/26/25 21: Urine Appearance Clear (CLEAR) 01/26/25 21:30 Urine pH 5.5 (5-7) 01/26/25 21:30 Ur Specific Andreas 1.027 (1.005-1.030) 01/26/25 21: Urine Protein 2+ (Negative) A 01/26/25 21: Urine Glucose (UA) Negative (Normal) 01/26/25 21: Urine Ketones Trace (Negative) 01/26/25 21: Urine Blood 1+ (Negative) A 01/26/25 21: Urine Nitrate Negative (Negative) 01/26/25 21: Urine Bilirubin 1+ (Negative) H 01/26/25 21: Urine Urobilinogen 1.0 mg/dL (Negative) 01/26/25 21:30 Ur Leukocyte Esterase Negative (Negative) 01/26/25 21:30 Urine RBC 0-2 /hpf (0-2) 01/26/25 21:30 Urine WBC 0-5 /hpf (0-5) 01/26/25 21:30 Ur Squamous Epith Cells 6-10 /hpf (0-5) 01/26/25 21: Amorphous Sediment Not Reportable 09/02/25 21:30 Urine Bacteria None seen /hpf (NONE) 01/26/25 21:30 Hyaline Casts 12.81 /lpf 01/26/25 21:30 Urine Opiates Screen Negative ng/mL (Negative) 01/26/25 21:30 Ur Barbiturates Screen Negative ng/mL (Negative) 01/26/25 21:30 Ur Phencyclidine Scrn Negative ng/mL (Negative) 01/26/25 21:30 Ur Amphetamines Screen Negative ng/mL (Negative) 01/26/25 21:30 U Benzodiazepines Scrn Negative ng/mL (Negative) 01/26/25 21:30 Urine Cocaine Screen Negative ng/mL (Negative) 01/26/25 21:30 U Marijuana (THC) Screen Negative ng/mL (Negative) 01/26/25 21:30 Vitals Last Vital Signs Temp 97.7 F 01/29/25 07:38 Pulse 82 01/29/25 07:38 Resp 18 01/29/25 07:38 BP 120/84 01/29/25 07:38 Pulse Ox 97 01/29/25 07:38 O2 Del Method Nasal Cannula 01/29/25 07:38 O2 Flow Rate 2 01/29/25 03:41 Discharge Plan Discharge Patient Disposition: Home Condition: Stable Prescriptions: New Eliquis 5 mg Tablet 10 mg PO BID@0900,2100 30 Days Qty: 74 0RF Rx Instructions: 10 mg twice daily for 1 week, then 5mg daily carvedilol 3.125 mg Tablet 3.125 mg PO BID 90 Days Qty: 180 1RF sacubitril-valsartan [Entresto] 24-26 mg Tablet 1 tab PO BID 90 Days Qty: 180 0RF furosemide [Lasix] 40 mg tablet 40 mg PO QAM Qty: 90 0RF Continued fexofenadine [Kelsie Allergy] 180 mg tablet 180 mg PO DAILY PRN (Reason: allergies) aspirin [Adult Low Dose Aspirin] 81 mg tablet,delayed release (DR/EC) 81 mg PO DAILY 30 Days Qty: 30 0RF potassium chloride 20 mEq tablet extended release 20 meq PO DAILY Qty: 90 1RF No Action (DME) CPAP 16-6cm setting See Rx Instructions .ROUTE .MEDSUPPLY Qty: 1 0RF Rx Instructions: As directed (DME) CPAP mask, tubing, supplies See Rx Instructions .ROUTE .MEDSUPPLY Qty: 1 1RF Rx Instructions: As directed Discharge Order = DC NOW: Discharge Order (Routine); Ordered 01/29/25 Ordered By: Alber Floyd Referrals: [facility] [Outside] Brian Baez MD [Primary Care Provider, [facility]] - 02/25/25 1:30 pm Discharge Diet: Cardiac Discharge Activity: Resume usual activity and Increase activity as tolerated Patient Instructions: Furosemide (By mouth), Carvedilol (By mouth), Apixaban (By mouth), Sacubitril/Valsartan (By mouth), Low Sodium Diet, Heart Failure (DC), Pulmonary Embolism (DC), Fluid Restriction (DC), CHF Stoplight, Chest Pain Stoplight, Opioid Safety, Stroke Stoplight, Patient Portal & Rao Instructions Activity Restrictions/Additional Instructions: Restrict fluid intake to less than 1500 cc, salt intake to less than 2 g daily. Advised to check his weight daily at home. Is advised that weight today would be the dry weight and if body weight increases by around 5 pounds, patient is to take an extra dose of Lasix daily till body weight comes down to weight today. If not able to come down to dry body weight in 1 week, then is to call cardiology office for further recommendations. Patient was counseled in detail to take medications regularly as prescribed. Take Eliquis 10 mg twice daily, 5 mg twice daily Discharge Attestations Time Spent in Discharge Care*: greater than 30 min Specific Discharge Activities: educating patient, educating and/or supporting family/caregiver, discussing with pcp/other providers, discussing with caser/social workers/dc planners, documenting/other paperwork and evaluating patient/reviewing data Status at Discharge: Cognitive status at discharge: cognitively intact, Behavioral status at discharge: cooperative, Functional status at discharge: other assisted ambulation, Overall status at discharge: patient is progressing back to baseline Quality Metrics Clinical Quality Measures [ Venous Thromboembolism { Contraindication to Overlap Therapy: None; Overlap threrpy ordered; VTE Discharge Education: Education about anticoagulant therapy/Care Notes given, Education about treatment options/disease process, Medication side effects education, INR/lab monitoring education as applicable, Follow-up arranged, Other; Deep Vein Thrombosis/Pulmonary Embolism Present on Admission: Yes;}] Coding Level of Care Code 85061 Total time (in minutes) for Discharge: 65 Diagnoses Acute on chronic systolic CHF (congestive heart failure), NYHA class 4 I50.23 Single subsegmental pulmonary embolism without acute cor pulmonale I26.93 Pulmonary embolism type: single subsegmental (without acute cor pulmonale) Essential hypertension I10 Moderate pulmonary hypertension I27.20 Nonischemic cardiomyopathy I42.8 Elevated troponin R79.89
--- NOTE | 2025-01-29 08:37 | P.PN_ITS ---
Subjective 2 Subjective: Has done well overnight, appears euvolemic. No DVT on venous duplex yesterday. Vitals/I&O/Wt Last Vital Signs Temp 97.7 F 01/29/25 07:38 Pulse 82 01/29/25 08:31 Resp 18 01/29/25 08:31 BP 120/84 01/29/25 08:31 Pulse Ox 97 01/29/25 08:31 O2 Del Method Nasal Cannula 01/29/25 07:38 O2 Flow Rate 2 01/29/25 03:41 01/28/25 01/29/25 01/29/25 22:59 06:59 14:59 Intake Total 720 / 960 Output Total 3300 / 8350 2700 / 8350 Balance -2580 / -7390 -2700 / -7390 Weight last 48 hrs Weight 192 lb 4.8 oz Weight 193 lb 4 oz Weight 193 lb 4 oz Physical Exam 2 Const: COMMON NORMALS: no acute distress and patient oriented x3 GENERAL APPEARANCE: cooperative and comfortable ORIENTATION/CONSCIOUSNESS: Yes awake, Yes oriented to person, Yes oriented to place and Yes oriented to time Chest: COMMONS NORMALS: normal inspection of the chest and normal palpation of entire chest wall CHEST: Yes Symmetrical chest wall rise Resp: COMMON NORMALS: normal respiratory effort, No retractions, No use of accessory muscles and clear to auscultation bilaterally EFFORT & INSPECTION: Yes symmetric chest movement AUSCULTATION: clear to auscultation bilaterally Cardio: COMMON NORMALS: regular rate, regular rhythm, S1 normal heart sound present, S2 normal heart sound present, No gallops present (Cardio), No clicks present (Cardio), No murmurs present (Cardio) and No rub (Cardio) RATE: r egular rate RHYTHM: regular rhythm HEART SOUNDS: S1 normal heart sound present and S2 normal heart sound present PERIPHERAL PULSES: radial pulses present Extremity: COMMON NORMALS: no pedal edema Neuro: COMMON NORMALS: patient oriented x3 and moves all extremities S ENSORIUM/ORIENTATION: Yes oriented to person, Yes oriented to place and Yes oriented to time Data 01/29/25 04:19 01/29/25 04:19 A&P Assessment and plan 1. Heart failure with reduced ejection fraction: 2. Moderate mitral valve regurgitation: 3. Severe tricuspid valve regurgitation: 4. Essential hypertension: 5. Single subsegmental pulmonary embolism without acute cor pulmonale: 6. Moderate pulmonary hypertension: Plan: Has had good diuresis, over 9L, edema resolved. Continue Eliquis with taper to 5mg BID maintenance dose. Recommend to resume spironolactone on discharge, as well as Entresto, carvedilol, Lasix, statin.?Follow up in cardiology clinic in 2 weeks. PDMP PDMP Reviewed: Not Reviewed Attestations 2 Medical Necessity Statement*: discharge today Coding Level of Care Code Acute Code for Chg Fwd Diagnoses Heart failure with reduced ejection fraction I50.20 Moderate mitral valve regurgitation I34.0 Severe tricuspid valve regurgitation I07.1 Essential hypertension I10 Single subsegmental pulmonary embolism without acute cor pulmonale I26.93 Pulmonary embolism type: single subsegmental (without acute cor pulmonale) Moderate pulmonary hypertension I27.20
[2025-01-29] MEDS: FUROsemide 10 mg/mL SDV 4mL 40 MG IVP (09:29)
--- NOTE | 2025-01-29 10:16 | PC.NURSE ---
discharge instructions given and explained.pt received discharge prescriptions from meds to beds program.pt verb understanding of instructions.discharged via w/c to exit at this time.friend to drive pt home
== END 2025-01-29 10:33 | disposition home or self-care (01) | DRG 280 ==
LOC: ER 22:25 → ER IP 01-27 00:39 → CSU 01-27 08:18
PROVIDERS: Admitting Provider Student in an Organized Health Care Education/Training Program; Emergency Provider Family Medicine; PCP Family Medicine; Visit Provider Student in an Organized Health Care Education/Training Program
DX: I11.0 Hypertensive heart disease with heart failure (principal); I26.93 Single subsegmental thrombotic pulmonary embolism without acute cor pulmonale; I21.4 Non-ST elevation (NSTEMI) myocardial infarction; I50.23 Acute on chronic systolic (congestive) heart failure; I27.20 Pulmonary hypertension, unspecified; I42.8 Other cardiomyopathies; I44.7 Left bundle-branch block, unspecified; G47.33 Obstructive sleep apnea (adult) (pediatric); F31.9 Bipolar disorder, unspecified; I08.1 Rheumatic disorders of both mitral and tricuspid valves; Z79.82 Long term (current) use of aspirin; Z91.128 Patient's intentional underdosing of medication regimen for other reason; Z59.9 Problem related to housing and economic circumstances, unspecified; Z59.82 Transportation insecurity; Z86.711 Personal history of pulmonary embolism
CPT/HCPCS: 36415; 36416; 71045; 71275; 80053; 80061; 80306; 81001; 82962; 83036; 83690; 83735; 83880; 84100; 84145; 84443; 84484; 85025; 85378; 93005; 93970; 94664; 94760; 96372; 96374; 99285; J1650; J1938; J2270; J2405; J9999

== ENCOUNTER → 2025-03-29 14:50 | Outpatient (BNVA) | payer MEDICAID, SELFPAY | PROVIDERS: PCP Family Medicine; Visit Provider Family Medicine | DX: I10 Essential (primary) hypertension (principal) | CPT/HCPCS: 80053 ==

== ENCOUNTER 2025-04-03 20:02 | Inpatient (IN) | payer MEDICAID, SELFPAY ==
[2025-04-03 20:06] VITALS: BP 127/91; PULSE 79; RESP 17; TEMP 36.9; O2SAT 92
--- OUTSIDE RECORDS SUMMARY | 2025-04-03 20:07 | XMS_ITS | Clinical Summary ---
Author Organization [facility] Address [address] [place] [address] Phone Care Team Providers Care Courtroom Deputy Name Role Phone Unavailable Primary Care Provider Unavailabl e Allergies Active Allergy Reactions Criticality Noted Date Comments Acetaminophen Other (See Comments) Medium 09/09/2024 Itching Ryan Pepper Rash Low 09/09/2024 Black Pepper Rash Low 09/09/2024 Mushroom Rash Low 09/09/2024 Tomato Rash Low 09/09/2024 Medications potassium BICARBONATE-citri c acid (EFFER-K) 10 mEq Tablet, Effervescent 10 mEq daily. Act shaun OMEPRAZOLE ORAL Take by mouth daily. Active carvediloL (COREG) 3.125 mg tablet Take 1 Tablet (3.125 mg) by mouth every 12 hours. 60 Tablet 2 10/09/2024 11:29 AM CDT 5 Active furosemide (LASIX) 40 mg tablet Take 1 Tablet (40 mg) by mouth daily. 30 Tablet 2 10/09/2024 11:29 AM CDT 5 Active sacubitriL-valsar block (ENTRESTO) 24-26 mg Tablet Take 1 Tablet by mouth 2 times daily. 60 Tablet 2 10/09/2024 11:29 AM CDT 5 Active spironolactone (ALDACTONE) 25 mg tablet Take ONE-HALF Tablet (12.5 mg) by mouth daily. 15 Tablet 2 10/09/2024 11:29 AM CDT 5 Active guaiFENesin (ROBITUSSIN) 100 mg/5 mL solution Take 10 mL (200 mg) by mouth every 4 hours as needed for Cough. 180 mL 02 5 Active isosorbide mononitrate (IMDUR) 30 mg Extended Release 24 hour tablet Take 0.5 Tablets (15 mg) by mouth daily. 15 Tablet 3 05/09/20 25 Active nitroglycerin (NITROSTAT) 0.[address], Sub[address] 1 Tablet (0.4 mg) under tongue every 5 minutes as needed for Chest Pain (Not to exceed 3 doses, notify physician if chest pain not relieved, hold if systolic BP less than or equal to 90 mmHg). 30 Tablet Active Active Problems Problem Noted Date Diagnosed Date History of pulmonary embolism 01/08/2025 Acute right-sided heart failure 01/08/2025 Pulmonary hypertension 01/08/2025 Acute on chronic congestive heart failure 2024 Non-ischemic cardiomyopathy 01/03/2025 Hypokalemia 09/10/2024 Hypomagnesemia 09/10/2024 Acute on chronic combined sy stolic and diastolic congestive heart failure 09/09/2024 Prolonged Q-T interval on ECG 09/09/2024 Acute respiratory insufficiency 09/09/2024 Diffuse abdominal pain 09/09/2024 Chest pain 09/09/2024 Pulmonary embolism 09/09/2024 Left bundle branch block 09/09/2024 Encounters Date Type Department Care Team Description 03/30/2025 External Device Data [facility] ABSTRACTION Provider, Abstract 03/09/2025 External Device Data [facility]CTION Provider, Abstract 03/02/2025 External Device Data [facility] Provider, Abstract 03/02/2025 External Device Data [facility] Provider, Abstract 02/02/2025 External Device Data [facility]CTION Provider, Abstract 01/05/2025 External Device Data [facility]STRACTION Provider, Abstract 01/05/2025 External Device Data [facility]STRACTION Provider, Abstract 01/05/2025 External Device Data [facility] ABSTRACTION Provider, Abstract 01/04/2025 Telephone [facility] Nuclear Medicine [address] [place] [id number] Omaira Bland RN 01/03/2025 1:41 PM CDT - 01/08/2025 3:19 PM CDT Hospital Encounter [facility] Cardiac [address] [place] [id number] Connor Jeff MD Melton, Gregory A, DO Salana, Hari Krishna, MD Acute on chronic combined systolic and diastolic congestive heart failure ([facility]/H[facility]) Discharge Disposition: Home or Self Care 01/03/2025 Travel from Last 3 Months Social History Tobacco Use Types Packs/Day Years Used Date Smoking Tobacco: Never Passive Smoke Exposure: Never Smokeless Tobacco: Never Tobacco Cessation:Counseling Given: No Alcohol Use Standard Drinks/Week Comments Never 0 (1 standard drink = 0.6 oz pur e alcohol) Feeling Safe Answer Date Recorded Do you worry about feeling s afe and happy with the people in your life? No 01/06/2025 Food Insecurity Answer Date Recorded Do you find you are eating l ess than you should because you can t pay for food? No 01/06/2025 Transportation Needs Answer Date Record ed Have you gone without health care because you didn t have a way to get there? Or worry about transportation for future doctor visits, pecan picker medication, etc.? No 2024 Housing Stability Answer Date Recorded Do you worry you won t have a steady place to sleep or struggle to pay rent or mortgage? No 01/06/2025 Utility Needs Answer Date Recorded Do you have difficulty payin g for utility costs (electric, water or gas bills)? No 01/06/2025 Medication Needs Answer Date Recorded Have you skipped taking medi cation due to cost or worry you can t afford new medications? No 01/06/2025 Feeling Safe Answer Date Recorded Are you in a relationship wi th someone who hurts you emotionally and/or physically? No 01/03/2025 Food Insecurity Answer Date Recorded Patient needs follow up regardin 09/17/2024 Transportation Needs Answer Date Record ed Patient needs follow up regardin 09/17/2024 Housing Stability Answer Date Recorded Social/Environmental Concerns No concerns Utility Needs Answer Date Recorded Patient needs follow up regardin 09/17/2024 Comments Unknown Sex and Gender Information Value Date Recorded Sex Assigned at Not on file Legal Sex Female 2:45 PM CDT Gender Identity Not on file Sexual Orientation Not on file Last Filed Vital Signs Vital Sign Reading Time Taken Comments Blood Pressure 107/61 01/08/2025 11:54 AM CDT Pulse 90 01/08/2025 11:54 AM CDT Temperature 36.7 C (98 F) 01/08/2025 11:54 AM CDT Respiratory Rate 18 01/08/2025 11:5 4 AM CDT Oxygen Saturation 94% 01/08/2025 11: 54 AM CDT Inhaled Oxygen Concentration - - Weight 85.2 kg (187 lb 13.3 oz) 01/08/2025 5:02 AM CDT Height 162.6 cm (5' 4 ) 01/08/2025 5:02 AM CDT Body Mass Index 32.24 01/08/2025 5:02 AM CDT Plan of Treatment Health Maintenance Due Date Last Done Comments Pre-Diabetes and Diabetes Screening 1970 DTAP/TDAP/TD VACCINES (1 - Tdap) 11/29/1990 HEPATITIS B VACCINES (1 of 3 - 19+ 3-dose series) 10/1990 HPV/Cotest (21-29) 11/29/1992 CERVICAL CANCER SCREENING 11/29/2001 HPV/Cotest (30-65) 11/29/2001 PAP SMEAR 11/29/2001 BREAST CANCER SCREENING 05/17/2012 05/17/2011 COLORECTAL SCREENING 11/29/2016 Colorectal Cancer Screening 11/29/2016 FIT-DNA Q 3 years 11/29/2016 FIT/FOBT Q 1 year 11/29/2016 Flex Sig/CT Colonography Q 5 years 11/29/2016 ZOSTER VACCINE (1 of 2) 11/29/2021 INFLUENZA VACCINE (#1) 2024 Procedures Procedure Name Priority Date/Time Associated Diagnosis Comments TELEMETRY REPORT 01/11/2025 3:45 AM CDT PTT Timed Study 01/08/2025 4:42 AM CDT BASIC METABOLIC PANEL Routine 01/08/2025 4:42 AM CDT ECHO COMPLETE Pending Discharge 01/07/2025 1:26 PM CDT PTT Timed Study 01/07/2025 4:34 AM CDT BASIC METABOLIC PANEL Routine 01/07/2025 4:34 AM CDT CBC WITHOUT DIFFERENTIAL Routine 01/06/2025 10:07 PM CDT EKG 12-LEAD Stat 01/06/2025 6:28 PM CDT PTT Timed Study 01/06/2025 4:40 AM CDT BASIC METABOLIC PANEL Routine 01/06/2025 4:40 AM CDT PET HEART PERF R&S W CT MULTI Routine 01/05/2025 8:59 AM CDT NM PHARMACOLOGICAL STRESS TEST Routine 01/05/2025 8:[address] CORONARY CALCIUM SCORE Routine 01/05/2025 8:28 AM CDT Chest pain CT CARDIAC CHEST INTERPRETATION Routine 01/05/2025 8:28 AM CDT Chest pain, unspecified type PTT Routine 01/05/2025 4:10 AM CDT BASIC METABOLIC PANEL Routine 01/05/2025 4:10 AM CDT PTT Timed Study 01/04/2025 4:02 PM CDT PTT Timed Study 01/04/2025 10:17 AM CDT PTT Timed Study 01/04/2025 3:34 AM CDT BASIC METABOLIC PANEL Routine 01/04/2025 1:05 AM CDT TROPONIN 6 HR, 5TH GEN Timed Study 1:05 AM CDT RT ASSESS AND TREAT Stat 01/03/2025 8 :27 PM CDT PTT Stat 01/03/2025 7:05 PM CDT CBC WITHOUT DIFFERENTIAL Stat 01/03/2025 7:05 PM CDT CTA CHEST W AND/OR WO CONTRAST Stat 01/03/2025 6:32 PM CDT DRUG SCREEN, URINE Stat 01/03/2025 4: 42 PM CDT MAGNESIUM LEVEL Stat 01/03/2025 4:42 PM CDT TSH Stat 01/03/2025 4:42 PM CDT EXTRA TUBE (URINE ZHU) Stat 01/03/2025 4:42 PM CDT URINALYSIS W/REFLEX MICROSCOPIC Stat 01/03/2025 4:42 PM CDT TROPONIN 2 HR, 5TH GEN Timed Study 4:42 PM CDT PROTIME-INR Stat 01/03/2025 3:23 PM CDT PTT Stat 01/03/2025 3:23 PM CDT CBC WITH DIFFERENTIAL Stat 01/03/2025 3:19 PM CDT BLOOD CULTURE Stat 01/03/2025 3:10 PM CDT BLOOD CULTURE Stat 01/03/2025 3:10 PM CDT BLOOD CULTURE Stat 01/03/2025 3:05 PM CDT BLOOD CULTURE Stat 01/03/2025 3:05 PM CDT XR CHEST PA OR AP 1 VW Stat 2:24 PM CDT HCG QUANTITATIVE, BLOOD Stat 01/03/2025 2:08 PM CDT BRAIN NATRIURETIC PEPTIDE, BNP OR PROBNP Stat 01/03/2025 2:08 PM CDT TROPONIN BASELINE, 5TH GEN Stat 01/03/2025 2:08 PM CDT COMPREHENSIVE METABOLIC PANEL Stat 01/03/2025 2:08 PM CDT EKG 12-LEAD Stat 01/03/2025 1:27 PM CDT from Last 3 Months Results * TELEMETRY REPORT (01/11/2025 3:45 AM CDT) us Provider Scanning ECG ORDERABLES Final Result * PTT (01/08/2025 4:42 AM CDT) Only the most recent of9 resultswithin the time period is included. PTT 31.3 24.8 - 37.2 seconds 01/08/2025 5:28 AM CDT [facility] Blood Venipuncture / Unknown 01/08/2025 4:42 AM CDT 01/08/2025 5:04 AM CDT Narrative [facility] - 01/08/2025 5:28 AM CDT Therapeutic Range: Hi-level PE/DVT heparin protocol 80.1 - 95.0 sec Lo-level PE/DVT heparin protocol 70.1 - 85.0 sec Cardiac Heparin Protocol 70.1 - 100.0 sec Ian Dillon MD HEMATOLOGY ORDERABLES Fin al Result [facility] CLIA # [id number] [address] [place] [id number] * (ABNORMAL) BASIC METABOLIC PANEL (01/08/2025 4:42 AM CDT) Only the most recent of5 resultswithin the time period is included. SODIUM 139 136 - 145 mmol/L 01/08/2025 5:42 AM CDT [facility] POTASSIUM 3.9 3.5 - 5.1 mmol/L 01/08/2025 5:42 AM CDT [facility] CHLORIDE 99 98 - 107 mmol/L 01/08/2025 5:42 AM CDT [facility] CO2 31(H) 22 - 29 mmol/L 01/08/2025 5:42 AM CDT [facility] CALCIUM 9.3 8.6 - 10.0 mg/dL 01/08/2025 5:42 AM CDT [facility] BUN 28(H) 6 - 20 mg/dL 01/08/2025 5:42 AM CDT [facility] CREATININE 1.17(H) 0.51 - 0.95 mg/dL 01/08/2025 5:42 AM T [facility] GLUCOSE 94 74 - 99 mg/dL 01/08/2025 5:42 AM T [facility] GFR 56(L) >=60 mL/min/1. 73 sq meter 01/08/2025 5:42 AM T [facility] Comment:eGFR calculated with 2020 CKD-EPI equation. Vegetarian diet, extremely high or low muscle mass, and may affect results. Cystatin C with Glomerular Filtration Rate is a suitable alternative for these patients. ANION GAP 9 9 - 20 mmol/L 01/08/2025 5:42 AM CDT [facility] Blood Venipuncture / Unknown 01/08/2025 4:42 AM CDT 01/08/2025 5:04 AM CDT us Ian Dillon MD CHEMISTRY ORDERABLES Lyly l Result [facility] CLIA # [id number] [address] [facility] [place] [address] * ECHO COMPLETE - CONTRAST AND STRAIN IF INDICATED (01/07/2025 1:26 PM CDT) EJECTION FRACTION 15 INTERFACE SYSTEM 01/07/2025 12:3 0 PM CDT Narrative INTERFACE SYSTEM - 01/07/2025 3:56 PM CDT [facility] Cardiovascular Services Echocardiography Laboratory [address] [place] [address] Transthoracic Echocardiography Patient: Madina Ramesh Study ID: ECHO COMPLETE - Gender: F : 1970 Age: 54 Room: [facility] Study Date: 01/07/2025 Pt Status: Inpatient Study Time: 12:30:14 PM [facility] #: [id number] Ordering:Ian Dillon Credit Coordinator: EDWIN Indications and History: Pulmonary embolus. Cardiomyopathy. Dyspnea. Summary and Conclusion: - Left ventricle: The cavity size is severely dilated. Wall thickness is normal. For Epic reporting: the left ventricular ejection fraction is 15% by biplane method of disks. There is diffuse hypokinesis. Interventricular septum shows dyssynergy, consistent with previous thoracotomy, conduction delay or RV pacing. Grade II diastolic dysfunction. The global longitudinal strain is -6.5% (Normal range is -18 to -25). - Right ventricle: The cavity size is moderately to severely dilated. Systolic function is low normal to reduced. - Left atrium: The atrium is severely dilated. - Right atrium: The atrium is severely dilated. - Aortic valve: The valve is trileaflet. The leaflets are mildly thickened. There is trivial to mild regurgitation. - Mitral valve: Mildly thickened. There is trivial to mild regurgitation. - Tricuspid valve: There is moderate-severe regurgitation. - Pulmonic valve: There is moderate regurgitation. Procedure information: Comparison is made to the study of 09/11/2024. Study status: Routine. Procedure: A transthoracic echocardiogram was performed. Image quality was adequate. Scanning was performed from the parasternal, apical, subcostal, and suprasternal notch acoustic windows. Study components: M-mode, 2D, complete spectral Doppler, and color Doppler. Height: 162.6cm. Height: 64in. Weight: 85kg. Weight: 187.4lb. BMI: 32.1kg/m^2. BSA: 1.99m^2. Blood pressure: 134/90 Study date: 01/07/2025. Study time: 12:30 PM. Location: Bedside. Cardiac Anatomy: LEFT VENTRICLE: The cavity size is severely dilated. Wall thickness is normal. For Epic reporting: the left ventricular ejection fraction is 15% by biplane method of disks. There is diffuse hypokinesis. Interventricular septum shows dyssynergy, consistent with previous thoracotomy, conduction delay or RV pacing. The longitudinal strain is -6.5% (Normal range is -18 to -25). The global longitudinal strain is -6.5% (Normal range is -18 to -25). Grade II diastolic dysfunction. RIGHT VENTRICLE: The cavity size is moderately to severely dilated. Systolic function is low normal to reduced. LEFT ATRIUM: The atrium is severely dilated. RIGHT ATRIUM: The atrium is severely dilated. ATRIAL SEPTUM: No obvious PFO or ASD identified by 2D imaging and color Doppler. AORTIC VALVE: The valve is trileaflet. The leaflets are mildly thickened. There is no stenosis. There is trivial to mild regurgitation. MITRAL VALVE: Mildly thickened. There is no evidence for stenosis. There is trivial to mild regurgitation. TRICUSPID VALVE: Mobility is unrestricted. There is no evidence for stenosis. There is moderate-severe regurgitation. PULMONIC VALVE: Not well visualized. There is no evidence for stenosis. There is moderate regurgitation. PERICARDIUM: A minimal pericardial effusion and/or fat pad was identified. AORTA: Aortic root: The root is not dilated. INTRACARDIAC MASS THROMBUS: No apparent intracavitary masses or thrombi detected. Measurements Left ventricle Value LVOT Value GLS, 2D -6.5 % Diam, S 2.0 cm TERESITA, LAX 6.5 cm Area 3.1 cm^2 ESD, LAX 5.9 cm Peak jorge, S 72.8 cm/sec TERESITA/bsa, LAX 3.2 cm/m^2 VTI, S 11.7 cm ESD/bsa, LAX 3.0 cm/m^2 Peak grad, S 2 mm Hg FS, LAX 8 % SV 37 ml FS, LAX chord 8 % SV/bsa 19 ml/m^2 ESD major ax, A4C 8.7 cm ESD/bsa major ax, A4C 4.4 cm/m^2 Right ventricle Value TERESITA minor ax, A4C 8.7 cm TERESITA, LAX 3.6 cm TERESITA/bsa minor ax, A4C 4.4 cm/m^2 TERESITA 3.6 cm BANDAR, A4C 46.5 cm^2 TAPSE, 2D 2.2 cm JESSICA, A4C 41.8 cm^2 TAPSE, MM 2.2 cm FAC, A4C 10 % S' lateral 10.1 cm/sec TERESITA major ax, A2C 8.8 cm TERESITA/bsa major ax, A2C 4.4 cm/m^2 Left atrium Value BANDAR, A2C 55.3 cm^2 AP dim, ES 5.1 cm JESSICA, A2C 50.1 cm^2 AP dim index, ES 2.6 cm/m^2 FAC, A2C 9 % Area ES, A4C 25 cm^2 IVS, ED 1.5 cm SI dim, A2C 6.2 cm ESD 5.9 cm Vol, ES, 1-p A4C 72 ml ESD/bsa 3.0 cm/m^2 Vol/bsa, ES, 1-p A4C 36 ml/m^2 PW, ED 1.3 cm Vol, ES, 1-p A2C 110 ml IVS/PW, ED 1.08 Vol/bsa, ES, 1-p A2C 55 ml/m^2 EDV 213 ml Vol, ES, 2-p 94 ml ESV 175 ml Vol/bsa, ES, 2-p 47 ml/m^2 EF 18 % SV 37 ml Right atrium Value EDV/bsa 107 ml/m^2 Area, ES, A4C 28 cm^2 ESV/bsa 88 ml/m^2 SV/bsa 19 ml/m^2 Aortic valve Value EDV, 1-p A2C 271 ml Peak v, S 151 cm/sec ESV, 1-p A2C 48 ml Mean v, S 97 cm/sec EF, 1-p A2C 18 % VTI, S 29.3 cm SV, 1-p A2C 38 ml Mean grad, S 5 mm Hg EDV/bsa, 1-p A2C 136 ml/m^2 Peak grad, S 9 mm Hg ESV/bsa, 1-p A2C 24 ml/m^2 LVOT/AV, VTI ratio 0.4 SV/bsa, 1-p A2C 19.1 ml/m^2 POLINA, VTI 1.25 cm^2 EDV, 1-p A4C 201 ml POLINA/bsa, VTI 0.63 cm^2/m^2 ESV, 1-p A4C 171 ml LVOT/AV, Vpeak ratio 0.48 EF, 1-p A4C 15 % POLINA, Vmax 1.51 cm^2 SV, 1-p A4C 63 ml POLINA/bsa, Vmax 0.76 cm^2/m^2 EDV/bsa, 1-p A4C 101 ml/m^2 ESV/bsa, 1-p A4C 86 ml/m^2 Mitral valve Value SV/bsa, 1-p A4C 32 ml/m^2 Peak E 57.1 cm/sec EDV, 2-p 241 ml Peak A 76 cm/sec ESV, 2-p 204 ml Decel time 208 ms EF, 2-p 15 % Peak E/A ratio 0.8 SV, 2-p 37 ml Vena contracta width 3.6 cm EDV/bsa, 2-p 121 ml/m^2 ESV/bsa, 2-p 102 ml/m^2 Tricuspid valve Value SV/bsa, 2-p 16.3 ml/m^2 TR vena contracta width 2.0 cm EDV, MM Teich. 213 ml TR peak v 347 cm/sec EF, MM Teich. 18 % Peak RV-RA grad, S 48 mm Hg EDV/bsa, MM Teich. 107 ml/m^2 Max TR jorge 347 cm/sec EF, MM on 2D Teich. 18 % Peak RV-RA grad, S 48 mm Hg E', lat mely, TDI 5.3 cm/sec E/e', lat mely, TDI 18 Ascending aorta Value E', med mely, TDI 3.3 cm/sec AAo AP diam, S 2.5 cm E/e', med mely, TDI 18 AAo AP diam/bsa, S 1.3 cm/m^2 E', avg, TDI 4.3 cm/sec E/e', avg, TDI 13 Legend: (L) and (H) brittanie values outside specified reference range. [facility] are accredited with the [facility] Accreditation Commission - Echocardiography. Prepared and Electronically Authenticated Prince [place] Confirmed 01/07/2025 15:56 Procedure Note Prince Bryson MD - 01/07/2025 [facility] Cardiovascular Services Echocardiography Laboratory [facility] [place] [address] Transthoracic Echocardiography Patient: Madina Ramesh Study ID: ECHO COMPLETE- Gender: F : 1970 Age: 54 Room: [facility] Study Date: 01/07/2025 Pt Status: Inpatient Study Time: 12:30:14 PM CSN #: [id number] Ordering:Ian Dillon Credit Coordinator: EDWIN Indications and History: Pulmonary embolus. Cardiomyopathy.Dyspnea. Summary and Conclusion: - Left ventricle: The cavity size is severely dilated. Wall thickness is normal. For Epic reporting: the left ventricular ejection fraction is15% by biplane method of disks. There is diffuse hypokinesis.Interventricular septum shows dyssynergy, consistent with previous thoracotomy,conduction delay or RV pacing. Grade II diastolic dysfunction. The globallongitudinal strain is -6.5% (Normal range is -18 to -25). - Right ventricle: The cavity size is moderately to severely dilated.Systolic function is low normal to reduced. - Left atrium: The atrium is severely dilated. - Right atrium: The atrium is severely dilated. - Aortic valve: The valve is trileaflet. The leaflets are mildlythickened. There is trivial to mild regurgitation. - Mitral valve: Mildly thickened. There is trivial to mildregurgitation. - Tricuspid valve: There is moderate-severe regurgitation. - Pulmonic valve: There is moderate regurgitation. Procedure information: Comparison is made to the study of 09/11/2024.Study status: Routine. Procedure: A transthoracic echocardiogram wasperformed. Image quality was adequate. Scanning was performed from the parasternal, apical, subcostal, and suprasternal notch acoustic windows.Study components: M-mode, 2D, complete spectral Doppler, and color Doppler. Height: 162.6cm. Height: 64in. Weight: 85kg. Weight: 187.4lb. BMI: 32.1kg/m^2. BSA: 1.99m^2. Blood pressure: 134/90 Studydate: 01/07/2025. Study time: 12:30 PM. Location: Bedside. Cardiac Anatomy: LEFT VENTRICLE: The cavity size is severely dilated. Wall thickness is normal. For Epic reporting: the left ventricular ejection fraction is 15%by biplane method of disks. There is diffuse hypokinesis. Interventricularseptum shows dyssynergy, consistent with previous thoracotomy, conduction delayor RV pacing. The longitudinal strain is -6.5% (Normal range is -18 to -25).The global longitudinal strain is -6.5% (Normal range is -18 to -25). GradeII diastolic dysfunction. RIGHT VENTRICLE: The cavity size is moderately to severely dilated.Systolic function is low normal to reduced. LEFT ATRIUM: The atrium is severely dilated. RIGHT ATRIUM: The atrium is severely dilated. ATRIAL SEPTUM: No obvious PFO or ASD identified by 2D imaging and color Doppler. AORTIC VALVE: The valve is trileaflet. The leaflets are mildlythickened. There is no stenosis. There is trivial to mild regurgitation. MITRAL VALVE: Mildly thickened. There is no evidence for stenosis.There is trivial to mild regurgitation. TRICUSPID VALVE: Mobility is unrestricted. There is no evidence for stenosis. There is moderate-severe regurgitation. PULMONIC VALVE: Not well visualized. There is no evidence forstenosis. There is moderate regurgitation. PERICARDIUM: A minimal pericardial effusion and/or fat pad wasidentified. AORTA: Aortic root: The root is not dilated. INTRACARDIAC MASS THROMBUS: No apparent intracavitary masses or thrombi detected. Measurements Left ventricle Value LVOT Value GLS, 2D -6.5 % Diam, S 2.0 cm TERESITA, LAX 6.5 cm Area 3.1cm^2 ESD, LAX 5.9 cm Peak jorge, S 72.8cm/sec TERESITA/bsa, LAX 3.2 cm/m^2 VTI, S 11.7 cm ESD/bsa, LAX 3.0 cm/m^2 Peak grad, S 2 mmHg FS, LAX 8 % SV 37 ml FS, LAX chord 8 % SV/bsa 19ml/m^2 ESD major ax, A4C 8.7 cm ESD/bsa major ax, A4C 4.4 cm/m^2 Right ventricle Value TERESITA minor ax, A4C 8.7 cm TERESITA, LAX 3.6 cm TERESITA/bsa minor ax, A4C 4.4 cm/m^2 TERESITA 3.6 cm BANDAR, A4C 46.5 cm^2 TAPSE, 2D 2.2 cm JESSICA, A4C 41.8 cm^2 TAPSE, MM 2.2 cm FAC, A4C 10 % S' lateral 10.1cm/sec TERESITA major ax, A2C 8.8 cm TERESITA/bsa major ax, A2C 4.4 cm/m^2 Left atrium Value BANDAR, A2C 55.3 cm^2 AP dim, ES 5.1 cm JESSICA, A2C 50.1 cm^2 AP dim index, ES 2.6cm/m^2 FAC, A2C 9 % Area ES, A4C 25cm^2 IVS, ED 1.5 cm SI dim, A2C 6.2 cm ESD 5.9 cm Vol, ES, 1-p A4C 72 ml ESD/bsa 3.0 cm/m^2 Vol/bsa, ES, 1-p A4C 36ml/m^2 PW, ED 1.3 cm Vol, ES, 1-p A2C 110 ml IVS/PW, ED 1.08 Vol/bsa, ES, 1-p A2C 55ml/m^2 EDV 213 ml Vol, ES, 2-p 94 ml ESV 175 ml Vol/bsa, ES, 2-p 47ml/m^2 EF 18 % SV 37 ml Right atrium Value EDV/bsa 107 ml/m^2 Area, ES, A4C 28cm^2 ESV/bsa 88 ml/m^2 SV/bsa 19 ml/m^2 Aortic valve Value EDV, 1-p A2C 271 ml Peak v, S 151cm/sec ESV, 1-p A2C 48 ml Mean v, S 97cm/sec EF, 1-p A2C 18 % VTI, S 29.3 cm SV, 1-p A2C 38 ml Mean grad, S 5 mmHg EDV/bsa, 1-p A2C 136 ml/m^2 Peak grad, S 9 mmHg ESV/bsa, 1-p A2C 24 ml/m^2 LVOT/AV, VTI ratio 0.4 SV/bsa, 1-p A2C 19.1 ml/m^2 POLINA, VTI 1.25cm^2 EDV, 1-p A4C 201 ml POLINA/bsa, VTI 0.63cm^2/m^2 ESV, 1-p A4C 171 ml LVOT/AV, Vpeak ratio 0.48 EF, 1-p A4C 15 % POLINA, Vmax 1.51cm^2 SV, 1-p A4C 63 ml POLINA/bsa, Vmax 0.76cm^2/m^2 EDV/bsa, 1-p A4C 101 ml/m^2 ESV/bsa, 1-p A4C 86 ml/m^2 Mitral valve Value SV/bsa, 1-p A4C 32 ml/m^2 Peak E 57.1cm/sec EDV, 2-p 241 ml Peak A 76cm/sec ESV, 2-p 204 ml Decel time 208 ms EF, 2-p 15 % Peak E/A ratio 0.8 SV, 2-p 37 ml Vena contracta width 3.6 cm EDV/bsa, 2-p 121 ml/m^2 ESV/bsa, 2-p 102 ml/m^2 Tricuspid valve Value SV/bsa, 2-p 16.3 ml/m^2 TR vena contracta width 2.0 cm EDV, MM Teich. 213 ml TR peak v 347cm/sec EF, MM Teich. 18 % Peak RV-RA grad, S 48 mmHg EDV/bsa, MM Teich. 107 ml/m^2 Max TR jorge 347cm/sec EF, MM on 2D Teich. 18 % Peak RV-RA grad, S 48 mmHg E', lat mely, TDI 5.3 cm/sec E/e', lat mely, TDI 18 Ascending aorta Value E', med mely, TDI 3.3 cm/sec AAo AP diam, S 2.5 cm E/e', med mely, TDI 18 AAo AP diam/bsa, S 1.3cm/m^2 E', avg, TDI 4.3 cm/sec E/e', avg, TDI 13 Legend: (L) and (H) brittanie values outside specified reference range. [facility] are accredited with theIntersocietal Accreditation Commission - Echocardiography. Prepared and Electronically Authenticated Prince Adelaide Confirmed 01/07/2025 15:56 us Ian Dillon MD US ORDERABLES Final Res ult INTERFACE SYSTEM Refer to clinic/hospital department * (ABNORMAL) CBC WITHOUT DIFFERENTIAL (01/06/2025 10:07 PM CDT) Only the most recent of2 resultswithin the time period is included. WBC 4.5(L) 4.8 - 10.8 K/uL 01/06/2025 10:34 PM CDT [facility] RBC 3.87(L) 4.20 - 5.40 M/uL 01/06/2025 10:34 PM T [facility] HEMOGLOBIN 11.3(L) 12.0 - 16.0 g/dL 01/06/2025 10:34 PM CDT [facility] HEMATOCRIT 36.5 36.0 - 46.0 % 01/06/2025 10:34 PM CDT [facility] MCV 94.3 84.0 - 103.0 fL 01/06/2025 10:34 PM CDT [facility] MCH 29.2 27.0 - 34.0 pg 01/06/2025 10:34 PM T [facility] MCHC 31.0 30.0 - 35.0 g/dL 01/06/2025 10:34 PM CDT [facility] PLATELETS 268 140 - 440 K/uL 01/06/2025 10:34 PM T [facility] MPV 8.4(L) 8.9 - 12.8 fL 01/06/2025 10:34 PM CDT [facility] RDW 17.1(H) 11.0 - 14.5 % 01/06/2025 10:34 PM CDT [facility] RDW-STDEV 57.8(H) 37.0 - 54.0 fL 01/06/2025 10:34 PM CDT [facility] Blood Venipuncture / Unknown 01/06/2025 10:07 PM CDT 01/06/2025 10:29 PM CDT us Ian Dillon MD HEMATOLOGY ORDERABLES Fin al Result [facility] CLIA # [id number] [address] [place] [id number] * EKG 12-LEAD (01/06/2025 6:28 PM CDT) Only the most recent of2 resultswithin the time period is included. 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: [id number] : 1970 Requested By: Order Number: [id number] Reading MD: Jennifer Parra Measurements Intervals [place] Rate: 88 P: 80 CO: 186 QRS: -46 QRSD: 158 T: 107 QT: 416 QTc: 503 Interpretive Statements Normal sinus rhythm Possible Left atrial enlargement Left axis deviation Left bundle branch block Abnormal ECG Electronically Signed On 01-06-2025 19:43:39 CDT by Jennifer Parra Procedure Note Jennifer Parra, DO - 01/06/2025 [facility] [address] [place] [address] Test Date: 2025-01-06 Pat Name: MADINA RAMESH Department: 12 Room: [address] [place] [address] 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[employer] Salt: [id number] : 1970 Requested By: Order Number: [id number] Reading MD: Jennifer Parra Measurements Intervals [place]uer Rate: 88 P: 80 CO: 186 QRS: -46 QRSD: 158 T: 107 QT: 416 QTc: 503 Interpretive Statements Normal sinus rhythm Possible Left atrial enlargement Left axis deviation Left bundle branch block Abnormal ECG Electronically Signed On 01-06-2025 19:43:39 CDT by Jennifer Parra us David Alvarado MD ECG ORDERABLES Final Resu lt INTERFACE SYSTEM Refer to clinic/hospital department * PET HEART PERF R&S W CT MULTI (01/05/2025 8:59 AM CDT) 01/05/2025 9:00 AM CDT Impressions INTERFACE SYSTEM - 01/05/2025 11:11 AM CDT Impression: 1. Myocardial perfusion images show a moderate size, moderately intense mostly fixed defect in the basal to mid interventricular septum that could be consistent with prior infarct or due to the presence of bundle-branch block. There is no evidence of reversible ischemia noted. 2. Normal global myocardial blood flow reserve (MBFR) at 2.26. 3. Severely reducedleft ventricular systolic function, LVEF at rest is 15%, remaining at 15% at peak stress. The left ventricle is significantly dilated with an end-diastolic volume of 325 cc. 4. TID ratio is 1.01. This is normal. 5. Coronary calcium score was 37 in the LAD. This is above the 90th percentile. 6. No prior study available for direct comparison. Elio Bland MD Narrative INTERFACE SYSTEM - 01/05/2025 11:11 AM CDT REST-STRESS REGADENOSON RUBIDIUM-82 PET/CT MYOCARDIAL PERFUSION IMAGING Clinical Indication and History: This is a 54-year-old with with chest pain, shortness of breath. Procedure: A CT scan was required for attenuation correction of the rest images. This was followed by infusion of 29.6 mCi of rubidium Rb-82, after which rest images were acquired. Following rest imaging, a total of 0.4 mg was injected intravenously over 10 seconds followed by a 5 ml normal saline flush. At 1 minute, 29.6 mCi of rubidium Rb-82 was infused. Peak stress images acquired, starting 30 seconds after the beginning of the infusion of Rb-82. A CT scan was acquired for attention correction of the stress images. A coronary calcium score (performed if no prior CAD or calcium score) is acquired with 3 mm thick slices using a 3 mm slice of slice step. Calcium score protocol: high resolution, ECG synchronized completed tomography of the heart and coronary arteries was performed using a multi detector computer tomography MDCT scanner. Clinical response: The heart rate at rest was 86 beats per minute. After the regadenoson injection, the heart rate was 90 beats per minute. The blood pressure at baseline was 138/93 mm Hg. At the end of regadenoson injection, it was 121/80 mm Hg. The patient experienced the following symptoms during the test: Dyspnea, abdominal discomfort, chest discomfort. Electrocardiograph findings: The resting 12-lead electrocardiogram showed sinus rhythm, IVCD, nonspecific ST-T changes, without ST-segment changes . Following regadenoson stress, no significant ST-T changes were noted. There was evidence of no significant new arrhythmias. Scintigraphic findings: The tomographic images show a moderate size, moderately intense defect in the basal to mid interventricular septum that could be consistent with prior infarct. The gated tomograms show diffuse hypokinesis. The LVEF at rest is 15%, remaining at 15% at peak stress. Myocardial blood flow reserve: Stress flow Rest flow MBFR LAD 1.7 0.72 2.37 LCX 1.62 0.81 2.1 RCA 2.1 0.73 2.92 Global 1.62 0.72 2.26 Clinical response: Non-diagnostic (regadenoson). Electrocardiographic response: Non-ischemic Scintigraphic response: Non-ischemic Procedure Note Elio Bland MD - 01/05/2025 REST-STRESS REGADENOSON RUBIDIUM-82 PET/CT MYOCARDIAL PERFUSION IMAGING Clinical Indication and History: This is a 54-year-old with with chest pain, shortness of breath. Procedure: A CT scan was required for attenuation correction of the rest images. This was followed by infusion of 29.6 mCi of rubidium Rb-82, after which rest images were acquired. Following rest imaging, a total of 0.4 mg was injected intravenously over 10 seconds followed by a 5 ml normal saline flush. At 1 minute, 29.6 mCi of rubidium Rb-82 was infused. Peak stress images acquired, starting 30 seconds after the beginning of the infusion of Rb-82. A CT scan was acquired for attention correction of the stress images. A coronary calcium score (performed if no prior CAD or calcium score) is acquired with 3 mm thick slices using a 3 mm slice of slice step. Calcium score protocol: high resolution, ECG synchronized completed tomography of the heart and coronary arteries was performed using a multi detector computer tomography MDCT scanner. Clinical response: The heart rate at rest was 86 beats per minute. After the regadenoson injection, the heart rate was 90 beats per minute. The blood pressure at baseline was 138/93 mm Hg. At the end of regadenoson injection, it was 121/80 mm Hg. The patient experienced the following symptoms during the test: Dyspnea, abdominal discomfort, chest discomfort. Electrocardiograph findings: The resting 12-lead electrocardiogram showed sinus rhythm, IVCD, nonspecific ST-T changes, without ST-segment changes . Following regadenoson stress, no significant ST-T changes were noted. There was evidence of no significant new arrhythmias. Scintigraphic findings: The tomographic images show a moderate size, moderately intense defect in the basal to mid interventricular septum that could be consistent with prior infarct. The gated tomograms show diffuse hypokinesis. The LVEF at rest is 15%, remaining at 15% at peak stress. Myocardial blood flow reserve: Stress flow Rest flow MBFR LAD 1.7 0.72 2.37 LCX 1.62 0.81 2.1 RCA 2.1 0.73 2.92 Global 1.62 0.72 2.26 Clinical response: Non-diagnostic (regadenoson). Electrocardiographic response: Non-ischemic Scintigraphic response: Non-ischemic Impression: 1. Myocardial perfusion images show a moderate size, moderately intense mostly fixed defect in the basal to mid interventricular septum that could be consistent with prior infarct or due to the presence of bundle-branch block. There is no evidence of reversible ischemia noted. 2. Normal global myocardial blood flow reserve (MBFR) at 2.26. 3. Severely reducedleft ventricular systolic function, LVEF at rest is 15%, remaining at 15% at peak stress. The left ventricle is significantly dilated with an end-diastolic volume of 325 cc. 4. TID ratio is 1.01. This is normal. 5. Coronary calcium score was 37 in the LAD. This is above the 90th percentile. 6. No prior study available for direct comparison. Elio Bland MD Sonja Walton INTELLIGENCE ENGINEER PE ORDERABLES Final Result INTERFACE SYSTEM Refer to clinic/hospital department * NM PHARMACOLOGICAL STRESS TEST (01/05/2025 8:29 AM CDT) 01/05/2025 8:39 AM CDT Impressions INTERFACE SYSTEM - 01/05/2025 11:11 AM CDT Impression: 1. Myocardial perfusion images show a moderate size, moderately intense mostly fixed defect in the basal to mid interventricular septum that could be consistent with prior infarct or due to the presence of bundle-branch block. There is no evidence of reversible ischemia noted. 2. Normal global myocardial blood flow reserve (MBFR) at 2.26. 3. Severely reducedleft ventricular systolic function, LVEF at rest is 15%, remaining at 15% at peak stress. The left ventricle is significantly dilated with an end-diastolic volume of 325 cc. 4. TID ratio is 1.01. This is normal. 5. Coronary calcium score was 37 in the LAD. This is above the 90th percentile. 6. No prior study available for direct comparison. Elio Bland MD Narrative INTERFACE SYSTEM - 01/05/2025 11:11 AM CDT REST-STRESS REGADENOSON RUBIDIUM-82 PET/CT MYOCARDIAL PERFUSION IMAGING Clinical Indication and History: This is a 54-year-old with with chest pain, shortness of breath. Procedure: A CT scan was required for attenuation correction of the rest images. This was followed by infusion of 29.6 mCi of rubidium Rb-82, after which rest images were acquired. Following rest imaging, a total of 0.4 mg was injected intravenously over 10 seconds followed by a 5 ml normal saline flush. At 1 minute, 29.6 mCi of rubidium Rb-82 was infused. Peak stress images acquired, starting 30 seconds after the beginning of the infusion of Rb-82. A CT scan was acquired for attention correction of the stress images. A coronary calcium score (performed if no prior CAD or calcium score) is acquired with 3 mm thick slices using a 3 mm slice of slice step. Calcium score protocol: high resolution, ECG synchronized completed tomography of the heart and coronary arteries was performed using a multi detector computer tomography MDCT scanner. Clinical response: The heart rate at rest was 86 beats per minute. After the regadenoson injection, the heart rate was 90 beats per minute. The blood pressure at baseline was 138/93 mm Hg. At the end of regadenoson injection, it was 121/80 mm Hg. The patient experienced the following symptoms during the test: Dyspnea, abdominal discomfort, chest discomfort. Electrocardiograph findings: The resting 12-lead electrocardiogram showed sinus rhythm, IVCD, nonspecific ST-T changes, without ST-segment changes . Following regadenoson stress, no significant ST-T changes were noted. There was evidence of no significant new arrhythmias. Scintigraphic findings: The tomographic images show a moderate size, moderately intense defect in the basal to mid interventricular septum that could be consistent with prior infarct. The gated tomograms show diffuse hypokinesis. The LVEF at rest is 15%, remaining at 15% at peak stress. Myocardial blood flow reserve: Stress flow Rest flow MBFR LAD 1.7 0.72 2.37 LCX 1.62 0.81 2.1 RCA 2.1 0.73 2.92 Global 1.62 0.72 2.26 Clinical response: Non-diagnostic (regadenoson). Electrocardiographic response: Non-ischemic Scintigraphic response: Non-ischemic Procedure Note Elio Bland MD - 01/05/2025 REST-STRESS REGADENOSON RUBIDIUM-82 PET/CT MYOCARDIAL PERFUSION IMAGING Clinical Indication and History: This is a 54-year-old with with chest pain, shortness of breath. Procedure: A CT scan was required for attenuation correction of the rest images. This was followed by infusion of 29.6 mCi of rubidium Rb-82, after which rest images were acquired. Following rest imaging, a total of 0.4 mg was injected intravenously over 10 seconds followed by a 5 ml normal saline flush. At 1 minute, 29.6 mCi of rubidium Rb-82 was infused. Peak stress images acquired, starting 30 seconds after the beginning of the infusion of Rb-82. A CT scan was acquired for attention correction of the stress images. A coronary calcium score (performed if no prior CAD or calcium score) is acquired with 3 mm thick slices using a 3 mm slice of slice step. Calcium score protocol: high resolution, ECG synchronized completed tomography of the heart and coronary arteries was performed using a multi detector computer tomography MDCT scanner. Clinical response: The heart rate at rest was 86 beats per minute. After the regadenoson injection, the heart rate was 90 beats per minute. The blood pressure at baseline was 138/93 mm Hg. At the end of regadenoson injection, it was 121/80 mm Hg. The patient experienced the following symptoms during the test: Dyspnea, abdominal discomfort, chest discomfort. Electrocardiograph findings: The resting 12-lead electrocardiogram showed sinus rhythm, IVCD, nonspecific ST-T changes, without ST-segment changes . Following regadenoson stress, no significant ST-T changes were noted. There was evidence of no significant new arrhythmias. Scintigraphic findings: The tomographic images show a moderate size, moderately intense defect in the basal to mid interventricular septum that could be consistent with prior infarct. The gated tomograms show diffuse hypokinesis. The LVEF at rest is 15%, remaining at 15% at peak stress. Myocardial blood flow reserve: Stress flow Rest flow MBFR LAD 1.7 0.72 2.37 LCX 1.62 0.81 2.1 RCA 2.1 0.73 2.92 Global 1.62 0.72 2.26 Clinical response: Non-diagnostic (regadenoson). Electrocardiographic response: Non-ischemic Scintigraphic response: Non-ischemic Impression: 1. Myocardial perfusion images show a moderate size, moderately intense mostly fixed defect in the basal to mid interventricular septum that could be consistent with prior infarct or due to the presence of bundle-branch block. There is no evidence of reversible ischemia noted. 2. Normal global myocardial blood flow reserve (MBFR) at 2.26. 3. Severely reducedleft ventricular systolic function, LVEF at rest is 15%, remaining at 15% at peak stress. The left ventricle is significantly dilated with an end-diastolic volume of 325 cc. 4. TID ratio is 1.01. This is normal. 5. Coronary calcium score was 37 in the LAD. This is above the 90th percentile. 6. No prior study available for direct comparison. Elio Bland MD Sonja Walton INTELLIGENCE ENGINEER NM ORDERABLES Final Result INTERFACE SYSTEM Refer to clinic/hospital department * CT CORONARY CALCIUM SCORE (01/05/2025 8:28 AM CDT) 01/05/2025 8:28 AM CDT Impressions INTERFACE SYSTEM - 01/05/2025 11:11 AM CDT Impression: 1. Myocardial perfusion images show a moderate size, moderately intense mostly fixed defect in the basal to mid interventricular septum that could be consistent with prior infarct or due to the presence of bundle-branch block. There is no evidence of reversible ischemia noted. 2. Normal global myocardial blood flow reserve (MBFR) at 2.26. 3. Severely reducedleft ventricular systolic function, LVEF at rest is 15%, remaining at 15% at peak stress. The left ventricle is significantly dilated with an end-diastolic volume of 325 cc. 4. TID ratio is 1.01. This is normal. 5. Coronary calcium score was 37 in the LAD. This is above the 90th percentile. 6. No prior study available for direct comparison. Elio Bland MD Narrative INTERFACE SYSTEM - 01/05/2025 11:11 AM CDT REST-STRESS REGADENOSON RUBIDIUM-82 PET/CT MYOCARDIAL PERFUSION IMAGING Clinical Indication and History: This is a 54-year-old with with chest pain, shortness of breath. Procedure: A CT scan was required for attenuation correction of the rest images. This was followed by infusion of 29.6 mCi of rubidium Rb-82, after which rest images were acquired. Following rest imaging, a total of 0.4 mg was injected intravenously over 10 seconds followed by a 5 ml normal saline flush. At 1 minute, 29.6 mCi of rubidium Rb-82 was infused. Peak stress images acquired, starting 30 seconds after the beginning of the infusion of Rb-82. A CT scan was acquired for attention correction of the stress images. A coronary calcium score (performed if no prior CAD or calcium score) is acquired with 3 mm thick slices using a 3 mm slice of slice step. Calcium score protocol: high resolution, ECG synchronized completed tomography of the heart and coronary arteries was performed using a multi detector computer tomography MDCT scanner. Clinical response: The heart rate at rest was 86 beats per minute. After the regadenoson injection, the heart rate was 90 beats per minute. The blood pressure at baseline was 138/93 mm Hg. At the end of regadenoson injection, it was 121/80 mm Hg. The patient experienced the following symptoms during the test: Dyspnea, abdominal discomfort, chest discomfort. Electrocardiograph findings: The resting 12-lead electrocardiogram showed sinus rhythm, IVCD, nonspecific ST-T changes, without ST-segment changes . Following regadenoson stress, no significant ST-T changes were noted. There was evidence of no significant new arrhythmias. Scintigraphic findings: The tomographic images show a moderate size, moderately intense defect in the basal to mid interventricular septum that could be consistent with prior infarct. The gated tomograms show diffuse hypokinesis. The LVEF at rest is 15%, remaining at 15% at peak stress. Myocardial blood flow reserve: Stress flow Rest flow MBFR LAD 1.7 0.72 2.37 LCX 1.62 0.81 2.1 RCA 2.1 0.73 2.92 Global 1.62 0.72 2.26 Clinical response: Non-diagnostic (regadenoson). Electrocardiographic response: Non-ischemic Scintigraphic response: Non-ischemic Procedure Note Elio Bland MD - 01/05/2025 REST-STRESS REGADENOSON RUBIDIUM-82 PET/CT MYOCARDIAL PERFUSION IMAGING Clinical Indication and History: This is a 54-year-old with with chest pain, shortness of breath. Procedure: A CT scan was required for attenuation correction of the rest images. This was followed by infusion of 29.6 mCi of rubidium Rb-82, after which rest images were acquired. Following rest imaging, a total of 0.4 mg was injected intravenously over 10 seconds followed by a 5 ml normal saline flush. At 1 minute, 29.6 mCi of rubidium Rb-82 was infused. Peak stress images acquired, starting 30 seconds after the beginning of the infusion of Rb-82. A CT scan was acquired for attention correction of the stress images. A coronary calcium score (performed if no prior CAD or calcium score) is acquired with 3 mm thick slices using a 3 mm slice of slice step. Calcium score protocol: high resolution, ECG synchronized completed tomography of the heart and coronary arteries was performed using a multi detector computer tomography MDCT scanner. Clinical response: The heart rate at rest was 86 beats per minute. After the regadenoson injection, the heart rate was 90 beats per minute. The blood pressure at baseline was 138/93 mm Hg. At the end of regadenoson injection, it was 121/80 mm Hg. The patient experienced the following symptoms during the test: Dyspnea, abdominal discomfort, chest discomfort. Electrocardiograph findings: The resting 12-lead electrocardiogram showed sinus rhythm, IVCD, nonspecific ST-T changes, without ST-segment changes . Following regadenoson stress, no significant ST-T changes were noted. There was evidence of no significant new arrhythmias. Scintigraphic findings: The tomographic images show a moderate size, moderately intense defect in the basal to mid interventricular septum that could be consistent with prior infarct. The gated tomograms show diffuse hypokinesis. The LVEF at rest is 15%, remaining at 15% at peak stress. Myocardial blood flow reserve: Stress flow Rest flow MBFR LAD 1.7 0.72 2.37 LCX 1.62 0.81 2.1 RCA 2.1 0.73 2.92 Global 1.62 0.72 2.26 Clinical response: Non-diagnostic (regadenoson). Electrocardiographic response: Non-ischemic Scintigraphic response: Non-ischemic Impression: 1. Myocardial perfusion images show a moderate size, moderately intense mostly fixed defect in the basal to mid interventricular septum that could be consistent with prior infarct or due to the presence of bundle-branch block. There is no evidence of reversible ischemia noted. 2. Normal global myocardial blood flow reserve (MBFR) at 2.26. 3. Severely reducedleft ventricular systolic function, LVEF at rest is 15%, remaining at 15% at peak stress. The left ventricle is significantly dilated with an end-diastolic volume of 325 cc. 4. TID ratio is 1.01. This is normal. 5. Coronary calcium score was 37 in the LAD. This is above the 90th percentile. 6. No prior study available for direct comparison. Elio Bland MD Sonja Walton INTELLIGENCE ENGINEER CT ORDERABLES Final Result INTERFACE SYSTEM Refer to clinic/hospital department * CT CARDIAC CHEST INTERPRETATION (01/05/2025 8:28 AM CDT) Anatomical Region Laterality Modality Chest Nuclear Medicine 01/05/2025 8:28 AM CDT Impressions 01/05/2025 8:40 AM CDT IMPRESSION: No new acute extracardiac findings in the limited portions of the visualized chest. Narrative 01/05/2025 8:[address] CARDIAC CHEST INTERPRETATION; 01/05/2025 8:28 AM Reason For Exam: See Diagnosis. Diagnosis: Chest pain, unspecified type. COMPARISON: 01/03/2025 This report serves as an over read of the extracardiac/extravascular structures in the visualized portions of the chest. Please refer to the concurrent cardiology report for assessment of the cardiac structures and great vessels of the chest. FINDINGS: LUNGS: Similar bandlike opacity in the lingula likely related to atelectasis from the adjacent cardiomegaly. No new acute airspace opacity or dominant lung nodule. PLEURA: No pneumothorax or pleural effusion. MEDIASTINUM: No pathologically enlarged mediastinal lymph nodes. GREAT VESSELS: Reported by cardiology, as above. HEART: Reported by cardiology, as above. OSSEOUS STRUCTURES: The visualized skeletal structures are intact. UPPER ABDOMEN: No acute abnormalities. Procedure Note Manuel Mojica MD - 01/05/2025 CT CARDIAC CHEST INTERPRETATION; 01/05/2025 8:28 AM Reason For Exam: See Diagnosis. Diagnosis: Chest pain, unspecified type. COMPARISON: 01/03/2025 This report serves as an over read of the extracardiac/extravascular structures in the visualized portions of the chest. Please refer to the concurrent cardiology report for assessment of the cardiac structures and great vessels of the chest. FINDINGS: LUNGS: Similar bandlike opacity in the lingula likely related to atelectasis from the adjacent cardiomegaly. No new acute airspace opacity or dominant lung nodule. PLEURA: No pneumothorax or pleural effusion. MEDIASTINUM: No pathologically enlarged mediastinal lymph nodes. GREAT VESSELS: Reported by cardiology, as above. HEART: Reported by cardiology, as above. OSSEOUS STRUCTURES: The visualized skeletal structures are intact. UPPER ABDOMEN: No acute abnormalities. IMPRESSION: No new acute extracardiac findings in the limited portions of the visualized chest. Sonja Walton [facility] CT ORDERABLES Final Result * (ABNORMAL) TROPONIN 6 HR, 5TH GEN (01/04/2025 1:05 AM CDT) TROPONIN T, 6 HR 5TH GEN 334() <11 ng/L 01/04/2025 2:25 AM CDT [facility] [place] 6HR TROPONIN T 241(HH) See Interp. 01/04/2025 2:25 AM CDT [facility] Blood Venipuncture / Unknown 01/04/2025 1:05 AM CDT 01/04/2025 1:47 AM CDT Narrative [facility] - 01/04/2025 2:25 AM CDT Troponin elevated. Delta significant change. Delay in collection of timed specimen beyond recommended collection interval. Results must be interpreted in clinical context. Ian Dillon MD CHEMISTRY ORDERABLES Lyly l Result [facility] CLIA # [id number] [address] [place] [id number] * CTA CHEST W AND/OR WO CONTRAST (01/03/2025 6:32 PM CDT) Anatomical Region Laterality Modality Chest Computed Tomogra phy 01/03/2025 6:32 PM CDT Impressions 01/03/2025 7:00 PM CDT IMPRESSION: Please see below. Exam: CTA CHEST W AND/OR WO CONTRAST Date/Time of Exam: 01/03/2025 6:32 PM Reason For Exam: Pulmonary embolism (PE) suspected, high prob. Diagnosis: Chest pain, unspecified type; Acute on chronic congestive heart failure, unspecified heart failure type (CMS/HCC); Acute respiratory failure with hypoxia (CMS/HCC). Technique: CTA of the chest was performed prior to and/or following the administration of intravenous contrast. Post-processing was performed, including sagittal and coronal reformations and 3-D reconstruction. Contrast (if used): IOPAMIDOL 61 % INTRAVENOUS SOLUTION (MULTI-DOSE BULK PACK) Given:100 mL. Comparison: CTA chest abdomen pelvis 12/12/2024.. FINDINGS: Thoracic inlet: The thoracic inlet is within normal limits. Lymph Nodes: There are no pathologic axillary, mediastinal or hilar lymph nodes by size criteria. Heart: The heart is markedly enlarged. There is no pericardial effusion. Thoracic aorta: The thoracic aorta is nonaneurysmal. Pulmonary arteries: The pulmonary arteries are adequately opacified. There are no discrete pulmonary arterial filling defects to suggest pulmonary emboli. Enlargement of the right main pulmonary artery measuring up to 3.5 cm in diameter. Tracheobronchial tree: The tracheobronchial tree is within normal limits. Lungs: Atelectasis versus airspace disease of the inferior segment of the lingula. There are no suspicious pulmonary lesions. Patchy five lobe ground glass opacity is present. Five lobe interlobular septal thickening present. 4 mm indeterminate pulmonary micronodule right middle lobe image 125 series 302 unchanged. 2 mm indeterminate pulmonary micronodule right upper lobe image 188 of series 302. This is of doubtful clinical concern given its size. Pleura: There is no pleural effusion or pneumothorax. Upper abdomen: Retrograde flow contrast medium into the intrahepatic IVC and hepatic veins identified consistent with a component of underlying right heart dysfunction. Subcutaneous soft tissues: There is no significant subcutaneous soft tissue pathology. Bones: The osseous structures appear grossly intact. No suspicious osseous lesions are identified. IMPRESSION: 1. Negative for acute or chronic pulmonary embolus. 2. Marked global cardiomegaly with enlargement of the right main pulmonary artery suspicious for CT findings of underlying pulmonary artery hypertension. Reflux of contrast medium into the intrahepatic IVC and hepatic veins suggesting CT evidence of a component of underlying right heart dysfunction. 3. Patchy five lobe ground glass opacity. Findings nonspecific for pneumonitis/alveolitis. 4. 5 lobe interlobular septal thickening suggesting interstitial edema. 5. Atelectasis versus airspace disease of the inferior segment lingula. 6. 4 mm indeterminate pulmonary micronodule right middle lobe. A follow-up CT chest in 12 months could be performed if the patient is at risk for lung carcinoma. Narrative Procedure Note Kanu Franklin MD - 01/03/2025 IMPRESSION: Please see below. Exam: CTA CHEST W AND/OR WO CONTRAST Date/Time of Exam: 01/03/2025 6:32 PM Reason For Exam: Pulmonary embolism (PE) suspected, high prob. Diagnosis: Chest pain, unspecified type; Acute on chronic congestive heart failure, unspecified heart failure type (CMS/HCC); Acute respiratory failure with hypoxia (CMS/HCC). Technique: CTA of the chest was performed prior to and/or following the administration of intravenous contrast. Post-processing was performed, including sagittal and coronal reformations and 3-D reconstruction. Contrast (if used): IOPAMIDOL 61 % INTRAVENOUS SOLUTION (MULTI-DOSE BULK PACK) Given:100 mL. Comparison: CTA chest abdomen pelvis 12/12/2024.. FINDINGS: Thoracic inlet: The thoracic inlet is within normal limits. Lymph Nodes: There are no pathologic axillary, mediastinal or hilar lymph nodes by size criteria. Heart: The heart is markedly enlarged. There is no pericardial effusion. Thoracic aorta: The thoracic aorta is nonaneurysmal. Pulmonary arteries: The pulmonary arteries are adequately opacified. There are no discrete pulmonary arterial filling defects to suggest pulmonary emboli. Enlargement of the right main pulmonary artery measuring up to 3.5 cm in diameter. Tracheobronchial tree: The tracheobronchial tree is within normal limits. Lungs: Atelectasis versus airspace disease of the inferior segment of the lingula. There are no suspicious pulmonary lesions. Patchy five lobe ground glass opacity is present. Five lobe interlobular septal thickening present. 4 mm indeterminate pulmonary micronodule right middle lobe image 125 series 302 unchanged. 2 mm indeterminate pulmonary micronodule right upper lobe image 188 of series 302. This is of doubtful clinical concern given its size. Pleura: There is no pleural effusion or pneumothorax. Upper abdomen: Retrograde flow contrast medium into the intrahepatic IVC and hepatic veins identified consistent with a component of underlying right heart dysfunction. Subcutaneous soft tissues: There is no significant subcutaneous soft tissue pathology. Bones: The osseous structures appear grossly intact. No suspicious osseous lesions are identified. IMPRESSION: 1. Negative for acute or chronic pulmonary embolus. 2. Marked global cardiomegaly with enlargement of the right main pulmonary artery suspicious for CT findings of underlying pulmonary artery hypertension. Reflux of contrast medium into the intrahepatic IVC and hepatic veins suggesting CT evidence of a component of underlying right heart dysfunction. 3. Patchy five lobe ground glass opacity. Findings nonspecific for pneumonitis/alveolitis. 4. 5 lobe interlobular septal thickening suggesting interstitial edema. 5. Atelectasis versus airspace disease of the inferior segment lingula. 6. 4 mm indeterminate pulmonary micronodule right middle lobe. A follow-up CT chest in 12 months could be performed if the patient is at risk for lung carcinoma. Ian Dillon MD CT ORDERABLES Final Res ult * EXTRA TUBE (URINE ZHU) (01/03/2025 4:42 PM CDT) Urine URINE SPECIMEN OBTAINED BY CLEAN CATCH PROCEDURE / Unknown Collection / Unknown 01/03/2025 4:42 PM CDT 01/03/2025 4:45 PM CDT Ruben Cesar NP URINE ORDERABLES Final Result [facility] CLIA # [id number] [address] [place] [address] * (ABNORMAL) TROPONIN 2 HR, 5TH GEN (01/03/2025 4:42 PM CDT) TROPONIN T, 2 HR 5TH GEN 127(HH) <=10 ng/L 01/03/2025 5:34 PM CDT [facility] DELTA 2HR TROPONIN T 34(HH) See Interp. 01/03/2025 5:34 PM CDT [facility] Blood Venipuncture / Unknown 01/03/2025 4:42 PM CDT 01/03/2025 4:56 PM CDT Narrative [facility] - 01/03/2025 5:34 PM CDT Troponin elevated. Delay in collection of timed specimen beyond recommended collection interval. Results must be interpreted in clinical context. Delta significant change. us Ruben Cesar NP CHEMISTRY ORDERABLES Final Res ult [facility] CLIA # [id number] [address] [address] [place] [address] * (ABNORMAL) DRUG SCREEN, URINE (01/03/2025 4:42 PM CDT) [facility] AMPHETAMINE QUAL, URINE Negative Negative 01/03/2025 7:11 PM CDT [facility] BARBITURATE QUAL, URINE Negative Negative 01/03/2025 7:11 PM CDT [facility] BENZODIAZEPINE QUAL, URINE Negative Negative 01/03/2025 7:11 PM CDT [facility] COCAINE QUAL URINE Negative Negative 01/03/2025 7:11 PM CDT [facility] OPIATE QUAL, URINE Negative Negative 01/03/2025 7:11 PM CDT [facility] CANNABINOIDS QUAL, URINE Negative Negative 01/03/2025 7:11 PM CDT [facility] OXYCODONE QUAL, URINE Negative Negative 01/03/2025 7:11 PM CDT [facility] METHADONE QUAL, URINE Negative Negative 01/03/2025 7:11 PM CDT [facility] FENTANYL QUAL, URINE Presumptive Positive(A) Negative 01/03/2025 7:11 PM CDT [facility] CREATININE, URINE 306.1(H) 29.0 - 226.0 mg/dL 01/03/2025 7:11 PM CDT [facility] Comment:Reference Range vari es with fluid intake and diet. Urine URINE SPECIMEN OBTAINED BY CLEAN CATCH PROCEDURE / Unknown Collection / Unknown 01/03/2025 4:42 PM CDT 01/03/2025 4:45 PM CDT Narrative [facility] - 01/03/2025 7:11 PM CDT This test is a qualitative screen. The presumptive positive results should not be used for legal purposes. If confirmation of results is desired, the lab must be contacted without delay. Drug Ref. Range Screening Threshold Amphetamines Negative 500 ng/mL Barbiturates Negative 200 ng/mL Benzodiazepines Negative 100 ng/mL Cannabinoids Negative 50 ng/mL Cocaine Metabolite Negative 300 ng/mL Opiate Negative 300 ng/mL Oxycodone Negative 100 ng/mL Methadone Negative 300 ng/mL Fentanyl Negative 5 ng/mL Ian Dillon MD URINE ORDERABLES Final Re sult [facility] CLIA # [id number] [address] [address] * (ABNORMAL) URINALYSIS WITH REFLEX MICROSCOPIC (01/03/2025 4:42 PM CDT) COLOR UA Yellow Pale to Dark Yellow 01/03/2025 4:55 PM CDT [facility] CLARITY UA Cloudy(A) Clear 01/03/2025 4:55 PM CDT [facility] SPECIFIC GRAVITY UA 1.034 1.003 - 1.035 01/03/2025 4:55 PM CDT [facility] PH UA 6.0 5.0 - 8.0 01/03/2025 4:55 PM CDT [facility] LEUKOCYTE ESTERASE UA Negative Negative 01/03/2025 4:55 PM CDT [facility] NITRITE UA Negative Negative 01/03/2025 4:55 PM CDT [facility] PROTEIN UA 3+(A) Negative 01/03/2025 4:55 PM CDT [facility] GLUCOSE UA Negative Negative 01/03/2025 4:55 PM CDT [facility] KETONES UA Trace(A) Negative 01/03/2025 4:55 PM CDT [facility] UROBILINOGEN UA 4.0(A) <2.0 mg/dL 4:55 PM CDT [facility] BILIRUBIN UA 1+(A) Negative 01/03/2025 4:55 PM CDT [facility] BLOOD UA 2+(A) Negative 01/03/2025 4:55 PM CDT [facility] WBC UA 3-5(A) 0 - 2 /hpf 01/03/2025 4:55 PM CDT [facility] RBC UA 6-10(A) 0 - 2 /hpf 01/03/2025 4:55 PM CDT [facility] BACTERIA UA 2+(A) Negative /hpf 01/03/2025 4:55 PM CDT [facility] EPITHELIAL CELLS, URINE 0-5 0 - 5 /hpf 01/03/2025 4:55 PM CDT [facility] HYALINE CAST 0-2 None Seen, 0-2 /lpf 01/03/2025 4:55 PM CDT [facility] Urine URINE SPECIMEN OBTAINED BY CLEAN CATCH PROCEDURE / Unknown Collection / Unknown 01/03/2025 4:42 PM CDT 01/03/2025 4:45 PM CDT us Ruben Cesar TEMP RECRUITER URINE ORDERABLES Final Result Performing Organization Address City/[facility]/ZIP Co de Phone Number [facility] CLIA # [id number] [address] [address] * TSH (01/03/2025 4:42 PM CDT) TSH 1.09 0.27 - 4.20 uIU/mL 01/03/2025 6:58 PM CDT [facility] Blood Venipuncture / Unknown 01/03/2025 4:42 PM CDT 01/03/2025 4:56 PM CDT Ian Dillon MD CHEMISTRY ORDERABLES Lyly l Result [facility] CLIA # [id number] [address] [address] * MAGNESIUM LEVEL (01/03/2025 4:42 PM CDT) [facility] MAGNESIUM 2.2 1.6 - 2.6 mg/dL 01/03/2025 6:57 PM CDT [facility] Blood Venipuncture / Unknown 01/03/2025 4:42 PM CDT 01/03/2025 4:56 PM CDT us Ian Dillon MD CHEMISTRY ORDERABLES Lyly l Result [facility] CLIA # [id number] [facility] [address] [address] * (ABNORMAL) PROTIME-INR (01/03/2025 3:23 PM CDT) [facility] PROTIME 19.2(H) 12.7 - 14.9 Seconds 01/03/2025 3:41 PM CDT [facility] INR 1.5(H) 0.8 - 1.2 01/03/2025 3:41 PM CDT [facility] Blood Venipuncture / Unknown 01/03/2025 3:23 PM CDT 01/03/2025 3:27 PM CDT Narrative [facility] - 01/03/2025 3:41 PM CDT Expected Values for INR: DVT/PE Goal INR 2.5; range 2.0 - 3.0 Valve Replacement Tissue Goal INR 2.5; range 2.0 - 3.0 Valve Replacement Mechanical Goal INR 3.0; range 2.5 - 3.5 POST-HI Goal INR 2.5; range 2.0 - 3.0 or Goal INR 3.0; range 2.5 - 3.5 Atrial Fibrillation Goal INR 2.5; range 2.0 - 3.0 Ischemic Stroke Goal INR 2.5; range 2.0 - 3.0 us Connor Jeff MD HEMATOLOGY ORDERABLES Final Result [facility] EDWIN # [id number] [address] [address] [place] [address] * (ABNORMAL) CBC WITH DIFFERENTIAL (01/03/2025 3:19 PM CDT) [facility] WBC 5.3 4.8 - 10.8 K/uL 01/03/2025 3:30 PM CDT [facility] RBC 3.76(L) 4.20 - 5.40 M/uL 01/03/2025 3:30 PM CDT [facility] HEMOGLOBIN 11.1(L) 12.0 - 16.0 g/dL 01/03/2025 3:30 PM CDT [facility] HEMATOCRIT 34.9(L) 36.0 - 46.0 % 01/03/2025 3:30 PM CDT [facility] MCV 92.8 84.0 - 103.0 fL 01/03/2025 3:30 PM CDT [facility] MCH 29.5 27.0 - 34.0 pg 01/03/2025 3:30 PM CDT [facility] MCHC 31.8 30.0 - 35.0 g/dL 01/03/2025 3:30 PM CDT [facility] PLATELETS 243 140 - 440 K/uL 01/03/2025 3:30 PM CDT [facility] MPV 8.3(L) 8.9 - 12.8 fL 01/03/2025 3:30 PM CDT [facility] RDW 17.0(H) 11.0 - 14.5 % 01/03/2025 3:30 PM CDT [facility] RDW-STDEV 56.8(H) 37.0 - 54.0 fL 01/03/2025 3:30 PM CDT [facility] NEUTROPHILS 70 42 - 75 % 01/03/2025 3:30 PM CDT [facility] LYMPHOCYTES 21(L) 24 - 44 % 01/03/2025 3:30 PM CDT [facility] MONOCYTES 7 2 - 10 % 01/03/2025 3:30 PM CDT [facility] EOSINOPHILS 0 0 - 7 % 01/03/2025 3:30 PM CDT [facility] BASOPHILS 1 0 - 1 % 01/03/2025 3:30 PM CDT [facility] IMMATURE GRANULOCYTES 0 0 - 2 % 01/03/2025 3:30 PM CDT [facility] NEUTROPHIL ABSOLUTE 3.67 2.00 - 8.00 K/uL 01/03/2025 3:30 PM CDT [facility] LYMPHOCYTE ABSOLUTE 1.11(L) 1.20 - 4.00 K/uL 01/03/2025 3:30 PM CDT [facility] MONOCYTE ABSOLUTE 0.39 0.10 - 0.60 K/uL 01/03/2025 3:30 PM CDT [facility] EOSINOPHIL ABSOLUTE 0.02 0.00 - 0.70 K/uL 01/03/2025 3:30 PM CDT [facility] BASOPHILS ABSOLUTE 0.04 0.00 - 0.20 K/uL 01/03/2025 3:30 PM CDT [facility] IMMATURE GRANULOCYTES ABSOLUTE 0.02 0.00 - 0.10 K/uL 01/03/2025 3:30 PM CDT [facility] SMEAR REVIEWED: NA - Not Applicable 01/03/2025 3:30 PM CDT [facility] Blood Venipuncture / Unknown 01/03/2025 3:19 PM CDT 01/03/2025 3:27 PM CDT Ruben Cesar NP HEMATOLOGY ORDERABLES Final Re sult [facility] CLIA # [id number] [address] [place] [address] [place] [address] * BLOOD CULTURE (01/03/2025 3:10 PM CDT) Only the most recent of2 resultswithin the time period is included. BLOOD CULTURE No growth 01/08/2025 4:23 PM CDT [facility] Blood (Peripheral) Venipuncture / Unknown 01/03/2025 3:10 PM CDT 01/03/2025 3:27 PM CDT us Connor Jeff MD MICROBIOLOGY - GENERAL ORDERABLES Final Result [facility] CLIA # [id number] [address] [address] [place] [address] * XR CHEST PA OR AP 1 VW (01/03/2025 2:24 PM CDT) Anatomical Region Laterality Modality Chest Computed Radiogr aphy 01/03/2025 2:24 PM CDT Impressions 01/03/2025 2:45 PM CDT IMPRESSION: See below. Exam: XR CHEST PA OR AP 1 VW Date/Time of Exam: 01/03/2025 2:24 PM Reason For Exam: Chest Pain. Diagnosis: See Reason for Exam. Findings: Significantly enlarged cardiac silhouette. Mild vascular congestion. Poor assessment of the left lung base. Cannot exclude left lower lung consolidation and small left pleural effusion. No pneumothorax. Narrative Procedure Note Wilder Villa MD - 01/03/2025 IMPRESSION: See below. Exam: XR CHEST PA OR AP 1 VW Date/Time of Exam: 01/03/2025 2:24 PM Reason For Exam: Chest Pain. Diagnosis: See Reason for Exam. Findings: Significantly enlarged cardiac silhouette. Mild vascular congestion. Poor assessment of the left lung base. Cannot exclude left lower lung consolidation and small left pleural effusion. No pneumothorax. us Ruben Cesar NP DIAGNOSTIC IMAGING ORDERABLES Final Result * (ABNORMAL) TROPONIN BASELINE, 5TH GEN (01/03/2025 2:08 PM CDT) Pathologist [facility] TROPONIN T, BASELINE 5TH GEN 93(H) <=10 ng/L 01/03/2025 2:47 PM CDT [facility] Blood Venipuncture / Unknown 01/03/2025 2:08 PM CDT 01/03/2025 2:13 PM CDT Narrative [facility] - 01/03/2025 2:47 PM CDT Troponin elevated. us Ruben Cesar NP CHEMISTRY ORDERABLES Final Res ult [facility] CLIA # [id number] [address] [place] [address] * (ABNORMAL) HCG QUANTITATIVE, BLOOD (01/03/2025 2:08 PM CDT) Pathologist [facility] HCG QUANT, BLOOD 1.6(H) 0.0 - 1.0 mIU/mL 01/03/2025 4:15 PM CDT [facility] Comment: HCG Quantitative Reference Range Male <= 2 mIU/mL Female Non premenopausal <= 1 mIU/mL Non postmenopausal <= 7 mIU/mL Gestational Age HCG Concentration 3 Weeks 5.8 - 71.2 mIU/mL 4 Weeks 9.5 - 750 mIU/mL 5 Weeks 217 - 7138 mIU/mL 6 Weeks 158 - 31,795 mIU/mL 7 Weeks 3697 - 163,563 mIU/mL 8 Weeks 32,065 - 149,571 mIU/mL 9 Weeks 63,803 - 151,410 mIU/mL 10 Weeks 46,509 - 186,977 mIU/mL 12 Weeks 27,832 - 210,612 mIU/mL 14 Weeks 13,950 - 62,530 mIU/mL 15 Weeks 12,039 - 70,971 mIU/mL 16 Weeks 9040 - 56,451 mIU/mL 17 Weeks 8175 - 55,868 mIU/mL 18 Weeks 8099 - 58,176 mIU/mL Blood Venipuncture / Unknown 01/03/2025 2:08 PM CDT 01/03/2025 2:13 PM CDT us Connor Jeff MD CHEMISTRY ORDERABLES F inal Result Performing Organization Address [facility] Co de Phone Number [facility] CLIA # [id number] [address] [address] [place], [place] [address] * (ABNORMAL) BRAIN NATRIURETIC PEPTIDE, BNP OR PROBNP (01/03/2025 2:08 PM CDT) PROBNP, N TERMINAL 15,604(H) 0 - 125 pg/mL 01/03/2025 2:52 PM CDT [facility] Comment: INTERPRETIVE COMMENT based on diagnosis: Diagnostic NT pro-BNP cutoffs for Heart Failure in the absence of renal failure is suggested for the following ranges <75 years: <125 pg/mL >=75 years: <450 pg/mL Exclusionary rule out cut-point for Acute Decompensated Heart Failure(ADHF) All ages: <300 pg/mL Diagnostic NT pro-BNP cutoffs for Acute Decompensated Heart Failure(ADHF) in the absence of renal failure is suggested for the following ages <50 years: > 450 pg/mL 50-75 years: > 900 pg/mL >75 years: >1800 pg/mL Blood Venipuncture / Unknown 01/03/2025 2:08 PM CDT 01/03/2025 2:13 PM CDT us Ruben Cesar NP CHEMISTRY ORDERABLES Final Res ult Performing Organization Address [facility] Co de Phone Number [facility] CLIA # [id number] [address] [place], [place] [id number] * (ABNORMAL) COMPREHENSIVE METABOLIC PANEL (01/03/2025 2:08 PM CDT) SODIUM 145 136 - 145 mmol/L 01/03/2025 2:54 PM [facility] POTASSIUM 3.4(L) 3.5 - 5.1 mmol/L 01/03/2025 2:54 PM [facility] CHLORIDE 105 98 - 107 mmol/L 01/03/2025 2:54 PM [facility] CO2 24 22 - 29 mmol/L 01/03/2025 2:54 PM [facility] CALCIUM 9.0 8.6 - 10.0 mg/dL 01/03/2025 2:54 PM [facility] BUN 24(H) 6 - 20 mg/dL 01/03/2025 2:54 PM [facility] CREATININE 1.07(H) 0.51 - 0.95 mg/dL 01/03/2025 2:54 PM [facility] GLUCOSE 89 74 - 99 mg/dL 01/03/2025 2:54 PM [facility] TOTAL PROTEIN 6.9 6.4 - 8.3 g/dL 01/03/2025 2:54 PM [facility] ALBUMIN 3.9 3.5 - 5.2 g/dL 01/03/2025 2:54 PM [facility] BILIRUBIN TOTAL 1.5(H) 0.0 - 1.0 mg/dL 01/03/2025 2:54 PM [facility] ALKALINE PHOSPHATASE 47 35 - 104 U/L 01/03/2025 2:54 PM [facility] AST 30 10 - 35 U/L 01/03/2025 2:54 PM [facility] Comment:Hemolysis present. R esult may be falsely elevated. ALT 16 <=35 U/L 01/03/2025 2:54 PM [facility] GFR >60 >=60 mL/min/1. 73 sq meter 01/03/2025 2:54 PM [facility] Comment:eGFR calculated with 2020 CKD-EPI equation. Vegetarian diet, extremely high or low muscle mass, and may affect results. Cystatin C with Glomerular Filtration Rate is a suitable alternative for these patients. ANION GAP 16 9 - 20 mmol/L 01/03/2025 2:54 PM CDT [facility] Blood Venipuncture / Unknown 01/03/2025 2:08 PM CDT 01/03/2025 2:13 PM CDT Ruben Cesar NP CHEMISTRY ORDERABLES Final Res ult [facility] CLIA # [id number] [address] [address] [place] [address] from Last 3 Months Insurance RX [employer] Medicaid MEDICAID [place] Advance Directives For more information, please contact: [phone] * Full Code (Latest Code Status on File) Date Activated Date Inactivated Comments 01/03/2025 6:31 PM 01/08/2025 5:24 PM * Full Code Date Activated Date Inactivated Comments 09/09/2024 12:40 AM 09/11/2024 6:18 PM
--- OUTSIDE RECORDS SUMMARY | 2025-04-03 20:07 | XMS_ITS | Encounter Summary ---
Author Organization [facility] Address [address] [place] [address] Care Team Providers Care Patternmaker Apprentice Wood Name Role Phone Unavailable Primary Care Provider Unavailabl e Encounter Details Date Type Department Care Team (Late st Contact Info) Description 01/04/2025 Telephone [facility] Nuclear Medicine [address] 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 No 2024 Housing Stability Answer [...] on file Sexual Orientation Not on file documented as of this encounter Miscellaneous Notes * Telephone Encounter - Omaira Bland RN - 01/04/2025 10:41 AM CDT The following will need to be addressed prior to this test: No caffeine products for 12 hours including: soda, coffee, tea, chocolate, decaffeinated products, energy drinks, and migraine medicines. 2. Nothing by mouth for 4 hours prior to test. 3. Troponin Tests completed prior to arrival 4. Will be here for test around 1.5 hours. 5. Meds to hold: Isosorbid or Beta Blockers 6. How do they transfer? 7. What will they need?: O2, IV fluids, Pain meds prior to test? If needed administer prior to transporting patient to [facility] for this test. 8. Is the patient able to lift their arms over their head for at least 30 minutes? 9. Is the patient able to be in a CT scanner for 30 minutes without needing anxiety medications? Ifneeded administer prior to arrival to this unit. Call back number [phone] Location: [facility] documented in this encounter Plan of Treatment Not on file documented as of this encounter Visit Diagnoses Not on filedocumented in this encounter
--- OUTSIDE RECORDS SUMMARY | 2025-04-03 20:07 | XMS_ITS | Encounter Summary ---
Author Organization [employer] Address 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 No 2024 Housing Stability Answer [...] on file documented as of this encounter Plan of Treatment Not on file documented as of this encounter Visit Diagnoses Not on filedocumented in this encounter
--- NOTE | 2025-04-03 20:31 | USR_ITS ---
PROCEDURE INFORMATION: Exam: US Duplex Lower Extremity Veins, Bilateral Exam date and time: 04/03/2025 10:51 PM Age: 54 years old Clinical indication: Pain; Leg, upper and leg, lower; Bilateral; Additional info: Ble pain swelling HX of dvt TECHNIQUE: Imaging protocol: Real-time duplex ultrasound of the bilateral extremities with 2-D harkins scale, color Doppler flow and spectral waveform analysis including responses to compression and other maneuvers (when performed) with image documentation. Complete exam focused on the lower extremity veins. COMPARISON: No relevant prior studies available. FINDINGS: Right deep veins: Unremarkable. The common femoral, femoral, proximal profunda femoral and popliteal veins are patent without thrombus. Normal Doppler waveforms. Normal compressibility and/or augmentation response. Left deep veins: Unremarkable. The common femoral, femoral, proximal profunda femoral and popliteal veins are patent without thrombus. Normal Doppler waveforms. Normal compressibility and/or augmentation response. Superficial veins: Greater saphenous veins at the saphenofemoral junctions are patent bilaterally without thrombus. Soft tissues: Mild soft tissue edema of the bilateral lower extremities, [id number]. US/[place] [id number] IMPRESSION: 1. No evidence of deep vein thrombosis. 2. Mild soft tissue edema of the bilateral lower extremities.
[2025-04-03 22:26] VITALS: BP 129/83; PULSE 73; RESP 17; TEMP 36.7; O2SAT 94
[2025-04-03 22:47] VITALS: BP 142/103; PULSE 78; RESP 21; O2SAT 97
--- NOTE | 2025-04-03 22:50 | CTR_ITS ---
PROCEDURE INFORMATION: Exam: CTA Chest With Contrast Exam date and time: 04/03/2025 11:24 PM Age: 54 years old Clinical indication: Abdominal pain; Shortness of breath; Chest pressure; Prior surgery; Surgery date: 6+ months; Surgery type: RT lumpectomy. Tubal ligation; Chest and epigastric pain with SOB and hypoxia. History of chf. ; Additional info: SOB, cp, abd pain TECHNIQUE: Imaging protocol: Computed tomographic angiography of the chest with contrast. Exam focused on the arteries. 3D rendering (Not supervised by radiologist): MIP and/or 3D reconstructed images were created by the technologist. Radiation optimization: All CT scans at this facility use at least one of these dose optimization techniques: automated exposure control; mA and/or kV adjustment per patient size (includes targeted exams where dose is matched to clinical indication); or iterative reconstruction. Contrast material: OMNI 350; Contrast volume: 100 ml; Contrast route: INTRAVENOUS (IV); COMPARISON: CT angio chest PE protcl [id number] 01/27/2025 1:44 PM RADIATION DOSE METRICS: Total DLP (mGy-cm): 1205.77 FINDINGS: Pulmonary arteries: A 4.1 cm dilated main pulmonary artery. No acute pulmonary embolus is identified. Aorta: Unremarkable. No aortic aneurysm. No aortic dissection. Trachea: Geographic lucencies in both lungs, which may represent sequela of air trapping and small airways disease. Lungs: Lingular atelectasis is noted. Pleural spaces: Unremarkable. No pneumothorax. No pleural effusion. Heart: Moderate/severe cardiomegaly is present. No pericardial effusion. Contrast reflux in the IVC and hepatic veins , which can be seen with elevated right heart pressures. Coronary arteries: Mild coronary atherosclerosis is present. Lymph nodes: Unremarkable. No enlarged lymph nodes. Bones/joints: Unremarkable. No acute fracture. Soft tissues: Unremarkable. PROCEDURE INFORMATION: Exam: CT Abdomen And Pelvis With Contrast Exam date and time: 04/03/2025 11:24 PM Age: 54 years old Clinical indication: Abdominal pain; Shortness of breath; Chest pressure; Prior surgery; Surgery date: 6+ months; Surgery type: RT lumpectomy. Tubal ligation; Chest and epigastric pain with SOB and hypoxia. History of chf. ; Additional info: SOB, cp, abd pain TECHNIQUE: Imaging protocol: Computed tomography of the abdomen and pelvis with contrast. Radiation optimization: All CT scans at this facility use at least one of these dose optimization techniques: automated exposure control; mA and/or kV adjustment per patient size (includes targeted exams where dose is matched to clinical indication); or iterative reconstruction. Contrast material: OMNI 350; Contrast volume: 100 ml; Contrast route: INTRAVENOUS (IV); COMPARISON: CT angio chest PE protcl [id number] 01/27/2025 1:44 PM RADIATION DOSE METRICS: Total DLP (mGy-cm): 1205.77 FINDINGS: Esophagus: The imaged esophagus is within normal limits. Liver: Scattered subcentimeter hypoattenuating observations throughout the liver are too small to accurately characterize. In the absence of underlying hepatic parenchymal pathology/known malignancy, these findings are favored to represent a benign entity such as cysts or hemangiomas. Additional 1.2 cm segment 5/6 hypoattenuating observation is indeterminate by imaging characteristics. Gallbladder and biliary ducts: The gallbladder is contracted and poorly characterized. No cholelithiasis noted. No intra or extrahepatic bile duct dilatation is noted. Pancreas: Normal. No ductal dilation. Spleen: Parenchymal calcifications are seen throughout the spleen, likely reflecting prior granulomatous changes. The spleen is otherwise normal. Adrenal glands: Normal. No mass. Kidneys and ureters: Excreted contrast is noted in the bilateral renal collecting systems. The kidneys are otherwise normal. Stomach and bowel: The stomach is within normal limits. A 7 mm linear hyperdensity in the cecum may represent ingested materials versus prior endoscopy clip. Correlate with patient history. Otherwise, the large and small bowel are normal in course and caliber without evidence of wall thickening or obstruction. Appendix: No evidence of appendicitis. Intraperitoneal space: Small volume ascites. Vasculature: Mild atherosclerosis of the aorta and its major branching vessels is noted. Lymph nodes: No abdominal lymphadenopathy is noted. Urinary bladder: Unremarkable as visualized. Reproductive: Unremarkable as visualized. Bones/joints: Unremarkable. No acute fracture. Soft tissues: A fat containing umbilical hernia is present. Soft tissue anasarca. CT/CT angio chest w abd pel w con IMPRESSION: 1. No acute pulmonary embolus or evidence of acute right heart strain. 2. Dilated pulmonary artery, which can be seen in the setting of pulmonary hypertension. 3. Moderate/severe cardiomegaly. Correlate with cardiac history/function. 4. Findings which can be seen with elevated right heart pressures. 5. Geographic lucencies in both lungs, which may represent sequela of air trapping and small airways disease. Given mild interlobular septal thickening, superimposed pulmonary vascular congestion is not excluded. IMPRESSION: 1. Indeterminate hepatic observation as above, favored to represent a benign entity such as hemangioma or cyst in the absence of hepatic parenchymal pathology. However, given provided history of lumpectomy, definitive characterization with multiphase CT/MRI could be obtained if clinically indicated. 2. A 7 mm linear hyperdensity in the cecum may represent ingested materials versus prior endoscopy clip. Correlate with patient history. 3. Small volume ascites and soft tissue anasarca, which may be food service sales representatives of third-spacing. 4. Otherwise, no acute process in the abdomen or pelvis to explain the patient's symptoms.
[2025-04-03 23:02] LABS: Glucose Urine UA Negative (Normal); Nitrate Urine Negative (Negative); Specific Gravity, Urine 1.018 (1.005-1.030)
[2025-04-03 23:07] LABS: Add Urine Microscopic? YES
[2025-04-03 23:12] VITALS: BP 144/100; PULSE 75; RESP 16; O2SAT 96
[2025-04-03 23:17] LABS: Hematocrit 34.5 % (36-47); Hemoglobin 10.50 g/dL (11.27-16.99); Mean Corpuscular HGB Conc 30.4 g/dL (30-55); Mean Corpuscular Hemoglobin 27.8 pg (27-33); Mean Corpuscular Volume 91.3 fl (85-98); Nucleated Red Blood Cells % 0 %; Platelet Count 248 10^3/cmm (157-399); Red Blood Count 3.78 10^6/uL (3.85-5.65); White Blood Count 4.86 10^3/uL (3.29-11.43)
--- NOTE | 2025-04-03 23:17 | ECG_ITS ---
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 Measurements Intervals [place] Rate: 74 P: 31 SC: 193 QRS: -43 QRSD: 172 T: 106 QT: 490 QTc: 545 Interpretive Statements SINUS RHYTHM WITH FREQUENT SUPRAVENTRICULAR PREMATURE COMPLEXES LEFT AXIS DEVIATION [QRS AXIS < -30] LEFT BUNDLE BRANCH BLOCK [120+ ms QRS DURATION, 80+ ms Q/S IN V1/V2, 85+ ms R IN I/aVL/V5/V6] Compared to ECG 01/28/2025 11:25:34 Left bundle-branch block now present Intraventricular conduction delay no longer present Electronically Signed On 04-04-2025 20:15:28 BALLISTIC TECHNICIAN by Susanna Scott M.D. [email or web address]
[2025-04-03] MEDS: iohexol 350 mg/mL 500 mL Btl (per mL) IV (23:25)
[2025-04-03 23:28] LABS: INR 2.37 (0.8-1.2); Prothrombin Time 27.30 SECONDS (12.1-14.9)
[2025-04-03 23:29] LABS: Partial Thromboplastin Time 32.1 SECONDS (23.9-36.7)
[2025-04-03 23:38] LABS: Lactic Sepsis W/Reflex 0.9 mmol/L (0.5-2.2)
[2025-04-03 23:41] LABS: Troponin(5th) Baseline 26 ng/L (0-10)
[2025-04-03 23:48] LABS: Alanine Aminotransferase 13 U/L (0-33); Albumin Level 3.8 g/dL (3.5-5.2); Alkaline Phosphatase 53 U/L (35-105); Blood Urea Nitrogen 30 mg/dL (6-20); Calcium 8.8 mg/dL (8.5-10.5); Carbon Dioxide 23 mmol/L (22-29); Chloride 107 mmol/L (98-107); Globulin 2.1 g/dL (1.3-4.6); Glucose 94 mg/dL (65-115); Magnesium 2.1 mg/dL (1.7-2.3); NT Pro B Type Natriuretic Pept 19889 pg/mL (0-125); Osmolality Calculated 298 mOsm/kg (285-295); Sodium 141 mmol/L (136-145); Total Protein 5.9 g/dL (6.6-8.7)
[2025-04-03 23:50] VITALS: BP 130/91; PULSE 82; RESP 21; O2SAT 87
[2025-04-03 23:56] LABS: Anion Gap 15.0 (5-19); Aspartate Amino Transferase 24 U/L (0-32); Potassium 4.0 mmol/L (3.5-5.1)
[2025-04-04] VITALS (14 sets, daily range): BP systolic 110–144; BP diastolic 70–105; PULSE 64–83; RESP 14–24; TEMP 36.4–36.8; O2SAT 91–98; BMI 31.1
[2025-04-04 00:17] LABS: ABG PCO2 41.1 mmHg (35-45); ABG PH Result 7.37 (7.35-7.45); Arterial Blood Gas Hematocrit 34.2 % (37-47); Blood Gas Allen Test Pos; Blood Gas LPM 5.0 %; Blood Gas Operator Identificat gerca; Blood Gas Sample Site Radial, left; Blood Gas Sample Type Arterial; HCO3 ABG 24.0 mmol/L (22-26); PO2 ABG 98.5 mmHg (80.0-100.0); PO2 FiO2 Ratio Arterial Blood 246
[2025-04-04 01:03] LABS: Coronavirus 229E,HKU1,NL63,OC4 Not Detected (NOT DETECT); Parainfluenza Virus Type 1 Not Detected (NOT DETECT); Parainfluenza Virus Type 2 Not Detected (NOT DETECT); Parainfluenza Virus Type 3 Not Detected (NOT DETECT); Parainfluenza Virus Type 4 Not Detected (NOT DETECT); SARS-COV-2 Not Detected (NOT DETECT)
[2025-04-04 01:11] LABS: Troponin 5 2HR 25.35 ng/L (0-10)
[2025-04-04 01:12] LABS: Troponin 5 2HR Delta -0.65 ABS# (0-10)
[2025-04-04] MEDS: nitroglycerin 1 gm/inch oint Pkt 1 INCH TOPICAL (01:25)
[2025-04-04] MEDS: FUROsemide 10 mg/mL SDV 10mL 80 MG IVP (01:25)
--- NOTE | 2025-04-04 02:13 | W.ED.EXTPRO ---
HPI - Extremity Problem General: Chief complaint: Extremity Problem,Nontraumatic Stated complaint: Weakness in the legs and abd pain Time Seen by Provider: 04/03/25 22:06 History of Present Illness: Patient is a 54-year-old female presenting with bilateral leg pain and weakness. She reports difficulty walking and states her legs don't want to do what they're supposed to. She has a history of blood clots and is currently on anticoagulation therapy, though she is uncertain how long she has been on blood thinners (estimates years). Patient also reports intermittent chest discomfort and shortness of breath. She has recently discovered lumps on the left side under her rib cage and in her left chest area, which she states are new findings. She was scheduled for a mammogram and ultrasound for evaluation of these lumps but has not yet had these studies completed. Patient reports concerning symptoms including hemoptysis and hematuria, which she describes as not a lot, but enough to scare me. She also mentions a new-onset headache primarily located in the frontal region that started today. Patient identifies Dr. Azar as her primary care physician. Related Data Home Medications ?Medication ?Instructions ?Recorded ?Confirmed fexofenadine 180 mg tablet 180 mg PO DAILY PRN allergies 08/07/24 04/04/25 (Kelsie Allergy) apixaban 5 mg tablet (Eliquis) 5 mg PO BID 04/04/25 04/04/25 Previous Rx's ?Medication ?Instructions ?Recorded aspirin 81 mg tablet,delayed 81 mg PO DAILY #90 tabs 02/25/25 release (Adult Low Dose Aspirin) carvedilol 3.125 mg tablet 3.125 mg PO BID 90 days #180 tabs 02/25/25 furosemide 40 mg tablet (Lasix) 40 mg PO QAM #90 tabs 02/25/25 potassium chloride 10 mEq 10 meq PO DAILY #90 tabs 02/25/25 tablet,extended release (Klor-Con) sacubitril 24 mg-valsartan 26 mg 1 tab PO BID 90 days #180 tabs 02/25/25 tablet (Entresto) Allergies Allergy/AdvReac Type Severity Reaction Status Date / Time hollis pepper Allergy Mild ALGY-Hives Verified 03/29/25 14:13 acetaminophen Allergy ALGY-Anaphy Verified 03/29/25 14:13 laxis black pepper Allergy ADR-Itching Verified 03/29/25 14:13 mushroom Allergy Unknown Verified 03/29/25 14:13 tomato Allergy ALGY-Rash Verified 03/29/25 14:13 Review of Systems Narrative: Constitutional: Denies fever. Cardiovascular: Reports chest discomfort. History of heart condition. Respiratory: Reports shortness of breath and cough. Reports hemoptysis. Gastrointestinal: Reports abdominal tenderness in specific area upon examination. Genitourinary: Reports hematuria. Musculoskeletal: Reports bilateral leg pain and weakness with difficulty walking. Neurological: Reports new-onset headache described as killing me in the frontal region, primarily today. Skin: Reports newly discovered lumps in left chest area and under rib cage. PFSH ED PFSH: Medical History Pulmonary embolism Nonischemic cardiomyopathy Obstructive sleep apnea Degenerative disc disease Bipolar 1 disorder History of lipoma two tumors removed from her back Arthritis History of blood clots Moderate pulmonary valve regurgitation Severe tricuspid valve regurgitation Moderate mitral valve regurgitation Moderate pulmonary hypertension Right ventricular failure Acute exacerbation of CHF (congestive heart failure) EF 23%, grade 2 diastolic dysfunction, moderate MR, severe TR, moderate ME, biatrial enlargement, moderate pulmonary hypertension Open fracture of great toe of right foot Surgical History History of lumpectomy of right breast History of bilateral tubal ligation History of cardiac catheterization Family History Grandmother Cancer Paternal-breast Other CAD (coronary artery disease) Diabetes Hyperlipidemia Hypertension Denies family history of Clotting disorder Dementia Psychiatric illness Chronic kidney disease (CKD) Anesthesia complication Bleeding disorder Lung disease Stroke Social History Smoking and tobacco/nicotine status: never used tobacco/nicotine Alcohol intake: never Substance/Drug Use: never Lives independently: Yes Marital status: Legally Number of children: 2 Current occupational status: disabled Special fahad needs: No Agree to transfusion: Yes Physical Exam Const: GENERAL APPEARANCE: cooperative and ill appearing; not frail appearing ORIENTATION/CONSCIOUSNESS: Yes awake HENMT: COMMON NORMALS: normocephalic, atraumatic and Normal external nose present HEAD & SCALP: normocephalic and atraumatic FACE & SINUS: normal facial exam and face symmetric NOSE: Normal external nose present Eye: COMMON NORMALS: Equal, round and reactive pupils present and EOMs intact bilaterally PUPIL: Yes Equal, round and reactive pupils present Neck/C-Spine: GENERAL: Yes trachea midline Chest: CHEST: Yes Symmetrical chest wall rise Resp: COMMON NORMALS: clear to auscultation bilaterally EFFORT & INSPECTION: Yes tachypneic and Yes labored AUSCULTATION: clear to auscultation bilaterally Cardio: COMMON NORMALS: regular rate and regular rhythm RATE: regular rate RHYTHM: regular rhythm GI: COMMON NORMALS: Normal to inspection, nondistended, normoactive bowel sounds present Neuro: SRIRAM COMA SCALE: document GCS findings Cordova coma scale eye opening: Spontaneous Cordova coma scale verbal response: Orientated Sriram coma scale motor response: Obey commands Cordova coma scale total score: 15 SENSORY EXAM: Yes extremities (intact) Psych: COMMON NORMALS: speech normal SPEECH: Yes normal speech Skin: COMMON NORMALS: no rashes or lesions noted GENERAL SKIN EXAM: no rashes or lesions noted Course Vital Signs: Vital signs: Vital Signs Temperature 98.2 F 04/04/25 08:00 Pulse Rate 64 04/04/25 12:00 Respiratory Rate 18 04/04/25 16:05 Blood Pressure 110/70 04/04/25 12:00 Pulse Oximetry 98 04/04/25 12:00 Oxygen Delivery Me thod Room Air, Nasal C annula 04/04/25 02:50 Oxygen Flow Rate 6 04/04/25 00:14 MDM - Extremity (Nontraumatic) Medical Decision Making 54-year-old female with history of pulmonary hypertension heart failure. She presents with leg swelling and weakness, increasing shortness of breath. She is not on oxygen at home. She is on 6 L currently. Her CBC is not remarkable. [place] [address]. She has some hematuria, otherwise urinalysis is not remarkable. Respiratory swab is negative. CRP is only 4.8. 2h Delta troponin is < -1 . Lactic Acid is 0.9. CTA of the chest reveals no pulmonary embolus. She is on Eliquis. She has a dilated pulmonary artery, cardiomegaly, findings of pulmonary hypertension and right heart failure. She has some pulmonary edema. CT of the belly is not acute. With her oxygen deficit, she will be admitted. She was given Lasix, nitro paste. Hospitalist agrees and he will see the patient. Lab Data 04/04/25 05:15 04/03/25 23:11 Radiology Impressions Venous Duplex 04/03/25 20:31 IMPRESSION: 1. No evidence of deep vein thrombosis. 2. Mild soft tissue edema of the bilateral lower extremities. Chest/Abdomen/Pelvis CT 04/03/25 22:50 IMPRESSION: 1. No acute pulmonary embolus or evidence of acute right heart strain. 2. Dilated pulmonary artery, which can be seen in the setting of pulmonary hypertension. 3. Moderate/severe cardiomegaly. Correlate with cardiac history/function. 4. Findings which can be seen with elevated right heart pressures. 5. Geographic lucencies in both lungs, which may represent sequela of air trapping and small airways disease. Given mild interlobular septal thickening, superimposed pulmonary vascular congestion is not excluded. IMPRESSION: 1. Indeterminate hepatic observation as above, favored to represent a benign entity such as hemangioma or cyst in the absence of hepatic parenchymal pathology. However, given provided history of lumpectomy, definitive characterization with multiphase CT/MRI could be obtained if clinically indicated. 2. A 7 mm linear hyperdensity in the cecum may represent ingested materials versus prior endoscopy clip. Correlate with patient history. 3. Small volume ascites and soft tissue anasarca, which may be leather goods sales representative of third-spacing. 4. Otherwise, no acute process in the abdomen or pelvis to explain the patient's symptoms. Chest X-Ray 04/04/25 05:43 IMPRESSION: 1. Cardiomegaly with mild interstitial and airspace opacities which may represent mild pulmonary edema. 2. Left perihilar opacities could represent atelectasis, edema, and/or infiltrate. Laboratory Results WBC 4.86 10^3/uL (3.29-11.43) 04/03/25 23:11 RBC 3.78 10^6/uL (3.85-5.65) L 04/03/25 23:11 Hgb 10.50 g/dL (11.27-16.99) L 04/03/25 23:11 Hct 34.5 % (36-47) L 04/03/25 23:11 MCV 91.3 fl (85-98) 04/03/25 23:11 MCH 27.8 pg (27-33) 04/03/25 23:11 MCHC 30.4 g/dL (30-55) 04/03/25 23:11 RDW 21.1 % (12.1-15.1) H 04/03/25 23:11 Plt Count 248 10^3/cmm (157-399) 04/03/25 23:11 MPV 8.6 fL (7.4-10.4) 04/03/25 23:11 Neut % (Auto) 64.9 % 04/03/25 23:11 Lymph % (Auto) 23.9 % 04/03/25 23:11 Kimble % (Auto) 8.8 % 04/03/25 23:11 Eos % (Auto) 1.4 % 04/03/25 23:11 Baso % (Auto) 1.0 % 04/03/25 23:11 Neut # (Auto) 3.15 10^3/uL (1.8-7.7) 04/03/25 23:11 Lymph # (Auto) 1.2 10^3/uL (0.8-4.8) 04/03/25 23:11 Kimble # (Auto) 0.4 10^3/uL (0.2-0.9) 04/03/25 23:11 Eos # (Auto) 0.1 10^3/uL (0.0-0.8) 04/03/25 23:11 Baso # (Auto) 0.1 10^3/uL (0.0-0.1) 04/03/25 23:11 Nucleated RBC % (auto) 0 % 04/03/25 23:11 Nucleated RBCs # 0.0 /100WBC 04/03/25 23:11 PT 27.30 SECONDS (12.1-14.9) H 04/03/25 23:11 INR 2.37 (0.8-1.2) H 04/03/25 23:11 APTT 32.1 SECONDS (23.9-36.7) 04/03/25 23:11 Specimen Type Arterial 04/03/25 00:04 Sample Site Radial, left 04/03/25 00:04 ABG pH 7.37 (7.35-7.45) 04/03/25 00:04 ABG pCO2 41.1 mmHg (35-45) 04/03/25 00:04 ABG pO2 98.5 mmHg (80.0-100.0) 04/03/25 00:04 ABG PO2/FiO2 Ratio 246 04/03/25 00:04 ABG HCO3 24.0 mmol/L (22-26) 04/03/25 00:04 ABG Base Excess -1.2 mmol/L (-2.0-2.0) 04/03/25 00:04 Russ Test Pos 04/03/25 00:04 Hematocrit 34.2 % (37-47) L 04/03/25 00:04 O2 Delivery Device Nc 04/03/25 00:04 O2 Liters/Min 5.0 % 04/03/25 00:04 FiO2 40.0 % 04/03/25 00:04 Draw Bench Operator ID [email or web address] 04/03/25 00:04 Sodium 141 mmol/L (136-145) 04/03/25 23:11 Potassium 4.0 mmol/L (3.5-5.1) 04/03/25 23:11 Chloride 107 mmol/L (98-107) 04/03/25 23:11 Carbon Dioxide 23 mmol/L (22-29) 04/03/25 23:11 Anion Gap 15.0 (5-19) 04/03/25 23:11 BUN 30 mg/dL (6-20) H 04/03/25 23:11 Creatinine 0.9 mg/dL (0.5-0.9) 04/03/25 23:11 GFR Calculation 65.5 mL/min (90-130) L 04/03/25 23:11 Glucose 94 mg/dL (65-115) 04/03/25 23:11 Calculated Osmolality 298 mOsm/kg (285-295) H 04/03/25 23:11 Lactic Acid 0.9 mmol/L (0.5-2.2) 04/03/25 23:11 Calcium 8.8 mg/dL (8.5-10.5) 04/03/25 23:11 Magnesium 2.1 mg/dL (1.7-2.3) 04/03/25 23:11 Total Bilirubin 1.0 mg/dL (0.15-1.2) 04/03/25 23:11 AST 24 U/L (0-32) 04/03/25 23:11 ALT 13 U/L (0-33) 04/03/25 23:11 Alkaline Phosphatase 53 U/L (35-105) 04/03/25 23:11 Troponin T Baseline 26 ng/L (0-10) H 04/03/25 23:11 Troponin T 120 Minute 25.35 ng/L (0-10) H 04/04/25 00:43 Delta Troponin T -0.65 ABS# (0-10) L 04/04/25 00:43 C-Reactive Protein 4.8 mg/L (0.0-4.9) 04/03/25 23:11 NT-Pro-B Natriuret Pep 92019 pg/mL (0-125) H 04/03/25 23:11 Total Protein 5.9 g/dL (6.6-8.7) L 04/03/25 23:11 Albumin 3.8 g/dL (3.5-5.2) 04/03/25 23:11 Globulin 2.1 g/dL (1.3-4.6) 04/03/25 23:11 Urine Color Yellow (Yellow) 04/03/25 22:00 Urine Appearance Clear (CLEAR) 04/03/25 22:00 Urine pH 5.0 (5-7) 04/03/25 22:00 Ur Specific [place] 1.018 (1.005-1.030) 04/03/25 22:00 Urine Protein 1+ (Negative) A 04/03/25 22:00 Urine Glucose (UA) Negative (Normal) 04/03/25 22:00 Urine Ketones Negative (Negative) 04/03/25 22:00 Urine Blood 2+ (Negative) A 04/03/25 22:00 Urine Nitrate Negative (Negative) 04/03/25 22:00 Urine Bilirubin Negative (Negative) 04/03/25 22:00 Urine Urobilinogen 1.0 mg/dL (Negative) 04/03/25 22:00 Ur Leukocyte Esterase Negative (Negative) 04/03/25 22:00 Urine RBC 0-2 /hpf (0-2) 04/03/25 22:00 Urine WBC 0-5 /hpf (0-5) 04/03/25 22:00 Ur Squamous Epith Cells 0-5 /hpf (0-5) 04/03/25 22:00 Amorphous Sediment Not Reportable 04/03/25 22:00 Urine Bacteria None seen /hpf (NONE) 04/03/25 22:00 Hyaline Casts 7.01 /lpf 04/03/25 22:00 Adenovirus (PCR) Not detected (NOT DETECT) 04/03/25 23:11 C. pneumoniae DNA (PCR) Not detected (NOT DETECT) 04/03/25 23:11 Coronavirus 229E (PCR) Not detected (NOT DETECT) 04/03/25 23:11 Human Metapneumovir PCR Not detected (NOT DETECT) 04/03/25 23:11 Influenza A (H1) PCR Not detected (NOT DETECT) 04/03/25 23:11 Influ A (H1/09) PCR Not detected (NOT DETECT) 04/03/25 23:11 Influenza A (H3) PCR Not detected (NOT DETECT) 04/03/25 23:11 Influenza Type A (PCR) Not detected (NOT DETECT) 04/03/25 23:11 Influenza Type B (PCR) Not detected (NOT DETECT) 04/03/25 23:11 M. pneumoniae (PCR) Not detected (NOT DETECT) 04/03/25 23:11 Parainfluenza 1 (PCR) Not detected (NOT DETECT) 04/03/25 23:11 Parainfluenza 2 (PCR) Not detected (NOT DETECT) 04/03/25 23:11 Parainfluenza 3 (PCR) Not detected (NOT DETECT) 04/03/25 23:11 Parainfluenza 4 (PCR) Not detected (NOT DETECT) 04/03/25 23:11 RSV Type A (PCR) Not detected (NOT DETECT) 04/03/25 23:11 RSV Type B (PCR) Not detected (NOT DETECT) 04/03/25 23:11 Entero/Rhino (PCR) Not detected (NOT DETECT) 04/03/25 23:11 SARS-CoV-2 (PCR) Not detected (NOT DETECT) 04/03/25 23:11 All radiology interpretation(s) finalized by discharge Discharge Plan Discharge Patient Disposition: Admitted As Inpatient Admit Provider: Samir Roland Clinical Impression: Acute exacerbation of CHF (congestive heart failure), Acute hypoxic respiratory failure Condition: Stable Coding Level of Care Code ED Scrap Carrier for Chg Sravanthi
[2025-04-04] MEDS: oxyCODONE 5 mg IR Tab/Cap PO ×3 (03:21→16:05)
--- NOTE | 2025-04-04 03:22 | USCV_ITS ---
Tracy Madina Age: 54 Gender: F : 1970 Exam Date: 04/04/2025 09:04 Ordering Phys: Samir Roland MD Technologist: CELESTE Exam Location: [facility] – [place] Indication: chf BP: 125 / 82 HR: 60 Rhythm: Sinus Technical Quality: Adequate MEASUREMENTS (Male / Female) Normal Values 2D ECHO LV Diastolic Diameter PLAX 5.7 cm 4.2 - 5.9 / 3.9 - 5.3 cm IVS Diastolic Thickness 1.4 cm 0.6 - 1.0 / 0.6 - 0.9 cm IVS Systolic Thickness 1.0 cm LVPW Diastolic Thickness 1.0 cm 0.6 - 1.0 / 0.6 - 0.9 cm LVPW Systolic Thickness 1.8 cm LVOT Diameter 2.0 cm LV Ejection Fraction 2D Teich 11.8 % LV Ejection Fraction MOD 4C 12.2 % LV Ejection Fraction MOD 2C 12.5 % LV Ejection Fraction 2C AL 10.9 % LA Diameter 4.6 cm RA Systolic Volume 4C AL 93.2 ml RA Systolic Volume 4C MOD 90.6 ml LA Sys Volume AL 111.0 cm cubed LA Sys Volume Index AL 56.8 cm cubed/m squared Aorta at Sinotubular Diameter 2.1 cm IVC Diameter 2.0 cm M-MODE LA Ao Ratio MM 1.9 AV Cusp Separation MM 1.8 cm DOPPLER AV Peak Velocity 149.0 cm/s LVOT Peak Velocity 109.0 cm/s AV Area Cont Eq vti 2.4 cm squared AV Area Cont Eq pk 2.4 cm squared MV Peak Velocity 80.0 cm/s MV Area PHT 6.4 cm squared Mitral E to A Ratio 0.8 TV Peak Velocity 302.0 cm/s TR Peak Velocity 306.0 cm/s TR Peak Gradient 37.5 mmHg TR Mean Velocity 225.0 cm/s TR Mean Gradient 22.7 mmHg TR Velocity Time Integral 105.8 cm PV Peak Velocity 154.7 cm/s RV Ejection Time 0.3 s FINDINGS Left Ventricle Moderately increased left ventricular cavity size. Severe diffuse hypokinesis of the left ventricle with somewhat dyskinetic interventricular septum. LV ejection fraction of 12.5 % Right Ventricle Mildly increased right ventricular size. Mildly decreased right ventricular systolic function. Right Atrium Severely increased right atrial size. Left Atrium Severely increased left atrial volume 56.8 ml/m squared. IA Septum Appears to be intact Mitral Valve Thickened mitral valve. Trace to mild mitral valve regurgitation. Aortic Valve Trace aortic valve regurgitation. Tricuspid Valve Lxbvsjim-aj-iqdbrm tricuspid valve regurgitation. Estimated pulmonary artery peak systolic pressure 41 mmHg Pulmonic Valve Enyc-oc-nqnodagj pulmonary valve regurgitation. Pericardium No pericardial effusion. Aorta Normal aorta size at the level of the sinus of valsalva. IVC Normal inferior vena cava. CONCLUSIONS Moderately increased left ventricular cavity size. Severe diffuse hypokinesis of the left ventricle with somewhat dyskinetic interventricular septum. LV ejection fraction of 12.5 %. Severely increased right atrial size. Severely increased left atrial volume 56.8 ml/m squared. Thickened mitral valve. Trace to mild mitral valve regurgitation. Trace aortic valve regurgitation. Pnilfphi-lp-wbjwty tricuspid valve regurgitation. Estimated pulmonary artery peak systolic pressure 41 mmHg Rilc-sz-ofodspdl pulmonary valve regurgitation. There is no pericardial effusion. There are no intracardiac masses. Compared to the study from 08/08/2024 there is some worsening of the LV systolic function Dr Susanna Scott MD FAC (Electronically Signed) Final Date: 04 April 2025 10:24 S
--- NOTE | 2025-04-04 03:23 | PM.HP ---
Providers/Chief Complaint Admitting Physician: Samir Roland MD Primary Care Provider: Brian Baez MD Chief Complaint: Weakness in the legs and abd pain History of Present Illness As per the previous notes and the patient Madina Molina is a 54 year old female with past medical history of no ischemic cardiomyopathy and heart failure with reduced ejection fraction of around 20%, pulmonary embolism without cor pulmonale, moderate pulmonary hypertension, came with shortness of breath associated with fatigability and tiredness. She also reported recent increase in her lower leg swellings with mild orthopnea and PND. There is associated increase in her wt around 10 pounds over a week. There was no reported fever chills, abdominal pain diarrhea or any chest pain or chest pressure. Patient is compliant with her medication. Has been recently discharged due to acute on chronic congestive heart failure. The patient is not on home O2 and was requiring 2 to 3 L in the ER for her saturation to be around 90% and above. Rest of the review of system unremarkable Review of Systems General: Reports: 10 or more systems reviewed and unremarkable except in HPI and below Medications/Allergies Home Medications ?Medication ?Instructions ?Recorded ?Confirmed ?Last Taken ?Type fexofenadine 180 mg tablet 180 mg PO DAILY PRN allergies 08/07/24 04/04/25 Unknown History (Kelsie Allergy) aspirin 81 mg tablet,delayed 81 mg PO DAILY #90 tabs 02/25/25 04/04/25 Unknown Rx release (Adult Low Dose Aspirin) carvedilol 3.125 mg tablet 3.125 mg PO BID 90 days #180 tabs 02/25/25 04/04/25 Unknown Rx furosemide 40 mg tablet (Lasix) 40 mg PO QAM #90 tabs 02/25/25 04/04/25 Unknown Rx potassium chloride 10 mEq 10 meq PO DAILY #90 tabs 02/25/25 04/04/25 Unknown Rx tablet,extended release (Klor-Con) sacubitril 24 mg-valsartan 26 mg 1 tab PO BID 90 days #180 tabs 02/25/25 04/04/25 Unknown Rx tablet (Entresto) apixaban 5 mg tablet (Eliquis) 5 mg PO BID 04/04/25 04/04/25 Unknown History Allergies Allergy/AdvReac Type Severity Reaction Status Date / Time hollis pepper Allergy Mild ALGY-Hives Verified 03/29/25 14:13 acetaminophen Allergy ALGY-Anaphy Verified 03/29/25 14:13 laxis black pepper Allergy ADR-Itching Verified 03/29/25 14:13 mushroom Allergy Unknown Verified 03/29/25 14:13 tomato Allergy ALGY-Rash Verified 03/29/25 14:13 PFSH Acute PFSH: Medical History (Updated 04/04/25 @ 03:25 by Samir Roland MD) Pulmonary embolism Nonischemic cardiomyopathy Obstructive sleep apnea Degenerative disc disease Bipolar 1 disorder History of lipoma two tumors removed from her back Arthritis History of blood clots Moderate pulmonary valve regurgitation Severe tricuspid valve regurgitation Moderate mitral valve regurgitation Moderate pulmonary hypertension Right ventricular failure Acute exacerbation of CHF (congestive heart failure) EF 23%, grade 2 diastolic dysfunction, moderate MR, severe TR, moderate DC, biatrial enlargement, moderate pulmonary hypertension Open fracture of great toe of right foot Surgical History History of lumpectomy of right breast History of bilateral tubal ligation History of cardiac catheterization Family History Grandmother Cancer Paternal-breast Other CAD (coronary artery disease) Diabetes Hyperlipidemia Hypertension Denies family history of Clotting disorder Dementia Psychiatric illness Chronic kidney disease (CKD) Anesthesia complication Bleeding disorder Lung disease Stroke Social History Smoking and tobacco/nicotine status: never used tobacco/nicotine Alcohol intake: never Substance/Drug Use: never Lives independently: Yes Marital status: Legally Number of children: 2 Current occupational status: disabled Special fahad needs: No Agree to transfusion: Yes Vitals/I&O/Wt Last Vital Signs Temp 98.1 F 04/03/25 22:26 Pulse 83 04/04/25 02:31 Resp 24 H 04/04/25 03:21 BP 144/105 04/04/25 01:30 Pulse Ox 94 04/04/25 02:31 O2 Del Method Nasal Cannula 04/04/25 02:31 O2 Flow Rate 6 04/04/25 00:14 04/03/25 04/03/25 04/04/25 14:59 22:59 06:59 Intake Total 700 / 700 Output Total 500 / 500 Balance 200 / 200 Weight last 48 hrs Weight 82.282 kg Physical Exam Narrative: General: Alert and oriented, lying comfortably without any distress at 2-3L nc speaking in full sentences HEENT: Normocephalic, atraumatic, grossly unremarkable exam Cardio: missed beats on radial pulse, normal S1-S2 with gross ejection systolic murmur heard at the precordium, no rubs, or gallops. Respiratory: decrease air entry at the bases, patient has poor insp effort, cant comment on the crepts, however no wheezes or stridor heard. GI: Abdomen soft, mild tenderness at the epigastric region on deep palpation however no massess appreciated, normal bowel sounds Neuro: intact cranial nerves motor and sensory and cerebellar/coordination function without any focal neurological deficit Behavior: Appropriate and cooperative Extremities: Adequate palpable pulses, significant pedal edema Data 04/04/25 05:15 04/03/25 23:11 A&P Assessment and plan 1. Acute hypoxic respiratory failure: Likely related to acute exacerbation of chronic heart failure and having dilated pulmonary artery secondary to pulmonary hypertension, proBNP around 20,000 No leukocytosis, and C-reactive protein not raised Lasix 40 mg twice daily and dose to be tailored according to patient intake and output monitoring and daily weight analysis patient does not prefer folleys catheter. Reconcile and resume home medications for congestive heart failure, patient taking aspirin, carvedilol 3.125 mg twice daily, Entresto 24-26 twice daily Oxygen supplementation 2. Acute exacerbation of CHF (congestive heart failure): Repeat echo IV Lasix 40 mg twice daily Monitor and correction of electrolytes accordingly Intake and output monitoring Daily weight analysis Resume home medications including aspirin 81 mg daily, carvedilol 3.125 mg twice daily and Entresto twice daily Telemetry monitoring [place] not significantly raised TSH to follow-up can consider cardio input for GDMT patient not having any ICD ? 3. Pulmonary embolism: History of pulmonary embolism on Eliquis Resume 5 mg twice daily 4. Nonischemic cardiomyopathy: Continue aspirin and beta-blockers as mentioned above and rest of the congestive heart failure medications patient requires GDMT 5. Obstructive sleep apnea: Oxygen therapy/NIV as per protocol 6. Moderate pulmonary hypertension: Currently stable continue to monitor 7. Degenerative disc disease: Adequate analgesia to be provided based on pain scale PDMP PDMP Reviewed: Not Reviewed Attestations Medical Necessity Statement*: Patient will stay more than 2 midnights for the management of her acute on chronic congestive heart failure Coding Level of Care Code 31891 Diagnoses Acute hypoxic respiratory failure J96.01 Acute exacerbation of CHF (congestive heart failure) I50.9 Pulmonary embolism I26.99 Nonischemic cardiomyopathy I42.8 Obstructive sleep apnea G47.33 Moderate pulmonary hypertension I27.20 Degenerative disc disease
--- NOTE | 2025-04-04 04:51 | ECG_ITS ---
[employer] Test Date: 2025-04-04 Pat Name: Madina Molina Department: Room: 102 Gender: Female Dye Feeder: : 1970 Requested By: Joby Lang Order Number: [id number] Char MD: Susanna Scott M.D. Measurements Intervals [place] Rate: 73 P: 41 MD: 205 QRS: -42 QRSD: 174 T: 111 QT: 490 QTc: 543 Interpretive Statements SINUS RHYTHM WITH OCCASIONAL SUPRAVENTRICULAR PREMATURE COMPLEXES LEFT AXIS DEVIATION [QRS AXIS < -30] LEFT BUNDLE BRANCH BLOCK [120+ ms QRS DURATION, 80+ ms Q/S IN V1/V2, 85+ ms R IN I/aVL/V5/V6] Compared to ECG 04/03/2025 23:17:49 No significant changes Electronically Signed On 04-04-2025 20:19:15 CHEF SAUCIER by Susanna Scott M.D. [email or web address]
[2025-04-04 05:27] LABS: Hematocrit 36.4 % (36-47); Hemoglobin 10.90 g/dL (11.27-16.99); Mean Corpuscular HGB Conc 29.9 g/dL (30-55); Mean Corpuscular Hemoglobin 27.7 pg (27-33); Mean Corpuscular Volume 92.6 fl (85-98); Nucleated Red Blood Cells % 0 %; Platelet Count 235 10^3/cmm (157-399); Red Blood Count 3.93 10^6/uL (3.85-5.65); White Blood Count 4.92 10^3/uL (3.29-11.43)
--- NOTE | 2025-04-04 05:43 | XRR_ITS ---
PROCEDURE INFORMATION: Exam: XR Chest Exam date and time: 04/04/2025 9:44 AM Age: 54 years old Clinical indication: Shortness of breath; Prior surgery; Surgery date: 6+ months; Surgery type: RT lumpectomy; Additional info: Fluid retention; Chf; SOB TECHNIQUE: Imaging protocol: Radiologic exam of the chest. Views: 1 view. COMPARISON: CT angio chest w abd pel w con 04/03/2025 11:24 PM FINDINGS: Lungs: Mild interstitial and airspace opacities throughout the lungs bilaterally. Central pulmonary vascular congestion. Patchy left perihilar opacities. Pleural spaces: Unremarkable. No pleural effusion. No pneumothorax. Heart/Mediastinum: Marked cardiomegaly. Bones/joints: Rightward curvature of the thoracolumbar spine. XR/XR chest 1V portable [id number] IMPRESSION: 1. Cardiomegaly with mild interstitial and airspace opacities which may represent mild pulmonary edema. 2. Left perihilar opacities could represent atelectasis, edema, and/or infiltrate.
[2025-04-04 05:52] LABS: Troponin 5 6HR 24.93 ng/L (0-10)
[2025-04-04 05:55] LABS: Magnesium 2.0 mg/dL (1.7-2.3); Thyroid Stimulating Hormone 3.42 uIU/mL (0.27-4.20)
[2025-04-04 06:01] LABS: Troponin 5 6HR Delta -1.07 ng/L (0-12)
[2025-04-04] MEDS: FUROsemide 10 mg/mL SDV 4mL 40 MG IVP (16:04)
[2025-04-05] VITALS (9 sets, daily range): BP systolic 100–123; BP diastolic 65–82; PULSE 65–82; RESP 14–25; TEMP 36.4–37; O2SAT 91–98
[2025-04-05 03:12] LABS: Hematocrit 34.0 % (36-47); Hemoglobin 10.40 g/dL (11.27-16.99); Mean Corpuscular HGB Conc 30.6 g/dL (30-55); Mean Corpuscular Hemoglobin 28.3 pg (27-33); Mean Corpuscular Volume 92.4 fl (85-98); Nucleated Red Blood Cells % 0 %; Platelet Count 231 10^3/cmm (157-399); Red Blood Count 3.68 10^6/uL (3.85-5.65); White Blood Count 4.20 10^3/uL (3.29-11.43)
[2025-04-05 03:52] LABS: Alanine Aminotransferase 13 U/L (0-33); Albumin Level 3.5 g/dL (3.5-5.2); Alkaline Phosphatase 50 U/L (35-105); Anion Gap 13.7 (5-19); Aspartate Amino Transferase 18 U/L (0-32); Blood Urea Nitrogen 26 mg/dL (6-20); Calcium 8.7 mg/dL (8.5-10.5); Carbon Dioxide 31 mmol/L (22-29); Chloride 102 mmol/L (98-107); Creatinine Clr Calc Pharmacy 75.0145; Globulin 2.1 g/dL (1.3-4.6); Glucose 113 mg/dL (65-115); Osmolality Calculated 302 mOsm/kg (285-295); Potassium 3.7 mmol/L (3.5-5.1); Sodium 143 mmol/L (136-145); Total Protein 5.6 g/dL (6.6-8.7)
[2025-04-05] MEDS: FUROsemide 10 mg/mL SDV 4mL 40 MG IVP (05:00)
[2025-04-05] MEDS: oxyCODONE 5 mg IR Tab/Cap PO ×3 (06:21→22:39)
--- NOTE | 2025-04-05 08:58 | PC.CHAP ---
Pastoral Care Encounter/Spiritual Assessment Type of Contact [] Declined scuba instructor visit [] Patient/Family/Request visit [] Outpatient visit [] Follow-up visit [] Physician referral [] Code/Alert [x] Routine visit [] Staff referral [] Actively dying [] Patient sleeping [] Family support [] [] Out of room [] Palliative care [] [] Receiving care in room [] Pre-surgical visit [] Trauma [] Long length of stay [] ICU visit [] Other: Relational/Emotional Strength [] Patient feels connected with others/family/visitors/staff [] Distress [] Loneliness/isolation [] Abandonment Spirituality of Patient [x] Person of Anat [] Attends Mu-Ism of their Anat [x] Believes in Prayer [] Reads Bible or Restorationism materials [] There are Spiritual issues to be addressed [place] Interventions [x] Prayer [x] Active listening [] Non-anxious presence [] Spiritual/emotional support [] Crisis/trauma care [] Spiritual counseling [] Bereavement support [] Provided bereavement packet [x] Provided Bible/devotional materials [] Provided toy/stuffed animal, coloring book to patient or family member [] Provided Communion [] Anointing/[place] [] Salvation [x] Completed spiritual assessment [] Other: Impact on Illness or Injury [] Angry [] Fearful [] Anxious [] Often cries [] Exhaustion [] Unable to work [] Unable to attend druze [] Unable to walk/stand [] Unable to read [] Unable to drive [] Unable to eat/drink [] Unable to sleep [] Unable to be with family [] Patient intubated [] Other: Summary Time spent with patient 10 min
--- NOTE | 2025-04-05 09:06 | P.PN_ITS ---
Subjective 2 Subjective: No acute events overnight. Patient has remained hemodynamically stable and afebrile. Today morning seen sitting up in bed. States feeling a lot better. Denies any nausea, vomiting, headache. States prior to admission only thing which had changed was that she had nausea vomiting and diarrhea a week prior to her symptoms started. She is not able to keep an eye on how much liquid she drinks daily. Does check her weight daily and recently her weight has gone from 173 to 183 pounds. Vitals/I&O/Wt Last Vital Signs Temp 98.2 F 04/05/25 07:07 Pulse 65 04/05/25 07:07 Resp 25 H 04/05/25 07:07 BP 123/77 04/05/25 07:07 Pulse Ox 97 04/05/25 07:07 O2 Del Method Nasal Cannula 04/05/25 03:54 O2 Flow Rate 6 04/04/25 00:14 04/04/25 04/05/25 04/05/25 22:59 06:59 14:59 Intake Total 590 / 1190 300 / 1490 Output Total 2250 / 3850 1050 / 4900 400 / 400 Balance -1660 / -2660 -750 / -3410 -400 / -400 Weight last 48 hrs Weight 81.828 kg Weight 81.828 kg Weight 82.282 kg Weight 82.282 kg Weight 82.282 kg Physical Exam 2 Narrative: General: No acute distress, AO x3 HEENT: PERRLA, pupils bilaterally equal and reactive Chest: Normal vesicular breath sounds, no added sounds, equal good air entry bilaterally CVS: S1-S2 regular, pansystolic murmur at apex radiating to anterior axillary line 2/6, no tachycardia, no gallops, no rubs Abdomen: Soft, nontender, no organomegaly, bowel sounds present Neuro: No focal deficits, no facial deformity, AO x3, power 5/5 in all limbs Data 04/05/25 02:49 04/05/25 02:49 A&P Assessment and plan 1. Heart failure with reduced ejection fraction: 2. Acute on chronic systolic CHF (congestive heart failure), NYHA class 4: 3. Nonischemic cardiomyopathy: 4. Moderate pulmonary hypertension: 5. Moderate mitral valve regurgitation: 6. Right leg DVT: Plan: Plan for today: Repeat echocardiogram shows EF of 12.5% with severe diffuse hypokinesia of LV with somewhat dyskinetic interventricular septum, mildly decreased RV function, moderate to severe TR with PASP of 41 mmHg. Fluid restriction to 1200 cc. Continue with IV Lasix 40 mg for now. Will switch to oral Lasix twice daily from evening. Patient did have CT with contrast on admission, requires diuresis so for now we will hold off on Entresto. Will restart on discharge if renal functions remain stable. Dose of Eliquis. Repeat BMP in afternoon to monitor potassium. Replace accordingly. Out of bed to chair. PDMP PDMP Reviewed: Not Reviewed Attestations 2 Medical Necessity Statement*: Requires further hospitalization for management of acute on chronic systolic heart failure with EF of 12% Diagnoses Heart failure with reduced ejection fraction I50.20 Acute on chronic systolic CHF (congestive heart failure), NYHA class 4 I50.23 Nonischemic cardiomyopathy I42.8 Moderate pulmonary hypertension I27.20 Moderate mitral valve regurgitation I34.0 Right leg DVT I82.401
[2025-04-05 15:38] LABS: Blood Urea Nitrogen 29 mg/dL (6-20); Calcium 8.9 mg/dL (8.5-10.5); Carbon Dioxide 30 mmol/L (22-29); Chloride 100 mmol/L (98-107); Creatinine Clr Calc Pharmacy 96.1808; Glucose 89 mg/dL (65-115); Osmolality Calculated 295 mOsm/kg (285-295); Sodium 140 mmol/L (136-145)
[2025-04-05 15:43] LABS: Anion Gap 14.3 (5-19); Potassium 4.3 mmol/L (3.5-5.1)
[2025-04-06 00:46] VITALS: BP 116/68; PULSE 75; RESP 24; O2SAT 96
[2025-04-06 04:00] VITALS: BP 120/82; PULSE 74; RESP 17; TEMP 36.8; O2SAT 94
[2025-04-06 05:55] LABS: Hematocrit 36.3 % (36-47); Hemoglobin 11.00 g/dL (11.27-16.99); Mean Corpuscular HGB Conc 30.3 g/dL (30-55); Mean Corpuscular Hemoglobin 27.8 pg (27-33); Mean Corpuscular Volume 91.7 fl (85-98); Nucleated Red Blood Cells % 0 %; Platelet Count 250 10^3/cmm (157-399); Red Blood Count 3.96 10^6/uL (3.85-5.65); White Blood Count 4.54 10^3/uL (3.29-11.43)
[2025-04-06 06:13] LABS: Alanine Aminotransferase 13 U/L (0-33); Albumin Level 3.6 g/dL (3.5-5.2); Alkaline Phosphatase 54 U/L (35-105); Blood Urea Nitrogen 28 mg/dL (6-20); Calcium 8.9 mg/dL (8.5-10.5); Carbon Dioxide 29 mmol/L (22-29); Chloride 101 mmol/L (98-107); Creatinine Clr Calc Pharmacy 83.7391; Globulin 2.3 g/dL (1.3-4.6); Glucose 90 mg/dL (65-115); Osmolality Calculated 299 mOsm/kg (285-295); Sodium 142 mmol/L (136-145); Total Protein 5.9 g/dL (6.6-8.7)
[2025-04-06 06:24] LABS: Anion Gap 16.1 (5-19); Aspartate Amino Transferase 20 U/L (0-32); Potassium 4.1 mmol/L (3.5-5.1)
[2025-04-06 07:24] VITALS: BP 126/75; PULSE 68; RESP 20; TEMP 36.7; O2SAT 92
[2025-04-06 08:04] VITALS: RESP 18
[2025-04-06] MEDS: oxyCODONE 5 mg IR Tab/Cap PO (08:04)
--- NOTE | 2025-04-06 08:04 | PM.DCS ---
Discharge Providers Date of Admission: 04/04/25 02:14 Date of Discharge: April 06, 2025 Attending Provider at Admission: Samir Roland MD Attending Provider at Discharge: Alber Floyd MD Primary Care Provider: Brian Baez MD Diagnoses at Discharge Discharge Diagnosis 1. Heart failure with reduced ejection fraction: 2. Acute on chronic systolic CHF (congestive heart failure), NYHA class 4: 3. Nonischemic cardiomyopathy: 4. Moderate pulmonary hypertension: 5. Moderate mitral valve regurgitation: 6. Right leg DVT: Reason for Visit Reason for Visit: Weakness in the legs and abd pain Brief History: Per HPI As per the previous notes and the patient Madina Molina is a 54 year old female with past medical history of no ischemic cardiomyopathy and heart failure with reduced ejection fraction of around 20%, pulmonary embolism without cor pulmonale, moderate pulmonary hypertension, came with shortness of breath associated with fatigability and tiredness. She also reported recent increase in her lower leg swellings with mild orthopnea and PND. There is associated increase in her wt around 10 pounds over a week. There was no reported fever chills, abdominal pain diarrhea or any chest pain or chest pressure. Patient is compliant with her medication. Has been recently discharged due to acute on chronic congestive heart failure. The patient is not on home O2 and was requiring 2 to 3 L in the ER for her saturation to be around 90% and above. Rest of the review of system unremarkable Hospital Course Hospital Course Patient was admitted to the hospital further evaluation and management of acute on chronic hypoxic respiratory failure in setting of acute on chronic CHF exacerbation. She was started on aggressive IV diuresis. She reported recent weight gain of 10 pounds after episodes of gastroenteritis 2 weeks prior. She responded well to the treatment. Overall she is around 6 L negative and back to baseline respiratory status. On the day of discharge she was laying comfortably in bed on room air. Repeat echocardiogram was done which showed an EF of 12%. She did not have any episode of arrhythmia or chest pain during hospitalization. She is been discharged in medically stable condition on oral Lasix 40 mg every morning, 20 mg every afternoon with advised to restrict fluid intake to less than 1200 cc. She is to check her body weight daily at home and her body weight increases by 3 pounds she is to increase the evening dose of Lasix to 40 mg as well. Physical Exam Narrative: General: No acute distress, AO x3 HEENT: PERRLA, pupils bilaterally equal and reactive Chest: Normal vesicular breath sounds, no added sounds, equal good air entry bilaterally CVS: S1-S2 regular, pansystolic murmur at apex radiating to anterior axillary line 2/6, no tachycardia, no gallops, no rubs Abdomen: Soft, nontender, no organomegaly, bowel sounds present Neuro: No focal deficits, no facial deformity, AO x3, power 5/5 in all limbs Discharge Data Studies Completed and Pending Completed Studies During Hospitalization Category Date Time Status CTA chest CT abdomen pelvis [CT Angio Chest + Abdomen Cat Scan 04/03/25 22:50 Completed Pelvis w/ contrast; [id number] + [id number]] Stat CXRP [XR chest 1V portable [id number]] Routine Exams 04/04/25 05:43 Completed CV. echo complete* [id number] Routine Ultrasound 04/04/25 03:22 Completed US venous duplex lower extremity bilat [CV venous Ultrasound 04/03/25 20:31 [place] [id number]] Stat Pending at discharge Category Date Time Status Blood Culture Stat Lab 04/03/25 22:50 Received Radiology Impressions Venous Duplex 04/03/25 20:31 IMPRESSION: 1. No evidence of deep vein thrombosis. 2. Mild soft tissue edema of the bilateral lower extremities. Chest/Abdomen/Pelvis CT 04/03/25 22:50 IMPRESSION: 1. No acute pulmonary embolus or evidence of acute right heart strain. 2. Dilated pulmonary artery, which can be seen in the setting of pulmonary hypertension. 3. Moderate/severe cardiomegaly. Correlate with cardiac history/function. 4. Findings which can be seen with elevated right heart pressures. 5. Geographic lucencies in both lungs, which may represent sequela of air trapping and small airways disease. Given mild interlobular septal thickening, superimposed pulmonary vascular congestion is not excluded. IMPRESSION: 1. Indeterminate hepatic observation as above, favored to represent a benign entity such as hemangioma or cyst in the absence of hepatic parenchymal pathology. However, given provided history of lumpectomy, definitive characterization with multiphase CT/MRI could be obtained if clinically indicated. 2. A 7 mm linear hyperdensity in the cecum may represent ingested materials versus prior endoscopy clip. Correlate with patient history. 3. Small volume ascites and soft tissue anasarca, which may be sales representative of third-spacing. 4. Otherwise, no acute process in the abdomen or pelvis to explain the patient's symptoms. Chest X-Ray 04/04/25 05:43 IMPRESSION: 1. Cardiomegaly with mild interstitial and airspace opacities which may represent mild pulmonary edema. 2. Left perihilar opacities could represent atelectasis, edema, and/or infiltrate. Echocardiogram CONCLUSIONS Moderately increased left ventricular cavity size. Severe diffuse hypokinesis of the left ventricle with somewhat dyskinetic interventricular septum. LV ejection fraction of 12.5 %. Severely increased right atrial size. Severely increased left atrial volume 56.8 ml/m squared. Thickened mitral valve. Trace to mild mitral valve regurgitation. Trace aortic valve regurgitation. Wqjmdwci-la-qavlkv tricuspid valve regurgitation. Estimated pulmonary artery peak systolic pressure 41 mmHg Dmle-bh-dwalzqap pulmonary valve regurgitation. There is no pericardial effusion. There are no intracardiac masses. Compared to the study from 08/08/2024 there is some worsening of the LV systolic function Dr Susanna Scott MD [facility] (Electronically Signed) Final Date: 04 April 2025 10:24 Laboratory Results WBC 4.54 10^3/uL (3.29-11.43) 04/06/25 05:26 RBC 3.96 10^6/uL (3.85-5.65) 04/06/25 05:26 Hgb 11.00 g/dL (11.27-16.99) L 04/06/25 05:26 Hct 36.3 % (36-47) 04/06/25 05:26 MCV 91.7 fl (85-98) 04/06/25 05:26 MCH 27.8 pg (27-33) 04/06/25 05:26 MCHC 30.3 g/dL (30-55) 04/06/25 05:26 RDW 20.0 % (12.1-15.1) H 04/06/25 05:26 Plt Count 250 10^3/cmm (157-399) 04/06/25 05:26 MPV 8.4 fL (7.4-10.4) 04/06/25 05:26 Neut % (Auto) 62.4 % 04/06/25 05:26 Lymph % (Auto) 24.2 % 04/06/25 05:26 Jewell % (Auto) 10.8 % 04/06/25 05:26 Eos % (Auto) 2.0 % 04/06/25 05:26 Baso % (Auto) 0.4 % 04/06/25 05:26 Neut # (Auto) 2.83 10^3/uL (1.8-7.7) 04/06/25 05:26 Lymph # (Auto) 1.1 10^3/uL (0.8-4.8) 04/06/25 05:26 Jewell # (Auto) 0.5 10^3/uL (0.2-0.9) 04/06/25 05:26 Eos # (Auto) 0.1 10^3/uL (0.0-0.8) 04/06/25 05:26 Baso # (Auto) 0.0 10^3/uL (0.0-0.1) 04/06/25 05:26 Nucleated RBC % (auto) 0 % 04/06/25 05: Nucleated RBCs # 0.0 /100WBC 04/06/25 05:26 PT 27.30 SECONDS (12.1-14.9) H 04/03/25 23:11 INR 2.37 (0.8-1.2) H 04/03/25 23:11 APTT 32.1 SECONDS (23.9-36.7) 04/03/25 23:11 Specimen Type Arterial 04/03/25 00:04 Sample Site Radial, left 04/03/25 00:04 ABG pH 7.37 (7.35-7.45) 04/03/25 00:04 ABG pCO2 41.1 mmHg (35-45) 04/03/25 00:04 ABG pO2 98.5 mmHg (80.0-100.0) 04/03/25 00:04 ABG PO2/FiO2 Ratio 246 04/03/25 00:04 ABG HCO3 24.0 mmol/L (22-26) 04/03/25 00:04 ABG Base Excess -1.2 mmol/L (-2.0-2.0) 04/03/25 00:04 Russ Test Pos 04/03/25 00:04 Hematocrit 34.2 % (37-47) L 04/03/25 00:04 O2 Delivery Device Nc 04/03/25 00:04 O2 Liters/Min 5.0 % 04/03/25 00:04 FiO2 40.0 % 04/03/25 00:04 Staff Nuclear Medicine Technologist ID mary 04/03/25 00:04 Sodium 142 mmol/L (136-145) 04/06/25 05:26 Potassium 4.1 mmol/L (3.5-5.1) 04/06/25 05:26 Chloride 101 mmol/L (98-107) 04/06/25 05:26 Carbon Dioxide 29 mmol/L (22-29) 04/06/25 05:26 Anion Gap 16.1 (5-19) 04/06/25 05:26 BUN 28 mg/dL (6-20) H 04/06/25 05:26 Creatinine 0.8 mg/dL (0.5-0.9) 04/06/25 05:26 GFR Calculation 75.0 mL/min (90-130) L 04/06/25 05:26 Glucose 90 mg/dL (65-115) 04/06/25 05:26 Calculated Osmolality 299 mOsm/kg (285-295) H 04/06/25 05:26 Lactic Acid 0.9 mmol/L (0.5-2.2) 04/03/25 23:11 Calcium 8.9 mg/dL (8.5-10.5) 04/06/25 05:26 Phosphorus 4.5 mg/dL (2.5-4.5) 04/04/25 05:15 Magnesium 2.0 mg/dL (1.7-2.3) 04/04/25 05:15 Total Bilirubin 0.6 mg/dL (0.15-1.2) 04/06/25 05:26 AST 20 U/L (0-32) 04/06/25 05:26 ALT 13 U/L (0-33) 04/06/25 05:26 Alkaline Phosphatase 54 U/L (35-105) 04/06/25 05:26 Troponin T Baseline 26 ng/L (0-10) H 04/03/25 23:11 Troponin T 120 Minute 25.35 ng/L (0-10) H 04/04/25 00:43 Delta Troponin T -0.65 ABS# (0-10) L 04/04/25 00:43 Troponin T Hi Sens 6Hr 24.93 ng/L (0-10) H 04/04/25 05:15 Troponin T Hi Sens 6Hr Delta -1.07 ng/L (0-12) L 04/04/25 05:15 C-Reactive Protein 4.8 mg/L (0.0-4.9) 04/03/25 23:11 NT-Pro-B Natriuret Pep 72796 pg/mL (0-125) H 04/03/25 23:11 Total Protein 5.9 g/dL (6.6-8.7) L 04/06/25 05:26 Albumin 3.6 g/dL (3.5-5.2) 04/06/25 05:26 Globulin 2.3 g/dL (1.3-4.6) 04/06/25 05:26 TSH 3.42 uIU/mL (0.27-4.20) 04/04/25 05:15 Urine Color Yellow (Yellow) 04/03/25 22:00 Urine Appearance Clear (CLEAR) 04/03/25 22:00 Urine pH 5.0 (5-7) 04/03/25 22:00 Ur Specific Kramer 1.018 (1.005-1.030) 04/03/25 22:00 Urine Protein 1+ (Negative) A 04/03/25 22:00 Urine Glucose (UA) Negative (Normal) 04/03/25 22:00 Urine Ketones Negative (Negative) 04/03/25 22:00 Urine Blood 2+ (Negative) A 04/03/25 22:00 Urine Nitrate Negative (Negative) 04/03/25 22:00 Urine Bilirubin Negative (Negative) 04/03/25 22:00 Urine Urobilinogen 1.0 mg/dL (Negative) 04/03/25 22:00 Ur Leukocyte Esterase Negative (Negative) 04/03/25 22:00 Urine RBC 0-2 /hpf (0-2) 04/03/25 22:00 Urine WBC 0-5 /hpf (0-5) 04/03/25 22:00 Ur Squamous Epith Cells 0-5 /hpf (0-5) 04/03/25 22:00 Amorphous Sediment Not Reportable 04/03/25 22:00 Urine Bacteria None seen /hpf (NONE) 04/03/25 22:00 Hyaline Casts 7.01 /lpf 04/03/25 22:00 Adenovirus (PCR) Not detected (NOT DETECT) 04/03/25 23:11 C. pneumoniae DNA (PCR) Not detected (NOT DETECT) 04/03/25 23:11 Coronavirus 229E (PCR) Not detected (NOT DETECT) 04/03/25 23:11 Human Metapneumovir PCR Not detected (NOT DETECT) 04/03/25 23:11 Influenza A (H1) PCR Not detected (NOT DETECT) 04/03/25 23:11 Influ A (H1/09) PCR Not detected (NOT DETECT) 04/03/25 23:11 Influenza A (H3) PCR Not detected (NOT DETECT) 04/03/25 23:11 Influenza Type A (PCR) Not detected (NOT DETECT) 04/03/25 23:11 Influenza Type B (PCR) Not detected (NOT DETECT) 04/03/25 23:11 M. pneumoniae (PCR) Not detected (NOT DETECT) 04/03/25 23:11 Parainfluenza 1 (PCR) Not detected (NOT DETECT) 04/03/25 23:11 Parainfluenza 2 (PCR) Not detected (NOT DETECT) 04/03/25 23:11 Parainfluenza 3 (PCR) Not detected (NOT DETECT) 04/03/25 23:11 Parainfluenza 4 (PCR) Not detected (NOT DETECT) 04/03/25 23:11 RSV Type A (PCR) Not detected (NOT DETECT) 04/03/25 23:11 RSV Type B (PCR) Not detected (NOT DETECT) 04/03/25 23:11 Entero/Rhino (PCR) Not detected (NOT DETECT) 04/03/25 23:11 SARS-CoV-2 (PCR) Not detected (NOT DETECT) 04/03/25 23:11 Vitals Last Vital Signs Temp 98.0 F 04/06/25 07:24 Pulse 68 04/06/25 07:24 Resp 18 04/06/25 08:04 BP 126/75 04/06/25 07:24 Pulse Ox 92 04/06/25 07:24 O2 Del Method Nasal Cannula 04/05/25 19:09 O2 Flow Rate 6 04/04/25 00:14 Discharge Plan Discharge Patient Disposition: Home Condition: Stable Prescriptions: Continued sacubitril-valsartan [Entresto] 24-26 mg tablet 1 tab PO BID 90 Days Qty: 180 1RF carvedilol 3.125 mg tablet 3.125 mg PO BID 90 Days Qty: 180 1RF aspirin [Adult Low Dose Aspirin] 81 mg tablet,delayed release (DR/EC) 81 mg PO DAILY Qty: 90 1RF potassium chloride [Klor-Con 10] 10 mEq tablet extended release 10 meq PO DAILY Qty: 90 1RF fexofenadine [Kelsie Allergy] 180 mg tablet 180 mg PO DAILY PRN (Reason: allergies) Eliquis 5 mg tablet 5 mg PO BID Changed furosemide [Lasix] 40 mg tablet See Rx Instructions .ROUTE .COMPLEX Qty: 90 1RF Rx Instructions: 40 mg in AM, 20 mg in PM Discharge Order = DC NOW: Discharge Order (Routine); Ordered 04/06/25 Ordered By: Alber Floyd Referrals: Brian Baez MD [Primary Care Provider, [facility]] - 04/13/25 9:30 am Patient Instructions: Furosemide (By mouth) (Lasix), Heart Failure (DC), CHF Stoplight, Opioid Safety, Patient Portal & Rao Instructions Discharge Attestations Time Spent in Discharge Care*: greater than 30 min Specific Discharge Activities: educating patient, educating and/or supporting family/caregiver, discussing with pcp/other providers, discussing with embedded case manager/social workers/dc planners, documenting/other paperwork and evaluating patient/reviewing data Status at Discharge: Cognitive status at discharge: cognitively intact, Behavioral status at discharge: cooperative, Functional status at discharge: uses cane/walker, Overall status at discharge: patient is back to baseline Quality Metrics Clinical Quality Measures [ No reported AMI, CVA or VTE this stay] Coding Level of Care Code 24818 Total time (in minutes) for Discharge: 65 Diagnoses Heart failure with reduced ejection fraction I50.20 Acute on chronic systolic CHF (congestive heart failure), NYHA class 4 I50.23 Nonischemic cardiomyopathy I42.8 Moderate pulmonary hypertension I27.20 Moderate mitral valve regurgitation I34.0 Right leg DVT I82.401
--- NOTE | 2025-04-06 10:44 | PC.NURSE ---
Patient discharged to home. Instruction provided regarding follow up needs, heart failure and medications. Patient verbalized complete understanding. Patient taken by by wheelchair to private vehicle. All personal belongings sent with patient.
[2025-04-06 10:47] VITALS: BP 126/75; PULSE 67; RESP 16; O2SAT 91
== END 2025-04-06 10:49 | disposition home or self-care (01) | DRG 194 ==
LOC: ER 04-04 02:14 → CSU 04-04 02:35
PROVIDERS: Admitting Provider Student in an Organized Health Care Education/Training Program; Emergency Provider Emergency Medicine; PCP Family Medicine; Visit Provider Student in an Organized Health Care Education/Training Program
DX: I50.23 Acute on chronic systolic (congestive) heart failure (principal); I42.8 Other cardiomyopathies; I27.20 Pulmonary hypertension, unspecified; I05.9 Rheumatic mitral valve disease, unspecified; G47.33 Obstructive sleep apnea (adult) (pediatric); J96.01 Acute respiratory failure with hypoxia; Z86.718 Personal history of other venous thrombosis and embolism; Z79.01 Long term (current) use of anticoagulants; Z86.711 Personal history of pulmonary embolism; Z79.82 Long term (current) use of aspirin
CPT/HCPCS: 36415; 36600; 71045; 71275; 74177; 80048; 80053; 81001; 82803; 83605; 83735; 83880; 84100; 84443; 84484; 85025; 85610; 85730; 86140; 87040; 87486; 87581; 87633; 93005; 93306; 93970; 96374; 96375; 99285; J1938; J3490; J9999

== ENCOUNTER 2025-04-08 12:04 | Emergency (ER) | payer MEDICAID, SELFPAY ==
[2025-04-08 12:05] VITALS: BP 134/97; PULSE 82; RESP 18; TEMP 36.6; O2SAT 96
--- NOTE | 2025-04-08 12:09 | ECG_ITS ---
[facility] Test Date: 2025-04-08 Pat Name: Madina Molina Department: Room: Gender: Female County Assessor: : 1970 Requested By: Lexus Trevizo Order Number: [id number] Char MD: Adrian Amador M.D. Measurements Intervals [place] Rate: 78 P: 30 ND: 200 QRS: -46 QRSD: 173 T: 117 QT: 460 QTc: 527 Interpretive Statements SINUS RHYTHM LEFT AXIS DEVIATION [QRS AXIS < -30] INTRAVENTRICULAR CONDUCTION DELAY [130+ ms QRS DURATION] Compared to ECG 04/04/2025 05:13:56 Intraventricular conduction delay now present Left bundle-branch block no longer present Electronically Signed On 04-09-2025 13:09:15 [employer] by Adrian Amador M.D. [id number]
[2025-04-08 12:11] VITALS: BP 134/97; PULSE 82; RESP 18; TEMP 36.7; O2SAT 96
--- OUTSIDE RECORDS SUMMARY | 2025-04-08 12:11 | XMS_ITS | Clinical Summary ---
Author Organization [facility] Address [address] [place] [address] Phone Care Team Providers Care Dry Can Tender Name Role Phone Unavailable Primary Care Provider [...] mg) by mouth daily. 15 Tablet 3 5 05/09/20 25 Active nitroglycerin (NITROSTAT) 0.4 mg [...] External Device Data STL ABSTRACTION Provider, Abstract 01/03/2025 1:41 PM CDT - 01/08/2025 3:19 PM CDT Hospital Encounter [facility] [address] Cardiac [address] [place] [address] Connor Jeff MD Melton, Gregory A, DO [place], Hari Krishna, MD Acute on chronic combined systolic and diastolic congestive heart failure ([facility]) Discharge Disposition: Home or Self Care from Last 3 Months Social History Tobacco [...] worry about transportation for future doctor visits, picker tender medication, etc.? No 2024 Housing Stability Answer [...] METABOLIC PANEL Routine 01/06/2025 4:40 AM CDT from Last 3 Months Results * TELEMETRY REPORT (01/11/2025 3:45 AM CDT) us Provider Scanning ECG ORDERABLES Final Result * PTT (01/08/2025 4:42 AM CDT) Only the most recent of3 resultswithin the time period is included. Pathologist [facility] PTT 31.3 24.8 - 37.2 seconds 01/08/2025 5:28 AM CDT [facility] Blood Venipuncture / Unknown 01/08/2025 4:42 AM CDT 01/08/2025 5:04 AM CDT Narrative [facility] - 01/08/2025 5:28 AM CDT Therapeutic Range: Hi-level PE/DVT heparin protocol 80.1 - 95.0 sec Lo-level PE/DVT heparin protocol 70.1 - 85.0 sec Cardiac Heparin Protocol 70.1 - 100.0 sec Ian Dillon MD HEMATOLOGY ORDERABLES Fin al Result [facility] CLIA # [id number] [facility] [address] * (ABNORMAL) BASIC METABOLIC PANEL (01/08/2025 4:42 AM CDT) Only the most recent of3 resultswithin the time period is included. Pathologist [facility] SODIUM 139 136 - 145 mmol/L 01/08/2025 5:42 AM CDT [facility] POTASSIUM 3.9 3.5 - 5.1 mmol/L 01/08/2025 5:42 AM T [facility] CHLORIDE 99 98 - 107 mmol/L 01/08/2025 5:42 AM CDT [facility] CO2 31(H) 22 - 29 mmol/L 01/08/2025 5:42 AM CDT [facility] CALCIUM 9.3 8.6 - 10.0 mg/dL 01/08/2025 5:42 AM T [facility] BUN 28(H) 6 - 20 mg/dL 01/08/2025 5:42 AM CDT [facility] CREATININE 1.17(H) 0.51 - 0.95 mg/dL 01/08/2025 5:42 AM CDT [facility] GLUCOSE 94 74 - 99 mg/dL 01/08/2025 5:42 AM CDT [facility] GFR 56(L) >=60 mL/min/1. 73 sq meter 01/08/2025 5:42 AM CDT [facility] Comment:eGFR calculated with 2020 CKD-EPI equation. Vegetarian diet, extremely high or low muscle mass, and may affect results. Cystatin C with Glomerular Filtration Rate is a suitable alternative for these patients. ANION GAP 9 9 - 20 mmol/L 01/08/2025 5:42 AM T [facility] Blood Venipuncture / Unknown 01/08/2025 4:42 AM CDT 01/08/2025 5:04 AM CDT us Ian Dillon MD CHEMISTRY ORDERABLES Lyly l Result [facility] CLIA # [id number] [address] [address] * ECHO COMPLETE - CONTRAST AND STRAIN IF INDICATED (01/07/2025 1:26 PM CDT) EJECTION FRACTION 15 INTERFACE SYSTEM 01/07/2025 12:3 0 PM CDT Narrative INTERFACE SYSTEM - 01/07/2025 3:56 PM CDT [facility] Cardiovascular Services Echocardiography Laboratory [address] [place] [address] Transthoracic Echocardiography Patient: Madina Ramesh Study ID: ECHO COMPLETE - Gender: F : 1970 Age: 54 Room: [facility] Study Date: 01/07/2025 Pt Status: Inpatient Study Time: 12:30:14 PM [facility] #: [id number] Ordering:Ian Dillon Garnishment Specialist: EDWIN Indications and History: Pulmonary embolus. Cardiomyopathy. [...] (H) brittanie values outside specified reference range. [facility] Echo Labs are accredited with the Intersocietal Accreditation Commission - Echocardiography. Prepared and Electronically Authenticated Prince Adelaide Confirmed 01/07/2025 15:56 Procedure Note Prince Bryson MD - 01/07/2025 [facility] Cardiovascular Services Echocardiography Laboratory [address] [place] [address] Transthoracic Echocardiography Patient: Madina Ramesh Study ID: ECHO COMPLETE- Gender: F : 1970 Age: 54 Room: [facility] Study Date: 01/07/2025 Pt Status: Inpatient Study Time: 12:30:14 PM CSN #: [id number] Ordering:Ian Dillon Garnishment Specialist: EDWIN Indications and History: Pulmonary embolus. Cardiomyopathy.Dyspnea. [...] (H) brittanie values outside specified reference range. [facility] Echo Labs are accredited with the[facility] Accreditation Commission - Echocardiography. Prepared and Electronically Authenticated Prince Adelaide Confirmed 01/07/2025 15:56 us Ian Dillon MD ORDERABLES Final Res ult INTERFACE SYSTEM Refer to clinic/hospital department * (ABNORMAL) CBC WITHOUT DIFFERENTIAL (01/06/2025 10:07 PM CDT) [facility] WBC 4.5(L) 4.8 - 10.8 K/uL 01/06/2025 10:34 PM CDT [facility] RBC 3.87(L) 4.20 - 5.40 M/uL 01/06/2025 10:34 PM CDT [facility] HEMOGLOBIN 11.3(L) 12.0 - 16.0 g/dL 01/06/2025 10:34 PM CDT [facility] HEMATOCRIT 36.5 36.0 - 46.0 % 01/06/2025 10:34 PM CDT [facility] MCV 94.3 84.0 - 103.0 fL 01/06/2025 10:34 PM CDT [facility] MCH 29.2 27.0 - 34.0 pg 01/06/2025 10:34 PM CDT [facility] MCHC 31.0 30.0 - 35.0 g/dL 01/06/2025 10:34 PM CDT [facility] PLATELETS 268 140 - 440 K/uL 01/06/2025 10:34 PM CDT [facility] MPV 8.4(L) 8.9 - 12.8 fL 01/06/2025 10:34 PM [facility] RDW 17.1(H) 11.0 - 14.5 % 01/06/2025 10:34 PM [facility] RDW-STDEV 57.8(H) 37.0 - 54.0 fL 01/06/2025 10:34 PM CDT [facility] Blood Venipuncture / Unknown 01/06/2025 10:07 PM CDT 01/06/2025 10:29 PM CDT us Ian Dillon MD HEMATOLOGY ORDERABLES Fin al Result [facility] CLIA # [id number] [address] [place] [address] * EKG 12-LEAD (01/06/2025 6:28 PM CDT) 01/06/2025 6:28 PM CDT Narrative INTERFACE SYSTEM - 01/06/2025 7:43 [place] [address] Test Date: 2025-01-06 Pat Name: MADINA RAMESH Department: 12 Room: [facility] 01 Gender: Female Trencher Driver: [id number] : 1970 Requested By: Order Number: [id number] Char MD: Jennifer Parra Measurements Intervals [place] Rate: 88 P: 80 [place]: 186 QRS: -46 QRSD: 158 T: 107 QT: 416 QTc: 503 Interpretive Statements Normal sinus rhythm Possible Left atrial enlargement Left axis deviation Left bundle branch block Abnormal ECG Electronically Signed On 01-06-2025 19:43:39 CDT by Jennifer Parra Procedure Note Jennifer Parra, DO - 01/06/2025 [place] [address] Test Date: 2025-01-06 Pat Name: MADINA DOMITILA Department: 12 Room: [facility] 01 Gender: Female Trencher Driver: [id number] : 1970 Requested By: Order Number: [id number] Reading MD: Jennifer Parra Measurements Intervals [place] Rate: 88 P: 80 [place]: 186 QRS: -46 QRSD: 158 T: 107 QT: 416 QTc: 503 Interpretive Statements Normal sinus rhythm Possible Left atrial enlargement Left axis deviation Left bundle branch block Abnormal ECG Electronically Signed On 01-06-2025 19:43:39 CDT by Jennifer Parra us David Alvarado MD ECG ORDERABLES Final Resu lt INTERFACE SYSTEM Refer to clinic/hospital department from Last 3 Months Insurance RX INFOCROSSING Medicaid MEDICAID [place] Advance Directives For more information, please contact: [phone] * Full Code (Latest Code Status on File) Date Activated Date Inactivated Comments 01/03/2025 6:31 PM 01/08/2025 5:24 PM * Full Code Date Activated Date Inactivated Comments 09/09/2024 12:40 AM 09/11/2024 6:18 PM
--- OUTSIDE RECORDS SUMMARY | 2025-04-08 12:11 | XMS_ITS | Encounter Summary ---
Author Organization [facility] Address [address] [place] [address] Care Team Providers Care Voltage Inspector Name Role Phone Unavailable Primary Care Provider Unavailabl e Encounter Details Date Type Department Care Team (Late st Contact Info) Description 01/04/2025 Telephone [facility] Nuclear Medicine [address] [place] [address] Omaira Bland RN Social History [...] worry about transportation for future doctor visits, scrap picker medication, etc.? No 2024 Housing Stability [...] prior to transporting patient to [facility] for this test. 8. Is the patient able to lift their arms over their head for at least 30 minutes? 9. Is the patient able to be in a CT scanner for 30 minutes without needing anxiety medications? Ifneeded administer prior to arrival to this unit. Call back number [phone] Location: [facility] documented in this encounter Plan of Treatment Not on file documented as of this encounter Visit Diagnoses Not on filedocumented in this encounter
--- NOTE | 2025-04-08 12:20 | XR_ITS ---
WS: [id number] Exam: XR chest 1V portable [id number] Date/Time of Exam: 04/08/2025 12:20 PM Reason For Exam: cp Exam: XR chest 1V portable [id number] Comparison 04/04/2025. Marked cardiac enlargement unchanged. The lungs are clear and fully inflated. The mediastinum is normal in contour. Bony structures are intact. Mild thoracic scoliosis. XR/XR chest 1V portable [id number] IMPRESSION: 1. Cardiac enlargement. No acute process noted.
--- NOTE | 2025-04-08 12:27 | CT_ITS ---
WS: [id number] CT HEAD NONCONTRAST HISTORY: injury TECHNIQUE: Contiguous axial imaging performed through the brain. Bone and soft tissue windows. Sagittal and coronal reformats reviewed. All CT scans at [facility] use at least one of these dose optimization techniques: automated exposure control; mA and/or kV adjustment per patient size (includes targeted exams where dose is matched to clinical indication); or iterative reconstruction. DLP: 1082.28 mGy.cm COMPARISON: 08/12/2024 No acute intracranial hemorrhage, midline shift or mass effect. Mild atrophy and small vessel disease. Similar appearance of the brain as compared to the prior study. Ventricles: Normal size with no hydrocephalus. No inferior displacement of the cerebellar tonsils. Paranasal sinuses: As visualized are clear. Mastoid air cells: Well pneumatized. Calvarium and scalp: Skull is intact with no soft tissue edema or swelling. CT/CT head wo con* [id number] IMPRESSION: 1. No acute intracranial hemorrhage or edema. 2. No skull fracture. 3. Stable noncontrast CT head.
--- NOTE | 2025-04-08 12:29 | W.ED.CHESTPA ---
HPI - Chest Pain General: Chief Complaint: Chest Pain Stated Complaint: CP Dizzy Hit head on car Time Seen by Provider: 04/08/25 12:19 Source: patient Mode of arrival: ambulatory Limitations: no limitations History of Present Illness: 54-year-old female extensive medical history patient had recently been admitted here last week and discharged 2 days ago for CHF exacerbation. Patient states that over the last week she has continued to have some chest pains along with lightheadedness. Patient states that today she had also hit her head and now having a headache. She has had an ongoing chest pain as a send for weeks she states that it was current while she was here. States her dyspnea has improved she denies any vertigo. Denies any focal deficits. Related Data Home Medications ?Medication ?Instructions ?Recorded ?Confirmed fexofenadine 180 mg tablet 180 mg PO DAILY PRN allergies 08/07/24 04/08/25 (Kelsie Allergy) apixaban 5 mg tablet (Eliquis) 5 mg PO BID 04/04/25 04/08/25 Previous Rx's ?Medication ?Instructions ?Recorded aspirin 81 mg tablet,delayed 81 mg PO DAILY #90 tabs 02/25/25 release (Adult Low Dose Aspirin) carvedilol 3.125 mg tablet 3.125 mg PO BID 90 days #180 tabs 02/25/25 potassium chloride 10 mEq 10 meq PO DAILY #90 tabs 02/25/25 tablet,extended release (Klor-Con) sacubitril 24 mg-valsartan 26 mg 1 tab PO BID 90 days #180 tabs 02/25/25 tablet (Entresto) furosemide 40 mg tablet (Lasix) See Rx Instructions .Route 04/08/25 .COMPLEX #90 tabs Allergies Allergy/AdvReac Type Severity Reaction Status Date / Time hollis pepper Allergy Mild ALGY-Hives Verified 04/08/25 11:35 acetaminophen Allergy ALGY-Anaphy Verified 04/08/25 11:35 laxis black pepper Allergy ADR-Itching Verified 04/08/25 11:35 mushroom Allergy Unknown Verified 04/08/25 11:35 tomato Allergy ALGY-Rash Verified 04/08/25 11:35 PFSH ED PFSH: Medical History Pulmonary embolism Nonischemic cardiomyopathy Obstructive sleep apnea Degenerative disc disease Bipolar 1 disorder History of lipoma two tumors removed from her back Arthritis History of blood clots Moderate pulmonary valve regurgitation Severe tricuspid valve regurgitation Moderate mitral valve regurgitation Moderate pulmonary hypertension Right ventricular failure Acute exacerbation of CHF (congestive heart failure) EF 23%, grade 2 diastolic dysfunction, moderate MR, severe TR, moderate [place], biatrial enlargement, moderate pulmonary hypertension Open fracture of great toe of right foot Surgical History History of lumpectomy of right breast History of bilateral tubal ligation History of cardiac catheterization Family History Grandmother Cancer Paternal-breast Other CAD (coronary artery disease) Diabetes Hyperlipidemia Hypertension Denies family history of Clotting disorder Dementia Psychiatric illness Chronic kidney disease (CKD) Anesthesia complication Bleeding disorder Lung disease Stroke Social History Smoking and tobacco/nicotine status: never used tobacco/nicotine Alcohol intake: never Substance/Drug Use: never Lives independently: Yes Marital status: Legally Number of children: 2 Current occupational status: disabled Special fahad needs: No Agree to transfusion: Yes Physical Exam Const: COMMON NORMALS: no acute distress, patient oriented x3 and healthy appearing HENMT: COMMON NORMALS: normocephalic and atraumatic HEAD & SCALP: normocephalic and atraumatic Eye: COMMON NORMALS: Equal, round and reactive pupils present and EOMs intact bilaterally PUPIL: Yes Equal, round and reactive pupils present Neck/C-Spine: COMMON NORMALS: full ROM and supple Chest: COMMONS NORMALS: normal inspection of the chest and normal palpation of entire chest wall Resp: COMMON NORMALS: normal respiratory effort, No retractions, No use of accessory muscles and clear to auscultation bilaterally AUSCULTATION: clear to auscultation bilaterally Cardio: COMMON NORMALS: regular rate, regular rhythm and No murmurs present (Cardio) RATE: regular rate RHYTHM: regular rhythm GI: COMMON NORMALS: Normal to inspection, nondistended, normoactive bowel sounds present, Soft to palpation, non-tender and no masses PALPATION: Yes Soft to palpation Extremity: COMMON NORMALS: normal to inspection and full ROM Neuro: COMMON NORMALS: patient oriented x3, moves all extremities and no focal motor deficits Psych: COMMON NORMALS: mental status grossly normal, Normal thought process present and cooperative THOUGHT PROCESS: Normal thought process present Skin: COMMON NORMALS: no rashes or lesions noted and no wounds GENERAL SKIN EXAM: no rashes or lesions noted Course Vital Signs: Vital signs: Vital Signs Temperature 98.0 F 04/08/25 12:11 Pulse Rate 82 04/08/25 13:25 Respiratory Rate 16 04/08/25 13:25 Blood Pressure 135/97 04/08/25 13:25 Pulse Oximetry 96 04/08/25 13:25 Oxygen Delivery Me thod Room Air 04/08/25 13:04 MDM - Chest Pain Medical Decision Making Patient presents for chest pains been going on for over a week she also hit her head today and had a headache. Differential includes pulm emboli, ACS, skull fracture, intracerebral hemorrhage. Patient's been well-appearing here pain has been going on for over a week she was admitted just recently for same. Her troponin here is negative heart score is 3. Liver labs are normal as well chest x-ray reviewed showed no acute abnormalities head CT was normal as well. EKG here shows normal sinus rhythm heart rate [address] elevation QRS 173 QTc 494. She has been well-appearing here and stable for discharge she is to follow-up PCP and return if worsening I did go over all of her labs and EKG and imaging. She understands agrees to plan. Medical Records I reviewed the patient's medical records. Lab Data I reviewed the patient's lab results. 04/08/25 12:38 04/08/25 12:38 Radiology Impressions Chest X-Ray 04/08/25 12:20 IMPRESSION: 1. Cardiac enlargement. No acute process noted. Head CT 04/08/25 12:27 IMPRESSION: 1. No acute intracranial hemorrhage or edema. 2. No skull fracture. 3. Stable noncontrast CT head. Laboratory Results WBC 4.29 10^3/uL (3.29-11.43) 04/08/25 12:38 RBC 4.32 10^6/uL (3.85-5.65) 04/08/25 12:38 Hgb 12.10 g/dL (11.27-16.99) 04/08/25 12:38 Hct 38.6 % (36-47) 04/08/25 12:38 MCV 89.4 fl (85-98) 04/08/25 12:38 MCH 28.0 pg (27-33) 04/08/25 12:38 MCHC 31.3 g/dL (30-55) 04/08/25 12:38 RDW 20.9 % (12.1-15.1) H 04/08/25 12:38 Plt Count 270 10^3/cmm (157-399) 04/08/25 12:38 MPV 9.6 fL (7.4-10.4) 04/08/25 12:38 Neut % (Auto) 67.1 % 04/08/25 12:38 Lymph % (Auto) 21.2 % 04/08/25 12:38 [place] % (Auto) 8.4 % 04/08/25 12:38 Eos % (Auto) 1.9 % 04/08/25 12:38 Baso % (Auto) 1.2 % 04/08/25 12:38 Neut # (Auto) 2.88 10^3/uL (1.8-7.7) 04/08/25 12:38 Lymph # (Auto) 0.9 10^3/uL (0.8-4.8) 04/08/25 12:38 [place] # (Auto) 0.4 10^3/uL (0.2-0.9) 04/08/25 12:38 Eos # (Auto) 0.1 10^3/uL (0.0-0.8) 04/08/25 12:38 Baso # (Auto) 0.1 10^3/uL (0.0-0.1) 04/08/25 12:38 Nucleated RBC % (auto) 0 % 04/08/25 12:38 Nucleated RBCs # 0.0 /100WBC 04/08/25 12:38 PT 18.90 SECONDS (12.1-14.9) H 04/08/25 12:38 INR 1.48 (0.8-1.2) H 04/08/25 12:38 Sodium 142 mmol/L (136-145) 04/08/25 12:38 Potassium 3.7 mmol/L (3.5-5.1) 04/08/25 12:38 Chloride 104 mmol/L (98-107) 04/08/25 12:38 Carbon Dioxide 27 mmol/L (22-29) 04/08/25 12:38 Anion Gap 14.7 (5-19) 04/08/25 12:38 BUN 18 mg/dL (6-20) 04/08/25 12:38 Creatinine 0.7 mg/dL (0.5-0.9) 04/08/25 12:38 GFR Calculation 87.5 mL/min (90-130) L 04/08/25 12:38 Glucose 115 mg/dL (65-115) 04/08/25 12:38 Calculated Osmolality 297 mOsm/kg (285-295) H 04/08/25 12:38 Calcium 9.0 mg/dL (8.5-10.5) 04/08/25 12:38 Total Bilirubin 0.9 mg/dL (0.15-1.2) 04/08/25 12:38 AST 21 U/L (0-32) 04/08/25 12:38 ALT 13 U/L (0-33) 04/08/25 12:38 Alkaline Phosphatase 54 U/L (35-105) 04/08/25 12:38 Troponin T Baseline 17 ng/L (0-10) H 04/08/25 12:38 Total Protein 6.5 g/dL (6.6-8.7) L 04/08/25 12:38 Albumin 3.9 g/dL (3.5-5.2) 04/08/25 12:38 Globulin 2.6 g/dL (1.3-4.6) 04/08/25 12:38 Lipase 36 U/L (13-60) 04/08/25 12:38 All radiology interpretation(s) finalized by discharge EKG Data EKG 1: I personally reviewed and interpreted this EKG as follows: EKG interpretation date: 04/08/25 EKG interpretation time: 12:09 Interpretation: nsr hr [address] elevation qrs 173 qtc 494 Discharge Plan Discharge Patient Disposition: Home Clinical Impression: Atypical chest pain, Closed head injury Condition: Stable Prescriptions: No Action sacubitril-valsartan [Entresto] 24-26 mg tablet 1 tab PO BID 90 Days Qty: 180 1RF carvedilol 3.125 mg tablet 3.125 mg PO BID 90 Days Qty: 180 1RF aspirin [Adult Low Dose Aspirin] 81 mg tablet,delayed release (DR/EC) 81 mg PO DAILY Qty: 90 1RF potassium chloride [Klor-Con 10] 10 mEq tablet extended release 10 meq PO DAILY Qty: 90 1RF furosemide [Lasix] 40 mg tablet See Rx Instructions .ROUTE .COMPLEX Qty: 90 1RF Rx Instructions: 40 mg in AM, 20 mg in PM fexofenadine [Kelsie Allergy] 180 mg tablet 180 mg PO DAILY PRN (Reason: allergies) Eliquis 5 mg tablet 5 mg PO BID Discharge Orders: Discharge ED (Routine); Ordered 04/08/25 Ordered By: Lexus Trevizo Referrals: Brian Baez MD [Primary Care Provider, [facility]] - 1-3 days Discharge Diet: Advance as tolerated Discharge Activity: Resume usual activity Patient Instructions: Chest Pain (ED), Head Injury (ED) Print Language: [place] Coding Level of Care Code ED General Repairer for Rulag Sravanthi Heart Score HEART Score Components History: Slightly Suspicous EKG: Normal Age: 45-64 yrs Risk Factors: 1 or 2 Risk Factors Troponin: Baseline Trop <16 ng/L HEART Score RESULT HEART Score: 2
[2025-04-08 12:51] LABS: Hematocrit 38.6 % (36-47); Hemoglobin 12.10 g/dL (11.27-16.99); Mean Corpuscular HGB Conc 31.3 g/dL (30-55); Mean Corpuscular Hemoglobin 28.0 pg (27-33); Mean Corpuscular Volume 89.4 fl (85-98); Nucleated Red Blood Cells % 0 %; Platelet Count 270 10^3/cmm (157-399); Red Blood Count 4.32 10^6/uL (3.85-5.65); White Blood Count 4.29 10^3/uL (3.29-11.43)
[2025-04-08 12:58] LABS: INR 1.48 (0.8-1.2); Prothrombin Time 18.90 SECONDS (12.1-14.9)
[2025-04-08 13:04] VITALS: BP 135/97; PULSE 82; RESP 17; O2SAT 95
[2025-04-08 13:04] LABS: Alanine Aminotransferase 13 U/L (0-33); Albumin Level 3.9 g/dL (3.5-5.2); Alkaline Phosphatase 54 U/L (35-105); Aspartate Amino Transferase 21 U/L (0-32); Blood Urea Nitrogen 18 mg/dL (6-20); Calcium 9.0 mg/dL (8.5-10.5); Carbon Dioxide 27 mmol/L (22-29); Chloride 104 mmol/L (98-107); Creatinine Clr Calc Pharmacy 90.7501; Globulin 2.6 g/dL (1.3-4.6); Glucose 115 mg/dL (65-115); Lipase 36 U/L (13-60); Osmolality Calculated 297 mOsm/kg (285-295); Sodium 142 mmol/L (136-145); Total Protein 6.5 g/dL (6.6-8.7)
[2025-04-08 13:05] LABS: Anion Gap 14.7 (5-19); Potassium 3.7 mmol/L (3.5-5.1)
[2025-04-08 13:06] LABS: Troponin(5th) Baseline 17 ng/L (0-10)
[2025-04-08 13:25] VITALS: BP 135/97; PULSE 82; RESP 16; O2SAT 96
== END 2025-04-08 13:26 | disposition home or self-care (01) ==
PROVIDERS: Emergency Provider Emergency Medicine; PCP Family Medicine
DX: R07.89 Other chest pain (principal); S09.8XXA Other specified injuries of head, initial encounter; Z79.01 Long term (current) use of anticoagulants; Z79.82 Long term (current) use of aspirin; X58.XXXA Exposure to other specified factors, initial encounter; I50.9 Heart failure, unspecified
CPT/HCPCS: 70450; 71045; 80053; 83690; 84484; 85025; 85610; 93005; 99285; J8597

== ENCOUNTER 2025-04-15 09:28 | Outpatient (CLI) | payer MEDICAID, SELFPAY ==
--- NOTE | 2025-04-15 10:00 | MM_ITS ---
WS: [id number] BILATERAL 3D TOMOSYNTHESIS DIGITAL DIAGNOSTIC MAMMOGRAPHY WITH CAD CLINICAL INFORMATION: LEFT breast pain HISTORY: LEFT breast lump COMPARISON: 2022 TECHNIQUE: Bilateral CC, MLO, and ML views. FINDINGS: Scattered fibroglandular densities bilaterally. Scattered bilateral benign punctate and lucent centered calcifications. Palpable marker upper outer LEFT breast with normal underlying parenchymal tissue. Ultrasound described below. ULTRASOUND BREAST LEFT TECHNIQUE: Ultrasound left breast focused area of concern. CLINICAL INFORMATION: LEFT breast pain FINDINGS: Ultrasound LEFT breast area of palpable concern at the 2 o'clock position axillary tail near the collarbone. Normal underlying parenchymal tissue. No cystic or solid lesions. No suspicious findings in the area of concern. MM/MM diag BI tomosynthesis [id number] IMPRESSION: DENSITY: There are scattered areas of fibroglandular density. BI-RADS: 2 - Benign. FOLLOW UP: 1 Year Follow-up Recommend return to annual screening mammography.
--- NOTE | 2025-04-15 11:40 | US_ITS ---
WS: [id number] BILATERAL 3D TOMOSYNTHESIS DIGITAL DIAGNOSTIC MAMMOGRAPHY WITH CAD CLINICAL INFORMATION: LEFT breast pain HISTORY: LEFT breast lump COMPARISON: 2022 TECHNIQUE: Bilateral CC, MLO, and ML views. FINDINGS: Scattered fibroglandular densities bilaterally. Scattered bilateral benign punctate and lucent centered calcifications. Palpable marker upper outer LEFT breast with normal underlying parenchymal tissue. Ultrasound described below. ULTRASOUND BREAST LEFT TECHNIQUE: Ultrasound left breast focused area of concern. CLINICAL INFORMATION: LEFT breast pain FINDINGS: Ultrasound LEFT breast area of palpable concern at the 2 o'clock position axillary tail near the collarbone. Normal underlying parenchymal tissue. No cystic or solid lesions. No suspicious findings in the area of concern. US/US breast LT limited* [id number] IMPRESSION: DENSITY: There are scattered areas of fibroglandular density. BI-RADS: 2 - Benign. FOLLOW UP: 1 Year Follow-up Recommend return to annual screening mammography.
== END 2025-04-15 09:29 | disposition home or self-care (01) ==
LOC: RAD 09:30
PROVIDERS: PCP Family Medicine; Visit Provider Family Medicine
DX: N64.4 Mastodynia (principal); R92.323 Mammographic fibroglandular density, bilateral breasts; R92.1 Mammographic calcification found on diagnostic imaging of breast
CPT/HCPCS: 76642; 77062; G0279

== ENCOUNTER → 2025-04-28 14:21 | Outpatient (BNVA) | payer MEDICAID, SELFPAY | PROVIDERS: PCP Family Medicine; Referring Provider Family Medicine; Visit Provider Internal Medicine | DX: I08.1 Rheumatic disorders of both mitral and tricuspid valves (principal); I27.20 Pulmonary hypertension, unspecified; I50.810 Right heart failure, unspecified; F31.9 Bipolar disorder, unspecified; I50.20 Unspecified systolic (congestive) heart failure; I37.1 Nonrheumatic pulmonary valve insufficiency | CPT/HCPCS: 99214 ==